=== PATIENT | male | born 1955 | race Caucasian/White ===

== ENCOUNTER 2018-03-20 10:11 | Observation (INO) | payer MEDICARE, SELFPAY ==
[2018-03-20] VITALS (13 sets, daily range): BP systolic 139–171; BP diastolic 80–117; PULSE 73–97; RESP 12–20; TEMP 36.3–36.9; O2SAT 94–98
--- NOTE | 2018-03-20 | DI.NM.S_ITS ---
PROCEDURE: NM [facility] PERF SPECT R&S PHARM Rest and pharmacological stress myocardial perfusion SPECT with gated imaging and ejection fraction RADIOPHARMACEUTICAL: 25.5 mCi Tc-99m tetrafosmin IV at rest and 26.3 mCi Tc-99m tetrafosmin IV at peak effect of pharmacological stress. [id number] was performed. INDICATIONS: chest pain TECHNIQUE: Radiopharmaceutical was injected at peak stress test, and also at rest. SPECT images were obtained. SPECT myocardial perfusion images were displayed in short axis, horizontal long axis, and vertical long axis views. Gated images were reviewed using Audiosocket software. COMPARISON: None. CARDIAC STRESS: A pharmacologic stress test was performed under the supervision of an attending staff, using an infusion of lexiscan 0.4mg IV X1. Hemodynamic data: There is normal blood pressure and heart rate response to pharmacologic stress. Symptoms: The patient denied anginal chest pain. Aminophylline: none EKG: Sinus rhythm with non-specific ST changes. No diagnostic changes of ischemia with lexiscan; no ectopy. FINDINGS: Raw data: There is good myocardial uptake of radiotracer. No significant motion artifacts. Left ventricle function: Gated images demonstrate normal left ventricular wall thickening. No segmental wall motion abnormalities. No transient ischemic dilation. Left ventricle resting end diastolic volume is 99 mL. Left ventricle stress ejection fraction is 68%; normal range is above 45%. Myocardial perfusion: There is a very small area of mildly severe fixed defect at the apex that could be apical thinning artifact or prior small non-transmural infarct. No ischemia present. Prone images not obtained due to patient condition. IMPRESSION: Abnormal pharmaceutical nuclear stress test. No ischemia present. 1) Abnormal pharmaceutical nuclear stress test. There is a very small area of mildly severe fixed defect at the apex that could be apical thinning artifact or prior small non-transmural infarct. SSS is 2. No ischemia present. 2) Normal left ventricular size, wall motion, and systolic function (post stress EF 68%). 3) No ECG evidence of ischemia with lexiscan. 4) No angina with lexiscan. 5) No prior nuclear stress test available for comparison. Dictated by: Lorraine Zuluaga MD on 03/24/2018 at 13:18 Approved by: Lorraine Zuluaga MD on 03/24/2018 at 13:24
--- NOTE | 2018-03-20 | DI.ECHO.S_ITS ---
[facility] +---------+ : : [address] : [place] : : : : [id number] : : : : Phone: [phone] Echocardiogram Report + + :Name: DAISY REYES Study Date: 03/20/2018 Height: 69 in : :[facility] Weight: 215 lb : : Gender: Male BSA: 2.1 m2 : :: 1955 Age: 62 yrs BP: 154/101 mmHg: :Reason For Study: Angina : :History: COPD : :Ordering Physician: Donald : :Hospitalist Performed By: Paz Soto : :Referring: UNSPECIFIED : + + Interpretation Summary Technically difficult study 1. The left ventricle is not optimally visualized, the EF appears grossly normal. 2. Right ventricle is not well visualized. 3. No valves were optimally visualized. With limited assessment of the mitral and aortic valves, there does not appear to be any hemodynamically significant regurgitation or stenosis (by Doppler) There is no old study available for review Procedure: A two-dimensional transthoracic echocardiogram with color flow and Doppler was performed. The study quality was technically limited. Image quality is poor. A contrast injection of Definity was performed to improve assessment of LV function. The patient was in normal sinus rhythm during the exam. The patient had occasional PVCs during the exam. Left Ventricle: The left ventricle is not well visualized. The left ventricular ejection fraction is grossly normal. Even with contrast, difficult to assess for focal wall motion abnormalities. Right Ventricle: Right ventricular function cannot be assessed due to poor image quality. Atria: The left atrial size is normal. Right atrium not well visualized. Mitral Valve: The mitral valve is grossly normal. There is probably trace to mild mitral regurgitation. Aortic Valve: The aortic valve is not well visualized. There is no aortic valve stenosis. No doppler evidence for valvular stenosis. No aortic regurgitation is present. Tricuspid Valve: The tricuspid valve is not well visualized. Pulmonary artery pressures cannot be estimated because of the lack of a measurable TR jet velocity. Pulmonic Valve: The pulmonic valve is not well visualized. Great Vessels: The aortic root is not well visualized. The ascending aorta could not be visualized. The IVC is of normal diameter and collapses greater than 50% with a sniff. This suggests a low right atrial pressure of 3 mm Hg. Pericardium/ Pleura There is no pericardial effusion. MMode/2D Measurements & Calculations LA A2 area: 18.2 cm2 IVC diam: 1.4 cm LA A4 area: 12.8 cm2 LA length (vol): 3.9 cm LA vol: 50.1 ml LA vol index: 23.5 ml/m2 Doppler Measurements & Calculations Ao V2 max: 152.0 cm/sec LVOT Max Oswaldo: 85.9 cm/sec Ao V2 mean: 98.7 cm/sec LV V1 max P.0 mmHg Ao max P.2 mmHg LV V1 VTI: 15.4 cm Ao mean P.6 mmHg sev ratio: 0.66 Ao V2 VTI: 23.5 cm MV E max oswaldo: 61.6 cm/sec MV P1/2t max oswaldo: 61.8 cm/sec MV A max oswaldo: 106.8 cm/sec MVA(P1/2t): 2.9 cm2 MV E/A: 0.58 Med Peak E' Oswaldo: 5.4 cm/sec E/E' med: 11.5 Lat Peak E' Oswaldo: 7.3 cm/sec E/E' lat: 8.5 E/e' average: 10.0 MV dec time: 0.26 sec MV P1/2t: 75.0 msec Reading Physician:WAI
--- NOTE | 2018-03-20 10:35 | DI.RAD.S_ITS ---
PROCEDURE: XR CHEST 2V INDICATIONS: right sided stabbing chest pain x 1 week TECHNIQUE: 2 views of the chest were acquired. COMPARISON: [facility], , CHEST 2 VIEW, 10/07/2014, 7:59. [facility], , CHEST 1 VIEW, 01/08/2015, 10:33. [facility], , CHEST 1 VIEW, 12/22/2015, 15:19. FINDINGS: Surgical changes and devices: Left shoulder arthroplasty hardware is seen. Lungs and pleura: No pleural effusions or pneumothorax. Lungs are clear. The lungs are hyperexpanded, with flattening of the hemidiaphragms seen. Mediastinum: Mediastinal contours are normal. Heart size is normal. Bones and chest wall: No suspicious bony abnormalities. Remote left posterior rib fractures are seen. Age-appropriate bony degenerative changes are seen. Mild dextroconvex scoliotic curvature is seen. Soft tissues appear unremarkable. IMPRESSION: Hyperexpanded lungs, without an acute cardiopulmonary process identified. No right-sided pneumothorax or other significant abnormality can be seen. Dictated by: Karri Merchant M.D. on 03/20/2018 at 9:53 Approved by: Karri Merchant M.D. on 03/20/2018 at 9:54
[2018-03-20] MEDS: ASPIRIN 81 MG TAB 324 MG PO (10:45)
[2018-03-20 10:52] LABS: Add Manual Diff / Slide Review NO; Eosinophils Percent Auto 2.3 % (2-4); Hematocrit 41.1 % (41-53); Hemoglobin 13.9 g/dL (13.5-17.5); Lymphocytes Percent Auto 27.9 % (25-40); Mean Corpuscular HGB Conc 33.9 % (30-36); Mean Corpuscular Hemoglobin 34.5 PG (26-34); Mean Corpuscular Volume 101.9 fL (80-100); Monocytes Percent Auto 10.5 % (3-14); Neutrophils Absolute Auto 4300 /uL (3000-5900); Neutrophils Percent Auto 58.3 % (50-75); Platelet Count 157 X10^3/uL (150-400); Red Blood Cell Count 4.03 X10^6/uL (4.5-5.9); Red Cell Distribution Width 14.2 % (11.6-14.8); White Blood Cell Count 7.4 X10^3/uL (4.5-11.0)
[2018-03-20 10:57] LABS: Prothrombin Time 10.6 SECONDS (10.1-12.7)
[2018-03-20 10:59] LABS: D Dimer 328 ng/mL (<230); PTT Partial Thromboplastin Tim 28 SECONDS (26.4-36.2)
[2018-03-20 11:04] LABS: Alanine Aminotransferase 65 IU/L (21-72); Albumin 4.2 g/dL (3.5-5.0); Albumin Globulin Ratio 1.4 (1.0-2.8); Alkaline Phosphatase 60 U/L (38-126); Aspartate Aminotransferase 81 IU/L (17-59); BUN Creatinine Ratio 12.9 (6-22); Bilirubin Total 0.8 mg/dL (0.2-1.3); Blood Urea Nitrogen 9 mg/dL (9-20); Calcium 9.8 mg/dL (8.4-10.2); Carbon Dioxide 26 mmol/L (22-32); Chloride 101 mmol/L (98-107); Creatine Kinase 815 U/L (55-170); Estimated Glomerular Filt Rate > 60.0 mL/min (>60); Glucose 94 mg/dL (80-110); HEMOLYSIS < 15 (0-50); Lipase 154 U/L (23-300); Potassium 4.2 mmol/L (3.4-5.1); Sodium 141 mmol/L (137-145); Total Protein 7.2 g/dL (6.3-8.2)
--- NOTE | 2018-03-20 11:07 | DI.CT.S_ITS ---
PROCEDURE: CT ANGIO CHEST PE PROTOCOL INDICATIONS: right sided chest pain w/ elevated d-dimer TECHNIQUE: After the administration of intravenous contrast, 2 mm thick sections acquired from the pulmonary apices to the posterior costophrenic angles. 3-dimensional maximum intensity projection (MIP) coronal and sagittal reformats were then acquired through the thorax. For radiation dose reduction, the following was used: automated exposure control, adjustment of mA and/or kV according to patient size. COMPARISON: None. FINDINGS: Image quality: Excellent. Pulmonary arteries: Pulmonary arteries are normal in size, and demonstrate no intraluminal filling defects to suggest central pulmonary embolism. Lungs and pleura: Lungs are clear. No pleural effusions or pneumothorax. Central and peripheral airways are patent. Mediastinum: Heart size is normal, without pericardial effusion. Atherosclerotic calcifications are noted in the aorta, great vessels and the coronary vasculature. No mediastinal or hilar adenopathy. Thoracic aorta is normal in caliber and enhancement. Esophagus is normal in caliber, without hiatal hernia. Bones and chest wall: No suspicious bony lesions. Acute/subacute fracture involving the anterior right fifth rib is noted. Chronic fractures involving the lateral right fifth rib and the posterior-lateral right sixth rib are noted. Spine degenerative disc disease and facet arthropathy.Thyroid gland is within normal limits review. 1.1 cm left axillary lymph node is noted. No supraclavicular adenopathy. Abdomen: Visualized upper abdominal solid organs appear normal in the early arterial phase of enhancement. IMPRESSION: 1. No pulmonary embolus. 2. No acute lung opacities. 3. Atherosclerosis including dense atherosclerotic calcifications of the coronary vasculature. 4. Acute/subacute anterior right fifth rib fracture. 5. Chronic right fifth and sixth rib fractures. 6. Left axillary lymphadenopathy which could be reactive or neoplastic. Dictated by: Maegan Mazariegos MD, PhD on 03/20/2018 at 11:41 Approved by: Maegan Mazariegos MD, PhD on 03/20/2018 at 11:49
[2018-03-20 11:15] LABS: Troponin I 0.014 ng/mL (0.01-0.034)
[2018-03-20 11:20] LABS: CKMB % Relative Index 0.6 % (1.5-5.0); Creatine Kinase MB 5.22 ng/mL (<2.37)
[2018-03-20] MEDS: NITROGLYCERIN 0.4 MG SL TAB SL ×2 (12:20→12:32)
--- NOTE | 2018-03-20 12:38 | PC.NURSE ---
Between [id number] NTG admin. Pt. admin 3 NTG. Pain decreased from 5/10 to 4/10 upon completion. VS remain slightly HTN, pt. HR increases when standing or sitting upright but is otherwise WNL when laying doqwn. PT. only request is food tray.
--- NOTE | 2018-03-20 12:45 | ED.CHESTPAIN ---
HPI - Chest Pain General Chief Complaint: Chest Pain Stated Complaint: chest pains History of Present Illness HPI narrative: HPI 62-year-old male former smoker with HTN and a prior CVA with secondary left sided weakness presents for evaluation of one week of moderate to severe stabbing right-sided substernal chest pain that radiates towards his back is without clear provoking or relieving factors. Patient is without a history of DVT or PE. Takes no aspirin. No prior stress test, no known CAD. M/S/F/SocHx notable for: please see HPI; remainder reviewed with patient and in chart. ROS: Negative constitutional, eye, cardiovascular, pulmonary, GI, , MSK, skin, neurologic, psychiatric, endocrine unless noted in the HPI. Exam HR 92, BP 171/107, RR 20, temperature 97.3?F, SaO2 97% on room air. Gen: Pleasant, non-toxic appearing, resting comfortably. HEENT: NC, AT, PEERL, EOMI. Resp: Clear to auscultation bilaterally, normal work of breathing. Card: RRR with no M/R/G, no crackles in lung bases, no pedal edema, no JVD appreciated. GI: nontender to palpation throughout all quadrants, no epigastric tenderness palpation, no rebound, no guarding. Vascular: Both ankles, calves, and thighs of equal size, no calf tenderness to palpation bilaterally. MSK: No chest wall TTP. Left sided contractures, otherwise no visible deformities with strength and tone within normal limits. Skin: Normal color with no visible lesions. Neuro: AO x 3, no facial asymmetry, vision and hearing WNL. Psych: Mood and affect appropriate. Labs / Imaging (pertinent): WBC 7.4, Hb 13.9, PTT/INR 1.0, Na 141, K 4.2, total bilirubin 0.8, AST 81, ALT 65, alkaline phosphatase 60, lipase 154. troponin 0.014 d-dimer 328 EKG: SR 83 bpm with sinus arrhythmia, proximally [address] elevation aVR with diffuse ~0.[address] depression in leads II, III, V3, V4, V5, V6, nonspecific J-point elevation in V1. ECG compared with prior dated 01/08/15 as well as 12/22/15, no significant change in morphology. CXR: No acute cardiopulmonary disease process. CTA chest: no pulmonary embolus. No acute lung capacities para atherosclerosis including dense atherosclerotic calcifications of the coronary vasculature. Acute/subacute anterior right 5th rib fracture. Chronic right 5th and 6th rib fractures. Left axillary lymphadenopathy which could be reactive or neoplastic. MDM Previous chart, nursing note, and vitals reviewed. A: 62-year-old male former smoker with HTN and a prior CVA with secondary left sided weakness presents for evaluation of one week of moderate to severe stabbing right-sided substernal chest pain that radiates towards his back is without clear provoking or relieving factors. DDx and Evaluation: * ACS - doubt ACS given a non-ischemic EKG and a negative troponin greater than six hours from maximal symptom onset. * UA - unlikely given the atypical history and alternate diagnosis. HEART score value (Hx - 1, EKG - 2, age - 1, risk factors - 2, troponin - 0; 30 day MACE: 12-16.6%). * Pericarditis - consider pericarditis unlikely given the lack of AK segment depressions as well as the absence of diffuse ST-segment elevations, lack of reduction of pain when supine, and lack of a friction rub. * Myocarditis - unlikely given the negative troponin and an EKG without characteristic AK-segment or ST-segment changes. * Dissection - dissection is unlikely given symptoms, and lack of mediastinal widening. While not definitively excluded, no abnormalities were noted on the CTA chest, and further evaluation is deferred to the accepting physician. * PE - Wells' (Signs & Sx of DVT - 0, PE is #1 or equally likelihood - 0, HR > 100 - 0, immobilization of >=3 days or surgery in last 28 days - 0, prior DVT or PE - 0, hemoptysis - 0, malignancy w/ tx in last 6 mo or palliative - 0) 0; as such the patient's positive d-dimer was appropriate for initial risk stratification, this was positive, subsequent CTA without evidence of PE. * Mediastinal Air - no evidence by CXR or auscultation. * Pneumothorax - no evidence by CXR or physical exam. * MSK - doubt given lack of reproducibility on exam. Possible acute rib fractures noted on imaging, no tenderness to palpation in these areas on physical exam. * Endocarditis - no identifiable risk factors, patient afebrile, no new murmurs appreciated on exam; doubt. * GI (Esophageal rupture, GERD) - esophageal rupture effectively excluded given the lack of mediastinal widening, non-toxic appearance, and lack of identifiable risk factors. While not definitively excluded, further evaluation of GERD is deferred to an outpatient setting. ED Course: Patient given ASA and Q5 minutes PRN SL nitroglycerin. Vital signs remained stable and within clinically acceptable limits. Disposition: Admitted for cardiac evaluation. Impression: Chest Pain. (please reference below for remainder of encounter information) Related Data Home Medications Medication Instructions Recorded Confirmed allopurinol 300 mg PO DAILY 03/20/18 03/20/18 lisinopril 20 mg PO DAILY 03/20/18 03/20/18 oxycodone 1 tab PO PRN PRN 03/20/18 03/20/18 Allergies Allergy/AdvReac Type Severity Reaction Status Date / Time No Known Allergies Allergy Uncoded 03/20/18 10:30 [facility] Social History Smoking Status: Former smoker Exam Initial Vital Signs Initial Vital Signs: Vital Signs Temperature 97.3 F L 03/20/18 10:18 Pulse Rate 92 H 03/20/18 10:18 Respiratory Rate 20 03/20/18 10:18 Blood Pressure 171/107 H 03/20/18 10:18 Pulse Oximetry 97 03/20/18 10:18 Course Orders Ordered: ED Orders 03/20/18 10:27 EKG-12 Lead Stat 03/20/18 10:30 Complete Blood Count AUTO DIFF Stat Comprehensive Metabolic Panel Stat D Dimer Stat Lipase Stat Partial Thromboplastin Time Stat Prothrombin Time INR Stat Troponin & CK Cardiac Panel Stat 03/20/18 10:35 XR chest 2V Stat 03/20/18 11:07 CT angio chest PE protocol Stat Nitroglycerin (Nitrostat) 0.4 mg SL [id number] PRN PRN Reason: Chest Pain Last Admin: 03/20/18 12:32 Dose: 0.4 mg Admin: 03/20/18 12:20 Dose: 0.4 mg Discontinued Medications Aspirin (Aspirin Chew) 324 mg PO NOW ONE Stop: 03/20/18 10:36 Last Admin: 03/20/18 10:45 Dose: 324 mg Vital Signs - 8 hr 03/20/18 10:18 03/20/18 11:15 03/20/18 12:00 Temperature 97.3 F L Pulse Rate 92 H 76 77 Respiratory Rate 20 14 13 Blood Pressure 171/107 H Blood Pressure [Left Arm] 140/96 H 146/92 H Pulse Oximetry 97 97 97 03/20/18 12:20 03/20/18 12:24 03/20/18 12:32 Temperature Pulse Rate 97 H 96 H 76 Respiratory Rate Blood Pressure 164/92 H 139/117 H 142/90 H Blood Pressure [Left Arm] Pulse Oximetry 03/20/18 12:37 Temperature Pulse Rate 73 Respiratory Rate Blood Pressure 142/90 H Blood Pressure [Left Arm] Pulse Oximetry MDM - Chest Pain Lab Data Result diagrams: 03/20/18 10:30 03/20/18 10:30 Lab Results 03/20/18 03/20/18 03/20/18 Range/Units 10:30 10:30 10:30 WBC 7.4 (4.5-11.0) X10^3/uL RBC 4.03 L (4.5-5.9) X10^6/uL Hgb 13.9 (13.5-17.5) g/dL Hct 41.1 (41-53) % MCV 101.9 H (80-100) fL MCH 34.5 H (26-34) PG MCHC 33.9 (30-36) % RDW 14.2 (11.6-14.8) % Plt Count 157 (150-400) X10^3/uL Neut % (Auto) 58.3 (50-75) % Lymph % (Auto) 27.9 (25-40) % [place] % (Auto) 10.5 (3-14) % Eos % (Auto) 2.3 (2-4) % Baso % (Auto) 1.0 (0-2) % Neut # (Auto) 4300 (6371-5007) /uL PT 10.6 (10.1-12.7) SECONDS INR 1.0 (0.9-1.3) APTT 28 (26.4-36.2) SECONDS D-Dimer 328 H (<230) ng/mL Sodium 141 (137-145) mmol/L Potassium 4.2 (3.4-5.1) mmol/L Chloride 101 (98-107) mmol/L Carbon Dioxide 26 (22-32) mmol/L BUN 9 (9-20) mg/dL Creatinine 0.70 (0.66-1.25) mg/dL Estimated GFR > 60.0 (>60) mL/min BUN/Creatinine Ratio 12.9 (6-22) Glucose 94 (80-110) mg/dL Calcium 9.8 (8.4-10.2) mg/dL Total Bilirubin 0.8 (0.2-1.3) mg/dL AST 81 H (17-59) IU/L ALT 65 (21-72) IU/L Alkaline Phosphatase 60 (38-126) U/L Total Creatine Kinase 815 H (55-170) U/L CK-MB (CK-2) 5.22 H (<2.37) ng/mL CK-MB (CK-2) Rel Index 0.6 L (1.5-5.0) % Troponin I 0.014 (0.01-0.034) ng/mL Total Protein 7.2 (6.3-8.2) g/dL Albumin 4.2 (3.5-5.0) g/dL Globulin 3.0 (1.7-4.1) g/dL Albumin/Globulin Ratio 1.4 (1.0-2.8) Lipase 154 (23-300) U/L Discharge Plan Departure Prescriptions: No Action lisinopril 20 mg tablet 20 mg PO DAILY RF: 0 allopurinol 300 mg tablet 300 mg PO DAILY RF: 0 oxycodone 5 mg tablet 1 tab PO PRN PRN (Reason: Pain, Severe) RF: 0
--- NOTE | 2018-03-20 14:21 | P.HP_ITS ---
History of Present Illness Date Patient Seen: 03/20/18 Time Patient Seen: 12:45 Chief complaint: chest pains Narrative: This is a 62-year-old male with multiple CV risk factors (former smoker , HTN and a PVD with prior CVA with secondary left sided weakness ) presents with moderate to severe stabbing right-sided substernal chest pain that radiates towards his back without clear provoking or relieving factors. Patient describes pain as stabbing, 6/10 intensity, confined to the right side of the chest with radiation to the back, present for the last week or 2, constant, with no similar episodes in the past. Initial exam and testing was significant for hypertensive vital signs, in a middle-aged male looking older than the stated age. Exam significant for distant breath sounds with faint wheezing , there was a local tenderness on palpation over the right chest. Current EKG reveals nonspecific ST changes, 1st set of troponin level was negative. Patient is getting admitted for further management to ACU to rule out acute coronary syndrome. Patient History Medical History COPD with emphysema (Acute) CVA (cerebral vascular accident) (Acute) Dyslipidemia (Acute) Gout (Acute) Hypertension, malignant (Acute) Peripheral vascular disease (Acute) Surgical History History of appendectomy (Acute) Family & Social History Family History: Reviewed 03/20/18 by Christian Kaufman MD Safety & Behavioral: Feels Safe in Current Yes Environment Been Physically Hurt or No Threatened By a Person Tobacco & Substance use: Smoking Status Former smoker alcohol intake frequency 3 or more drinks per day Substance Use Type marijuana Meds Home Medications Medication Instructions Recorded Confirmed Type allopurinol 300 mg PO DAILY 03/20/18 03/20/18 History lisinopril 20 mg PO DAILY 03/20/18 03/20/18 History oxycodone 1 tab PO PRN PRN 03/20/18 03/20/18 History Allergies Allergy/AdvReac Type Severity Reaction Status Date / Time No Known Allergies Allergy Uncoded 03/20/18 10:30 Review of Systems Review of Systems All systems reviewed & are unremarkable except as noted in HPI and below Exam Vital Signs (past 8 hours): - 03/20/18 10:18 03/20/18 11:15 03/20/18 12:00 Temperature 97.3 F L Pulse Rate 92 H 76 77 Respiratory Rate 20 14 13 Blood Pressure 171/107 H Blood Pressure [Left Arm] 140/96 H 146/92 H Pulse Oximetry 97 97 97 03/20/18 12:20 03/20/18 12:24 03/20/18 12:32 Temperature Pulse Rate 97 H 96 H 76 Respiratory Rate Blood Pressure 164/92 H 139/117 H 142/90 H Blood Pressure [Left Arm] Pulse Oximetry 03/20/18 12:37 03/20/18 13:30 Temperature Pulse Rate 73 93 H Respiratory Rate 19 Blood Pressure 142/90 H Blood Pressure [Left Arm] 143/88 H Pulse Oximetry 96 Oxygen Delivery Method Room Air Narrative Exam Narrative: Constitutional: Well-nourished well-developed ill-appearing male looking older than the stated age. She is alert and oriented x3, appears to be in [id number] distress. HEENT: Unremarkable exam Eyes: EOMI, PERRLA Neck: Supple, no jugular venous distention, no bruits on auscultation of his carotid arteries. Cardiovascular: Distant heart sounds, regular rhythm and rate, no murmur Pulmonary: Distant breath sounds, with mildly extended expiration and distant wheezing. Local tenderness on palpation over the right chest. Abdomen: Soft, nontender, nondistended, bowel sounds present. No discernible organomegaly noted. Extremities: Warm to touch, no edema Skin:warm, well perfused, no lesions noted Neurological: No focal neurological symptoms from cranial nerves 2-12 detected. Objective Imaging ECG: ECG: EKG: SR 83 bpm with sinus arrhythmia, proximally [address] elevation aVR with diffuse ~0.[address] depression in leads II, III, V3, V4, V5, V6, nonspecific J-point elevation in V1. ECG compared with prior dated 01/08/15 as well as 12/22/15, no significant change in morphology. CT scan - chest: Radiologist's impression: CXR: No acute cardiopulmonary disease process. CTA chest: no pulmonary embolus. No acute lung capacities para atherosclerosis including dense atherosclerotic calcifications of the coronary vasculature. Acute/subacute anterior right 5th rib fracture. Chronic right 5th and 6th rib fractures. Left axillary lymphadenopathy which could be reactive or neoplastic. Labs Result Diagrams: 03/20/18 10:30 03/20/18 10:30 Labs: Laboratory Results - last 24 hr 03/20/18 03/20/18 03/20/18 10:30 10:30 10:30 WBC 7.4 RBC 4.03 L Hgb 13.9 Hct 41.1 MCV 101.9 H MCH 34.5 H MCHC 33.9 RDW 14.2 Plt Count 157 Neut % (Auto) 58.3 Lymph % (Auto) 27.9 Page % (Auto) 10.5 Eos % (Auto) 2.3 Baso % (Auto) 1.0 Neut # (Auto) 4300 PT 10.6 INR 1.0 APTT 28 D-Dimer 328 H Sodium 141 Potassium 4.2 Chloride 101 Carbon Dioxide 26 BUN 9 Creatinine 0.70 Estimated GFR > 60.0 BUN/Creatinine Ratio 12.9 Glucose 94 Calcium 9.8 Total Bilirubin 0.8 AST 81 H ALT 65 Alkaline Phosphatase 60 Total Creatine Kinase 815 H CK-MB (CK-2) 5.22 H CK-MB (CK-2) Rel Index 0.6 L Troponin I 0.014 Total Protein 7.2 Albumin 4.2 Globulin 3.0 Albumin/Globulin Ratio 1.4 Lipase 154 Assessment & Plan Plan: Assessment/Plan Narrative: 1. Right-sided chest pain: Most probably secondary to subacute right-sided rib fractures. The patient has significant local tenderness on palpation on the right side, current imaging with acute/subacute anterior right 5th rib fracture.,chronic right 5th and 6th rib fractures. Given that patient has multiple cardiovascular risk factors including established PVD with prior history of CVA, history of prior extensive smoking , hypertension, dyslipidemia, and underlying coronary artery disease is evidence of heavy coronary artery calcification on current imaging decision was made to rule out concurrent acute coronary syndrome. On admission with nonspecific ST changes on EKG, negative set of cardiac enzymes. Start patient on aspirin, statins, short-acting and long-acting nitrates, opiates. IV on as needed basis. Request Medicine cardiac stress test in a.m. 2. Coronary artery disease: As above 3. Hypertension, malignant : resume outpatient blood pressure medications, use IV hydralazine on as-needed basis to maintain blood pressure below 160 mm of mercury. 4. Dyslipidemia: Continue anti-platelet and statin therapy as above. 5. COPD/emphysema: Start breathing treatment with DuoNeb 6. GI prophylaxis: Protonix p.o. 7' DVT prophylaxis: Lovenox SC 8. Code status: Patient is a full code. Time Spent With Patient Time with patient: 25 - 35 minutes
[2018-03-20 15:39] LABS: Troponin I < 0.012 ng/mL (0.01-0.034)
[2018-03-20] MEDS: ENOXAPARIN 40 MG/0.4 ML SYRINGE SUBCUT (16:45)
[2018-03-20] MEDS: NITROGLYCERIN OINT 1 INCH/GM OINT...G. 0.5 INCH TOP (17:31)
[2018-03-20 17:36] LABS: Creatine Kinase 675 U/L (55-170)
[2018-03-20 17:48] LABS: Troponin I 0.013 ng/mL (0.01-0.034)
[2018-03-20 17:51] LABS: CKMB % Relative Index 0.7 % (1.5-5.0); Creatine Kinase MB 4.76 ng/mL (<2.37)
[2018-03-20] MEDS: ALBUTEROL/IPRATROPIUM 3 ML AMPUL INH (18:41)
[2018-03-20] MEDS: MORPHINE 2 MG/ML INJ IV ×3 (19:07→21:41)
[2018-03-20 22:27] LABS: Troponin I 0.014 ng/mL (0.01-0.034)
--- NOTE | 2018-03-20 22:54 | PC.NURSE ---
1515- pst arrived to room 203 from ED via stretcher. A.O x3, 96% RA, LS upper lobes slight wheezy, right LL dim, Hx COPD. Chest pain remains 4/10, was given nitro x3 in ED for 9-10/10 pain at that time. Nitro paste scheduled and placed on right chest @ 1730. Pt C/O 4/10 pain and given morphine 1mg IVP Q-hr x3hrs, currently 3/10 pain. Pt does have right 5th and 6th rib Fx's on x-ray done in ED. Hydralizine 10mg IVP for BP >160. RAC SL. CIWA score-0 both times, CIWA in place for Hx 6+ drinks daily, reported by sister Sallie who is also POA, but stated does not want brother to know she told staff about previous ETOH w/d. Telemetry in place with NSR and NSR PVC's. Using urinal indep.
[2018-03-21] VITALS (10 sets, daily range): BP systolic 134–158; BP diastolic 73–101; PULSE 73–84; RESP 12–19; TEMP 36.6–37; O2SAT 95–98
[2018-03-21] MEDS: SODIUM CHLORIDE 0.9% FLUSH 10 ML IV ×2 (00:04→22:40)
[2018-03-21] MEDS: MORPHINE 2 MG/ML INJ IV ×3 (00:05→19:06)
[2018-03-21] MEDS: ALBUTEROL/IPRATROPIUM 3 ML AMPUL INH ×3 (04:59→13:39)
--- NOTE | 2018-03-21 07:04 | PC.NURSE ---
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 Pt voided a total of 100mls clear dark joão urine overnight, bladder scan of less than 150ml. made aware and new order for IVF. Pt comfortable at this time. Remains NPO.
[2018-03-21 07:42] LABS: Hemoglobin 13.1 g/dL (13.5-17.5); White Blood Cell Count 6.2 X10^3/uL (4.5-11.0)
[2018-03-21 07:43] LABS: Add Manual Diff / Slide Review NO; Basophils Percent Auto 1.4 % (0-2); Eosinophils Percent Auto 3.6 % (2-4); Lymphocytes Percent Auto 43.3 % (25-40); Mean Corpuscular HGB Conc 33.6 % (30-36); Mean Corpuscular Hemoglobin 34.6 PG (26-34); Monocytes Percent Auto 11.3 % (3-14); Neutrophils Percent Auto 40.4 % (50-75); Platelet Count 110 X10^3/uL (150-400); Red Cell Distribution Width 13.9 % (11.6-14.8)
[2018-03-21 07:44] LABS: Hematocrit 39.1 % (41-53); Neutrophils Absolute Auto 2500 /uL (3000-5900)
[2018-03-21 08:20] LABS: Thyroid Stimulating Hormone 6.61 uIU/mL (0.47-4.68)
[2018-03-21 08:40] LABS: BUN Creatinine Ratio 13.8 (6-22); Blood Urea Nitrogen 11 mg/dL (9-20); Calcium 9.3 mg/dL (8.4-10.2); Carbon Dioxide 29 mmol/L (22-32); Chloride 98 mmol/L (98-107); Estimated Glomerular Filt Rate > 60.0 mL/min (>60); Glucose 92 mg/dL (80-110); HEMOLYSIS 17 (0-50); Potassium 3.8 mmol/L (3.4-5.1); Sodium 138 mmol/L (137-145)
[2018-03-21] MEDS: ENOXAPARIN 40 MG/0.4 ML SYRINGE SUBCUT (08:44)
[2018-03-21] MEDS: SODIUM CHLORIDE 0.9% 1,000 ML 125 ML IV ×2 (08:44→16:49)
[2018-03-21] MEDS: ASPIRIN EC 81 MG TABLET PO (08:45)
[2018-03-21] MEDS: NITROGLYCERIN OINT 1 INCH/GM OINT...G. 0.5 INCH TOP ×2 (08:45→16:00)
[2018-03-21] MEDS: LISINOPRIL 20 MG TABLET PO (08:45)
[2018-03-21] MEDS: ALLOPURINOL 300 MG TABLET PO (08:45)
[2018-03-21 08:51] LABS: Troponin I 0.018 ng/mL (0.01-0.034)
[2018-03-21 09:05] LABS: Magnesium 1.5 mg/dL (1.6-2.3)
--- NOTE | 2018-03-21 11:49 | PC.NURSE ---
Addendum entered by Verito Robbins R.N. 03/21/18 14:19: Pt resting comfortably and denies pain. Voided 125cc earlier. Pt is going to try and use urinal again. No other needs at this time. Original Note: Pt is calm and cooperative. Ciwa score is O. Using the urinal at bedside. BS decreased throughout, Mid 90s on RA. Pt has some deficit to l.side from a previous CVA. He states that he was able to sleep last night and feels better today. He denies chest pain and NS at 125cc/hr started this morning. Pt remains NPO and is resting comfortably.
--- NOTE | 2018-03-21 16:02 | P.PN_ITS ---
Subjective Date Patient Seen: 03/21/18 Time Patient Seen: 10:30 Interval history: This is a 62-year-old male with multiple CV risk factors ( former smoker , HTN and a PVD with prior CVA with secondary left sided weakness )presents with moderate to severe stabbing right-sided substernal chest pain that radiates towards his back without clear provoking or relieving factors. Patient describes pain as stabbing, 6/10 intensity, confined to the right side of the chest with radiation to the back, present for the last week or 2, constant, with no similar episodes in the past. Initial exam and testing was significant for hypertensive vital signs, in a middle-aged male looking older than the stated age. Exam was significant for distant breath sounds with faint wheezing , with a local tenderness on palpation over the right lower rib cage. Admission EKG reveals nonspecific ST changes, 1st set of troponin level was negative. Exam Vital Signs (past 8 hours): - 03/21/18 08:24 03/21/18 10:26 03/21/18 11:40 Temperature 97.9 F 97.9 F Pulse Rate 84 73 82 Respiratory Rate 17 13 19 Blood Pressure 134/91 H 150/73 H Pulse Oximetry 96 96 96 03/21/18 13:39 Temperature Pulse Rate 76 Respiratory Rate 12 Blood Pressure Pulse Oximetry 96 Oxygen Delivery Method Room Air Oxygen Flow Rate 0 Narrative Exam Narrative: Constitutional: Well-nourished well-developed ill-appearing male looking older than the stated age. She is alert and oriented x3, appears to be in [id number] distress. HEENT: Unremarkable exam Eyes: EOMI, PERRLA Neck: Supple, no jugular venous distention, no bruits on auscultation of his carotid arteries. Cardiovascular: Distant heart sounds, regular rhythm and rate, no murmur Pulmonary: Distant breath sounds, with mildly extended expiration and distant wheezing. Local tenderness on palpation over the right chest. Abdomen: Soft, nontender, nondistended, bowel sounds present. No discernible organomegaly noted. Extremities: Warm to touch, no edema Skin:warm, well perfused, no lesions noted Neurological: No focal neurological symptoms from cranial nerves 2-[address] scan - chest: Radiologist's impression: IMPRESSION: 1. No pulmonary embolus. 2. No acute lung opacities. 3. Atherosclerosis including dense atherosclerotic calcifications of the coronary vasculature. 4. Acute/subacute anterior right fifth rib fracture. 5. Chronic right fifth and sixth rib fractures. 6. Left axillary lymphadenopathy which could be reactive or neoplastic. Dictated by: Maegan Mazariegos MD, PhD on 03/20/2018 at 11:41 Approved by: Maegan Mazariegos MD, PhD on 03/20/2018 at 11:49 Echocardiogram: Radiologist's impression: Interpretation Summary Technically difficult study 1. The left ventricle is not optimally visualized, the EF appears grossly normal. 2. Right ventricle is not well visualized. 3. No valves were optimally visualized. With limited assessment of the mitral and aortic valves, there does not appear to be any hemodynamically significant regurgitation or stenosis (by Doppler) Reading Physician:PM There is no old study available for review Labs Result Diagrams: 03/21/18 05:53 03/21/18 05:53 Labs: Laboratory Results - last 24 hr 03/20/18 03/20/18 03/20/18 17:12 17:12 22:00 WBC RBC Hgb Hct MCV MCH MCHC RDW Plt Count Neut % (Auto) Lymph % (Auto) [place] % (Auto) Eos % (Auto) Baso % (Auto) Neut # (Auto) Sodium Potassium Chloride Carbon Dioxide BUN Creatinine Estimated GFR BUN/Creatinine Ratio Glucose Calcium Magnesium Total Creatine Kinase 675 H CK-MB (CK-2) 4.76 H CK-MB (CK-2) Rel Index 0.7 L Troponin I 0.013 Cancelled 0.014 TSH 03/21/18 03/21/18 03/21/18 05:53 05:53 05:53 WBC 6.2 RBC 3.80 L Hgb 13.1 L Hct 39.1 L MCV 103.0 H MCH 34.6 H MCHC 33.6 RDW 13.9 Plt Count 110 L Neut % (Auto) 40.4 L Lymph % (Auto) 43.3 H [place] % (Auto) 11.3 Eos % (Auto) 3.6 Baso % (Auto) 1.4 Neut # (Auto) 2500 L Sodium 138 Potassium 3.8 Chloride 98 Carbon Dioxide 29 BUN 11 Creatinine 0.80 Estimated GFR > 60.0 BUN/Creatinine Ratio 13.8 Glucose 92 Calcium 9.3 Magnesium 1.5 L Total Creatine Kinase CK-MB (CK-2) CK-MB (CK-2) Rel Index Troponin I 0.018 TSH 6.61 H Assessment & Plan Plan: Assessment/Plan Narrative: 1. Right-sided chest pain: Most probably secondary to subacute right-sided rib fractures. The patient has significant local tenderness on palpation over the right rib cage, admission imaging with acute/subacute anterior right 5th rib fracture.,chronic right 5th and 6th rib fractures. Given that patient has multiple cardiovascular risk factors including established PVD with prior history of CVA, history of prior extensive smoking , hypertension, dyslipidemia, and underlying coronary artery disease is evidence of heavy coronary artery calcification on current imaging decision was made to rule out concurrent acute coronary syndrome. On admission with nonspecific ST changes on EKG, negative set of cardiac enzymes. Start patient on aspirin, statins, short-acting and long-acting nitrates, opiates. IV on as needed basis. Pending Nuclear Medicine cardiac stress test in scheduled for a.m. 2. Coronary artery disease: As above 3. Hypertension, malignant : resume outpatient blood pressure medications, use IV hydralazine on as-needed basis to maintain blood pressure below 160 mm of mercury. 4. Dyslipidemia: Continue anti-platelet and statin therapy as above. 5. COPD/emphysema: No obvious signs of exacerbation. Patient on breathing treatment with DuoNeb on as needed basis. 6. GI prophylaxis: Protonix p.o. 7' DVT prophylaxis: Lovenox SC 8. Code status: Patient is a full code. 9. Dispositon: anticipate possible discharge home in AM. Time Spent With Patient Time with patient: 25 - 35 minutes Quality VTE Deep Vein Thrombosis/Pulmonary Embolism Present on Admission: No
--- NOTE | 2018-03-21 16:53 | PC.NURSE ---
1600- Nitro-bid paste placed to left upper chest, 0.5 per orders. rates pain 2/10 at this time, 145/92, 78, 97%RA. Lying in bed watching TV.
[2018-03-22] VITALS (11 sets, daily range): BP systolic 146–172; BP diastolic 82–97; PULSE 64–84; RESP 16–20; TEMP 36.4–37.3; O2SAT 95–98
[2018-03-22] MEDS: SODIUM CHLORIDE 0.9% 1,000 ML 125 ML IV ×3 (01:02→19:15)
[2018-03-22 06:18] LABS: Add Manual Diff / Slide Review NO; Eosinophils Percent Auto 4.8 % (2-4); Hematocrit 35.6 % (41-53); Hemoglobin 12.1 g/dL (13.5-17.5); Lymphocytes Percent Auto 27.9 % (25-40); Mean Corpuscular Hemoglobin 34.4 PG (26-34); Mean Corpuscular Volume 101.4 fL (80-100); Monocytes Percent Auto 9.7 % (3-14); Neutrophils Absolute Auto 3000 /uL (3000-5900); Neutrophils Percent Auto 56.6 % (50-75); Platelet Count 91 X10^3/uL (150-400); Red Blood Cell Count 3.51 X10^6/uL (4.5-5.9); Red Cell Distribution Width 13.8 % (11.6-14.8); White Blood Cell Count 5.3 X10^3/uL (4.5-11.0)
[2018-03-22 06:30] LABS: BUN Creatinine Ratio 12.9 (6-22); Blood Urea Nitrogen 9 mg/dL (9-20); Carbon Dioxide 30 mmol/L (22-32); Chloride 102 mmol/L (98-107); Estimated Glomerular Filt Rate > 60.0 mL/min (>60); Glucose 87 mg/dL (80-110); HEMOLYSIS < 15 (0-50); Magnesium 1.4 mg/dL (1.6-2.3); Potassium 4.1 mmol/L (3.4-5.1); Sodium 137 mmol/L (137-145)
[2018-03-22] MEDS: MORPHINE 2 MG/ML INJ IV ×2 (06:30→13:55)
--- NOTE | 2018-03-22 09:17 | PM.TREADMILL ---
Cardiac Stress Test Report Referral & Results Date Patient Seen: 03/22/18 Time Patient Seen: 09:17 Indication: Chest pain/unstable angina Rest ECG: Unremarkable Procedure Note: After both written and verbal informed consent the patient had an IV started by the diagnostic imaging RN and then was hooked up to the treadmill monitoring system. The patient was then injected with the Mandi scan material. The Cardiolite was then immediately administered. The patient spent an additional 3 minutes under observation connected to the monitoring system. He experienced some mild dizziness that resolved within 3-5 minutes as well as some tightness in the chest that was slowly resolving but still present as he was taken for his imaging study. Impression: Typical/normal response to infused materials Perfusion imaging will be reported separately Please note: Actual ECG tracings can be found in the PACS system.
--- NOTE | 2018-03-22 09:27 | CM.DANOTE ---
Discharge Planning/Care ManagemLate DCP: assessment: late entry for 03/21: Case received and met yesterday with pt at 0800. Introduced self and role. Pt is a 62 year old male who admitted to care of hospitalist team 03/20 afternoon. PCP: Dr. Mendoza Payer: Medicare and Medicaid Pt does live by himself, has support from his sister Sallie who also lives in [place]. Workup in process. Follow prn for any d/c needs that may arise. CM Discharge Assessment Start: 03/22/18 09:19 Freq: Status: Active Protocol: Document 03/22/18 09:20 ITV (Rec: 03/22/18 09:26 ITV [id number]) Discharge Planning Assessment Advance Directives? No History Provided By Patient Medical Record Prior Living Arrangements House Household Members none Is patient alert and oriented? Yes Discharge Plan Home Transportation Arrangement says his sister Sallie will pick him up at d/c Additional Comment Discussion in team rounds indicates that pt will likely go home if stress test proves to be ok. Whiteboard Updated in Patient Room with Yes name and ext. 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
--- NOTE | 2018-03-22 09:52 | CM.DPC ---
DCP: continued: Case discussed this morning with Dr. Gold in Team Rounds. He confirms pt is having a stress test today and will d/c to home afterwards if all is well.
[2018-03-22] MEDS: NITROGLYCERIN OINT 1 INCH/GM OINT...G. 0.5 INCH TOP ×2 (10:56→14:54)
[2018-03-22] MEDS: LISINOPRIL 20 MG TABLET PO (10:56)
[2018-03-22] MEDS: ASPIRIN EC 81 MG TABLET PO (10:56)
[2018-03-22] MEDS: ALLOPURINOL 300 MG TABLET PO (10:56)
[2018-03-22] MEDS: ENOXAPARIN 40 MG/0.4 ML SYRINGE SUBCUT (10:56)
[2018-03-22] MEDS: ALBUTEROL/IPRATROPIUM 3 ML AMPUL INH (13:18)
--- NOTE | 2018-03-22 14:06 | PC.NURSE ---
Pt had stress test earlier this morning and back. Put back on a heart healthy diet and tolerating food well. Pt just complained of 4/10 chest pain and given 2mg of iv morphine. Dr. Gold informed and gave order for one time dose of Morphine. Pt states that his chest pain is better now. Sitting on the side of bed and watching tv.
--- NOTE | 2018-03-22 16:03 | P.PN_ITS ---
Subjective Date Patient Seen: 03/22/18 Time Patient Seen: 16:02 Interval history: ADMITTED YESTERDAY WITH CHEST PAIN HE HAS FRACTURES OF RIB 5 ON THE RIGHT SIDE ANTERIORLY WELL CHRONIC FRACTURES 5 6 CHEST X-RAY REPORTS LEFT-SIDED RIB FRACTURE POSTERIORLY CT OF THE CHEST ALSO REPORTS AXILLARY LYMPHADENOPATHY ON THE LEFT SIDE PATIENT IS IN PAIN ANYWHERE WE TOUCH HIM DOES NOT COMPLAIN OF ANY COUGH OR DYSPNEA PREVIOUS HISTORY OF STROKE WITH LEFT-SIDED FOOTDROP HISTORY OF LEFT SHOULDER SURGERY Exam Vital Signs (past 8 hours): - 03/22/18 08:27 03/22/18 12:01 03/22/18 13:18 Temperature 98.7 F 97.6 F Pulse Rate 82 84 81 Respiratory Rate 16 18 Blood Pressure 151/97 H 163/97 H Pulse Oximetry 95 97 96 03/22/18 15:34 Temperature 99.0 F Pulse Rate 64 Respiratory Rate 20 Blood Pressure 149/89 H Pulse Oximetry 98 Oxygen Delivery Method Room Air Oxygen Flow Rate 0 Const General: cooperative and disheveled Orientation: alert, awake and oriented x3 HENMT Head: normal to inspection, normocephalic and atraumatic Ears: hearing grossly normal bilaterally Nose: external nose normal Face and sinus: normal facial exam Eyes Visual Jung: normal visual jung by confrontation Eyelids: eyelids normal Conjunctivae: conjunctivae normal Sclera: sclerae normal Pupils: PERRL EOM: EOM intact bilaterally Chest Chest: normal inspection of the chest Breast Palpation: axillary lymphadenopathy (CLINICALLY BUT CT REPORT 1 CM NODE) Resp Effort & Inspection: normal respiratory effort and able to speak in complete sentences Auscultation: bronchovesicular breath sounds Cardio Palpation: normal PMI Rate: regular rate Rhythm: regular rhythm Heart Sounds: S1 normal and S2 normal GI Inspection: normal to inspection Palpation: soft and no hepatosplenomegaly Neuro General: alert, awake and oriented x3 Cranial Nerves: CN's II-XI intact bilaterally Cognition: normal cognition Speech: speech normal Motor: other (lt le foot drop) Extrem Other: foot drop lt Psych Mental Status: mental status grossly normal Mood: congruent mood Affect: normal affect Attitude: cooperative Thought Content: normal Judgment: judgment good Objective Labs Result Diagrams: 03/22/18 05:44 03/22/18 05:44 Labs: Laboratory Results - last 24 hr 03/22/18 03/22/18 05:44 05:44 WBC 5.3 RBC 3.51 L Hgb 12.1 L Hct 35.6 L MCV 101.4 H MCH 34.4 H MCHC 34.0 RDW 13.8 Plt Count 91 L Neut % (Auto) 56.6 Lymph % (Auto) 27.9 [place] % (Auto) 9.7 Eos % (Auto) 4.8 H Baso % (Auto) 1.0 Neut # (Auto) 3000 Sodium 137 Potassium 4.1 Chloride 102 Carbon Dioxide 30 BUN 9 Creatinine 0.70 Estimated GFR > 60.0 BUN/Creatinine Ratio 12.9 Glucose 87 Calcium 8.0 L Magnesium 1.4 L Assessment & Plan Plan: Assessment/Plan Narrative: 1. Chest pain with no association of the anything making it worse is tender all over the body Echocardiogram shows probably good LV function though technically not a good study and so you could not be calculated his interpretation of the teacher advisor' s reading the echo Stress test report is pending will give him pain control for now 2.Rib fractures both old and new 3. Emphysema firm chest x-ray report 4. Left axillary lymphadenopathy with no tenderness fever chills or rigors 5.History of the stroke with left-sided lower extremity weakness and footdrop Time Spent With Patient Time with patient: 25 - 35 minutes Quality VTE Deep Vein Thrombosis/Pulmonary Embolism Present on Admission: No
--- NOTE | 2018-03-22 16:56 | PC.NURSE ---
1630- Dr Godl in to see pt, no reports back on the stress stest as of yet. informed pt, prob DC tomorrow. Pt rates pain 2/10, denies nausea and SOB. 98% RA, LS clear. Using urinal to void indep, permanent left calf brace in shoe, and must wear when walking, otherwise uses electric scooter for mobility. Call light in reach.
[2018-03-22] MEDS: HYDROCODONE/ACET 5/325 TABLET PO (19:51)
[2018-03-22] MEDS: HYDRALAZINE 20 MG/ML VIAL 10 MG IV (19:52)
[2018-03-23] VITALS (8 sets, daily range): BP systolic 140–162; BP diastolic 55–98; PULSE 72–85; RESP 16–20; TEMP 36.7–37.2; O2SAT 96–98
[2018-03-23] MEDS: PANTOPRAZOLE 40 MG TABLET PO (07:07)
[2018-03-23] MEDS: ENOXAPARIN 40 MG/0.4 ML SYRINGE SUBCUT (08:26)
[2018-03-23] MEDS: LISINOPRIL 20 MG TABLET PO (08:26)
[2018-03-23] MEDS: SODIUM CHLORIDE 0.9% FLUSH 10 ML IV ×2 (08:26→20:56)
[2018-03-23] MEDS: NITROGLYCERIN OINT 1 INCH/GM OINT...G. 0.5 INCH TOP ×2 (08:27→16:05)
[2018-03-23] MEDS: ASPIRIN EC 81 MG TABLET PO (08:27)
[2018-03-23] MEDS: ALLOPURINOL 300 MG TABLET PO (08:27)
[2018-03-23] MEDS: HYDROCODONE/ACET 5/325 TABLET PO ×3 (10:14→22:21)
--- NOTE | 2018-03-23 11:52 | CM.DPC ---
DCP Cont: Spoke to daughter, Sara. Stated that patient lives in [facility], and is concerned about his place of residency. Stated that he is on the waiting list for [facility], and another facility. Updated her on status of patient, that he is getting his second stress test today, and will determine if he can return home today. Patient uses an electric wheel-chair, which is his prime mobility. Asked her about transport back home, and she stated that he has some friends that he can call. Asked her if patient utilized any services such as Meals on Wheels, but stated that he has declined this service. P: Patient is to return home depending on results of second stress test. Serene Leahy RN/Wearing Apparel Assembler
--- NOTE | 2018-03-23 13:36 | PC.NURSE ---
SHIFT SUMMARY: PATIENT DENIES CP ALL SHIFT, GIVEN NORCO FOR RIGHT SIDED RIBCAGE PAIN. PATIENT HAS COMPLETED SECOND PART OF NUC MED STRESS TEST TODAY. AWAITING RESULTS. DENIES FURTHER NEEDS.
--- NOTE | 2018-03-23 17:29 | P.PN_ITS ---
Subjective Date Patient Seen: 03/23/18 Time Patient Seen: 15:25 Interval history: Admitted with right-sided chest pain with a history previously of CVA at the time of admission he was thought to have possible angina and was treated with nitrates aspirin Still complains of pain along the left side more near the axilla He also complains of pain in the right side very hesitant fractures Does not complain of any shortness of breath or palpitations His echocardiogram was technically limited study and ejection fraction could not be commented upon by the mobile application engineer reviewed His cardiac stress test report is still pending Exam Vital Signs (past 8 hours): - 03/23/18 10:16 03/23/18 12:25 03/23/18 15:32 Temperature 99 F 98.7 F Pulse Rate 79 72 83 Respiratory Rate 16 18 Blood Pressure 162/89 H 143/83 H Pulse Oximetry 96 97 03/23/18 16:05 Temperature Pulse Rate 78 Respiratory Rate Blood Pressure 156/98 H Pulse Oximetry Oxygen Delivery Method Room Air Oxygen Flow Rate 0 Const General: cooperative and healthy appearing Orientation: alert, awake and oriented x3 HENMT Head: normal to inspection Ears: hearing grossly normal bilaterally Nose: external nose normal Face and sinus: normal facial exam Eyes General: appearance normal, both eyes and all related structures Eyelids: eyelids normal Conjunctivae: conjunctivae normal Sclera: sclerae normal Pupils: PERRL EOM: EOM intact bilaterally Neck Neck: normal visual inspection Thyroid: thyroid normal Resp Effort & Inspection: normal respiratory effort, no respiratory distress and no use of accessory muscles Auscultation: clear to auscultation bilaterally Cardio Palpation: normal PMI Rate: regular rate Rhythm: regular rhythm Heart Sounds: S1 normal and S2 normal GI Inspection: normal to inspection Palpation: soft and no hepatosplenomegaly Skin General: no rashes or lesions noted Neuro General: alert, awake and oriented x3 Cranial Nerves: CN's II-XI intact bilaterally Cognition: normal cognition Speech: speech normal Motor: other (LT FOOT DROP) Objective Labs Result Diagrams: 03/22/18 05:44 03/22/18 05:44 Assessment & Plan Plan: Assessment/Plan Narrative: 1. CHEST PAIN LIKELY MUSCULOSKELETAL HOWEVER WITH UNDERLYING HISTORY OF CVA CARDIAC ETIOLOGY HAS TO BE RULED OUT AND CARDIAC STRESS TEST REPORT IS PENDING THE MEANTIME THE PATIENT IS ON STATIN NITRATES ASPIRIN 2. HYPERTENSION ON MEDICATIONS 3. DYSLIPIDEMIA ON SIMVASTATIN 4. CORONARY ARTERY DISEASE ON ASPIRIN AND NITRATES 5. GI PROPHYLAXIS WITH PROTONIX 6. DVT PROPHYLAXIS WITH LOVENOX 25- 35 MIN WAS SPENT ON THIS FOLLOW-UP Quality VTE Deep Vein Thrombosis/Pulmonary Embolism Present on Admission: No
[2018-03-23] MEDS: SIMVASTATIN 20 MG TABLET PO (20:55)
--- NOTE | 2018-03-23 21:55 | PC.NURSE ---
SHIFT NOTE A&Ox3, pleasant and cooperative. denies chest pain or shortness of breath. c/o R sided pain to ribs, rated 4/10. telemetry monitoring shows SR. call light within reach.
[2018-03-24 06:00] VITALS: BP 154/82; PULSE 83; RESP 18; TEMP 37; O2SAT 97
[2018-03-24 07:50] VITALS: BP 163/117; PULSE 76; RESP 20; TEMP 36.9; O2SAT 98
[2018-03-24] MEDS: ENOXAPARIN 40 MG/0.4 ML SYRINGE SUBCUT (09:28)
[2018-03-24] MEDS: ASPIRIN EC 81 MG TABLET PO (09:28)
[2018-03-24] MEDS: LISINOPRIL 20 MG TABLET PO (09:28)
[2018-03-24] MEDS: ALLOPURINOL 300 MG TABLET PO (09:29)
[2018-03-24] MEDS: HYDROCODONE/ACET 5/325 TABLET PO (09:29)
[2018-03-24] MEDS: NITROGLYCERIN OINT 1 INCH/GM OINT...G. 0.5 INCH TOP (09:30)
[2018-03-24] MEDS: SODIUM CHLORIDE 0.9% FLUSH 10 ML IV (09:30)
[2018-03-24 11:30] VITALS: BP 151/98; PULSE 74; RESP 22; TEMP 37.1; O2SAT 97
--- NOTE | 2018-03-24 12:23 | P.DS_ITS ---
History of Present Illness Chief complaint: chest pains Discharge Providers Date of admission: 03/20/18 12:48 Primary care physician: Chad Mendoza MD Discharge provider: Stiven Black MD Summary Discharge Diagnosis: 1. Right-sided chest pain subacute rib fracture 2. Dyslipidemia a statin started this admission 3. History of CVA with left-sided lower extremity weakness 4. Peripheral vascular disease 5. Possible Coronary artery disease nuclear medicine stress perfusion scan report shows a very small apical defect which could be just an artifact No evidence of reversible ischemia seen 6. Hypertension on lisinopril the dose may need to be adjusted upwards Hospital Course: This is a pleasant gentleman with a history of previous strokes CVA left-sided weakness was admitted with pain mostly on the right side of his chest he has a subacute fractures of the rib he denies drinking alcohol he says he stopped smoking tobacco about 8 months ago He has underlying: Hypertension dyslipidemia and peripheral vascular disease his workup for coronary artery disease and the nuclear medicine perfusion scan reports very small apical defect which could be an artifact or possible infarct but no evidence of reversible ischemia was seen the report was as communicated to me in person by Dr. Zuluaga the glass unloading equipment tender Patient uses left ankle brace for his foot drop and is able to get around with that Status at Discharge Functional status at discharge: independent ambulation Overall status at discharge: patient is back to baseline Time Spent with Patient Greater than 30 minutes Exam Vital Signs (past 8 hours): - 03/24/18 06:00 03/24/18 07:50 03/24/18 11:30 Temperature 98.6 F 98.4 F 98.7 F Pulse Rate 83 76 74 Respiratory Rate 18 20 22 Blood Pressure 154/82 H 163/117 H 151/98 H Pulse Oximetry 97 98 97 Oxygen Delivery Method Room Air Oxygen Flow Rate 0 Objective Labs Result Diagrams: 03/22/18 05:44 03/22/18 05:44 Discharge Plan Discharge Plan Patient Disposition: Home Provider Discharge Instructions Diet: Low-fat Activity: ad debbie Discharge Data Primary Care Provider: Chad Mendoza Attending Provider: Christian Kaufman Admit Date/Time: 03/20/18 12:48 Quality VTE Deep Vein Thrombosis/Pulmonary Embolism Present on Admission: No
--- NOTE | 2018-03-24 14:17 | PC.NURSE ---
patient cleared by md to go home. discussed elevated blood pressure readings w/ md. he has asked patient to discuss this with dr. dill at f/u appt. re-inforced this w/ patient during dc instructions. scripts to patient with teaching for rational. reviewed s/sx's of cva and risk factors. handouts provided. instructed to call 911 for emergency. patient's friend picked him up and patient left by [facility] 1p assist to transf to vehicle. left in no s/sx's of distress w/ all belongings.
== END 2018-03-24 13:45 | disposition home or self-care (01) ==
LOC: ED 12:46 → AC 14:29
PROVIDERS: Admitting Provider Hospitalist; Emergency Provider Emergency Medicine; PCP Internal Medicine; Visit Provider Hospitalist
DX: R07.89 Other chest pain (principal); S22.41XA Multiple fractures of ribs, right side, initial encounter for closed fracture; I69.354 Hemiplegia and hemiparesis following cerebral infarction affecting left non-dominant side; I73.9 Peripheral vascular disease, unspecified; E78.5 Hyperlipidemia, unspecified; I25.10 Atherosclerotic heart disease of native coronary artery without angina pectoris; J44.9 Chronic obstructive pulmonary disease, unspecified; Z87.891 Personal history of nicotine dependence; I10 Essential (primary) hypertension
CPT/HCPCS: 36415; 36591; 71046; 71275; 78452; 80048; 80053; 82550; 82553; 83690; 83735; 84443; 84484; 85025; 85379; 85610; 85730; 93005; 93010; 93016; 93017; 93018; 93306; 94640; 99283; 99285; G0378; A9502; J0360; J1650; J2270; J2785; Q9957

== ENCOUNTER 2018-06-09 09:40 | Inpatient (IN) | payer MEDICARE, MEDICAID, SELFPAY ==
[2018-06-09] VITALS (9 sets, daily range): BP systolic 157–182; BP diastolic 93–148; PULSE 69–87; RESP 16–18; TEMP 36.6–37.2; O2SAT 96–99; BMI 29.5
--- NOTE | 2018-06-09 | DI.MRI.S_ITS ---
PROCEDURE: MR STROKE Pre- and post-contrast brain MRI, non-contrast brain MR angiogram, pre- and postcontrast neck MR angiogram INDICATIONS: cva TECHNIQUE: Brain: Noncontrast axial T1 spin echo, axial T2 fast spin echo, sagittal and axial FLAIR, coronal T2 fast spin echo, axial gradient echo, axial diffusion and ADC through the brain. After the administration of contrast, axial 3D VIBE of the cranial vasculature and brain. Brain MRA: Non-contrast 3-D time of flight MR angiogram, with multiple buppcjn-mfkogkpbu-tscscpzadh (MIP) reformats performed. Neck MRA: Axial and sagittal TruFISP through the neck. Coronal dynamic MR angiogram during administration of contrast in the arterial and venous phases, with 3-dimenstional zgdsuve-rmpxdqvmz-inelclvfkn (MIP) reformats constructed from subtraction images. COMPARISON: [facility], CT, CT HEAD/BRAIN WO CON, 06/09/2018, 9:35. [facility], MR, STROKE PROTOCOL, 03/04/2014, 7:09. FINDINGS: Image quality: Motion is present on multiple sequences, limiting areas of fine detail evaluation. BRAIN: The ventricular system and cortical sulci demonstrate atrophy, consistent for the patient's stated age. There are areas of increased T2/FLAIR signal intensity within the periventricular and subcortical white matter. There is no acute intra-or extra axial fluid collection. No acute hemorrhage, mass lesion or midline shift. Brainstem is unremarkable. There are no areas of restricted diffusion. Globes are symmetrical. Sinuses are aerated. There is prominent left mastoid airs of fluid. Osseous structures are intact. BRAIN MR ANGIOGRAM: Anterior circulation: Intracranial internal carotid arteries are normal in size and enhancement. The flow within the paired anterior cerebral arteries is normal and symmetric. The flow within the middle cerebral arteries is normal and symmetric. The anterior communicating artery is seen. No stenoses, occlusions, or aneurysms. Posterior circulation: There is a left vertebral artery dominance. The distal aspect of the right vertebral artery is markedly atretic with diminutive signal. This is new compared to 2013. The flow within the posterior cerebral arteries is normal and symmetric. No stenoses, occlusions, or aneurysms. There is persistent circulation on the right. NECK MR ANGIOGRAM: The origins of the left and right common, internal and external carotid arteries demonstrate no areas of hemodynamically significant stenosis, vascular occlusion or aneurysmal dilation. Portion of the right vertebral artery is obscured secondary to motion. Origin of the left vertebral artery is unremarkable. Aortic arch demonstrates conventional anatomy. Limited, visualized portions subclavian vasculature are unremarkable. IMPRESSION: 1. No acute intracranial process. 2. Moderate atrophy and chronic microvascular ischemic changes. 3. Markedly atretic and loss of signal within the distal aspect of the right vertebral artery since 2013. This could represent slow flow versus distal occlusion. Dictated by: Sol Marquez M.D. on 06/09/2018 at 21:48 Approved by: Sol Marquez M.D. on 06/09/2018 at 21:57
--- NOTE | 2018-06-09 09:44 | ED.AMS ---
HPI - Altered Mental Status General Chief Complaint: Neuro Symptoms/Deficit Stated Complaint: Stroke Time Seen by Provider: 06/09/18 09:41 Source: patient and EMS Mode of arrival: EMS Limitations: no limitations History of Present Illness HPI narrative: [id number] smoker presents to the emergency department by EMS with a chief complaint of trouble with speech that started sometime this morning. The patient went to bed at 9:00 p.m. at is normal state of health and woke up this morning at about 4:00 a.m., per the patient and noted at that point time he had trouble with forming words but this is not verified. He went to a social club this morning and they noted he had trouble forming words and thoughts. There are no other obvious focal neurologic findings such as numbness, weakness or tingling. He has had no facial deficit. His symptoms seem improved prior to his arrival for the medics description. He denies any recent injury. He has never had a stroke or a TIA. MD complaint: other Onset (ago): hour(s) Timing confirmed by: other Severity: moderate Consistency of symptoms: unknown Context: alcohol abuse Related Data Home Medications Medication Instructions Recorded Confirmed allopurinol 300 mg PO DAILY 03/20/18 03/20/18 lisinopril 20 mg PO DAILY 03/20/18 06/09/18 oxycodone 5 mg PO PRN PRN 06/09/18 06/09/18 Previous Rx's Medication Instructions Recorded aspirin 81 mg PO DAILY #30 tab 03/24/18 simvastatin 20 mg PO BEDTIME #30 tab 03/24/18 Allergies Allergy/AdvReac Type Severity Reaction Status Date / Time No Known Allergies Allergy Verified 03/23/18 11:38 Review of Systems Review of Systems All systems reviewed & are unremarkable except as noted in HPI and below Constitutional Denies chills, Denies fever(s), Denies lethargy and Denies weakness Eyes Denies change in vision, Denies eye discharge, Denies irritation and Denies loss of vision ENT Ears, Nose, Mouth, and Throat: Denies change in voice, Denies neck pain and Denies sore throat Cardiovascular Denies chest pain, Denies irregular heart rhythm, Denies lightheadedness, Denies palpitations, Denies dyspnea, Denies dyspnea on exertion and Denies orthopnea Respiratory Denies cough, Denies dyspnea, Denies dyspnea on exertion and Denies wheezing Gastrointestinal Gastrointestinal: Denies abdominal pain, Denies change in bowel habits, Denies diarrhea, Denies nausea and Denies vomiting Genitourinary Denies hematuria, Denies flank pain, Denies urinary incontinence and Denies urinary urgency Musculoskeletal Denies neck pain Integumentary/Breasts Denies pruritus, Denies erythema, Denies rash and Denies wounds Neurologic Reports abnormal speech, Reports confusion, Denies loss of vision and Denies weakness Psychiatric Denies anxiety, Reports confusion, Denies depression, Denies homicidal ideation and Denies suicidal ideation Endocrine Denies palpitations Hematologic/Lymphatic Denies easy bruising Allergic/Immunologic Denies wheezing Exam Narrative Exam Narrative: GENERAL: 62-year-old male, a bit disheveled in mild distress, seems slightly confused but answers questions accurately HEAD: Atraumatic. Normocephalic. No temporal or scalp tenderness. EYES: Pupils equal round and reactive. Extraocular motions intact. No scleral icterus. No injection or drainage. ENT: Poor dentition. Nose without bleeding, purulent drainage or septal hematoma. Throat without erythema, tonsillar hypertrophy or exudate. Uvula midline. Airway patent. NECK: Trachea midline. No JVD or lymphadenopathy. Supple, nontender, no meningeal signs. CARDIOVASCULAR: Regular rate and rhythm without murmurs, gallops, or rubs. RESPIRATORY: Clear to auscultation. Breath sounds equal bilaterally. No wheezes, rales, or rhonchi. GASTROINTESTINAL: Abdomen soft, non-tender, nondistended. No hepato-splenomegaly, or palpable masses. No guarding. EXTREMITIES: No clubbing, cyanosis, or edema. No joint tenderness, effusion, or edema noted. BACK: Nontender without deformity or crepitance. No flank tenderness. NEURO: AOx3. SKIN: No rash or erythema. Initial Vital Signs Initial Vital Signs: Vital Signs Temperature 98.1 F 06/09/18 09:50 Pulse Rate 87 06/09/18 09:50 Respiratory Rate 18 06/09/18 09:50 Blood Pressure 162/135 H 06/09/18 09:50 Pulse Oximetry 96 06/09/18 09:50 Scores ABCD2 Age >= 60 years: yes Initial BP. Either SBP >= 140 or DBP >= 90.: yes Clinical features of the TIA: speech disturbance without weakness Duration of symptoms: 10-59 minutes History of diabetes: no ABCD2 Score: 4 NIH Stroke Scale Level of Conciousness: Alert, keenly responsive Ask month/age: Answers both questions correctly. Open/close eyes, close hand: Performs both tasks correctly Best gaze horizontal: Normal Visual jung: No visual loss Facial palsy: Normal symetrical movement Left arm drift: No drift for full 10 sec Right arm drift: No drift for full 10 sec Left leg drift: No drift for full 10 sec Right leg drift: No drift for full 10 sec Limb ataxia: Absent Sensory on face/arms/legs: Normal, no sensory loss Best language: Mild to moderate, slurs some words Dysarthria: Mild to mod,some slurring Extinction or inattention: No abnormality Total NIH Stroke scale score: 2 Course Orders Ordered: ED Orders 06/09/18 09:42 Urine Drug Screen, Rapid Stat EKG-12 Lead Stat 06/09/18 09:50 CT head/brain wo con Stat 06/09/18 09:52 Basic Metabolic Panel Stat Complete Blood Count AUTO DIFF Stat Ethanol (ETOH) Stat Partial Thromboplastin Time Stat Prothrombin Time INR Stat Sodium Chloride (Normal Saline 0.9%) 1,000 mls @ 150 mls/hr IV CONT DINAH Last Admin: 06/09/18 10:05 Dose: 150 mls/hr Vital Signs - 8 hr 06/09/18 09:50 06/09/18 11:01 06/09/18 11:30 Temperature 98.1 F Pulse Rate 87 72 77 Respiratory Rate 18 18 Blood Pressure 162/135 H Blood Pressure [Left Arm] 175/93 H 165/148 H Pulse Oximetry 96 98 99 MDM - Altered Mental Status Medical Records Attestation: I reviewed the patient's medical records. Lab Data Attestation: I reviewed the patient's lab results. Result diagrams: 06/09/18 09:52 06/09/18 09:52 Lab Results 06/09/18 06/09/18 06/09/18 Range/Units 09:52 09:52 09:52 WBC 6.8 (4.5-11.0) X10^3/uL RBC 4.30 L (4.5-5.9) X10^6/uL Hgb 14.7 (13.5-17.5) g/dL Hct 43.2 (41-53) % MCV 100.5 H (80-100) fL MCH 34.1 H (26-34) PG MCHC 33.9 (30-36) % RDW 13.6 (11.6-14.8) % Plt Count 125 L (150-400) X10^3/uL Neut % (Auto) 58.8 (50-75) % Lymph % (Auto) 29.0 (25-40) % Power % (Auto) 9.0 (3-14) % Eos % (Auto) 2.0 (2-4) % Baso % (Auto) 1.2 (0-2) % Neut # (Auto) 4000 (3365-7029) /uL PT 10.9 (10.1-12.7) SECONDS INR 1.0 (0.9-1.3) APTT 31 D (26.4-36.2) SECONDS Sodium 141 (137-145) mmol/L Potassium 3.7 (3.4-5.1) mmol/L Chloride 99 (98-107) mmol/L Carbon Dioxide 30 (22-32) mmol/L BUN 9 (9-20) mg/dL Creatinine 0.70 (0.66-1.25) mg/dL Estimated GFR > 60.0 (>60) mL/min BUN/Creatinine Ratio 12.9 (6-22) Glucose 90 (80-110) mg/dL Calcium 9.0 (8.4-10.2) mg/dL Ethyl Alcohol < 10 mg/dL Point of Care Testing Glucose POC [address] scan - head: Radiologist's impression: [place] [address] CT Scan Report Signed Patient: James Dumont [facility]#: [id number] : 5Acct:[id number] Age/Sex: 62 / MDate of Service: 06/09/18 Loc: ED Accession Number: [id number] Procedure: CT head/brain wo con Ordering Provider: Tad Bowers D.O. PROCEDURE: CT HEAD/BRAIN WO CON INDICATIONS: confusion slurred speach TECHNIQUE: Noncontrast 4.5 mm thick angled axial sections acquired from the foramen magnum to the vertex, with coronal and sagittal reformats. For radiation dose reduction, the following was used: automated exposure control, adjustment of mA and/or kV according to patient size. COMPARISON: [facility], CT, HEAD WITHOUT CONTRAST, 12/22/2015, 16:59. FINDINGS: Image quality: Excellent. CSF spaces: Basal cisterns are patent. No extra-axial fluid collections. The ventricles are symmetric in size and shape. Brain: No intracranial bleeds or masses. There is cerebral volume loss for age, with resultant ventricular and sulcal prominence. There are periventricular and deep white matter chronic small vessel ischemic changes. There is intracranial internal carotid artery atherosclerosis. In the interval since the prior exam, small areas of lacunar ischemia appearing chronic has developed in the left basal ganglia, left subinsular white matter as well as right thalamus. Old foci of lacunar ischemia are again noted in the right subinsular region as well as left thalamus. There is a slight hypodense appearance within the left starr. Skull and face: Calvarium and visualized facial bones appear intact, without suspicious lesions. Sinuses: Visualized sinuses and mastoids are clear. IMPRESSION: 1. Interval progression of areas of chronic lacunar ischemia. 2. Asymmetric hypodense appearance within the left starr. This could be related to artifact or areas of evolving chronic microvascular ischemia. If this area is of concern for acute/subacute ischemia, MRI is recommended for further evaluation. 3. Moderate chronic microvascular ischemic changes, progressive compared to prior exam. Dictated by: Sol Marquez M.D. on 06/09/2018 at 10:23 Approved by: Sol Marquez M.D. on 06/09/2018 at 10:25 ECG Data Attestation: I personally reviewed and interpreted this ECG as follows: Prior ECG tracings: available for review Interpretation: Normal sinus rhythm in the 70s with mild ST depression in septal leads. This is unchanged from prior dating back to November of 2016. [facility] Narrative Medical decision making narrative: 62M with history of alcohol abuse, HTN, hyperlipidemia and prior stroke presents with stroke-like symptoms including slurring of speech and trouble finding words. He went to bed feeling fine at 9:00 p.m. and states he woke up at 4:00 a.m. with these symptoms. Witnesses noticed abnormal speech when he arrived at a social club this morning and called the EMS at about 9:00 a.m.. He came in as a code stroke but was determined to not be a tPA candidate given lack of from time of onset and suspicion of slight improvement of symptoms. Furthermore he does not have evidence of a large vessel occlusion is therefore not and IR candidate. Patient's primary care provider is the on-call physician who gladly accept this patient on his care Discharge Plan Departure Patient Disposition: Admitted as Observation Clinical Impression: Brain TIA
--- NOTE | 2018-06-09 09:50 | DI.CT.S_ITS ---
PROCEDURE: CT HEAD/BRAIN WO CON INDICATIONS: confusion slurred speach TECHNIQUE: Noncontrast 4.5 mm thick angled axial sections acquired from the foramen magnum to the vertex, with coronal and sagittal reformats. For radiation dose reduction, the following was used: automated exposure control, adjustment of mA and/or kV according to patient size. COMPARISON: [facility], CT, HEAD WITHOUT CONTRAST, 12/22/2015, 16:59. FINDINGS: Image quality: Excellent. CSF spaces: Basal cisterns are patent. No extra-axial fluid collections. The ventricles are symmetric in size and shape. Brain: No intracranial bleeds or masses. There is cerebral volume loss for age, with resultant ventricular and sulcal prominence. There are periventricular and deep white matter chronic small vessel ischemic changes. There is intracranial internal carotid artery atherosclerosis. In the interval since the prior exam, small areas of lacunar ischemia appearing chronic has developed in the left basal ganglia, left subinsular white matter as well as right thalamus. Old foci of lacunar ischemia are again noted in the right subinsular region as well as left thalamus. There is a slight hypodense appearance within the left starr. Skull and face: Calvarium and visualized facial bones appear intact, without suspicious lesions. Sinuses: Visualized sinuses and mastoids are clear. IMPRESSION: 1. Interval progression of areas of chronic lacunar ischemia. 2. Asymmetric hypodense appearance within the left starr. This could be related to artifact or areas of evolving chronic microvascular ischemia. If this area is of concern for acute/subacute ischemia, MRI is recommended for further evaluation. 3. Moderate chronic microvascular ischemic changes, progressive compared to prior exam. Dictated by: Sol Marquez M.D. on 06/09/2018 at 10:23 Approved by: Sol Marquez M.D. on 06/09/2018 at 10:25
[2018-06-09 10:03] LABS: Add Manual Diff / Slide Review NO; Basophils Percent Auto 1.2 % (0-2); Hematocrit 43.2 % (41-53); Hemoglobin 14.7 g/dL (13.5-17.5); Mean Corpuscular HGB Conc 33.9 % (30-36); Mean Corpuscular Hemoglobin 34.1 PG (26-34); Mean Corpuscular Volume 100.5 fL (80-100); Neutrophils Absolute Auto 4000 /uL (3000-5900); Neutrophils Percent Auto 58.8 % (50-75); Platelet Count 125 X10^3/uL (150-400); Red Cell Distribution Width 13.6 % (11.6-14.8); White Blood Cell Count 6.8 X10^3/uL (4.5-11.0)
[2018-06-09] MEDS: SODIUM CHLORIDE 0.9% 1,000 ML 150 ML IV ×2 (10:05→17:55)
[2018-06-09 10:12] LABS: Prothrombin Time 10.9 SECONDS (10.1-12.7)
[2018-06-09 10:15] LABS: PTT Partial Thromboplastin Tim 31 SECONDS (26.4-36.2)
[2018-06-09 10:17] LABS: BUN Creatinine Ratio 12.9 (6-22); Blood Urea Nitrogen 9 mg/dL (9-20); Carbon Dioxide 30 mmol/L (22-32); Chloride 99 mmol/L (98-107); Estimated Glomerular Filt Rate > 60.0 mL/min (>60); Glucose 90 mg/dL (80-110); HEMOLYSIS < 15 (0-50); Potassium 3.7 mmol/L (3.4-5.1); Sodium 141 mmol/L (137-145)
[2018-06-09 10:52] LABS: Ethanol (ETOH) < 10 mg/dL
--- NOTE | 2018-06-09 11:35 | ED_ITS ---
HPI - Altered Mental Status General Chief Complaint: Neuro Symptoms/Deficit Stated Complaint: Stroke Time Seen by Provider: 06/09/18 09:41 Source: patient and EMS Mode of arrival: EMS Limitations: no limitations History of Present Illness HPI narrative: [id number] smoker presents to the emergency department by EMS with a chief complaint of trouble with speech that started sometime this morning. The patient went to bed at 9:00 p.m. at is normal state of health and woke up this morning at about 4:00 a.m., per the patient and noted at that point time he had trouble with forming words but this is not verified. He went to a social club this morning and they noted he had trouble forming words and thoughts. There are no other obvious focal neurologic findings such as numbness , weakness or tingling. He has had no facial deficit. His symptoms seem improved prior to his arrival for the medics description. He denies any recent injury. He has never had a stroke or a TIA. MD complaint: other Onset (ago): hour(s) Timing confirmed by: other Severity: moderate Consistency of symptoms: unknown Context: alcohol abuse Related Data Home Medications Medication Instructions Recorded Confirmed allopurinol 300 mg PO DAILY 03/20/18 03/20/18 lisinopril 20 mg PO DAILY 03/20/18 06/09/18 oxycodone 5 mg PO PRN PRN 06/09/18 06/09/18 Previous Rx's Medication Instructions Recorded aspirin 81 mg PO DAILY #30 tab 03/24/18 simvastatin 20 mg PO BEDTIME #30 tab 03/24/18 Allergies Allergy/AdvReac Type Severity Reaction Status Date / Time No Known Allergies Allergy Verified 03/23/18 11:38 Review of Systems Review of Systems All systems reviewed & are unremarkable except as noted in HPI and below Constitutional Denies chills, Denies fever(s), Denies lethargy and Denies weakness Eyes Denies change in vision, Denies eye discharge, Denies irritation and Denies loss of vision ENT Ears, Nose, Mouth, and Throat: Denies change in voice, Denies neck pain and Denies sore throat Cardiovascular Denies chest pain, Denies irregular heart rhythm, Denies lightheadedness, Denies palpitations, Denies dyspnea, Denies dyspnea on exertion and Denies orthopnea Respiratory Denies cough, Denies dyspnea, Denies dyspnea on exertion and Denies wheezing Gastrointestinal Gastrointestinal: Denies abdominal pain, Denies change in bowel habits, Denies diarrhea, Denies nausea and Denies vomiting Genitourinary Denies hematuria, Denies flank pain, Denies urinary incontinence and Denies urinary urgency Musculoskeletal Denies neck pain Integumentary/Breasts Denies pruritus, Denies erythema, Denies rash and Denies wounds Neurologic Reports abnormal speech, Reports confusion, Denies loss of vision and Denies weakness Psychiatric Denies anxiety, Reports confusion, Denies depression, Denies homicidal ideation and Denies suicidal ideation Endocrine Denies palpitations Hematologic/Lymphatic Denies easy bruising Allergic/Immunologic Denies wheezing Exam Narrative Exam Narrative: GENERAL: 62-year-old male, a bit disheveled in mild distress, seems slightly confused but answers questions accurately HEAD: Atraumatic. Normocephalic. No temporal or scalp tenderness. EYES: Pupils equal round and reactive. Extraocular motions intact. No scleral icterus. No injection or drainage. ENT: Poor dentition. Nose without bleeding, purulent drainage or septal hematoma. Throat without erythema, tonsillar hypertrophy or exudate. Uvula midline. Airway patent. NECK: Trachea midline. No JVD or lymphadenopathy. Supple, nontender, no meningeal signs. CARDIOVASCULAR: Regular rate and rhythm without murmurs, gallops, or rubs. RESPIRATORY: Clear to auscultation. Breath sounds equal bilaterally. No wheezes , rales, or rhonchi. GASTROINTESTINAL: Abdomen soft, non-tender, nondistended. No hepato-splenomegaly , or palpable masses. No guarding. EXTREMITIES: No clubbing, cyanosis, or edema. No joint tenderness, effusion, or edema noted. BACK: Nontender without deformity or crepitance. No flank tenderness. NEURO: AOx3. SKIN: No rash or erythema. Initial Vital Signs Initial Vital Signs: Vital Signs Temperature 98.1 F 06/09/18 09:50 Pulse Rate 87 06/09/18 09:50 Respiratory Rate 18 06/09/18 09:50 Blood Pressure 162/135 H 06/09/18 09:50 Pulse Oximetry 96 06/09/18 09:50 Scores ABCD2 Age >= 60 years: yes Initial BP. Either SBP >= 140 or DBP >= 90.: yes Clinical features of the TIA: speech disturbance without weakness Duration of symptoms: 10-59 minutes History of diabetes: no ABCD2 Score: 4 NIH Stroke Scale Level of Conciousness: Alert, keenly responsive Ask month/age: Answers both questions correctly. Open/close eyes, close hand: Performs both tasks correctly Best gaze horizontal: Normal Visual jung: No visual loss Facial palsy: Normal symetrical movement Left arm drift: No drift for full 10 sec Right arm drift: No drift for full 10 sec Left leg drift: No drift for full 10 sec Right leg drift: No drift for full 10 sec Limb ataxia: Absent Sensory on face/arms/legs: Normal, no sensory loss Best language: Mild to moderate, slurs some words Dysarthria: Mild to mod,some slurring Extinction or inattention: No abnormality Total NIH Stroke scale score: 2 Course Orders Ordered: ED Orders 06/09/18 09:42 Urine Drug Screen, Rapid Stat EKG-12 Lead Stat 06/09/18 09:50 CT head/brain wo con Stat 06/09/18 09:52 Basic Metabolic Panel Stat Complete Blood Count AUTO DIFF Stat Ethanol (ETOH) Stat Partial Thromboplastin Time Stat Prothrombin Time INR Stat Sodium Chloride (Normal Saline 0.9%) 1,000 mls @ 150 mls/hr IV CONT DINAH Last Admin: 06/09/18 10:05 Dose: 150 mls/hr Vital Signs - 8 hr 06/09/18 09:50 06/09/18 11:01 06/09/18 11:30 Temperature 98.1 F Pulse Rate 87 72 77 Respiratory Rate 18 18 Blood Pressure 162/135 H Blood Pressure [Left Arm] 175/93 H 165/148 H Pulse Oximetry 96 98 99 MDM - Altered Mental Status Medical Records Attestation: I reviewed the patient's medical records. Lab Data Attestation: I reviewed the patient's lab results. Result diagrams: 06/09/18 09:52 06/09/18 09:52 Lab Results 06/09/18 06/09/18 06/09/18 Range/Units 09:52 09:52 09:52 WBC 6.8 (4.5-11.0) X10^3/uL RBC 4.30 L (4.5-5.9) X10^6/uL Hgb 14.7 (13.5-17.5) g/dL Hct 43.2 (41-53) % MCV 100.5 H (80-100) fL MCH 34.1 H (26-34) PG MCHC 33.9 (30-36) % RDW 13.6 (11.6-14.8) % Plt Count 125 L (150-400) X10^3/uL Neut % (Auto) 58.8 (50-75) % Lymph % (Auto) 29.0 (25-40) % [place] % (Auto) 9.0 (3-14) % Eos % (Auto) 2.0 (2-4) % Baso % (Auto) 1.2 (0-2) % Neut # (Auto) 4000 (5616-7880) /uL PT 10.9 (10.1-12.7) SECONDS INR 1.0 (0.9-1.3) APTT 31 D (26.4-36.2) SECONDS Sodium 141 (137-145) mmol/L Potassium 3.7 (3.4-5.1) mmol/L Chloride 99 (98-107) mmol/L Carbon Dioxide 30 (22-32) mmol/L BUN 9 (9-20) mg/dL Creatinine 0.70 (0.66-1.25) mg/dL Estimated GFR > 60.0 (>60) mL/min BUN/Creatinine Ratio 12.9 (6-22) Glucose 90 (80-110) mg/dL Calcium 9.0 (8.4-10.2) mg/dL Ethyl Alcohol < 10 mg/dL Point of Care Testing Glucose POC [address] scan - head: Radiologist's impression: [place] [address] CT Scan Report Signed Patient: James Dumont [facility]#: [id number] : 5Acct:[id number] Age/Sex: 62 / MDate of Service: 06/09/18 Loc: ED Accession Number: [id number] Procedure: CT head/brain wo con Ordering Provider: Tad Bowers D.O. PROCEDURE: CT HEAD/BRAIN WO CON INDICATIONS: confusion slurred speach TECHNIQUE: Noncontrast 4.5 mm thick angled axial sections acquired from the foramen magnum to the vertex, with coronal and sagittal reformats. For radiation dose reduction, the following was used: automated exposure control, adjustment of mA and/or kV according to patient size. COMPARISON: [facility], CT, HEAD WITHOUT CONTRAST, 12/22/2015, 16:59. FINDINGS: Image quality: Excellent. CSF spaces: Basal cisterns are patent. No extra-axial fluid collections. The ventricles are symmetric in size and shape. Brain: No intracranial bleeds or masses. There is cerebral volume loss for age , with resultant ventricular and sulcal prominence. There are periventricular and deep white matter chronic small vessel ischemic changes. There is intracranial internal carotid artery atherosclerosis. In the interval since the prior exam, small areas of lacunar ischemia appearing chronic has developed in the left basal ganglia, left subinsular white matter as well as right thalamus. Old foci of lacunar ischemia are again noted in the right subinsular region as well as left thalamus. There is a slight hypodense appearance within the left starr. Skull and face: Calvarium and visualized facial bones appear intact, without suspicious lesions. Sinuses: Visualized sinuses and mastoids are clear. IMPRESSION: 1. Interval progression of areas of chronic lacunar ischemia. 2. Asymmetric hypodense appearance within the left starr. This could be related to artifact or areas of evolving chronic microvascular ischemia. If this area is of concern for acute/subacute ischemia, MRI is recommended for further evaluation. 3. Moderate chronic microvascular ischemic changes, progressive compared to prior exam. Dictated by: Sol Marquez M.D. on 06/09/2018 at 10:23 Approved by: Sol Marquez M.D. on 06/09/2018 at 10:25 ECG Data Attestation: I personally reviewed and interpreted this ECG as follows: Prior ECG tracings: available for review Interpretation: Normal sinus rhythm in the 70s with mild ST depression in septal leads. This is unchanged from prior dating back to November of 2016. [facility] Narrative Medical decision making narrative: 62M with history of alcohol abuse, HTN, hyperlipidemia and prior stroke presents with stroke-like symptoms including slurring of speech and trouble finding words. He went to bed feeling fine at 9: 00 p.m. and states he woke up at 4:00 a.m. with these symptoms. Witnesses noticed abnormal speech when he arrived at a social club this morning and called the EMS at about 9:00 a.m.. He came in as a code stroke but was determined to not be a tPA candidate given lack of from time of onset and suspicion of slight improvement of symptoms. Furthermore he does not have evidence of a large vessel occlusion is therefore not and IR candidate. Patient 's primary care provider is the on-call physician who gladly accept this patient on his care Discharge Plan Departure Patient Disposition: Admitted as Observation Clinical Impression: Brain TIA
[2018-06-09 12:20] LABS: Bacteria Urine None Seen; WBC Urine None Seen (0-5/HPF)
[2018-06-09 12:23] LABS: Urine Amphetamines Negative (Negative); Urine Barbiturates Negative (Negative); Urine Benzodiazepines Negative (Negative); Urine Cocaine Negative (Negative); Urine MDMA Negative (Negative); Urine Methadone Negative (Negative); Urine Methamphetamines Negative (Negative); Urine Morphine/Opi cutoff 2000 Negative (Negative); Urine Oxycodone Negative (Negative); Urine Phencyclidine Negative (Negative); Urine Tetrahydrocannabinol Positive (Negative); Urine Tricyclic Antidepressant Negative (Negative)
[2018-06-09 12:30] LABS: Culture Indicated Urine Cult Not Indicated; Mucus Urine 1+ (Negative); RBC Urine 1-5/HPF (0-5/HPF); Squamous Epithelial Cell Urine 0-1 /HPF
--- NOTE | 2018-06-09 14:14 | P.HP_ITS ---
History of Present Illness Date Patient Seen: 06/09/18 Time Patient Seen: 14:13 Chief complaint: Stroke Narrative: 62-year-old male with history of diabetes hyperlipidemia previous stroke presents with new onset today expressive aphasia. No other neurologic symptoms. He was here in the hospital a couple months ago with chest pain had a negative workup for coronary disease. Patient History Medical History Chronic pain (Acute) Diabetes type 2, controlled (Acute) COPD with emphysema (Acute) CVA (cerebral vascular accident) (Acute) Dyslipidemia (Acute) Gout (Acute) Hypertension, malignant (Acute) Peripheral vascular disease (Acute) Surgical History History of appendectomy (Acute) Family & Social History Family History: Reviewed 06/09/18 by Chad Mendoza MD Social History: household members none Safety & Behavioral: Feels Safe in Current Yes Environment Been Physically Hurt or No Threatened By a Person Suicidal Ideation Description None Suicide Plan Description No Plan Tobacco & Substance use: Smoking Status Former smoker alcohol intake current alcohol intake frequency 3 or more drinks per day Substance Use Type marijuana Meds Home Medications Medication Instructions Recorded Confirmed Type allopurinol 300 mg PO DAILY 03/20/18 06/09/18 History lisinopril 20 mg PO DAILY 03/20/18 06/09/18 History aspirin 81 mg PO DAILY #30 tab 03/24/18 06/09/18 Rx simvastatin 20 mg PO BEDTIME #30 tab 03/24/18 06/09/18 Rx albuterol sulfate 2 puff INHALATION Q4H PRN 06/09/18 06/09/18 History indomethacin 50 mg PO BID PRN 06/09/18 06/09/18 History oxycodone 5 mg PO DIRECTED PRN 06/09/18 06/09/18 History Allergies Allergy/AdvReac Type Severity Reaction Status Date / Time No Known Allergies Allergy Verified 03/23/18 11:38 Review of Systems Constitutional Constitutional: Reports system reviewed and no additional complaints, except as documented and Denies weakness Eyes Eyes: Reports system reviewed; no additional complaints, except as documented ENT Ears, Nose, Mouth, and Throat: Yes system reviewed; no additional complaints, except as documented Cardiovascular Cardiovascular: Reports system reviewed; no additional complaints, except as documented Respiratory Respiratory: Reports system reviewed and no additional complaints, except as documented Gastrointestinal Gastrointestinal: Reports system reviewed and no additional complaints, except as documented Genitourinary Genitourinary: Reports system reviewed and no additional complaints, except as documented Musculoskeletal Musculoskeletal: Reports system reviewed; no additional complaints, except as documented and Reports abnormal gait Integumentary/Breasts Skin/Breast: Reports system reviewed and no additional complaints, except as documented Neurologic Neurologic: Reports abnormal gait and Denies weakness Psychiatric Psychiatric: Reports system reviewed and no additional complaints, except as documented Endocrine Endocrine: Reports system reviewed and no additional complaints, except as documented Hematologic/Lymphatic Hematologic/Lymphatic: Reports system reviewed and no additional complaints, except as documented Allergic/Immunologic Allergic/Immunologic: Reports system reviewed and no additional complaints, except as documented Exam Vital Signs (past 8 hours): - 06/09/18 09:50 06/09/18 11:01 06/09/18 11:30 Temperature 98.1 F Pulse Rate 87 72 77 Respiratory Rate 18 18 Blood Pressure 162/135 H Blood Pressure [Left Arm] 175/93 H 165/148 H Pulse Oximetry 96 98 99 06/09/18 12:11 06/09/18 12:32 06/09/18 13:00 Temperature Pulse Rate 69 81 70 Respiratory Rate 16 16 Blood Pressure 169/119 H Blood Pressure [Left Arm] 157/96 H 182/102 H Pulse Oximetry 97 97 98 Oxygen Delivery Method Room Air Narrative Exam Narrative: He is resting comfortably he has obvious expressive aphasia is able to answer yes or no questions very readily but otherwise has difficult time communicating. Oropharynx clear Neck is supple Lungs are clear Heart regular rhythm Abdomen soft nontender Skin moist and warm Neuro exam expressive aphasia he is otherwise alert and oriented and has no focal motor deficits Extremities no edema Objective Labs Result Diagrams: 06/09/18 09:52 06/09/18 09:52 Labs: Laboratory Results - last 24 hr 06/09/18 06/09/18 06/09/18 09:52 09:52 09:52 WBC 6.8 RBC 4.30 L Hgb 14.7 Hct 43.2 MCV 100.5 H MCH 34.1 H MCHC 33.9 RDW 13.6 Plt Count 125 L Neut % (Auto) 58.8 Lymph % (Auto) 29.0 [place] % (Auto) 9.0 Eos % (Auto) 2.0 Baso % (Auto) 1.2 Neut # (Auto) 4000 PT 10.9 INR 1.0 APTT 31 D Sodium 141 Potassium 3.7 Chloride 99 Carbon Dioxide 30 BUN 9 Creatinine 0.70 Estimated GFR > 60.0 BUN/Creatinine Ratio 12.9 Glucose 90 Calcium 9.0 Urine RBC Urine WBC Ur Squamous Epith Cells Urine Bacteria Urine Mucus Ur Culture Indicated? Micro UA Comment Urine Opiates Screen Ur Oxycodone Screen Urine Methadone Screen Ur Barbiturates Screen U Tricyclic Antidepress Ur Phencyclidine Scrn Ur Amphetamines Screen U Methamphetamines Scrn Ur MDMA Scrn (Ecstasy) U Benzodiazepines Scrn Urine Cocaine Screen U Marijuana (THC) Screen Ethyl Alcohol < 10 06/09/18 06/09/18 12:05 12:18 WBC RBC Hgb Hct MCV MCH MCHC RDW Plt Count Neut % (Auto) Lymph % (Auto) [place] % (Auto) Eos % (Auto) Baso % (Auto) Neut # (Auto) PT INR APTT Sodium Potassium Chloride Carbon Dioxide BUN Creatinine Estimated GFR BUN/Creatinine Ratio Glucose Calcium Urine RBC 1-5/hpf Urine WBC None seen Ur Squamous Epith Cells 0-1 /hpf Urine Bacteria None seen Urine Mucus 1+ H Ur Culture Indicated? Cult not indicated Micro UA Comment Not Reportable Urine Opiates Screen Negative Ur Oxycodone Screen Negative Urine Methadone Screen Negative Ur Barbiturates Screen Negative U Tricyclic Antidepress Negative Ur Phencyclidine Scrn Negative Ur Amphetamines Screen Negative U Methamphetamines Scrn Negative Ur MDMA Scrn (Ecstasy) Negative U Benzodiazepines Scrn Negative Urine Cocaine Screen Negative U Marijuana (THC) Screen Positive H Ethyl Alcohol Assessment & Plan Plan: Assessment/Plan Narrative: One. Acute CVA with expressive aphasia. Otherwise no other focal neurologic deficits. CT initially did not show anything. MRI high will be done this afternoon. Plan to place him as an inpatient speech therapy physical therapy to be consulted plan to place him on aspirin and compliance monitor frequent neuro checks 2. Hypertension try to keep the systolic below 180 with IV labetalol. Continue his lisinopril as at home. 3. DVT prophylaxis is Lovenox to be used Four. Chronic opioid dependence he is on oxycodone has been fairly stable that will be continued. 5. Hyperlipidemia plan to switch him from simvastatin to atorvastatin high dose. 6. Code status patient desires to be full code
--- NOTE | 2018-06-09 16:19 | ST.IPSLE ---
Care Team Visit Care Team Role Provider Type Tad Bowers DO Emergency Provider Physician Specialty: Emergency Medicine Address: [address] [place] [address], [id number] Email: [email or web address] Chad Mendoza MD Admit Provider Physician Attending Provider Primary Care Provider Specialty: Internal Medicine Address: [address] [place] [address], [id number] Email: Past Medical History (Last Reviewed 06/09/18 @ 14:18 by Chad Mendoza MD) Chronic pain (Acute Medical) Diabetes type 2, controlled (Acute Medical) COPD with emphysema (Acute Medical) CVA (cerebral vascular accident) (Acute Medical) Dyslipidemia (Acute Medical) Gout (Acute Medical) Hypertension, malignant (Acute Medical) Peripheral vascular disease (Acute Medical) Speech-Language Pathology Speech/Language Eval PROGRAM PROFESSIONAL Language Evaluation Start: 06/09/18 16:08 Freq: Status: Active Protocol: Document 06/09/18 16:09 TLC (Rec: 06/09/18 16:19 [facility] [id number]) Language Evaluation Session Time Total Visit Minutes 30 Next Note Type Next Note Type Treatment Note Referral Reason for Referral Aphasia Past Medical History Patient History Patient states he was looking for a tv channel at a bar this morning when he realized he couldn't find the right word and had difficulty talking. The glue specialty supervisor called an ambulance and he was brought in. He lives at home alone in [place]. Vision Vision Status Impaired Comments Requires reading glasses Occupational Status Occupation Status Retired Previous Therapy Previous Speech-Language Therapy No Oral Motor Examination Oral Motor Exam Completed Yes Results No abnormalities observed on limited exam. Patient has facial hair which makes it difficult to assess for facial weakness. No tongue deviation observed. Diadochokinesis was WFL. - - Receptive Language Yes/No Questions Skill Level WNL Following Directions - Verbal Skill Level WNL Auditory Comprehension Skill Level WNL Reading Comprehension Skill Level WNL - Expressive Language Automatic Speech Skill Level WNL Object Naming Skill Level Mildly Impaired Expressive Language Comments Expressive Language Comments Multiple semantic paraphasias such as rice for watch and comb for hammer were observed during naming tasks. With additional time and phonemic cues, patient was able to come up with correct word on all occasions. - Findings Language Findings Patient presents with symptoms consistent with mild anomic aphasia resulting in difficulty with word finding and semantic paraphasias. No signs of apraxia or dysarthria were observed. Patient did not show signs of receptive language impairments. Recommendations Recommendations Speech therapy to address word finding Treatment Goals Short Term Goals The patient will name objects, pictures, people and/or activities verbally with 90% accuracy to improve word finding skills and decrease frustrations.
[2018-06-09] MEDS: ENOXAPARIN 40 MG/0.4 ML SYRINGE SUBCUT (17:55)
[2018-06-09] MEDS: ATORVASTATIN 20 MG TABLET 80 MG PO (21:26)
[2018-06-10] VITALS (11 sets, daily range): BP systolic 145–160; BP diastolic 75–98; PULSE 66–85; RESP 16–20; TEMP 36.7–37; O2SAT 96–97
--- NOTE | 2018-06-10 | DI.ECHO.S_ITS ---
[facility] +---------+ : : [address] : [place] : : : : [id number] : : : : Phone: [phone]+ Echocardiogram Report + + :Name: DAISY REYES Study Date: 06/11/2018 Height: 69 in : :[facility] Exam Location: [place] Weight: 199 lb : : Gender: Male BSA: 2.1 m2 : :: 1955 Age: 62 yrs BP: 159/101 mmHg: :Reason For Study: CVA : :Ordering Physician: Dr. Bonilla : :Reji Performed By: Izabella Page : + + Interpretation Summary The study quality was technically difficult. A contrast injection of Definity was performed to improve assessment of LV function. A saline contrast injection was performed to assess for cardiac shunting. The left ventricle is normal in size. The ejection fraction is estimated to be 55-60%. Left ventricular wall motion is normal. Diastolic parameters suggest a relaxation abnormality of the left ventricle, consistent with probable normal filling pressures. There is no Doppler evidence for an interatrial shunt. Injection of contrast documented no obvious interatrial shunt , however due to poor image quality it was difficult to assess. The valves were not well visualized due to image quality. No significant valvular abnormality by Doppler. -Comparison is made with the echocardiogram of 03/20/2018.No significant change compared to the prior echo. Procedure: A two-dimensional transthoracic echocardiogram with color flow and Doppler was performed. The study quality was technically difficult. Comparison is made with the echocardiogram of 03/20/2018. A contrast injection of Definity was performed to improve assessment of LV function. A saline contrast injection was performed to assess for cardiac shunting. The patient was in normal sinus rhythm during the exam. The patient had frequent PVCs during the exam. Left Ventricle: The left ventricle is not well visualized. The left ventricle is normal in size. The ejection fraction is estimated to be 55-60%. Left ventricular wall motion is normal. Diastolic parameters suggest a relaxation abnormality of the left ventricle, consistent with probable normal filling pressures. Right Ventricle: The right ventricle is borderline dilated. Right ventricular function cannot be assessed due to poor image quality. Atria: The left atrium is borderline dilated. Right atrial size is normal. There is no Doppler evidence for an interatrial shunt. Injection of contrast documented no obvious interatrial shunt , however due to poor image quality it was difficult to assess. Mitral Valve: The mitral valve is not well visualized. There is trace mitral regurgitation. Aortic Valve: The aortic valve is not well visualized. There is no aortic valve stenosis. Tricuspid Valve: The tricuspid valve is not well visualized. There is trace tricuspid regurgitation. The right ventricular systolic pressure is estimated to be at least 39 mmHg based on an estimated right atrial pressure of 15 mm Hg. Pulmonic Valve: The pulmonic valve is not well visualized. Great Vessels: The aortic root is normal size. The ascending aorta could not be visualized. The pulmonary is not well visualized. The IVC is dilated (diameter is greater than 2.1 cm) yet it collapses greater than 50% with a sniff. This suggests a right atrial pressure of 8 mm Hg. Pericardium/ Pleura There is no pericardial effusion. There is no pleural effusion. MMode/2D Measurements & Calculations LVIDd: 4.6 cm Ao root diam: 3.8 cm LVIDs: 4.4 cm FS: 4.0 % IVSd: 1.2 cm LVPWd: 0.97 cm LV travis. diameter/BSA (cm/m^2): 2.2 LV sys. diameter/BSA (cm/m^2): 2.1 LA A2 area: 22.7 cm2 RA long axis: 4.5 cm LA A4 area: 17.4 cm2 RA area: 17.4 cm2 LA length (vol): 4.8 cm RA vol: 56.9 ml LA vol: 69.8 ml RA : 27.6 ml/m2 LA vol index: 33.9 ml/m2 IVC diam: 2.2 cm RVD1 (basal): 4.3 cm TAPSE: 1.4 cm Doppler Measurements & Calculations Ao V2 max: 164.1 cm/sec LVOT Max Oswaldo: 80.7 cm/sec Ao V2 mean: 108.6 cm/sec LV V1 max P.6 mmHg Ao max P.8 mmHg LV V1 VTI: 14.9 cm Ao mean P.3 mmHg sev ratio: 0.59 Ao V2 VTI: 25.3 cm MV E max oswaldo: 62.5 cm/sec TR max oswaldo: 243.5 cm/sec MV A max oswaldo: 113.7 cm/sec TR max P.7 mmHg MV E/A: 0.55 PA V2 max: 31.4 cm/sec Med Peak E' Oswaldo: 4.0 cm/sec PA V2 mean: 22.5 cm/sec E/E' med: 15.5 PA mean P.22 mmHg Lat Peak E' Oswaldo: 6.1 cm/sec PA pr(Accel): 1.6 mmHg E/E' lat: 10.3 PA Accel Time: 0.18 sec E/e' average: 12.9 MV dec time: 0.25 sec MV P1/2t: 72.5 msec MV P1/2t max oswaldo: 62.0 cm/sec MVA(P1/2t): 3.0 cm2 Electronically signed by: Arpit Hayden M.D. on Reading Physician:06/11/2018 02:09 PM
[2018-06-10] MEDS: SODIUM CHLORIDE 0.9% 1,000 ML 150 ML IV (01:40)
--- NOTE | 2018-06-10 10:00 | PT.IIE ---
Surgical History (Last Reviewed 06/09/18 @ 14:18 by Chad Mendoza MD) History of appendectomy (Acute) Medical History (Last Reviewed 06/09/18 @ 14:18 by Chad Mendoza MD) Chronic pain (Acute) Diabetes type 2, controlled (Acute) COPD with emphysema (Acute) CVA (cerebral vascular accident) (Acute) Dyslipidemia (Acute) Gout (Acute) Hypertension, malignant (Acute) Peripheral vascular disease (Acute) Physical Therapy Inpatient Evaluation/Re-Eval M1 PT/OT-IP Prior Functional Status Start: 06/10/18 12:12 Freq: NEEDED Status: Active Protocol: Document 06/10/18 10:00 [facility] (Rec: 06/10/18 12:30 [facility] [id number]) Medical Review Prior Functional Status Medical History Reviewed Yes Mobility and Gait modified indep. short gait in home to/from BR x10 ft with walker, otherwise using a power scooter/chair for mobility. Activities of Daily Living and IADL's modified indep. ADLs (lives alone) Social History Household Members none Living Arrangements House Number of Floors (Floors) One Floor Number of Stairs To Enter/Railing? ramped entry Home Environment Standard Height Toilet Walk in Shower Home Equipment Front Wheel Walker Power Wheelchair/Scooter Shower Seat without Backrest Additional Social History Comment lives alone, goes into town in his power chair/scooter. M2 PT-IP Current Condition Start: 06/10/18 12:12 Freq: NEEDED Status: Active Protocol: Document 06/10/18 10:00 [facility] (Rec: 06/10/18 12:30 [facility] [id number]) Physical Therapy Current Condition Current Condition Evaluation Date 06/10/18 Treatment Diagnosis CVA, impaired mobility Onset Date 06/09/18 M3 PT-IP Subjective Start: 06/10/18 12:12 Freq: NEEDED Status: Active Protocol: Document 06/10/18 10:00 [facility] (Rec: 06/10/18 12:30 [facility] [id number]) Subjective Physical Therapy Visit Type Type Initial Evaluation Visit Start Time 09:34 Visit Stop Time 10:00 Total Visit Minutes 26 Number of JOB TRAINING SPECIALIST Visits 0 Physical Therapy Visit Comments Patient Comments pt states he doesn't feel as strong as he normally is. Patient Goals to go home, be safe at home. Therapy Pain Assessment Pain Present Pain Present Denied Pain M4 PT-IP Mobility and Gait Start: 06/10/18 12:12 Freq: NEEDED Status: Active Protocol: Document 06/10/18 10:00 [facility] (Rec: 06/10/18 12:30 [facility] [id number]) PT-Bed Mobility Assessment Supine to Sit Supine to Sit Standby Assistance Sit to Supine Sit to Supine Standby Assistance Scooting Scooting to Edge of Bed Standby Assistance Scooting Up and Down in Bed Standby Assistance PT-Transfer Assessment Sit to and From Stand Sit to and from Stand Contact Guard Assistance 1 Person Assistance Equipment Transfer Assistive Device Gait Belt Front Wheeled Walker Transfers Transfer Destination Bed Transfer Technique Stand Step Pivot Transfer Ability Level of Assist Contact Guard Assistance Comments Mobility Comments L foot drop, refused AFO/shoes this session Gait Assessment Gait Gait Assistance Required: Contact Guard Assist Distance (Feet) 10 Assistive Devices Assistive Device Gait Belt Front Wheeled Walker Gait Deviations General Gait Pattern Decreased Stride Length Decreased Feet Clearance Flexed Trunk Narrow Based Gait Step-to Gait Factors Limiting Gait Function Factors Limiting Gait Function Decreased Activity Tolerance Decreased Strength Limited Range of Motion Poor Balance Comments Gait Comments increased demand on the UEs and RLE due to foot drop from previous CVA. PT-Balance Assessment Sitting Balance and Reactions Static Sitting Balance Ability Good Dynamic Sitting Balance Ability Good Standing Balance and Reactions Static Standing Balance Ability Fair Dynamic Standing Balance Ability Fair Device Used FWW M5 PT-IP Objective Assessments Start: 06/10/18 12:12 Freq: NEEDED Status: Active Protocol: Document 06/10/18 10:00 [facility] (Rec: 06/10/18 12:30 [facility] [id number]) Orientation Orientation/Cognition Level of Alertness Alert Gross Range of Motion Lower Extremity ROM Assessment Left Impaired Impairments ankle in PF/inversion postion with tone due to foot drop Strength Lower Extremity Strength Assessment Left Impaired Comments Strength Comments foot drop L ankle Coordination Assessment Assessment Pronation/Supination Test Normal Performance Foot Tapping Test impaired L due to previous CVA M6 PT-IP Treatment Start: 06/10/18 12:12 Freq: NEEDED Status: Active Protocol: Document 06/10/18 10:00 [facility] (Rec: 06/10/18 12:30 [facility] [id number]) Physical Therapy Treatment Education Education Provided Safety M7 PT-IP Assessment and Plan Start: 06/10/18 12:12 Freq: NEEDED Status: Active Protocol: Document 06/10/18 10:00 [facility] (Rec: 06/10/18 12:30 [facility] [id number]) PT Summary Assessment and Plan Potential Rehabilitation Potential Good Status of Condition at Evaluation Evolving Summary Impairments Strength Balance Coordination Transfers Gait Activity Tolerance Assessment Summary Pt able to ambulate 10 ft, refused to wear AFO or shoes. He has foot drop from a previous CVA on the L side, limiting his ability to ambulate. He uses a power chair at home. Pt appears to be below his level of activity tolerance per his reports, but his prior level of function is also very limited due to his past medical history and impairments. Pt refusing to consider SNF rehab at this time. Pt likely to d/ c back home when medically stable, recommend PT and OT upon d/c if this is the case given his impaired activity tolerance resulting in impaired safety and mobility to manage at home alone. Goals Bed Mobility Goal Independent Transfer Goal Independent Gait Goal Standby Assistance Gait Distance 25 Other Goals STG: SBA gait x15 ft in 1 day, FWW. Days to Meet Goals 2 Frequency of Treatment Frequency Of Treatment Once a Day Treatment Plan Physical Therapy Treatment Plan Bed Mobility Training Transfer Training Gait Training Therapeutic Exercise Balance Retraining Discharge Planning Neuromuscular Re-ed Recommendations To Nursing Amount of Assist Needed 1 Person Assist Discharge Recommendations PT Discharge Recommendations Home Health
[2018-06-10 10:59] LABS: Clostridium Difficile Tox PCR Negative for C. diff
--- NOTE | 2018-06-10 11:31 | PM.PN.1 ---
Subjective Date Patient Seen: 06/10/18 Time Patient Seen: 11:31 Interval history: Word-finding difficulty has improved not resolved Exam Vital Signs (past 8 hours): - 06/10/18 04:36 06/10/18 08:20 Temperature 98.2 F 98.2 F Pulse Rate 75 66 Respiratory Rate 18 16 Blood Pressure 148/75 H 149/88 H Pulse Oximetry 96 97 Oxygen Delivery Method Room Air Oxygen Flow Rate 0 Narrative Exam Narrative: He is awake and alert and speech is better Oropharynx clear Heart regular rhythm Lungs clear Abdomen soft nontender Neuro exam awake alert oriented x3 expressive aphasia has improved he still stumbles over some words. No focal motor deficits Objective Labs Result Diagrams: 06/09/18 09:52 06/09/18 09:52 Labs: Laboratory Results - last 24 hr 06/09/18 06/09/18 06/10/18 12:05 12:18 Unknown Urine RBC 1-5/hpf Urine WBC None seen Ur Squamous Epith Cells 0-1 /hpf Urine Bacteria None seen Urine Mucus 1+ H Ur Culture Indicated? Cult not indicated Micro UA Comment Not Reportable Urine Opiates Screen Negative Ur Oxycodone Screen Negative Urine Methadone Screen Negative Ur Barbiturates Screen Negative U Tricyclic Antidepress Negative Ur Phencyclidine Scrn Negative Ur Amphetamines Screen Negative U Methamphetamines Scrn Negative Ur MDMA Scrn (Ecstasy) Negative U Benzodiazepines Scrn Negative Urine Cocaine Screen Negative U Marijuana (THC) Screen Positive H C. difficile Tox (PCR) Negative for c. diff Assessment & Plan Plan: Assessment/Plan Narrative: One. Acute CVA with expressive aphasia. Otherwise no other focal neurologic deficits. CT initially did not show anything. The MRI also did not show signs of a stroke however clinically the patient definitely has expressive aphasia although it is much better now. So it persisted probably for at least 12-18 hours very severely where he could not put 2 words together. Now just residual some word-finding difficulties. Continue speech therapy physical therapy occupational therapy 2. Hypertension try to keep the systolic below 180 with IV labetalol. Continue his lisinopril as at home. Blood pressure has been better 3. DVT prophylaxis is Lovenox to be used Four. Chronic opioid dependence he is on oxycodone has been fairly stable that will be continued. 5. Hyperlipidemia plan to switch him from simvastatin to atorvastatin high dose. 6. Code status patient desires to be full code 7. Disposition probably will be discharged on Tuesday.
[2018-06-10] MEDS: ALLOPURINOL 300 MG TABLET PO (11:47)
[2018-06-10] MEDS: ASPIRIN EC 81 MG TABLET PO (11:47)
[2018-06-10] MEDS: LISINOPRIL 20 MG TABLET PO (11:48)
[2018-06-10] MEDS: ENOXAPARIN 40 MG/0.4 ML SYRINGE SUBCUT (14:54)
--- NOTE | 2018-06-10 17:33 | OT.IP.EVAL ---
Past Medical History (Last Reviewed 06/09/18 @ 14:18 by Chad Mendoza MD) Chronic pain (Acute) Diabetes type 2, controlled (Acute) COPD with emphysema (Acute) CVA (cerebral vascular accident) (Acute) Dyslipidemia (Acute) Gout (Acute) Hypertension, malignant (Acute) Peripheral vascular disease (Acute) Surgical History (Last Reviewed 06/09/18 @ 14:18 by Chad Mendoza MD) History of appendectomy (Acute) Occupational Therapy Inpatient Evaluation/Re-Eval M1 PT/OT-IP Prior Functional Status Start: 06/10/18 12:12 Freq: NEEDED Status: Active Protocol: Document 06/10/18 10:00 [facility] (Rec: 06/10/18 12:30 [facility] [id number]) Medical Review Prior Functional Status Medical History Reviewed Yes Mobility and Gait modified indep. short gait in home to/from BR x10 ft with walker, otherwise using a power scooter/chair for mobility. Activities of Daily Living and IADL's modified indep. ADLs (lives alone) Social History Household Members none Living Arrangements House Number of Floors (Floors) One Floor Number of Stairs To Enter/Railing? ramped entry Home Environment Standard Height Toilet Walk in Shower Home Equipment Front Wheel Walker Power Wheelchair/Scooter Shower Seat without Backrest Additional Social History Comment lives alone, goes into town in his power chair/scooter. M1 PT/OT-IP Prior Functional Status Start: 06/10/18 17:11 Freq: NEEDED Status: Active Protocol: Document 06/10/18 17:11 [facility] (Rec: 06/10/18 17:33 [facility] [id number]) Medical Review Prior Functional Status Medical History Reviewed Yes Mobility and Gait modified indep. short gait in home to/from BR x10 ft with walker, otherwise using a power scooter/chair for mobility. Activities of Daily Living and IADL's modified indep. ADLs (lives alone) Pt did his own money management and bills. Social History Household Members none Living Arrangements House Number of Stairs To Enter/Railing? Ramp to enter the house. Home Environment Standard Height Toilet Walk in Shower Home Equipment Front Wheel Walker Power Wheelchair/Scooter Shower Seat with Backrest M2 OT-IP Current Condition Start: 06/10/18 17:11 Freq: Status: Active Protocol: Document 06/10/18 17:11 [facility] (Rec: 06/10/18 17:33 [facility] [id number]) Occupational Therapy Current Condition Current Condition Evaluation Date 06/10/18 Treatment Diagnosis CVA Diagnosis Onset Date 06/09/18 M3 OT- IP Subjective and Pain Start: 06/10/18 17:11 Freq: Status: Active Protocol: Document 06/10/18 17:11 [facility] (Rec: 06/10/18 17:33 [facility] [id number]) OT- Subjective Occupational Therapy Visit Type Type Initial Evaluation Visit Start Time 16:15 Visit Stop Time 16:40 Total Visit Minutes 25 Notes Pt agreeable to do OT eval. Occupational Therapy Visit Comments Patient/Caregiver Goals Pt wanting to go home. OT Pain Assessment Pain When Pain Assessed At Rest M4 OT- IP ADL's Start: 06/10/18 17:11 Freq: Status: Active Protocol: Document 06/10/18 17:11 [facility] (Rec: 06/10/18 17:33 [facility] [id number]) OT ADL-Dressing Comments OT Dressing Comments Pt states usually wears left AFO but states at home. M5 OT- IP IADL's Start: 06/10/18 17:11 Freq: Status: Active Protocol: Document 06/10/18 17:11 [facility] (Rec: 06/10/18 17:33 [facility] [id number]) OT-Instrumental Activities of Daily Living Home Safety Awareness Awareness of Need for Assistance at Home Decreased Awareness Ability to Problem Solve Emergency Unable to Problem Solve Situations Home Safety Comments Pt needing increased time to identify solutions for home safety situations. At times having trouble coming up with the appropriate wording versus knowing what to do. Medication Management Medication Management Comments Pt states does his own. Money Management Money Management Comments Pt having trouble with math calculations and would benefit from assist. M6 OT- IP Functional Cognition Start: 06/10/18 17:11 Freq: Status: Active Protocol: Document 06/10/18 17:11 [facility] (Rec: 06/10/18 17:33 [facility] [id number]) Cognitive Factors Limiting Selfcare Function Cognitive Ability Level of Alertness Alert Patient Orientation Name Day of Week Place Situation Attention Span Ability Capable of Focused Attention Capable of Sustained Attention Ability to Follow Commands Able to Follow One Step Commands Memory Description Short Term Impaired Working Impaired Safety Awareness Underestimates Need for Assistance Problem Solving Ability Needs Assist to Identify Solutions Cognitive Tests SLUMS Pt scored 14/30 and which implies cognitive deficits, pt having trouble with naming animals, I can not think of any. In addition math calculations, short term memory, drawing time for clock , and repeating numbers backwards. Cognitive Comments Cognitive Assessment Comments Pt having difficulty with problem solving, calculation and would benefit from assist at home. OT- Vision and Hearing OT- Hearing Assessment OT- Hearing Assessment WFL OT- Vision Assessment Visual Attentiveness WFL M7 OT- IP Mobility and Balance Start: 06/10/18 17:11 Freq: Status: Active Protocol: Document 06/10/18 17:11 [facility] (Rec: 06/10/18 17:33 [facility] [id number]) OT- Bed Mobility Assessment Rolling Type of Rolling Roll to Right Level of Assistance Standby Assistance Bedrails Supine to Sit Supine to Sit Assist Standby Assistance Sit to Supine Sit to Supine Assist Standby Assistance Scooting Scooting to Edge of Bed Standby Assistance OT-Transfer Assessment Sit to and From Stand Sit to and from Stand Standby Assistance Comments Mobility Comments Pt only agreeable to get out of bed and stand with FWW. Pt mainly balancing on right foot and left foot inverted and foot drop noted. Pt not wanting to take any steps. OT- Balance Assessment Sitting Balance and Reactions Static Sitting Balance Ability Normal Dynamic Sitting Balance Ability Good Standing Balance and Reactions Static Standing Balance Ability Poor M8 OT- IP Objective Assessments Start: 06/10/18 17:11 Freq: Status: Active Protocol: Document 06/10/18 17:11 [facility] (Rec: 06/10/18 17:33 [facility] [id number]) OT Gross Range of Motion Upper Extremity Range of Motion Assessment Bilaterally Impaired ROM Impairments Pt's LUE WFL from elbow to distal, unable to raise LUE above 30 degrees, RUE 0-95. OT Strength Comments Strength Comments BUE 4/5 OT- Coordination Assessment Comments Coordination Comments Intact finger to thumb opposition. OT Sensation Assessment Comments Summary Comments Intact for light touch , however having difficulty getting the words out to locate body part pointed at. M9 OT- IP Assessment and Plan Start: 06/10/18 17:11 Freq: Status: Active Protocol: Document 06/10/18 17:11 [facility] (Rec: 06/10/18 17:33 [facility] [id number]) OT Summary Assessment and Plan Potential Rehabilitation Potential Good Analytic Complexity at Evaluation Moderate Summary OT Impairments Range of Motion Strength Balance Coordination Tone Functional Cognition Functional Mobility Grooming Dressing Toileting Bathing Toilet Transfers Shower Transfers Progress Towards Goals Slow Progress due to Medical Issues Slow Progress due to Activity Tolerance Slow Progress due to Cognition Assessment Summary Pt MOD complexity and does not appear to be at baseline as prior pt was living alone. However, pt has had history of prior CVA in the past. At this time noted decreased functional cognition especially with short term memory, decreased use of LUE, and needing assist for safety awareness for ADl and functional mobility. Pt would benefit from skilled rehab versus home with 24/7 assist and home health. Goals Grooming Goal Independent Dressing Goal Independent Toileting Goal Independent Bathing Goal Standby Assistance Toilet Transfer Goal Independent Shower Transfer Goal Standby Assistance Days to Meet Goals 7 Frequency of Treatment Frequency Of Treatment Once a Day Treatment Plan OT Treatment Plan ADL Training Functional Cognition Training Functional Mobility Patient/Family Education Discharge Planning Other Treatment Recommendations and Next Dressing/showering Treatment Focus Discharge Recommendations OT Discharge Recommendations Home with 24/7 Assist Home Health SNF Rehab
[2018-06-10] MEDS: ATORVASTATIN 20 MG TABLET 80 MG PO (20:34)
[2018-06-10] MEDS: OXYCODONE IR 5 MG TABLET PO (20:34)
[2018-06-11 05:16] VITALS: BP 157/90; PULSE 87; RESP 22; TEMP 36.9; O2SAT 96
[2018-06-11 07:50] VITALS: BP 159/101; PULSE 82; RESP 18; TEMP 36.8; O2SAT 97
[2018-06-11] MEDS: LISINOPRIL 20 MG TABLET PO (08:40)
[2018-06-11] MEDS: ENOXAPARIN 40 MG/0.4 ML SYRINGE SUBCUT (08:40)
[2018-06-11] MEDS: ALLOPURINOL 300 MG TABLET PO (08:40)
[2018-06-11] MEDS: ASPIRIN EC 81 MG TABLET PO (08:40)
[2018-06-11] MEDS: SODIUM CHLORIDE 0.9% FLUSH 10 ML IV ×3 (08:40→22:35)
[2018-06-11 12:40] VITALS: BP 153/102; PULSE 75; RESP 18; TEMP 36.9; O2SAT 97
[2018-06-11] MEDS: OXYCODONE IR 5 MG TABLET PO ×2 (13:36→20:50)
[2018-06-11] MEDS: ACETAMINOPHEN 325 MG TABLET 650 MG PO (13:36)
[2018-06-11] MEDS: AMLODIPINE 5 MG TABLET PO (13:42)
[2018-06-11 13:50] LABS: Cholesterol 170 mg/dL (140-199); HDL Cholesterol 91 mg/dL (40-60); LDL Cholesterol Calculated 68 mg/dL (<100); Triglycerides 54 mg/dL (35-150)
--- NOTE | 2018-06-11 15:55 | PT.IPTN ---
Physical Therapy Treatment Note M2 PT-IP Current Condition Start: 06/10/18 12:12 Freq: NEEDED Status: Active Protocol: Document 06/10/18 10:00 [facility] (Rec: 06/10/18 12:30 [facility] [id number]) Physical Therapy Current Condition Current Condition Evaluation Date 06/10/18 Treatment Diagnosis CVA, impaired mobility Onset Date 06/09/18 M3 PT-IP Subjective Start: 06/10/18 12:12 Freq: NEEDED Status: Active Protocol: Document 06/11/18 15:55 [facility] (Rec: 06/11/18 16:11 [facility] [id number]) Subjective Physical Therapy Visit Type Type Patient Refusal Physical Therapy Visit Comments Patient Comments pt refused PT multiple times today, stating that he was doing okay but doesn't want to mobilize. Pt educated on the importance of mobility and reasoning for PT assessments, he stated he understood but respectfully declined. Will attempt tomorrow. Goals Bed Mobility Goal Independent Transfer Goal Independent Gait Goal Standby Assistance Gait Distance 25 Other Goals STG: SBA gait x15 ft in 1 day, FWW. Days to Meet Goals 2 Frequency of Treatment Frequency Of Treatment Once a Day Treatment Plan Physical Therapy Treatment Plan Bed Mobility Training Transfer Training Gait Training Therapeutic Exercise Balance Retraining Discharge Planning Neuromuscular Re-ed Recommendations To Nursing Amount of Assist Needed 1 Person Assist Discharge Recommendations PT Discharge Recommendations Home Health
[2018-06-11 15:58] VITALS: BP 169/111; PULSE 79; RESP 19; TEMP 36.4; O2SAT 96
--- NOTE | 2018-06-11 16:45 | P.PN_ITS ---
Subjective Date Patient Seen: 06/11/18 Interval history: Patient with improvement in word-finding difficulty but feels too weak to discharge home today. Exam Vital Signs (past 8 hours): - 06/11/18 12:40 06/11/18 15:58 Temperature 98.4 F 97.6 F Pulse Rate 75 79 Respiratory Rate 18 19 Blood Pressure 153/102 H 169/111 H Pulse Oximetry 97 96 Oxygen Delivery Method Room Air Oxygen Flow Rate 0 Narrative Exam Narrative: GENERAL: Patient is in no acute distress HEENT: Head normocephalic, atraumatic. Mucous membranes moist. CHEST: Clear to auscultation bilaterally. CARDIAC: Regular rate and rhythm. ABDOMEN: Nondistended, soft, nontender EXTREMITIES: no edema. NEUROLOGICAL: Fully oriented, minimal aphasia, left leg 3/5 weakness from prior stroke, left frozen shoulder SKIN: Warm, dry, no petechiae, no rash Objective Labs Result Diagrams: 06/09/18 09:52 06/09/18 09:52 Labs: Laboratory Results - last 24 hr 06/09/18 09:52 Triglycerides 54 Cholesterol 170 LDL Cholesterol, Calc 68 HDL Cholesterol 91 H Assessment & Plan Plan: Assessment/Plan Narrative: 1. Acute CVA presenting with expressive aphasia. Improving neurological course. Speech deficit was severe for 12-18 hours and subsequently improving. He has left-sided weakness due to prior stroke. MRI stroke protocol showed no acute CVA but clinically it appears he had a stroke. 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 Transthoracic echo performed this admission shows LVEF 55- 60%, no significant valvular disease. He has been quite hypertensive since admission and also was persistently hypertensive at admission for chest pain rule out earlier this year. Continue speech therapy, physical therapy, address BP and cholesterol (see below). Consider switching from aspirin to Plavix as his blood thinner. 2. Severe hypertension: Add amlodipine 5 mg daily, continue lisinopril 20 mg daily per home routine. 3. Hyperlipidemia: LDL 68 from admission labs. He was on simvastatin 20 mg daily which was switched this admission to atorvastatin 80 mg daily. 4. Chronic pain, opioid dependence: Continue oxycodone as needed. 5. DVT prophylaxis: Low-dose Lovenox Disposition: Inpatient management. Likely discharge home tomorrow pending PT re-assessment.
[2018-06-11 17:46] VITALS: O2SAT 96
[2018-06-11 19:33] VITALS: BP 165/112; PULSE 77; RESP 18; TEMP 36.4; O2SAT 96
[2018-06-11] MEDS: ATORVASTATIN 20 MG TABLET 80 MG PO (20:51)
[2018-06-12 00:35] VITALS: BP 161/98; PULSE 77; RESP 18; TEMP 36.7; O2SAT 96
[2018-06-12 01:37] VITALS: O2SAT 96
[2018-06-12 04:45] VITALS: BP 164/104; PULSE 90; RESP 22; TEMP 36.7; O2SAT 96
--- NOTE | 2018-06-12 05:09 | PC.NURSE ---
Pt is A and O x 4, HTNsive at 164/104 other VSS. CIWA is 0-2. Pt denies pain and nausea. He has been in SR on telemetry with numerous PVCs through the shift. LS diminished. BM 06/11/18. Voiding clear yellow, qs.
[2018-06-12] MEDS: ENOXAPARIN 40 MG/0.4 ML SYRINGE SUBCUT (07:50)
[2018-06-12] MEDS: SODIUM CHLORIDE 0.9% FLUSH 10 ML IV (07:51)
[2018-06-12] MEDS: ALLOPURINOL 300 MG TABLET PO (07:51)
[2018-06-12] MEDS: ASPIRIN EC 81 MG TABLET PO (07:51)
[2018-06-12] MEDS: AMLODIPINE 5 MG TABLET PO (07:51)
[2018-06-12] MEDS: LISINOPRIL 20 MG TABLET PO (07:51)
[2018-06-12 07:55] VITALS: BP 150/114; PULSE 83; RESP 17; TEMP 36.9; O2SAT 96
--- NOTE | 2018-06-12 08:18 | PT.IPTN ---
Current Diagnoses Cerebral infarction, unspecified (06/09/18) Physical Therapy Treatment Note M2 PT-IP Current Condition Start: 06/10/18 12:12 Freq: NEEDED Status: Active Protocol: Document 06/10/18 10:00 [facility] (Rec: 06/10/18 12:30 [facility] [id number]) Physical Therapy Current Condition Current Condition Evaluation Date 06/10/18 Treatment Diagnosis CVA, impaired mobility Onset Date 06/09/18 M3 PT-IP Subjective Start: 06/10/18 12:12 Freq: NEEDED Status: Active Protocol: Document 06/12/18 08:14 RS (Rec: 06/12/18 08:17 RS [id number]) Subjective Physical Therapy Visit Type Type Discharge Summary Visit Start Time 08:00 Visit Stop Time 08:14 Total Visit Minutes 14 Physical Therapy Visit Comments Patient Comments Pt feels like he's physically ready to go home, back to normal, and doesn't need PT. Patient Goals go home Therapy Pain Assessment Pain When Pain Assessed At Rest Pain Present Pain Present Denied Pain M4 PT-IP Mobility and Gait Start: 06/10/18 12:12 Freq: NEEDED Status: Active Protocol: Document 06/10/18 10:00 [facility] (Rec: 06/10/18 12:30 [facility] [id number]) PT-Bed Mobility Assessment Supine to Sit Supine to Sit Standby Assistance Sit to Supine Sit to Supine Standby Assistance Scooting Scooting to Edge of Bed Standby Assistance Scooting Up and Down in Bed Standby Assistance PT-Transfer Assessment Sit to and From Stand Sit to and from Stand Contact Guard Assistance 1 Person Assistance Equipment Transfer Assistive Device Gait Belt Front Wheeled Walker Transfers Transfer Destination Bed Transfer Technique Stand Step Pivot Transfer Ability Level of Assist Contact Guard Assistance Comments Mobility Comments L foot drop, refused AFO/shoes this session Gait Assessment Gait Gait Assistance Required: Contact Guard Assist Distance (Feet) 10 Assistive Devices Assistive Device Gait Belt Front Wheeled Walker Gait Deviations General Gait Pattern Decreased Stride Length Decreased Feet Clearance Flexed Trunk Narrow Based Gait Step-to Gait Factors Limiting Gait Function Factors Limiting Gait Function Decreased Activity Tolerance Decreased Strength Limited Range of Motion Poor Balance Comments Gait Comments increased demand on the UEs and RLE due to foot drop from previous CVA. PT-Balance Assessment Sitting Balance and Reactions Static Sitting Balance Ability Good Dynamic Sitting Balance Ability Good Standing Balance and Reactions Static Standing Balance Ability Fair Dynamic Standing Balance Ability Fair Device Used FWW M5 PT-IP Objective Assessments Start: 06/10/18 12:12 Freq: NEEDED Status: Active Protocol: Document 06/10/18 10:00 RCC (Rec: 06/10/18 12:30 [facility] [id number]) Orientation Orientation/Cognition Level of Alertness Alert Gross Range of Motion Lower Extremity ROM Assessment Left Impaired Impairments ankle in PF/inversion postion with tone due to foot drop Strength Lower Extremity Strength Assessment Left Impaired Comments Strength Comments foot drop L ankle Coordination Assessment Assessment Pronation/Supination Test Normal Performance Foot Tapping Test impaired L due to previous CVA M6 PT-IP Treatment Start: 06/10/18 12:12 Freq: NEEDED Status: Active Protocol: Document 06/10/18 10:00 [facility] (Rec: 06/10/18 12:30 [facility] [id number]) Physical Therapy Treatment Education Education Provided Safety M7 PT-IP Assessment and Plan Start: 06/10/18 12:12 Freq: NEEDED Status: Active Protocol: Document 06/12/18 08:14 RS (Rec: 06/12/18 08:17 RS [id number]) PT Summary Assessment and Plan Potential Rehabilitation Potential Good Status of Condition at Evaluation Stable Summary Assessment Summary Pt feels that he is stronger and now back to his functional baseline. Patient doesn't feel he needs acute PT and feels ready to discharge home. Continue to recommend pt participate in HHPT/OT to address ongoing mobility and self-care deficits. Acute PT will sign off. Recommendations To Nursing Amount of Assist Needed 1 Person Assist Discharge Recommendations PT Discharge Recommendations Home Home Health
--- NOTE | 2018-06-12 09:53 | PM.DS.1 ---
History of Present Illness Date Patient Seen: 06/12/18 Chief complaint: Stroke Narrative: 62-year-old male with history of diabetes hyperlipidemia previous stroke presents with new onset today expressive aphasia. No other neurologic symptoms. He was here in the hospital a couple months ago with chest pain had a negative workup for coronary disease. Discharge Providers Date of admission: 06/09/18 11:49 Primary care physician: Chad Mendoza MD Consults: 06/09/18 14:05 Consult to Speech Therapy Evaluate & Treat Comment: cva aphasia Physician Instructions: Evaluate and treat 06/09/18 14:06 Consult to Physical Therapy Evaluate & Treat Comment: cva Physician Instructions: Evaluate and Treat 06/09/18 14:09 Consult to [employer] Routine Comment: 06/10/18 11:25 Consult to Occupational Therapy Evaluate & Treat Comment: cva Physician Instructions: Evaluate and treat Discharge provider: Lois Meade MD Discharge Date: 06/12/18 Summary Discharge Diagnosis: Acute CVA Hypertension Hyperlipidemia Gout Weakness Chronic Pain Type 2 Diabetes COPD Hospital Course: The Patient is a 62 y/o male with a history of stroke who presented with expressive aphasia. His initial Head CT and Head MRI remained negative. Despite this he continued to have speech difficulties for over 48 hours. The patient had no other focal deficit. The patient has foot drop which is chronic. He was seen by PT/OT who recommended SNF placement given his persistant weakness and the fact that he lives home alone. Patient was appropriate for discharge home. Status at Discharge Functional status at discharge: uses cane/walker Overall status at discharge: patient is not back to baseline Time Spent with Patient Less than 30 minutes Exam Vital Signs (past 8 hours): - 06/12/18 04:45 06/12/18 07:55 Temperature 98.1 F 98.4 F Pulse Rate 90 83 Respiratory Rate 22 17 Blood Pressure 164/104 H 150/114 H Pulse Oximetry 96 96 Oxygen Delivery Method Room Air Oxygen Flow Rate 0 Narrative Exam Narrative: Pleasant gentleman in no acute distress HEENT: NC/AT, EOMI, Lungs: Clear to auscultation CV: RRR nl Sl S2 Abd: Soft/non tender Ext: no edema Neuro: non focal, speech normal Objective Labs Result Diagrams: 06/09/18 09:52 06/09/18 09:52 Labs: Laboratory Results - last 24 hr 06/09/18 09:52 Triglycerides 54 Cholesterol 170 LDL Cholesterol, Calc 68 HDL Cholesterol 91 H Discharge Plan Discharge Plan Discharge Problem: Brain TIA Patient Disposition: SNF Transfer [facility]: [facility] Transportation: [facility] I certify the postop hospital fci care is medically necessary on a continuing basis for any conditions for which he/ she received care during this hospitalization.: Yes The receiving facility has agreed to accept transfer and provide medical treatment.: Yes Discharge Med Rec/Prescriptions Prescriptions: New atorvastatin [Lipitor] 20 mg Tablet 80 mg PO BEDTIME Qty: 30 RF: 0 amlodipine [Norvasc] 5 mg Tablet 5 mg PO DAILY Qty: 30 RF: 0 Continue lisinopril 20 mg tablet 20 mg PO DAILY RF: 0 allopurinol 300 mg tablet 300 mg PO DAILY RF: 0 oxycodone 5 mg tablet 5 mg PO DIRECTED PRN (Reason: pain) RF: 0 indomethacin 50 mg Capsule 50 mg PO BID PRN (Reason: Gout) RF: 0 albuterol sulfate 90 mcg/actuation Aerosol Powdr Breath Activated 2 puff Inhalation Q4H PRN (Reason: breathing and cough) RF: 0 Discontinued aspirin 81 mg Tablet,Delayed Release (Dr/Ec) 81 mg PO DAILY Qty: 30 RF: 0 simvastatin 20 mg Tablet 20 mg PO BEDTIME Qty: 30 RF: 0 Discharge Health Status Brief summary of current health status: Patient is s/p Stroke with no residual deficit. His major issue was expressive aphasia on admission which is essentially resolved Provider Discharge Instructions Diet: Low-sodium and Low-cholesterol Liquid consistency: Normal/Thin Food texture: Regular Activity: as tolerated Special Rehabilitation Services Reason for rehabilitation: Therapy following stroke and Recovery r/t decondition Rehab type: Physical therapy, Occupational therapy and Speech therapy Discharge Data Primary Care Provider: Chad Mendoza Attending Provider: Chad Mendoza Admit Date/Time: 06/09/18 11:49
--- NOTE | 2018-06-12 09:53 | CM.DPC ---
Referral faxed to [facility] per Elizabeth
--- NOTE | 2018-06-12 10:08 | ST.IPTN ---
Care Team Visit Care Team Role Provider Type Tad Bowers DO Emergency Provider Physician Address: [address] [place] [address], [id number] Chad Mendoza MD Admit Provider Physician Attending Provider Primary Care Provider Address: [address] [place] [address], [id number] AMUSEMENT OR RECREATION CARD CHECKER Treatment Note AMUSEMENT OR RECREATION CARD CHECKER Treatment Note Start: 06/12/18 10:01 Freq: Status: Active Protocol: Document 06/12/18 10:02 [facility] (Rec: 06/12/18 10:08 [facility] [id number]) Speech Pathology Treatment Note Session Time Visit Start Time 09:05 Visit Stop Time 09:21 Total Visit Minutes 16 Setting Treatment Setting Acute Care Visit Type Note Type Treatment Note Next Note Type Next Note Type Treatment Note General Information General Information Patient states he was looking for a tv channel at a bar this morning when he realized he couldnt' find the right word and had difficulty talking. The link trainer operator called an ambulance and he was brought in. He lives at home alone in [place]. Subjective Identification Type Name Other Identification Reconciled With ID Bracelet Observations/Patient Presentation Patient awake and alert, lying in bed with no family present . Stated that he was not in any pain, but still did not feel right. He was apprehensive about discharging home because he was still feeling off. AMUSEMENT OR RECREATION CARD CHECKER discussed possible discharge options with him. After considering his options (home, home with assist, SNF, etc), he told AMUSEMENT OR RECREATION CARD CHECKER that he wanted to discharge to [facility], if possible. He explained that he had been there in the past following a CVA, and felt that he would do well there. AMUSEMENT OR RECREATION CARD CHECKER relayed this informtion to Care Management (Elizabeth) who placed a referral to [facility]. Dr Meade also informed. [facility] to assess the patient today. Chief Complaint(s) Speech Rehab Expectation/Goals: Patient Goals Improve word finding ability in conversational speech Patient Knowledge/Awareness of AMUSEMENT OR RECREATION CARD CHECKER Role Excellent in Treatment Objective Short Term Goals The patient will name objects, pictures, people and/or activities verbally with 90% accuracy to improve word finding skills and decrease frustrations. Long-Term Goals Improve expressive language ability to WFL in conversational speech Treatment Activities Various word finding activities (fill in the blank, guess word from description, provide 3-4 phrase-length descriptions for a word). Patient able to complete these tasks with 90+% accuracy. No cues required. Patient presented with very functional conversational speech throughout session. AMUSEMENT OR RECREATION CARD CHECKER provided written HEP for further practice after discharge. Patient verbalized understanding. Assessment Patient Response to Treatment Excellent Rehab Potential Excellent Impairments Identified Aphasia Additional Impairments Identified Mild expressive aphasia Progress Towards Goals Excellent Progress Assessment of Overall Progress Improving Assessment of Improvement Patient presented with very functional conversational speech this session. Successfully participated in conversation and word finding tasks with AMUSEMENT OR RECREATION CARD CHECKER. Stated that he was able to successfully express himself over the weekend, making his wants and needs known. He requested to go to [facility] after discharge becuase he does not feel ready to go home. [facility] will come to assess him today. Recommend D/ C to SNF for further care. Reviewed with Patient Goals Progress Being Made Home Exercise Program Patient/Caregiver Understanding Excellent Plan Comment Follow up as needed Length of Session 30 Minutes Treatment Emphasis Next Session Word finding; HEP; Education for discharge Therapeutic Contents Client Education Other Additional Areas of Treatment Expressive language training Provided Patient/Caregiver Instruction Home Exercise Program Plan of Care Questions/Concerns
--- NOTE | 2018-06-12 10:39 | PT.IPTN ---
Current Diagnoses Cerebral infarction, unspecified (06/09/18) Physical Therapy Treatment Note M2 PT-IP Current Condition Start: 06/10/18 12:12 Freq: NEEDED Status: Active Protocol: Document 06/10/18 10:00 [facility] (Rec: 06/10/18 12:30 [facility] [id number]) Physical Therapy Current Condition Current Condition Evaluation Date 06/10/18 Treatment Diagnosis CVA, impaired mobility Onset Date 06/09/18 M3 PT-IP Subjective Start: 06/10/18 12:12 Freq: NEEDED Status: Active Protocol: Document 06/12/18 10:27 RS (Rec: 06/12/18 10:38 RS [id number]) Subjective Physical Therapy Visit Type Type Discharge Summary Physical Therapy Visit Comments Patient Comments Pt requested to be re- evaluated as he was premature in previous statement of feeling back to normal, pt now admitting he doesn't feel safe to go home. Patient Goals go to rehab M4 PT-IP Mobility and Gait Start: 06/10/18 12:12 Freq: NEEDED Status: Active Protocol: Document 06/12/18 10:27 RS (Rec: 06/12/18 10:38 RS [id number]) PT-Bed Mobility Assessment Supine to Sit Supine to Sit Contact Guard Assistance Sit to Supine Sit to Supine Contact Guard Assistance Scooting Scooting to Edge of Bed Contact Guard Assistance PT-Transfer Assessment Sit to and From Stand Sit to and from Stand Minimal Assistance 1 Person Assistance Use of Upper Extremities Equipment Transfer Assistive Device Gait Belt Front Wheeled Walker Transfers Transfer Destination Bed Chair Transfer Technique Stand Step Pivot Transfer Ability Level of Assist Contact Guard Assistance Minimal Assistance 1 Person Assistance Use of Upper Extremities Comments Mobility Comments L foot drop, refused AFO/shoes this session Gait Assessment Comments Gait Comments gait not attempted this session, pt feels too fatigued M5 PT-IP Objective Assessments Start: 06/10/18 12:12 Freq: NEEDED Status: Active Protocol: Document 06/10/18 10:00 [facility] (Rec: 06/10/18 12:30 [facility] [id number]) Orientation Orientation/Cognition Level of Alertness Alert Gross Range of Motion Lower Extremity ROM Assessment Left Impaired Impairments ankle in PF/inversion postion with tone due to foot drop Strength Lower Extremity Strength Assessment Left Impaired Comments Strength Comments foot drop L ankle Coordination Assessment Assessment Pronation/Supination Test Normal Performance Foot Tapping Test impaired L due to previous CVA M6 PT-IP Treatment Start: 06/10/18 12:12 Freq: NEEDED Status: Active Protocol: Document 06/10/18 10:00 [facility] (Rec: 06/10/18 12:30 [facility] [id number]) Physical Therapy Treatment Education Education Provided Safety M7 PT-IP Assessment and Plan Start: 06/10/18 12:12 Freq: NEEDED Status: Active Protocol: Document 06/12/18 10:27 RS (Rec: 06/12/18 10:38 RS [id number]) PT Summary Assessment and Plan Potential Rehabilitation Potential Good Status of Condition at Evaluation Stable Summary Impairments Strength Balance Coordination Transfers Gait Activity Tolerance Assessment Summary Pt more willing to participate this session and ends up needing more assist than yesterday. Pt is not safe to discharge home alone and will benefit from daily skilled therapy to improve strength, endurance, balance, and optimization of overall mobility. Pt agreeable to this plan. Frequency of Treatment Frequency Of Treatment Once a Day Recommendations To Nursing Amount of Assist Needed 1 Person Assist Discharge Recommendations PT Discharge Recommendations SNF Rehab
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
--- NOTE | 2018-06-12 12:20 | CM.DPC ---
DCP SNF Discharge Per MD, pt is medically stable to d/c to SNF today now that he is agreeable to SNF before safe d/c home. Per ST and OT, pt agreeable to [facility] at d/c. ANJU Roberts faxed clinicals to review at [facility] and SW called admissions requesting review and they confirmed that they can accept the pt today. ANJU Roberts faxed pt d/c packet to [facility] to review and SW called and they can provide transport today at 1430. SW met bedside with pt and explained role and pt confirmed he is agreeable to SNF at [facility] today before safe d/c home and SW inquired if pt wanted SW to call and update anyone and pt requested his friend Karri who is local at [phone]. SW called pt's friend and left a voice mail with general update. BIANCA updated RN, NTL, [employer] on d/c plan and time. Plan: Patient to d/c to [facility] today via w/c van at 1430. LEXX Gibbons
[2018-06-12 12:45] VITALS: BP 150/94; PULSE 78; RESP 19; TEMP 36.8; O2SAT 94
[2018-06-12] MEDS: ACETAMINOPHEN 325 MG TABLET 650 MG PO (13:56)
[2018-06-12] MEDS: OXYCODONE IR 5 MG TABLET PO (13:56)
--- NOTE | 2018-06-12 14:15 | PC.NURSE ---
Report called to Katia FLORES at [facility]. Patient is dressing and ready for transfer. IV removed intact. Medicated with oxycodone and tylenol for chronic back pain prior to transport. Paperwork packet with prescription ready. Patient agreeable with plan orf care.
== END 2018-06-12 15:06 | DRG 65 ==
LOC: ED 11:39 → AC 11:50
PROVIDERS: Internal Medicine; Admitting Provider Internal Medicine; Emergency Provider Emergency Medicine; PCP Internal Medicine; Visit Provider Internal Medicine
DX: I63.9 Cerebral infarction, unspecified (principal); F11.20 Opioid dependence, uncomplicated; R47.01 Aphasia; I10 Essential (primary) hypertension; E11.9 Type 2 diabetes mellitus without complications; E78.5 Hyperlipidemia, unspecified; Z87.891 Personal history of nicotine dependence
CPT/HCPCS: 36415; 70450; 70553; 80048; 80061; 80305; 80320; 81003; 81015; 82962; 85025; 85610; 85730; 87493; 92507; 92523; 93005; 93306; 96360; 96361; 97127; 97162; 97166; 97530; 99283; 99285; 99291; A9579; J1650; Q9957

== ENCOUNTER → 2018-08-28 08:31 | Outpatient (REF) | payer MEDICARE, MEDICAID, SELFPAY ==
[2018-06-09 13:33] VITALS: BMI 29.5
[2018-08-28 10:04] LABS: Hemoglobin A1C% w Est Avg Glu 5.3 % (4.0-6.0)
== END ==
LOC: LAB 08:31
PROVIDERS: PCP Internal Medicine; Visit Provider Hospitalist
DX: E11.9 Type 2 diabetes mellitus without complications (principal)
CPT/HCPCS: 36415; 83036

== ENCOUNTER → 2018-12-05 09:12 | Outpatient (ROUT) | payer MEDICARE, MEDICAID, SELFPAY ==
[2018-06-09 13:33] VITALS: BMI 29.5
[2018-12-05 10:11] LABS: Add Manual Diff / Slide Review NO; Basophils Absolute Auto 100 /uL (0-100); Basophils Percent Auto 1.3 % (0-2); Eosinophils Absolute Auto 200 /uL (0-450); Eosinophils Percent Auto 2.4 % (2-4); Hematocrit 38.8 % (41-53); Hemoglobin 12.7 g/dL (13.5-17.5); Lymphocytes Absolute Auto 2400 /uL (1100-4500); Mean Corpuscular HGB Conc 32.8 % (30-36); Mean Corpuscular Hemoglobin 31.1 PG (26-34); Mean Corpuscular Volume 94.7 fL (80-100); Monocytes Absolute Auto 700 /uL (0-900); Monocytes Percent Auto 8.6 % (3-14); Neutrophils Absolute Auto 4400 /uL (1500-7000); Neutrophils Percent Auto 56.7 % (50-75); Platelet Count 224 X10^3/uL (150-400); Red Cell Distribution Width 14.7 % (11.6-14.8); White Blood Cell Count 7.7 X10^3/uL (4.5-11.0)
[2018-12-05 10:20] LABS: Blood Urea Nitrogen 12 mg/dL (9-20); Calcium 9.1 mg/dL (8.4-10.2); Carbon Dioxide 28 mmol/L (22-32); Chloride 104 mmol/L (98-107); Estimated Glomerular Filt Rate > 60.0 mL/min (>60); Glucose 86 mg/dL (80-110); HEMOLYSIS < 15 (0-50); Potassium 3.8 mmol/L (3.4-5.1); Sodium 144 mmol/L (137-145); Uric Acid 3.8 mg/dL (3.5-8.5)
== END ==
PROVIDERS: PCP Internal Medicine; Visit Provider Internal Medicine
DX: I10 Essential (primary) hypertension (principal); D64.9 Anemia, unspecified; M10.9 Gout, unspecified
CPT/HCPCS: 36415; 80048; 84550; 85025

== ENCOUNTER 2019-03-12 00:16 | Emergency (ER) | payer MEDICARE, MEDICAID, SELFPAY ==
[2018-06-09 13:33] VITALS: BMI 29.5
[2019-03-12] VITALS (10 sets, daily range): BP systolic 101–164; BP diastolic 56–87; PULSE 85–100; RESP 14–18; O2SAT 94–100
--- NOTE | 2019-03-12 00:20 | DI.CT.S_ITS ---
PROCEDURE: CT HEAD/BRAIN WO CON INDICATIONS: found down TECHNIQUE: Noncontrast 4.5 mm thick angled axial sections acquired from the foramen magnum to the vertex, with coronal and sagittal reformats. For radiation dose reduction, the following was used: automated exposure control, adjustment of mA and/or kV according to patient size. COMPARISON: Located [facility], CT, CT HEAD/BRAIN WO CON, 06/09/2018, 9:35. Located Within [facility], CT, HEAD WITHOUT CONTRAST, 04/19/2010, 9:51. FINDINGS: Image quality: Excellent. CSF spaces: Basal cisterns are patent. No extra-axial fluid collections. The ventricles are symmetric in size and shape. Brain: No intracranial bleeds or masses. There is moderate cerebral volume loss for age, with resultant ventricular and sulcal prominence. There are severe periventricular and deep white matter chronic small vessel ischemic changes. Small, chronic, bilateral thalamic lacunar infarcts. Small, chronic left mello radiata lacunar infarct. There is intracranial internal carotid artery and vertebral artery atherosclerosis. Skull and face: Calvarium and visualized facial bones appear intact, without suspicious lesions. Left frontal scalp hematoma/laceration noted. Sinuses: Visualized sinuses are clear. The scattered opacities noted in the dependent portions of the left mastoid air cells. IMPRESSION: 1. No acute intracranial disease process. 2. Left frontal scalp hematoma/laceration. 3. Scattered opacities in the left mastoid air cells. Please correlate with clinical findings to differentiate serous fluid from an inflammatory process. Dictated by: Maegan Mazariegos MD, PhD on 03/12/2019 at 7:21 Approved by: Maegan Mazariegos MD, PhD on 03/12/2019 at 7:24
--- NOTE | 2019-03-12 00:20 | DI.RAD.S_ITS ---
PROCEDURE: XR CHEST 1V INDICATIONS: chest pain TECHNIQUE: One view of the chest was acquired. COMPARISON: [facility], CR, XR CHEST 2V, 03/20/2018, 10:14. FINDINGS: Surgical changes and devices: None. Lungs and pleura: Lungs are clear. No pleural effusions or pneumothorax. Mediastinum: Mediastinal contours appear normal. Heart size is normal. Bones and chest wall: Chronic appearing left fourth and fifth rib fractures which have healed in deformity. No suspicious bony lesions. Overlying soft tissues appear unremarkable. IMPRESSION: No acute cardiopulmonary disease process. Dictated by: Maegan Mazariegos MD, PhD on 03/12/2019 at 8:26 Approved by: Maegan Mazariegos MD, PhD on 03/12/2019 at 8:27
--- NOTE | 2019-03-12 00:20 | DI.CT.S_ITS ---
PROCEDURE: CT CERVICAL SPINE WO CON INDICATIONS: found down TECHNIQUE: Noncontrast 3 mm thick sections acquired from the skull base to the T4 level. Sagittal and coronal reformats were then constructed. For radiation dose reduction, the following was used: automated exposure control, adjustment of mA and/or kV according to patient size. COMPARISON: [facility], CT, C-SPINE WITHOUT CONTRAST, 04/19/2010, 9:51. FINDINGS: Image quality: Limited by patient motion. Bones: No cervical spine fractures or dislocations. Visualized superior ribs are intact. Spine degenerative disc disease and facet arthropathy. Left shoulder arthroplasty. Chronic left fourth, fifth and sixth rib fractures are noted which have healed in slight deformity. Soft tissues: Prevertebral soft tissues are normal in thickness. No paravertebral hematomas. No apical pneumothoraces. IMPRESSION: No fracture within limitations related to motion artifact. No acute osseous lesion within limitations of the study. If symptoms and/or clinical suspicion for pathology persists, evaluation with MRI may be helpful for further assessment. Dictated by: Maegan Mazariegos MD, PhD on 03/12/2019 at 7:42 Approved by: Maegan Mazariegos MD, PhD on 03/12/2019 at 7:59
--- NOTE | 2019-03-12 00:23 | ED.AMS ---
HPI - Altered Mental Status <Milly Beltran DO - Last Filed: 03/14/19 07:16> General Chief Complaint: Fall Stated Complaint: Fall from chair Time Seen by Provider: 03/12/19 00:19 Source: patient and EMS History of Present Illness HPI narrative: Patient is a 63-year-old homeless male who presents after fall out of his electric wheelchair. He states he is in a wheelchair due to a stroke. He admits to having a few drinks this evening. He his friend found him on the ground. It is possible he was on the ground for up to 3 hours. He has some obvious injuries to his head. He denies any other injuries or pain. He is noted to be covered in dirt in urine. Related Data Home Medications Medication Instructions Recorded Confirmed allopurinol 300 mg PO DAILY 03/20/18 06/09/18 lisinopril 20 mg PO DAILY 03/20/18 06/09/18 albuterol sulfate 2 puff INHALATION Q4H PRN 06/09/18 06/09/18 indomethacin 50 mg PO BID PRN 06/09/18 06/09/18 oxycodone 5 mg PO DIRECTED PRN 06/09/18 06/09/18 Previous Rx's Medication Instructions Recorded amlodipine [Norvasc] 5 mg PO DAILY #30 tab 06/12/18 atorvastatin [Lipitor] 80 mg PO BEDTIME #30 tab 06/12/18 oxycodone 5 mg PO Q4-6H PRN #20 cap 06/12/18 Allergies Allergy/AdvReac Type Severity Reaction Status Date / Time No Known Allergies Allergy Verified 03/23/18 11:38 Review of Systems <DO Windy Sotelo Last Filed: 03/14/19 07:16> Review of Systems ROS Unobtainable: All systems reviewed & are unremarkable except as noted in HPI and below Constitutional Denies chills, Denies fever(s), Denies lethargy and Denies weakness Cardiovascular Denies chest pain, Denies irregular heart rhythm, Denies lightheadedness, Denies palpitations, Denies dyspnea, Denies dyspnea on exertion and Denies orthopnea Respiratory Denies cough, Denies dyspnea, Denies dyspnea on exertion and Denies wheezing Gastrointestinal Gastrointestinal: Denies abdominal pain, Denies change in bowel habits, Denies diarrhea, Denies nausea and Denies vomiting Genitourinary Reports as per HPI, Denies hematuria, Denies flank pain, Reports urinary incontinence and Denies urinary urgency Musculoskeletal Denies back pain, Denies muscle weakness, Denies numbness and Denies tingling Integumentary/Breasts Denies pruritus, Denies erythema, Denies rash and Denies wounds Neurologic Denies numbness, Denies tingling and Denies weakness Endocrine Denies palpitations Allergic/Immunologic Denies wheezing Exam <Milly Beltran DO - Last Filed: 03/14/19 07:16> Initial Vital Signs Initial Vital Signs: Vital Signs Pulse Rate 95 H 03/12/19 00:29 Blood Pressure 112/65 03/12/19 00:29 Pulse Oximetry 100 03/12/19 00:29 GENERAL: Awake alert disheveled male HEENT: Head superficial lacerations on the left forehead, face is covered in dirt and leaves NECK: Non tender, full range of motion CARDIOVASCULAR: Regular rate and rhythm without murmurs, rubs or gallops. RESPIRATORY: Breath sounds equal bilaterally, no wheezes rales or rhonchi. ABDOMEN: Soft, nontender. Normoactive bowel sounds all 4 quadrants. No guarding or rebound. : No CVA tenderness. Urinary incontinence EXTREMITIES: Normal range of motion, no clubbing or edema. Neurovascularly intact NEUROLOGICAL: Alert and oriented speech is clear. Cathode Builder strength bilaterally SKIN: Skin abrasions noted left forehead <Tracy Allred MD - Last Filed: 03/12/19 10:20> Initial Vital Signs Initial Vital Signs: Vital Signs Pulse Rate 95 H 03/12/19 00:29 Blood Pressure 112/65 03/12/19 00:29 Pulse Oximetry 100 03/12/19 00:29 Course <Milly Beltran DO - Last Filed: 03/14/19 07:16> Orders Ordered: ED Orders 03/12/19 01:37 Acetaminophen Stat Complete Blood Count AUTO DIFF Stat Comprehensive Metabolic Panel Stat Ethanol (ETOH) Stat Lipase Stat Salicylate Stat Troponin & CK Cardiac Panel Stat Vital Signs - 8 hr 03/12/19 02:25 03/12/19 03:00 03/12/19 04:30 Pulse Rate 90 85 86 Respiratory Rate 14 15 16 Blood Pressure [Right Arm] 101/70 105/56 L 139/74 Pulse Oximetry 96 97 03/12/19 05:15 03/12/19 05:30 03/12/19 06:00 Pulse Rate 88 90 89 Respiratory Rate 18 16 Blood Pressure [Right Arm] 140/67 139/68 121/60 Pulse Oximetry 94 96 97 03/12/19 07:00 03/12/19 09:08 Pulse Rate 100 H 91 H Respiratory Rate 18 Blood Pressure [Right Arm] 143/76 H 164/78 H Pulse Oximetry 97 94 <Tracy Allred MD - Last Filed: 03/12/19 10:20> Course Narrative: Brigida note: the patient was signed out to me at change of shift at 7:00 a.m., pending disposition for patient. The patient had been worked up after falling out of his wheelchair, and workup was unremarkable. However, the patient's wheelchair, upon which he is dependent, had been left at the scene by medics, and as such, the patient was unable to be discharged without it. After a number of conversations with the [place] fire department, it was finally determined that the patient would have to be transported by [facility] to the scene of the fall, where his wheelchair had been left, and that [place] [employer] would come and assist the patient in getting back into his wheelchair. We have discussed the usual indications for return. Orders Ordered: ED Orders 03/12/19 01:37 Acetaminophen Stat Complete Blood Count AUTO DIFF Stat Comprehensive Metabolic Panel Stat Ethanol (ETOH) Stat Lipase Stat Salicylate Stat Troponin & CK Cardiac Panel Stat Vital Signs - 8 hr 03/12/19 02:25 03/12/19 03:00 03/12/19 04:30 Pulse Rate 90 85 86 Respiratory Rate 14 15 16 Blood Pressure [Right Arm] 101/70 105/56 L 139/74 Pulse Oximetry 96 97 03/12/19 05:15 03/12/19 05:30 03/12/19 06:00 Pulse Rate 88 90 89 Respiratory Rate 18 16 Blood Pressure [Right Arm] 140/67 139/68 121/60 Pulse Oximetry 94 96 97 03/12/19 07:00 03/12/19 09:08 Pulse Rate 100 H 91 H Respiratory Rate 18 Blood Pressure [Right Arm] 143/76 H 164/78 H Pulse Oximetry 97 94 MDM - Altered Mental Status <Milly Beltran DO - Last Filed: 03/14/19 07:16> Lab Data Attestation: I reviewed the patient's lab results. Result diagrams: 03/12/19 01:37 03/12/19 01:37 Lab Results 03/12/19 03/12/19 03/12/19 Range/Units 01:15 01:15 01:37 WBC 8.7 (4.5-11.0) X10^3/uL RBC 4.52 (4.5-5.9) X10^6/uL Hgb 14.7 (13.5-17.5) g/dL Hct 43.5 (41-53) % MCV 96.1 (80-100) fL MCH 32.4 (26-34) PG MCHC 33.7 (30-36) % RDW 13.7 (11.6-14.8) % Plt Count 228 (150-400) X10^3/uL Neut % (Auto) 50.7 (50-75) % Lymph % (Auto) 34.9 (25-40) % Barton % (Auto) 10.3 (3-14) % Eos % (Auto) 3.4 (2-4) % Baso % (Auto) 0.7 (0-2) % Neut # (Auto) 4400 (8490-8173) /uL Lymph # (Auto) 3000 (5939-3430) /uL Barton # (Auto) 900 (0-900) /uL Eos # (Auto) 300 (0-450) /uL Baso # (Auto) 100 (0-100) /uL Sodium (137-145) mmol/L Potassium (3.4-5.1) mmol/L Chloride (98-107) mmol/L Carbon Dioxide (22-32) mmol/L BUN (9-20) mg/dL Creatinine (0.66-1.25) mg/dL Estimated GFR (>60) mL/min BUN/Creatinine Ratio (6-22) Glucose (80-110) mg/dL Calcium (8.4-10.2) mg/dL Total Bilirubin (0.2-1.3) mg/dL AST (17-59) IU/L ALT (21-72) IU/L Alkaline Phosphatase (38-126) U/L Total Creatine Kinase (55-170) U/L CK-MB (CK-2) CK-MB (CK-2) Rel Index Troponin I (0.01-0.034) ng/mL Total Protein (6.3-8.2) g/dL Albumin (3.5-5.0) g/dL Globulin (1.7-4.1) g/dL Albumin/Globulin Ratio (1.0-2.8) Lipase (23-300) U/L Urine Color Straw Urine Appearance Clear Urine pH 6.0 (4.5-8.0) Ur Specific [place] <=1.005 (1.000-1.035) Urine Protein Negative (Negative) Urine Glucose (UA) Negative (Negative) g/dL Urine Ketones Negative (NEGATIVE) Urine Occult Blood Trace-intact (Negative) Urine Nitrate Negative (Negative) Urine Bilirubin Negative (NEGATIVE) Urine Urobilinogen 0.2 (0.2) E.U./dL Ur Leukocyte Esterase Negative (NEGATIVE) Urine RBC None seen (0-5/HPF) Urine WBC None seen (0-5/HPF) Urine Bacteria None seen (None) Ur Culture Indicated? Cult not indicated Micro UA Comment Microscopic normal Salicylates (<20) mg/dL Urine Opiates Screen Negative (Negative) Ur Oxycodone Screen Negative (Negative) Urine Methadone Screen Negative (Negative) Acetaminophen (10-30) ug/mL Ur Barbiturates Screen Negative (Negative) U Tricyclic Antidepress Negative (Negative) Ur Phencyclidine Scrn Negative (Negative) Ur Amphetamines Screen Negative (Negative) U Methamphetamines Scrn Negative (Negative) Ur MDMA Scrn (Ecstasy) Negative (Negative) U Benzodiazepines Scrn Negative (Negative) Urine Cocaine Screen Negative (Negative) U Marijuana (THC) Screen Negative (Negative) Ethyl Alcohol ( - 10) mg/dL 03/12/19 03/12/19 Range/Units 01:37 01:37 WBC (4.5-11.0) X10^3/uL RBC (4.5-5.9) X10^6/uL Hgb (13.5-17.5) g/dL Hct (41-53) % MCV (80-100) fL MCH (26-34) PG MCHC (30-36) % RDW (11.6-14.8) % Plt Count (150-400) X10^3/uL Neut % (Auto) (50-75) % Lymph % (Auto) (25-40) % Barton % (Auto) (3-14) % Eos % (Auto) (2-4) % Baso % (Auto) (0-2) % Neut # (Auto) (2490-1352) /uL Lymph # (Auto) (4756-2773) /uL Barton # (Auto) (0-900) /uL Eos # (Auto) (0-450) /uL Baso # (Auto) (0-100) /uL Sodium 145 (137-145) mmol/L Potassium 3.9 (3.4-5.1) mmol/L Chloride 102 (98-107) mmol/L Carbon Dioxide 26 (22-32) mmol/L BUN 8 L (9-20) mg/dL Creatinine 0.70 (0.66-1.25) mg/dL Estimated GFR > 60.0 (>60) mL/min BUN/Creatinine Ratio 11.4 (6-22) Glucose 97 (80-110) mg/dL Calcium 9.4 (8.4-10.2) mg/dL Total Bilirubin 0.4 (0.2-1.3) mg/dL AST 29 (17-59) IU/L ALT 22 (21-72) IU/L Alkaline Phosphatase 82 (38-126) U/L Total Creatine Kinase 261 H (55-170) U/L CK-MB (CK-2) TNP CK-MB (CK-2) Rel Index TNP Troponin I < 0.012 (0.01-0.034) ng/mL Total Protein 7.7 (6.3-8.2) g/dL Albumin 4.3 (3.5-5.0) g/dL Globulin 3.4 (1.7-4.1) g/dL Albumin/Globulin Ratio 1.3 (1.0-2.8) Lipase 352 H (23-300) U/L Urine Color Urine Appearance Urine pH (4.5-8.0) Ur Specific [place] (1.000-1.035) Urine Protein (Negative) Urine Glucose (UA) (Negative) g/dL Urine Ketones (NEGATIVE) Urine Occult Blood (Negative) Urine Nitrate (Negative) Urine Bilirubin (NEGATIVE) Urine Urobilinogen (0.2) E.U./dL Ur Leukocyte Esterase (NEGATIVE) Urine RBC (0-5/HPF) Urine WBC (0-5/HPF) Urine Bacteria (None) Ur Culture Indicated? Micro UA Comment Salicylates < 1.0 (<20) mg/dL Urine Opiates Screen (Negative) Ur Oxycodone Screen (Negative) Urine Methadone Screen (Negative) Acetaminophen < 10 L (10-30) ug/mL Ur Barbiturates Screen (Negative) U Tricyclic Antidepress (Negative) Ur Phencyclidine Scrn (Negative) Ur Amphetamines Screen (Negative) U Methamphetamines Scrn (Negative) Ur MDMA Scrn (Ecstasy) (Negative) U Benzodiazepines Scrn (Negative) Urine Cocaine Screen (Negative) U Marijuana (THC) Screen (Negative) Ethyl Alcohol 231 H ( - 10) mg/dL Imaging Data CT scan - head: Radiologist's impression: shift commander report: 1. Generalized involutional changes and chronic microvascular changes noted. No acute intracranial abnormality identified. 2. Left frontal scalp hematoma and laceration. 3. Opacification of left mastoid air cells is nonspecific. No conclusive evidence of otomastoiditis CT cervical: Radiologist's impression: shift commander report: No fracture or traumatic alignment identified. But study limited due to motion artifact ECG Data Attestation: I personally reviewed and interpreted this ECG as follows: Prior ECG tracings: available for review Interpretation: EKG: Heart rate 91 p.r. interval 157, no ST changes and T-wave inversions mild are noted MDM Narrative Medical decision making narrative: Patient is cleaned up all sleeping. Unfortunately his electric wheelchair was left on the scene. He does not get around without it. He is homeless there is no one for him to call to bring his wheelchair to him. EMS will not bring his electric wheelchair back. <Tracy Allred MD - Last Filed: 03/12/19 10:20> Medical Records Attestation: I reviewed the patient's medical records. Lab Data Attestation: I reviewed the patient's lab results. Lab Results 03/12/19 03/12/19 03/12/19 Range/Units 01:15 01:15 01:37 WBC 8.7 (4.5-11.0) X10^3/uL RBC 4.52 (4.5-5.9) X10^6/uL Hgb 14.7 (13.5-17.5) g/dL Hct 43.5 (41-53) % MCV 96.1 (80-100) fL MCH 32.4 (26-34) PG MCHC 33.7 (30-36) % RDW 13.7 (11.6-14.8) % Plt Count 228 (150-400) X10^3/uL Neut % (Auto) 50.7 (50-75) % Lymph % (Auto) 34.9 (25-40) % Barton % (Auto) 10.3 (3-14) % Eos % (Auto) 3.4 (2-4) % Baso % (Auto) 0.7 (0-2) % Neut # (Auto) 4400 (9536-9014) /uL Lymph # (Auto) 3000 (2792-4505) /uL Barton # (Auto) 900 (0-900) /uL Eos # (Auto) 300 (0-450) /uL Baso # (Auto) 100 (0-100) /uL Sodium (137-145) mmol/L Potassium (3.4-5.1) mmol/L Chloride (98-107) mmol/L Carbon Dioxide (22-32) mmol/L BUN (9-20) mg/dL Creatinine (0.66-1.25) mg/dL Estimated GFR (>60) mL/min BUN/Creatinine Ratio (6-22) Glucose (80-110) mg/dL Calcium (8.4-10.2) mg/dL Total Bilirubin (0.2-1.3) mg/dL AST (17-59) IU/L ALT (21-72) IU/L Alkaline Phosphatase (38-126) U/L Total Creatine Kinase (55-170) U/L CK-MB (CK-2) CK-MB (CK-2) Rel Index Troponin I (0.01-0.034) ng/mL Total Protein (6.3-8.2) g/dL Albumin (3.5-5.0) g/dL Globulin (1.7-4.1) g/dL Albumin/Globulin Ratio (1.0-2.8) Lipase (23-300) U/L Urine Color Straw Urine Appearance Clear Urine pH 6.0 (4.5-8.0) Ur Specific [place] <=1.005 (1.000-1.035) Urine Protein Negative (Negative) Urine Glucose (UA) Negative (Negative) g/dL Urine Ketones Negative (NEGATIVE) Urine Occult Blood Trace-intact (Negative) Urine Nitrate Negative (Negative) Urine Bilirubin Negative (NEGATIVE) Urine Urobilinogen 0.2 (0.2) E.U./dL Ur Leukocyte Esterase Negative (NEGATIVE) Urine RBC None seen (0-5/HPF) Urine WBC None seen (0-5/HPF) Urine Bacteria None seen (None) Ur Culture Indicated? Cult not indicated Micro UA Comment Microscopic normal Salicylates (<20) mg/dL Urine Opiates Screen Negative (Negative) Ur Oxycodone Screen Negative (Negative) Urine Methadone Screen Negative (Negative) Acetaminophen (10-30) ug/mL Ur Barbiturates Screen Negative (Negative) U Tricyclic Antidepress Negative (Negative) Ur Phencyclidine Scrn Negative (Negative) Ur Amphetamines Screen Negative (Negative) U Methamphetamines Scrn Negative (Negative) Ur MDMA Scrn (Ecstasy) Negative (Negative) U Benzodiazepines Scrn Negative (Negative) Urine Cocaine Screen Negative (Negative) U Marijuana (THC) Screen Negative (Negative) Ethyl Alcohol ( - 10) mg/dL 03/12/19 03/12/19 Range/Units 01:37 01:37 WBC (4.5-11.0) X10^3/uL RBC (4.5-5.9) X10^6/uL Hgb (13.5-17.5) g/dL Hct (41-53) % MCV (80-100) fL MCH (26-34) PG MCHC (30-36) % RDW (11.6-14.8) % Plt Count (150-400) X10^3/uL Neut % (Auto) (50-75) % Lymph % (Auto) (25-40) % Barton % (Auto) (3-14) % Eos % (Auto) (2-4) % Baso % (Auto) (0-2) % Neut # (Auto) (9376-7578) /uL Lymph # (Auto) (3567-0678) /uL [place] # (Auto) (0-900) /uL Eos # (Auto) (0-450) /uL Baso # (Auto) (0-100) /uL Sodium 145 (137-145) mmol/L Potassium 3.9 (3.4-5.1) mmol/L Chloride 102 (98-107) mmol/L Carbon Dioxide 26 (22-32) mmol/L BUN 8 L (9-20) mg/dL Creatinine 0.70 (0.66-1.25) mg/dL Estimated GFR > 60.0 (>60) mL/min BUN/Creatinine Ratio 11.4 (6-22) Glucose 97 (80-110) mg/dL Calcium 9.4 (8.4-10.2) mg/dL Total Bilirubin 0.4 (0.2-1.3) mg/dL AST 29 (17-59) IU/L ALT 22 (21-72) IU/L Alkaline Phosphatase 82 (38-126) U/L Total Creatine Kinase 261 H (55-170) U/L CK-MB (CK-2) TNP CK-MB (CK-2) Rel Index TNP Troponin I < 0.012 (0.01-0.034) ng/mL Total Protein 7.7 (6.3-8.2) g/dL Albumin 4.3 (3.5-5.0) g/dL Globulin 3.4 (1.7-4.1) g/dL Albumin/Globulin Ratio 1.3 (1.0-2.8) Lipase 352 H (23-300) U/L Urine Color Urine Appearance Urine pH (4.5-8.0) Ur Specific [place] (1.000-1.035) Urine Protein (Negative) Urine Glucose (UA) (Negative) g/dL Urine Ketones (NEGATIVE) Urine Occult Blood (Negative) Urine Nitrate (Negative) Urine Bilirubin (NEGATIVE) Urine Urobilinogen (0.2) E.U./dL Ur Leukocyte Esterase (NEGATIVE) Urine RBC (0-5/HPF) Urine WBC (0-5/HPF) Urine Bacteria (None) Ur Culture Indicated? Micro UA Comment Salicylates < 1.0 (<20) mg/dL Urine Opiates Screen (Negative) Ur Oxycodone Screen (Negative) Urine Methadone Screen (Negative) Acetaminophen < 10 L (10-30) ug/mL Ur Barbiturates Screen (Negative) U Tricyclic Antidepress (Negative) Ur Phencyclidine Scrn (Negative) Ur Amphetamines Screen (Negative) U Methamphetamines Scrn (Negative) Ur MDMA Scrn (Ecstasy) (Negative) U Benzodiazepines Scrn (Negative) Urine Cocaine Screen (Negative) U Marijuana (THC) Screen (Negative) Ethyl Alcohol 231 H ( - 10) mg/dL Imaging Data CT scan - head: Radiologist's impression: PROCEDURE: CT HEAD/BRAIN WO CON INDICATIONS: found down TECHNIQUE: Noncontrast 4.5 mm thick angled axial sections acquired from the foramen magnum to the vertex, with coronal and sagittal reformats. For radiation dose reduction, the following was used: automated exposure control, adjustment of mA and/or kV according to patient size. COMPARISON: [facility], CT, CT HEAD/BRAIN WO CON, 06/09/2018, 9:35. [facility], CT, HEAD WITHOUT CONTRAST, 04/19/2010, 9:51. FINDINGS: Image quality: Excellent. CSF spaces: Basal cisterns are patent. No extra-axial fluid collections. The ventricles are symmetric in size and shape. Brain: No intracranial bleeds or masses. There is moderate cerebral volume loss for age, with resultant ventricular and sulcal prominence. There are severe periventricular and deep white matter chronic small vessel ischemic changes. Small, chronic, bilateral thalamic lacunar infarcts. Small, chronic left mello radiata lacunar infarct. There is intracranial internal carotid artery and vertebral artery atherosclerosis. Skull and face: Calvarium and visualized facial bones appear intact, without suspicious lesions. Left frontal scalp hematoma/laceration noted. Sinuses: Visualized sinuses are clear. The scattered opacities noted in the dependent portions of the left mastoid air cells. IMPRESSION: 1. No acute intracranial disease process. 2. Left frontal scalp hematoma/laceration. 3. Scattered opacities in the left mastoid air cells. Please correlate with clinical findings to differentiate serous fluid from an inflammatory process. Dictated by: Maegan Mazariegos MD, PhD on 03/12/2019 at 7:21 Approved by: Maegan Mazariegos MD, PhD on 03/12/2019 at 7:24 Chest x-ray: Radiologist's impression: PROCEDURE: XR CHEST 1V INDICATIONS: chest pain TECHNIQUE: One view of the chest was acquired. COMPARISON: [facility], CR, XR CHEST 2V, 03/20/2018, 10:14. FINDINGS: Surgical changes and devices: None. Lungs and pleura: Lungs are clear. No pleural effusions or pneumothorax. Mediastinum: Mediastinal contours appear normal. Heart size is normal. Bones and chest wall: Chronic appearing left fourth and fifth rib fractures which have healed in deformity. No suspicious bony lesions. Overlying soft tissues appear unremarkable. IMPRESSION: No acute cardiopulmonary disease process. Dictated by: Maegan Mazariegos MD, PhD on 03/12/2019 at 8:26 Approved by: Maegan Mazariegos MD, PhD on 03/12/2019 at 8:27 CT C-spine: Attestation: I personally reviewed and interpreted this imaging study as follows: Radiologist's impression: ROCEDURE: CT CERVICAL SPINE WO CON INDICATIONS: found down TECHNIQUE: Noncontrast 3 mm thick sections acquired from the skull base to the T4 level. Sagittal and coronal reformats were then constructed. For radiation dose reduction, the following was used: automated exposure control, adjustment of mA and/or kV according to patient size. COMPARISON: [facility], CT, C-SPINE WITHOUT CONTRAST, 04/19/2010, 9:51. FINDINGS: Image quality: Limited by patient motion. Bones: No cervical spine fractures or dislocations. Visualized superior ribs are intact. Spine degenerative disc disease and facet arthropathy. Left shoulder arthroplasty. Chronic left fourth, fifth and sixth rib fractures are noted which have healed in slight deformity. Soft tissues: Prevertebral soft tissues are normal in thickness. No paravertebral hematomas. No apical pneumothoraces. IMPRESSION: No fracture within limitations related to motion artifact. No acute osseous lesion within limitations of the study. If symptoms and/or clinical suspicion for pathology persists, evaluation with MRI may be helpful for further assessment. Dictated by: Maegan Mazariegos MD, PhD on 03/12/2019 at 7:42 Approved by: Maegan Mazariegos MD, PhD on 03/12/2019 at 7:59 Discharge Plan Departure Patient Disposition: Home Clinical Impression: Fall Qualifiers: Encounter type: initial encounter Qualified Code(s): W19.XXXA - Unspecified fall, initial encounter Discharge Date/Time: 03/12/19 11:02 Interventions: ED Discharge Assessment Last Done: 03/12/19 11:00 Instructions: How to Prevent Falls Prescriptions: No Action lisinopril 20 mg tablet 20 mg PO DAILY RF: 0 allopurinol 300 mg tablet 300 mg PO DAILY RF: 0 oxycodone 5 mg tablet 5 mg PO DIRECTED PRN (Reason: pain) RF: 0 indomethacin 50 mg Capsule 50 mg PO BID PRN (Reason: Gout) RF: 0 albuterol sulfate 90 mcg/actuation Aerosol Powdr Breath Activated 2 puff Inhalation Q4H PRN (Reason: breathing and cough) RF: 0 atorvastatin [Lipitor] 20 mg Tablet 80 mg PO BEDTIME Qty: 30 RF: 0 amlodipine [Norvasc] 5 mg Tablet 5 mg PO DAILY Qty: 30 RF: 0 oxycodone 5 mg capsule 5 mg PO Q4-6H PRN (Reason: pain) Qty: 20 RF: 0 Referrals: Chad Mendoza MD [Primary Care Provider] -
[2019-03-12 01:59] LABS: Add Manual Diff / Slide Review NO; Basophils Absolute Auto 100 /uL (0-100); Basophils Percent Auto 0.7 % (0-2); Eosinophils Absolute Auto 300 /uL (0-450); Eosinophils Percent Auto 3.4 % (2-4); Hematocrit 43.5 % (41-53); Hemoglobin 14.7 g/dL (13.5-17.5); Lymphocytes Absolute Auto 3000 /uL (1100-4500); Lymphocytes Percent Auto 34.9 % (25-40); Mean Corpuscular HGB Conc 33.7 % (30-36); Mean Corpuscular Hemoglobin 32.4 PG (26-34); Mean Corpuscular Volume 96.1 fL (80-100); Monocytes Absolute Auto 900 /uL (0-900); Monocytes Percent Auto 10.3 % (3-14); Neutrophils Absolute Auto 4400 /uL (1500-7000); Neutrophils Percent Auto 50.7 % (50-75); Platelet Count 228 X10^3/uL (150-400); Red Blood Cell Count 4.52 X10^6/uL (4.5-5.9); Red Cell Distribution Width 13.7 % (11.6-14.8); White Blood Cell Count 8.7 X10^3/uL (4.5-11.0)
[2019-03-12 02:10] LABS: Alanine Aminotransferase 22 IU/L (21-72); Albumin 4.3 g/dL (3.5-5.0); Albumin Globulin Ratio 1.3 (1.0-2.8); Alkaline Phosphatase 82 U/L (38-126); Aspartate Aminotransferase 29 IU/L (17-59); BUN Creatinine Ratio 11.4 (6-22); Bilirubin Total 0.4 mg/dL (0.2-1.3); Blood Urea Nitrogen 8 mg/dL (9-20); Calcium 9.4 mg/dL (8.4-10.2); Carbon Dioxide 26 mmol/L (22-32); Chloride 102 mmol/L (98-107); Creatine Kinase 261 U/L (55-170); Estimated Glomerular Filt Rate > 60.0 mL/min (>60); Globulin 3.4 g/dL (1.7-4.1); Glucose 97 mg/dL (80-110); HEMOLYSIS < 15 (0-50); Lipase 352 U/L (23-300); Potassium 3.9 mmol/L (3.4-5.1); Sodium 145 mmol/L (137-145); Total Protein 7.7 g/dL (6.3-8.2)
[2019-03-12 02:20] LABS: Acetaminophen < 10 ug/mL (10-30); Ethanol (ETOH) 231 mg/dL; Salicylate < 1.0 mg/dL (<20)
[2019-03-12 02:21] LABS: Troponin I < 0.012 ng/mL (0.01-0.034)
[2019-03-12 02:37] LABS: Bacteria Urine None Seen; RBC Urine None Seen (0-5/HPF); WBC Urine None Seen (0-5/HPF)
[2019-03-12 02:38] LABS: Appearance Urine UA CLEAR; Bilirubin Urine UA NEGATIVE (NEGATIVE); Color Urine UA Straw; Glucose Urine UA NEGATIVE (Negative); Ketones Urine UA NEGATIVE (NEGATIVE); Leukocyte Esterase Urine UA NEGATIVE (NEGATIVE); Nitrite Urine UA NEGATIVE (Negative); Occult Blood Urine UA TRACE-INTACT (Negative); Protein Urine UA NEGATIVE (Negative); Specific Gravity Urine UA <=1.005 (1.000-1.035); Urobilinogen Urine UA 0.2 E.U./dL (0.2)
[2019-03-12 02:39] LABS: Culture Indicated Urine Cult Not Indicated; Urine Comments Microscopic Normal
[2019-03-12 02:40] LABS: Urine Amphetamines Negative (Negative); Urine Barbiturates Negative (Negative); Urine Benzodiazepines Negative (Negative); Urine Cocaine Negative (Negative); Urine MDMA Negative (Negative); Urine Methamphetamines Negative (Negative); Urine Morphine/Opi cutoff 2000 Negative (Negative); Urine Phencyclidine Negative (Negative); Urine Tetrahydrocannabinol Negative (Negative)
[2019-03-12 02:41] LABS: Urine Methadone Negative (Negative); Urine Oxycodone Negative (Negative); Urine Tricyclic Antidepressant Negative (Negative)
--- NOTE | 2019-03-12 04:00 | PC.NURSE ---
patient cleaned in ER with soap and water. patient tolerated will. barrier creme applied to patients groin and buttocks. patient then moved from room 2 to room 6 to be closer to the nurses station and visualized. provider aware and no new orders at this time.
--- NOTE | 2019-03-12 04:24 | ED_ITS ---
HPI - Altered Mental Status <Milly Beltran DO - Last Filed: 03/14/19 07:16> General Chief Complaint: Fall Stated Complaint: Fall from chair Time Seen by Provider: 03/12/19 00:19 Source: patient and EMS History of Present Illness HPI narrative: Patient is a 63-year-old homeless male who presents after fall out of his electric wheelchair. He states he is in a wheelchair due to a stroke. He admits to having a few drinks this evening. He his friend found him on the ground. It is possible he was on the ground for up to 3 hours. He has some obvious injuries to his head. He denies any other injuries or pain. He is noted to be covered in dirt in urine. Related Data Home Medications Medication Instructions Recorded Confirmed allopurinol 300 mg PO DAILY 03/20/18 06/09/18 lisinopril 20 mg PO DAILY 03/20/18 06/09/18 albuterol sulfate 2 puff INHALATION Q4H PRN 06/09/18 06/09/18 indomethacin 50 mg PO BID PRN 06/09/18 06/09/18 oxycodone 5 mg PO DIRECTED PRN 06/09/18 06/09/18 Previous Rx's Medication Instructions Recorded amlodipine [Norvasc] 5 mg PO DAILY #30 tab 06/12/18 atorvastatin [Lipitor] 80 mg PO BEDTIME #30 tab 06/12/18 oxycodone 5 mg PO Q4-6H PRN #20 cap 06/12/18 Allergies Allergy/AdvReac Type Severity Reaction Status Date / Time No Known Allergies Allergy Verified 03/23/18 11:38 Review of Systems <DO Windy Sotelo Last Filed: 03/14/19 07:16> Review of Systems ROS Unobtainable: All systems reviewed & are unremarkable except as noted in HPI and below Constitutional Denies chills, Denies fever(s), Denies lethargy and Denies weakness Cardiovascular Denies chest pain, Denies irregular heart rhythm, Denies lightheadedness, Denies palpitations, Denies dyspnea, Denies dyspnea on exertion and Denies orthopnea Respiratory Denies cough, Denies dyspnea, Denies dyspnea on exertion and Denies wheezing Gastrointestinal Gastrointestinal: Denies abdominal pain, Denies change in bowel habits, Denies diarrhea, Denies nausea and Denies vomiting Genitourinary Reports as per HPI, Denies hematuria, Denies flank pain, Reports urinary incontinence and Denies urinary urgency Musculoskeletal Denies back pain, Denies muscle weakness, Denies numbness and Denies tingling Integumentary/Breasts Denies pruritus, Denies erythema, Denies rash and Denies wounds Neurologic Denies numbness, Denies tingling and Denies weakness Endocrine Denies palpitations Allergic/Immunologic Denies wheezing Exam <Milly Beltran DO - Last Filed: 03/14/19 07:16> Initial Vital Signs Initial Vital Signs: Vital Signs Pulse Rate 95 H 03/12/19 00:29 Blood Pressure 112/65 03/12/19 00:29 Pulse Oximetry 100 03/12/19 00:29 GENERAL: Awake alert disheveled male HEENT: Head superficial lacerations on the left forehead, face is covered in dirt and leaves NECK: Non tender, full range of motion CARDIOVASCULAR: Regular rate and rhythm without murmurs, rubs or gallops. RESPIRATORY: Breath sounds equal bilaterally, no wheezes rales or rhonchi. ABDOMEN: Soft, nontender. Normoactive bowel sounds all 4 quadrants. No guarding or rebound. : No CVA tenderness. Urinary incontinence EXTREMITIES: Normal range of motion, no clubbing or edema. Neurovascularly intact NEUROLOGICAL: Alert and oriented speech is clear. 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 SKIN: Skin abrasions noted left forehead <Tracy Allred MD - Last Filed: 03/12/19 10:20> Initial Vital Signs Initial Vital Signs: Vital Signs Pulse Rate 95 H 03/12/19 00:29 Blood Pressure 112/65 03/12/19 00:29 Pulse Oximetry 100 03/12/19 00:29 Course <Milly Beltran DO - Last Filed: 03/14/19 07:16> Orders Ordered: ED Orders 03/12/19 01:37 Acetaminophen Stat Complete Blood Count AUTO DIFF Stat Comprehensive Metabolic Panel Stat Ethanol (ETOH) Stat Lipase Stat Salicylate Stat Troponin & CK Cardiac Panel Stat Vital Signs - 8 hr 03/12/19 02:25 03/12/19 03:00 03/12/19 04:30 Pulse Rate 90 85 86 Respiratory Rate 14 15 16 Blood Pressure [Right Arm] 101/70 105/56 L 139/74 Pulse Oximetry 96 97 03/12/19 05:15 03/12/19 05:30 03/12/19 06:00 Pulse Rate 88 90 89 Respiratory Rate 18 16 Blood Pressure [Right Arm] 140/67 139/68 121/60 Pulse Oximetry 94 96 97 03/12/19 07:00 03/12/19 09:08 Pulse Rate 100 H 91 H Respiratory Rate 18 Blood Pressure [Right Arm] 143/76 H 164/78 H Pulse Oximetry 97 94 <Tracy Allred MD - Last Filed: 03/12/19 10:20> Course Narrative: Brigida note: the patient was signed out to me at change of shift at 7:00 a.m., pending disposition for patient. The patient had been worked up after falling out of his wheelchair, and workup was unremarkable. However, the patient's wheelchair, upon which he is dependent, had been left at the scene by medics, and as such, the patient was unable to be discharged without it. After a number of conversations with the [place] fire department, it was finally determined that the patient would have to be transported by [facility] to the scene of the fall, where his wheelchair had been left, and that [place] [employer] would come and assist the patient in getting back into his wheelchair. We have discussed the usual indications for return. Orders Ordered: ED Orders 03/12/19 01:37 Acetaminophen Stat Complete Blood Count AUTO DIFF Stat Comprehensive Metabolic Panel Stat Ethanol (ETOH) Stat Lipase Stat Salicylate Stat Troponin & CK Cardiac Panel Stat Vital Signs - 8 hr 03/12/19 02:25 03/12/19 03:00 03/12/19 04:30 Pulse Rate 90 85 86 Respiratory Rate 14 15 16 Blood Pressure [Right Arm] 101/70 105/56 L 139/74 Pulse Oximetry 96 97 03/12/19 05:15 03/12/19 05:30 03/12/19 06:00 Pulse Rate 88 90 89 Respiratory Rate 18 16 Blood Pressure [Right Arm] 140/67 139/68 121/60 Pulse Oximetry 94 96 97 03/12/19 07:00 03/12/19 09:08 Pulse Rate 100 H 91 H Respiratory Rate 18 Blood Pressure [Right Arm] 143/76 H 164/78 H Pulse Oximetry 97 94 MDM - Altered Mental Status <Milly Beltran DO - Last Filed: 03/14/19 07:16> Lab Data Attestation: I reviewed the patient's lab results. Result diagrams: 03/12/19 01:37 03/12/19 01:37 Lab Results 03/12/19 03/12/19 03/12/19 Range/Units 01:15 01:15 01:37 WBC 8.7 (4.5-11.0) X10^3/uL RBC 4.52 (4.5-5.9) X10^6/uL Hgb 14.7 (13.5-17.5) g/dL Hct 43.5 (41-53) % MCV 96.1 (80-100) fL MCH 32.4 (26-34) PG MCHC 33.7 (30-36) % RDW 13.7 (11.6-14.8) % Plt Count 228 (150-400) X10^3/uL Neut % (Auto) 50.7 (50-75) % Lymph % (Auto) 34.9 (25-40) % [place] % (Auto) 10.3 (3-14) % Eos % (Auto) 3.4 (2-4) % Baso % (Auto) 0.7 (0-2) % Neut # (Auto) 4400 (2044-5405) /uL Lymph # (Auto) 3000 (5362-9721) /uL [place] # (Auto) 900 (0-900) /uL Eos # (Auto) 300 (0-450) /uL Baso # (Auto) 100 (0-100) /uL Sodium (137-145) mmol/L Potassium (3.4-5.1) mmol/L Chloride (98-107) mmol/L Carbon Dioxide (22-32) mmol/L BUN (9-20) mg/dL Creatinine (0.66-1.25) mg/dL Estimated GFR (>60) mL/min BUN/Creatinine Ratio (6-22) Glucose (80-110) mg/dL Calcium (8.4-10.2) mg/dL Total Bilirubin (0.2-1.3) mg/dL AST (17-59) IU/L ALT (21-72) IU/L Alkaline Phosphatase (38-126) U/L Total Creatine Kinase (55-170) U/L CK-MB (CK-2) CK-MB (CK-2) Rel Index Troponin I (0.01-0.034) ng/mL Total Protein (6.3-8.2) g/dL Albumin (3.5-5.0) g/dL Globulin (1.7-4.1) g/dL Albumin/Globulin Ratio (1.0-2.8) Lipase (23-300) U/L Urine Color Straw Urine Appearance Clear Urine pH 6.0 (4.5-8.0) Ur Specific [place] <=1.005 (1.000-1.035) Urine Protein Negative (Negative) Urine Glucose (UA) Negative (Negative) g/dL Urine Ketones Negative (NEGATIVE) Urine Occult Blood Trace-intact (Negative) Urine Nitrate Negative (Negative) Urine Bilirubin Negative (NEGATIVE) Urine Urobilinogen 0.2 (0.2) E.U./dL Ur Leukocyte Esterase Negative (NEGATIVE) Urine RBC None seen (0-5/HPF) Urine WBC None seen (0-5/HPF) Urine Bacteria None seen (None) Ur Culture Indicated? Cult not indicated Micro UA Comment Microscopic normal Salicylates (<20) mg/dL Urine Opiates Screen Negative (Negative) Ur Oxycodone Screen Negative (Negative) Urine Methadone Screen Negative (Negative) Acetaminophen (10-30) ug/mL Ur Barbiturates Screen Negative (Negative) U Tricyclic Antidepress Negative (Negative) Ur Phencyclidine Scrn Negative (Negative) Ur Amphetamines Screen Negative (Negative) U Methamphetamines Scrn Negative (Negative) Ur MDMA Scrn (Ecstasy) Negative (Negative) U Benzodiazepines Scrn Negative (Negative) Urine Cocaine Screen Negative (Negative) U Marijuana (THC) Screen Negative (Negative) Ethyl Alcohol ( - 10) mg/dL 03/12/19 03/12/19 Range/Units 01:37 01:37 WBC (4.5-11.0) X10^3/uL RBC (4.5-5.9) X10^6/uL Hgb (13.5-17.5) g/dL Hct (41-53) % MCV (80-100) fL MCH (26-34) PG MCHC (30-36) % RDW (11.6-14.8) % Plt Count (150-400) X10^3/uL Neut % (Auto) (50-75) % Lymph % (Auto) (25-40) % [place] % (Auto) (3-14) % Eos % (Auto) (2-4) % Baso % (Auto) (0-2) % Neut # (Auto) (9473-6525) /uL Lymph # (Auto) (8816-3516) /uL [place] # (Auto) (0-900) /uL Eos # (Auto) (0-450) /uL Baso # (Auto) (0-100) /uL Sodium 145 (137-145) mmol/L Potassium 3.9 (3.4-5.1) mmol/L Chloride 102 (98-107) mmol/L Carbon Dioxide 26 (22-32) mmol/L BUN 8 L (9-20) mg/dL Creatinine 0.70 (0.66-1.25) mg/dL Estimated GFR > 60.0 (>60) mL/min BUN/Creatinine Ratio 11.4 (6-22) Glucose 97 (80-110) mg/dL Calcium 9.4 (8.4-10.2) mg/dL Total Bilirubin 0.4 (0.2-1.3) mg/dL AST 29 (17-59) IU/L ALT 22 (21-72) IU/L Alkaline Phosphatase 82 (38-126) U/L Total Creatine Kinase 261 H (55-170) U/L CK-MB (CK-2) TNP CK-MB (CK-2) Rel Index TNP Troponin I < 0.012 (0.01-0.034) ng/mL Total Protein 7.7 (6.3-8.2) g/dL Albumin 4.3 (3.5-5.0) g/dL Globulin 3.4 (1.7-4.1) g/dL Albumin/Globulin Ratio 1.3 (1.0-2.8) Lipase 352 H (23-300) U/L Urine Color Urine Appearance Urine pH (4.5-8.0) Ur Specific [place] (1.000-1.035) Urine Protein (Negative) Urine Glucose (UA) (Negative) g/dL Urine Ketones (NEGATIVE) Urine Occult Blood (Negative) Urine Nitrate (Negative) Urine Bilirubin (NEGATIVE) Urine Urobilinogen (0.2) E.U./dL Ur Leukocyte Esterase (NEGATIVE) Urine RBC (0-5/HPF) Urine WBC (0-5/HPF) Urine Bacteria (None) Ur Culture Indicated? 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 Generalized involutional changes and chronic microvascular changes noted. No acute intracranial abnormality identified. 2. Left frontal scalp hematoma and laceration. 3. Opacification of left mastoid air cells is nonspecific. 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 But study limited due to motion artifact ECG Data Attestation: I personally reviewed and interpreted this ECG as follows: Prior ECG tracings: available for review Interpretation: EKG: Heart rate 91 p.r. interval 157, no ST changes and T-wave inversions mild are noted MDM Narrative Medical decision making narrative: Patient is cleaned up all sleeping. Unfortunately his electric wheelchair was left on the scene. He does not get around without it. He is homeless there is no one for him to call to bring his wheelchair to him. EMS will not bring his electric wheelchair back. <Tracy Allred MD - Last Filed: 03/12/19 10:20> Medical Records Attestation: I reviewed the patient's medical records. Lab Data Attestation: I reviewed the patient's lab results. Lab Results 03/12/19 03/12/19 03/12/19 Range/Units 01:15 01:15 01:37 WBC 8.7 (4.5-11.0) X10^3/uL RBC 4.52 (4.5-5.9) X10^6/uL Hgb 14.7 (13.5-17.5) g/dL Hct 43.5 (41-53) % MCV 96.1 (80-100) fL MCH 32.4 (26-34) PG MCHC 33.7 (30-36) % RDW 13.7 (11.6-14.8) % Plt Count 228 (150-400) X10^3/uL Neut % (Auto) 50.7 (50-75) % Lymph % (Auto) 34.9 (25-40) % [place] % (Auto) 10.3 (3-14) % Eos % (Auto) 3.4 (2-4) % Baso % (Auto) 0.7 (0-2) % Neut # (Auto) 4400 (4288-7140) /uL Lymph # (Auto) 3000 (6350-1319) /uL [place] # (Auto) 900 (0-900) /uL Eos # (Auto) 300 (0-450) /uL Baso # (Auto) 100 (0-100) /uL Sodium (137-145) mmol/L Potassium (3.4-5.1) mmol/L Chloride (98-107) mmol/L Carbon Dioxide (22-32) mmol/L BUN (9-20) mg/dL Creatinine (0.66-1.25) mg/dL Estimated GFR (>60) mL/min BUN/Creatinine Ratio (6-22) Glucose (80-110) mg/dL Calcium (8.4-10.2) mg/dL Total Bilirubin (0.2-1.3) mg/dL AST (17-59) IU/L ALT (21-72) IU/L Alkaline Phosphatase (38-126) U/L Total Creatine Kinase (55-170) U/L CK-MB (CK-2) CK-MB (CK-2) Rel Index Troponin I (0.01-0.034) ng/mL Total Protein (6.3-8.2) g/dL Albumin (3.5-5.0) g/dL Globulin (1.7-4.1) g/dL Albumin/Globulin Ratio (1.0-2.8) Lipase (23-300) U/L Urine Color Straw Urine Appearance Clear Urine pH 6.0 (4.5-8.0) Ur Specific [place] <=1.005 (1.000-1.035) Urine Protein Negative (Negative) Urine Glucose (UA) Negative (Negative) g/dL Urine Ketones Negative (NEGATIVE) Urine Occult Blood Trace-intact (Negative) Urine Nitrate Negative (Negative) Urine Bilirubin Negative (NEGATIVE) Urine Urobilinogen 0.2 (0.2) E.U./dL Ur Leukocyte Esterase Negative (NEGATIVE) Urine RBC None seen (0-5/HPF) Urine WBC None seen (0-5/HPF) Urine Bacteria None seen (None) Ur Culture Indicated? Cult not indicated Micro UA Comment Microscopic normal Salicylates (<20) mg/dL Urine Opiates Screen Negative (Negative) Ur Oxycodone Screen Negative (Negative) Urine Methadone Screen Negative (Negative) Acetaminophen (10-30) ug/mL Ur Barbiturates Screen Negative (Negative) U Tricyclic Antidepress Negative (Negative) Ur Phencyclidine Scrn Negative (Negative) Ur Amphetamines Screen Negative (Negative) U Methamphetamines Scrn Negative (Negative) Ur MDMA Scrn (Ecstasy) Negative (Negative) U Benzodiazepines Scrn Negative (Negative) Urine Cocaine Screen Negative (Negative) U Marijuana (THC) Screen Negative (Negative) Ethyl Alcohol ( - 10) mg/dL 03/12/19 03/12/19 Range/Units 01:37 01:37 WBC (4.5-11.0) X10^3/uL RBC (4.5-5.9) X10^6/uL Hgb (13.5-17.5) g/dL Hct (41-53) % MCV (80-100) fL MCH (26-34) PG MCHC (30-36) % RDW (11.6-14.8) % Plt Count (150-400) X10^3/uL Neut % (Auto) (50-75) % Lymph % (Auto) (25-40) % [place] % (Auto) (3-14) % Eos % (Auto) (2-4) % Baso % (Auto) (0-2) % Neut # (Auto) (8011-1367) /uL Lymph # (Auto) (3952-6123) /uL [place] # (Auto) (0-900) /uL Eos # (Auto) (0-450) /uL Baso # (Auto) (0-100) /uL Sodium 145 (137-145) mmol/L Potassium 3.9 (3.4-5.1) mmol/L Chloride 102 (98-107) mmol/L Carbon Dioxide 26 (22-32) mmol/L BUN 8 L (9-20) mg/dL Creatinine 0.70 (0.66-1.25) mg/dL Estimated GFR > 60.0 (>60) mL/min BUN/Creatinine Ratio 11.4 (6-22) Glucose 97 (80-110) mg/dL Calcium 9.4 (8.4-10.2) mg/dL Total Bilirubin 0.4 (0.2-1.3) mg/dL AST 29 (17-59) IU/L ALT 22 (21-72) IU/L Alkaline Phosphatase 82 (38-126) U/L Total Creatine Kinase 261 H (55-170) U/L CK-MB (CK-2) TNP CK-MB (CK-2) Rel Index TNP Troponin I < 0.012 (0.01-0.034) ng/mL Total Protein 7.7 (6.3-8.2) g/dL Albumin 4.3 (3.5-5.0) g/dL Globulin 3.4 (1.7-4.1) g/dL Albumin/Globulin Ratio 1.3 (1.0-2.8) Lipase 352 H (23-300) U/L Urine Color Urine Appearance Urine pH (4.5-8.0) Ur Specific [place] (1.000-1.035) Urine Protein (Negative) Urine Glucose (UA) (Negative) g/dL Urine Ketones (NEGATIVE) Urine Occult Blood (Negative) Urine Nitrate (Negative) Urine Bilirubin (NEGATIVE) Urine Urobilinogen (0.2) E.U./dL Ur Leukocyte Esterase (NEGATIVE) Urine RBC (0-5/HPF) Urine WBC (0-5/HPF) Urine Bacteria (None) Ur Culture Indicated? Micro UA Comment Salicylates < 1.0 (<20) mg/dL Urine Opiates Screen (Negative) Ur Oxycodone Screen (Negative) Urine Methadone Screen (Negative) Acetaminophen < 10 L (10-30) ug/mL Ur Barbiturates Screen (Negative) U Tricyclic Antidepress (Negative) Ur Phencyclidine Scrn (Negative) Ur Amphetamines Screen (Negative) U Methamphetamines Scrn (Negative) Ur MDMA Scrn (Ecstasy) (Negative) U Benzodiazepines Scrn (Negative) Urine Cocaine Screen (Negative) U Marijuana (THC) Screen (Negative) Ethyl Alcohol 231 H ( - 10) mg/dL Imaging Data CT scan - head: Radiologist's impression: PROCEDURE: CT HEAD/BRAIN WO CON INDICATIONS: found down TECHNIQUE: Noncontrast 4.5 mm thick angled axial sections acquired from the foramen magnum to the vertex, with coronal and sagittal reformats. For radiation dose reduction, the following was used: automated exposure control, adjustment of mA and/or kV according to patient size. COMPARISON: [facility], CT, CT HEAD/BRAIN WO CON, 06/09/2018, 9:35. [facility], CT, HEAD WITHOUT CONTRAST, 04/19/2010, 9:51. FINDINGS: Image quality: Excellent. CSF spaces: Basal cisterns are patent. No extra-axial fluid collections. The ventricles are symmetric in size and shape. Brain: No intracranial bleeds or masses. There is moderate cerebral volume lo ss for age, with resultant ventricular and sulcal prominence. There are severe periventricular and deep white matter chronic small vessel ischemic changes. Small, chronic, bilateral thalamic lacunar infarcts. Small, chronic left mello radiata lacunar infarct. There is intracranial internal carotid artery and vertebral artery atherosclerosis. Skull and face: Calvarium and visualized facial bones appear intact, without suspicious lesions. Left frontal scalp hematoma/laceration noted. Sinuses: Visualized sinuses are clear. The scattered opacities noted in the dependent portions of the left mastoid air cells. IMPRESSION: 1. No acute intracranial disease process. 2. Left frontal scalp hematoma/laceration. 3. Scattered opacities in the left mastoid air cells. Please correlate with clinical findings to differentiate serous fluid from an inflammatory process. Dictated by: Maegan Mazariegos MD, PhD on 03/12/2019 at 7:21 Approved by: Maegan Mazariegos MD, PhD on 03/12/2019 at 7:24 Chest x-ray: Radiologist's impression: PROCEDURE: XR CHEST 1V INDICATIONS: chest pain TECHNIQUE: One view of the chest was acquired. COMPARISON: [facility], CR, XR CHEST 2V, 03/20/2018, 10:14. FINDINGS: Surgical changes and devices: None. Lungs and pleura: Lungs are clear. No pleural effusions or pneumothorax. Mediastinum: Mediastinal contours appear normal. Heart size is normal. Bones and chest wall: Chronic appearing left fourth and fifth rib fractures which have healed in deformity. No suspicious bony lesions. Overlying soft tissues appear unremarkable. IMPRESSION: No acute cardiopulmonary disease process. Dictated by: Maegan Mazariegos MD, PhD on 03/12/2019 at 8:26 Approved by: Maegan Mazariegos MD, PhD on 03/12/2019 at 8:27 CT C-spine: Attestation: I personally reviewed and interpreted this imaging study as follows: Radiologist's impression: ROCEDURE: CT CERVICAL SPINE WO CON INDICATIONS: found down TECHNIQUE: Noncontrast 3 mm thick sections acquired from the skull base to the T4 level. Sagittal and coronal reformats were then constructed. For radiation dose reduction, the following was used: automated exposure control, adjustment of mA and/or kV according to patient size. COMPARISON: [facility], CT, C-SPINE WITHOUT CONTRAST, 04/19/2010, 9:51. FINDINGS: Image quality: Limited by patient motion. Bones: No cervical spine fractures or dislocations. Visualized superior ribs are intact. Spine degenerative disc disease and facet arthropathy. Left shoulder arthroplasty. Chronic left fourth, fifth and sixth rib fractures are noted which have healed in slight deformity. Soft tissues: Prevertebral soft tissues are normal in thickness. No paravertebral hematomas. No apical pneumothoraces. IMPRESSION: No fracture within limitations related to motion artifact. No acute osseous lesion within limitations of the study. If symptoms and/or clinical suspicion for pathology persists, evaluation with MRI may be helpful for further assessment. Dictated by: Maegan Mazariegos MD, PhD on 03/12/2019 at 7:42 Approved by: Maegan Mazariegos MD, PhD on 03/12/2019 at 7:59 Discharge Plan Departure Patient Disposition: Home Clinical Impression: Fall Qualifiers: Encounter type: initial encounter Qualified Code(s): W19.XXXA - Unspecified fall, initial encounter Discharge Date/Time: 03/12/19 11:02 Interventions: ED Discharge Assessment Last Done: 03/12/19 11:00 Instructions: How to Prevent Falls Prescriptions: No Action lisinopril 20 mg tablet 20 mg PO DAILY RF: 0 allopurinol 300 mg tablet 300 mg PO DAILY RF: 0 oxycodone 5 mg tablet 5 mg PO DIRECTED PRN (Reason: pain) RF: 0 indomethacin 50 mg Capsule 50 mg PO BID PRN (Reason: Gout) RF: 0 albuterol sulfate 90 mcg/actuation Aerosol Powdr Breath Activated 2 puff Inhalation Q4H PRN (Reason: breathing and cough) RF: 0 atorvastatin [Lipitor] 20 mg Tablet 80 mg PO BEDTIME Qty: 30 RF: 0 amlodipine [Norvasc] 5 mg Tablet 5 mg PO DAILY Qty: 30 RF: 0 oxycodone 5 mg capsule 5 mg PO Q4-6H PRN (Reason: pain) Qty: 20 RF: 0 Referrals: Chad Mendoza MD [Primary Care Provider] -
== END 2019-03-12 11:02 | disposition home or self-care (01) ==
PROVIDERS: Emergency Medicine; Emergency Provider Emergency Medicine; PCP Internal Medicine
DX: S01.01XA Laceration without foreign body of scalp, initial encounter (principal); R07.9 Chest pain, unspecified; W19.XXXA Unspecified fall, initial encounter; R55 Syncope and collapse
CPT/HCPCS: 36415; 70450; 71045; 72125; 80053; 80305; 80320; 80329; 81001; 82550; 83690; 84484; 85025; 93005; 93010; 99284; 99285; G0480

== ENCOUNTER 2019-03-24 23:28 | Inpatient (IN) | payer MEDICARE, OTHER, MEDICAID, SELFPAY ==
[2018-06-09 13:33] VITALS: BMI 29.5
--- NOTE | 2019-03-24 23:28 | ED.WOUNDLAC ---
HPI - Wound/Laceration General Chief Complaint: Wound/Laceration Stated Complaint: Fall Out of Wheelchair Time Seen by Provider: 03/24/19 23:28 Related Data Home Medications Medication Instructions Recorded Confirmed allopurinol 300 mg PO DAILY 03/20/18 03/25/19 lisinopril 20 mg PO DAILY 03/20/18 03/25/19 albuterol sulfate 2 puff INHALATION Q4H PRN 06/09/18 03/25/19 indomethacin 50 mg PO BID PRN 06/09/18 03/25/19 Previous Rx's Medication Instructions Recorded amlodipine [Norvasc] 5 mg PO DAILY #30 tab 06/12/18 atorvastatin [Lipitor] 80 mg PO BEDTIME #30 tab 06/12/18 oxycodone 5 mg PO Q4-6H PRN #20 cap 06/12/18 Allergies Allergy/AdvReac Type Severity Reaction Status Date / Time No Known Allergies Allergy Verified 03/23/18 11:38 PFSH Social History household members: none Smoking Status: Former smoker alcohol intake: current Exam Initial Vital Signs Initial Vital Signs: Vital Signs Temperature 99.2 F 03/24/19 23:31 Pulse Rate 114 H 03/24/19 23:31 Respiratory Rate 22 03/24/19 23:31 Blood Pressure 167/90 H 03/24/19 23:31 Pulse Oximetry 98 03/24/19 23:31 Course Orders Ordered: ED Orders 03/25/19 00:35 XR foot LT min 3V Stat 03/25/19 00:36 Blood Culture Stat C-Reactive Protein Quant Stat Complete Blood Count AUTO DIFF Stat Comprehensive Metabolic Panel Stat Erythrocyte Sedimentation Rate Stat Lipase Stat Procalcitonin Stat 03/25/19 00:55 Wound Culture and Gram Stain Stat Discontinued Medications Bacitracin (Bacitracin) 1 applic TOP NOW ONE Stop: 03/25/19 00:56 Last Admin: 03/25/19 01:27 Dose: 1 applic Diphtheria/Tetanus/Acell Pertussis (Adacel) 0.5 ml IM .ONCE ONE Stop: 03/25/19 00:57 Last Admin: 03/25/19 01:11 Dose: 0.5 ml Lidocaine HCl (Xylocaine 1% (Pf)) 8 ml INJ NOW ONE Stop: 03/25/19 00:10 Last Admin: 03/25/19 00:21 Dose: 8 ml Lidocaine/Epinephrine (Xylocaine 2% W/Epi) 1 ml INJ INTRA-OP ONE Stop: 03/25/19 00:26 Last Admin: 03/25/19 00:30 Dose: 1 ml Vital Signs - 8 hr 03/24/19 23:31 Temperature 99.2 F Pulse Rate 114 H Respiratory Rate 22 Blood Pressure 167/90 H Pulse Oximetry 98 Discharge Plan Departure Patient Disposition: Admitted As Inpatient Referrals: Chad Mendoza MD [Primary Care Provider] -
[2019-03-24 23:31] VITALS: BP 167/90; PULSE 114; RESP 22; TEMP 37.3; O2SAT 98
[2019-03-25] VITALS (13 sets, daily range): BP systolic 126–169; BP diastolic 61–89; PULSE 78–108; RESP 18–22; TEMP 36.8–37.4; O2SAT 92–99; BMI 30.7
[2019-03-25] MEDS: LIDOCAINE 1% (PF) 8 ML INJ (00:21)
[2019-03-25] MEDS: LIDOCAINE 2% W/EPI INJ 1 ML INJ (00:30)
--- NOTE | 2019-03-25 00:35 | DI.RAD.S_ITS ---
PROCEDURE: XR FOOT LT MIN 3V INDICATIONS: Wound left great toe eval for osteo TECHNIQUE: 3 views of the foot were acquired. COMPARISON: None. FINDINGS: Bones: There is a transverse fracture that is not significantly displaced involving the mid shaft of the fifth metatarsal. There is questionable areas of periosteal reaction on one of the views. No additional fractures are evident. There is no dislocation. No suspicious osseous lesion is evident. There is a plantar calcaneal spur. No definite osseous erosions. Soft tissues: Prominent soft tissue swelling of the foot is evident. cattered vascular calcifications are noted. IMPRESSION: 1. Left fifth metatarsal fractures of uncertain chronicity. 2. Prominent soft tissue swelling of the foot may be related to cellulitis. 3. No convincing evidence of osteomyelitis. If there is high clinical concern for osteomyelitis, please consider MRI with contrast for further evaluation. Note: The preliminary ED findings and the final radiology report are concordant. Dictated by: Carmine Beaver M.D. on 03/25/2019 at 6:39 Approved by: Carmine Beaver M.D. on 03/25/2019 at 6:48
--- NOTE | 2019-03-25 00:56 | PC.NURSE ---
Med rec completed. Pt states he has not been taking his medications d/t lack of access to them.
[2019-03-25] MEDS: TET,DIPH,PERTUSS(ACELL),VAC/PF 0.5 ML SYRINGE IM (01:11)
[2019-03-25] MEDS: BACITRACIN OINT 0.9 GM PCKT 1 APPLIC TOP (01:27)
--- NOTE | 2019-03-25 01:29 | ED_ITS ---
HPI - Wound/Laceration General Chief Complaint: Wound/Laceration Stated Complaint: Fall Out of Wheelchair Time Seen by Provider: 03/24/19 23:28 Source: patient Mode of arrival: EMS Limitations: no limitations History of Present Illness HPI narrative: 63-year-old male brought in by EMS after he was found by friends. Report was the patient fell asleep in his wheelchair and fell out of his wheelchair and has a laceration of his forehead. There was no loss of consciousness. Patient is not on blood thinners. Patient is nonambulatory. He has not been ambulatory since he has had a CVA in the past. He has fallen out of his wheelchair in the past after falling asleep. His head was covered in a bandage prior to arrival. Arrive not in a cervical collar and on a backboard. Related Data Home Medications Medication Instructions Recorded Confirmed allopurinol 300 mg PO DAILY 03/20/18 03/25/19 lisinopril 20 mg PO DAILY 03/20/18 03/25/19 albuterol sulfate 2 puff INHALATION Q4H PRN 06/09/18 03/25/19 indomethacin 50 mg PO BID PRN 06/09/18 03/25/19 Previous Rx's Medication Instructions Recorded amlodipine [Norvasc] 5 mg PO DAILY #30 tab 06/12/18 atorvastatin [Lipitor] 80 mg PO BEDTIME #30 tab 06/12/18 oxycodone 5 mg PO Q4-6H PRN #20 cap 06/12/18 Allergies Allergy/AdvReac Type Severity Reaction Status Date / Time No Known Allergies Allergy Verified 03/23/18 11:38 Review of Systems Constitutional Denies fever(s) and Denies headache(s) Eyes Denies change in vision ENT Ears, Nose, Mouth, and Throat: Denies vertigo, Denies dizziness and Denies headache(s) Cardiovascular Denies chest pain and Denies dyspnea Respiratory Denies dyspnea Gastrointestinal Gastrointestinal: Denies abdominal pain Genitourinary Denies dysuria Musculoskeletal Denies back pain, Denies myalgias and Denies arthralgias Integumentary/Breasts Comments: Laceration of forehead Neurologic Denies confusion, Denies vertigo, Denies dizziness and Denies headache(s) Comments: Non ambulatory Psychiatric Denies confusion Hematologic/Lymphatic Denies easy bleeding and Denies easy bruising PFSH Medical History COPD with emphysema (Acute) CVA (cerebral vascular accident) (Acute) Chronic pain (Acute) Diabetes type 2, controlled (Acute) Dyslipidemia (Acute) Gout (Acute) Hypertension, malignant (Acute) Peripheral vascular disease (Acute) Surgical History History of appendectomy (Acute) Social History household members: none Smoking Status: Former smoker alcohol intake: current Social History household members: none Smoking Status: Former smoker alcohol intake: current Exam Initial Vital Signs Initial Vital Signs: Vital Signs Temperature 99.2 F 03/24/19 23:31 Pulse Rate 114 H 03/24/19 23:31 Respiratory Rate 22 03/24/19 23:31 Blood Pressure 167/90 H 03/24/19 23:31 Pulse Oximetry 98 03/24/19 23:31 Const General: disheveled Orientation: alert, awake and oriented x3 HENMT Head: abrasion and laceration Face and sinus: normal facial exam Resp Effort & Inspection: normal respiratory effort Cardio Rate: tachycardic Rhythm: regular rhythm Other: Dopplerable DP pulses bilaterally GI Inspection: non-distended Palpation: soft Skin Other: Patient with a 5 cm laceration to the left scalp. Right next to this there is a dime-sized skin avulsion to the scalp. No active bleeding. Patient also with a 2 cm round ulceration to the inside portion of his right great toe. Neuro General: alert, awake and oriented x3 Other: Minimal sensation to light palpation bilateral lower extremities Extrem Other: Swelling bilateral feet. Psych Appearance: grossly normal and disheveled Procedures Laceration Repair Laceration 1: Site: scalp Side (If applicable): left Size (cm): 5 Description: linear and irregular Local Anesthetic: lidocaine 1% and with epi Amount of anesthesia used (mL): 10 Pre-repair: wound explored, irrigated extensively and deep structures intact Skin layer closed with: tracy Scores GCS [place] coma scale eye opening: Spontaneous [place] coma scale verbal response: Orientated [place] coma scale motor response: Obey commands [place] coma scale total score: 15 Nexus Score for C-Spine Focal Neurologic deficit present: No Midline spinal tenderness present: No Altered level of conciousness present: No Intoxication present: No Distracting Injury Present: No Nexus Criteria for C-spine: 0 Course Orders Ordered: ED Orders 03/25/19 00:35 XR foot LT min 3V Stat 03/25/19 00:55 Wound Culture and Gram Stain Stat 03/25/19 01:38 Consult to PICC Line RN Stat 03/25/19 01:40 C-Reactive Protein Quant Stat Complete Blood Count AUTO DIFF Stat Comprehensive Metabolic Panel Stat Erythrocyte Sedimentation Rate Stat Lactate (Lactic Acid) Stat Lipase Stat Procalcitonin Stat 03/25/19 01:47 Blood Culture Stat Discontinued Medications Bacitracin (Bacitracin) 1 applic TOP NOW ONE Stop: 03/25/19 00:56 Last Admin: 03/25/19 01:27 Dose: 1 applic Diphtheria/Tetanus/Acell Pertussis (Adacel) 0.5 ml IM .ONCE ONE Stop: 03/25/19 00:57 Last Admin: 03/25/19 01:11 Dose: 0.5 ml Lidocaine HCl (Xylocaine 1% (Pf)) 8 ml INJ NOW ONE Stop: 03/25/19 00:10 Last Admin: 03/25/19 00:21 Dose: 8 ml Lidocaine/Epinephrine (Xylocaine 2% W/Epi) 1 ml INJ INTRA-OP ONE Stop: 03/25/19 00:26 Last Admin: 03/25/19 00:30 Dose: 1 ml Vital Signs - 8 hr 03/24/19 23:31 Temperature 99.2 F Pulse Rate 114 H Respiratory Rate 22 Blood Pressure 167/90 H Pulse Oximetry 98 MDM - Wound/Laceration Lab Data Attestation: I reviewed the patient's lab results. Result diagrams: 03/25/19 01:40 03/25/19 01:40 Lab Results 03/25/19 03/25/19 03/25/19 Range/Units 01:40 01:40 01:40 WBC 10.9 (4.5-11.0) X10^3/uL RBC 4.26 L (4.5-5.9) X10^6/uL Hgb 13.7 (13.5-17.5) g/dL Hct 40.8 L (41-53) % MCV 95.7 (80-100) fL MCH 32.2 (26-34) PG MCHC 33.6 (30-36) % RDW 13.6 (11.6-14.8) % Plt Count 249 (150-400) X10^3/uL Neut % (Auto) 70.9 (50-75) % Lymph % (Auto) 16.9 L (25-40) % [place] % (Auto) 9.8 (3-14) % Eos % (Auto) 2.0 (2-4) % Baso % (Auto) 0.4 (0-2) % Neut # (Auto) 7700 H (8133-9811) /uL Lymph # (Auto) 1800 (1172-9048) /uL [place] # (Auto) 1100 H (0-900) /uL Eos # (Auto) 200 (0-450) /uL Baso # (Auto) 0 (0-100) /uL ESR 63 H (0-15) MM/HR Sodium 139 (137-145) mmol/L Potassium 3.9 (3.4-5.1) mmol/L Chloride 98 (98-107) mmol/L Carbon Dioxide 30 (22-32) mmol/L BUN 13 (9-20) mg/dL Creatinine 0.70 (0.66-1.25) mg/dL Estimated GFR > 60.0 (>60) mL/min BUN/Creatinine Ratio 18.6 (6-22) Glucose 101 (80-110) mg/dL Lactate (0.7-2.1) mmol/L Calcium 9.3 (8.4-10.2) mg/dL Total Bilirubin 0.5 (0.2-1.3) mg/dL AST 22 (17-59) IU/L ALT 17 L (21-72) IU/L Alkaline Phosphatase 76 (38-126) U/L C-Reactive Protein 2.4 H (<1.0) mg/dL Total Protein 7.0 (6.3-8.2) g/dL Albumin 3.8 (3.5-5.0) g/dL Globulin 3.2 (1.7-4.1) g/dL Albumin/Globulin Ratio 1.2 (1.0-2.8) Lipase 126 (23-300) U/L Procalcitonin < 0.05 (<0.5) ng/mL 03/25/19 Range/Units 01:40 WBC (4.5-11.0) X10^3/uL RBC (4.5-5.9) X10^6/uL Hgb (13.5-17.5) g/dL Hct (41-53) % MCV (80-100) fL MCH (26-34) PG MCHC (30-36) % RDW (11.6-14.8) % Plt Count (150-400) X10^3/uL Neut % (Auto) (50-75) % Lymph % (Auto) (25-40) % [place] % (Auto) (3-14) % Eos % (Auto) (2-4) % Baso % (Auto) (0-2) % Neut # (Auto) (0503-1312) /uL Lymph # (Auto) (5692-2205) /uL [place] # (Auto) (0-900) /uL Eos # (Auto) (0-450) /uL Baso # (Auto) (0-100) /uL ESR (0-15) MM/HR Sodium (137-145) mmol/L Potassium (3.4-5.1) mmol/L Chloride (98-107) mmol/L Carbon Dioxide (22-32) mmol/L BUN (9-20) mg/dL Creatinine (0.66-1.25) mg/dL Estimated GFR (>60) mL/min BUN/Creatinine Ratio (6-22) Glucose (80-110) mg/dL Lactate 1.6 (0.7-2.1) mmol/L Calcium (8.4-10.2) mg/dL Total Bilirubin (0.2-1.3) mg/dL AST (17-59) IU/L ALT (21-72) IU/L Alkaline Phosphatase (38-126) U/L C-Reactive Protein (<1.0) mg/dL Total Protein (6.3-8.2) g/dL Albumin (3.5-5.0) g/dL Globulin (1.7-4.1) g/dL Albumin/Globulin Ratio (1.0-2.8) Lipase (23-300) U/L Procalcitonin (<0.5) ng/mL Imaging Data Left foot x-ray: Attestation: I personally reviewed and interpreted this imaging study as follows: My impression: No lytic lesions, old left 5th metatarsal fracture. MDM Narrative Medical decision making narrative: Patient arrived not on backboard not in a cervical collar however he was alert and oriented x3. Had a GCS of 15. Was not intoxicated. Did not meet nexus criteria for cervical spine CT. He is not on blood thinners. Given his clinical presentation do not feel that head CT is needed. The scalp wound was irrigated and closed as above. His tetanus was updated. While I was closing his scalp wound the patient asked me to take a look at his feet. He states that his left foot had been swelling for the past several weeks. When I took off his socks I found that the socks were soaking wet and cold. His bilateral feet had 3+ pitting edema. they were cold and pale and wet. This did improve after his socks were removed. He also has a nickel size ulceration to the inside of his left great toe. He does have some sensation in this area however not what I would expect with the level ulceration. There is no bone exposed. The x-rays show no lytic lesions concern for osteo. He does have an elevated ESR and CRP. A wound culture was obtained. There is no surrounding erythema. Will wait on antibiotics until wound culture results. Patient was tachycardic however this could be secondary to the situation the brought him to the emergency department. He is afebrile. I do feel given his living situation that he does need admitted to the hospital for wound care. He would also benefit from seeing physical therapy and social work. I feel that without this type of intervention the wound on his left foot will worsen and could potentially lead to more catastrophic issues such as need for amputation. Discussed the case with night hospitalist who will accept the patient. Discussed admission with the patient expressed understanding and agreement. Discharge Plan Departure Patient Disposition: Admitted as Observation Clinical Impression: Laceration of head Qualifiers: Encounter type: initial encounter Location of open wound of head: scalp Foreign body presence: without foreign body Qualified Code(s): S01.01XA - Laceration without foreign body of scalp, initial encounter Skin ulcer Qualifiers: Non-pressure ulcer stage: unspecified non-pressure ulcer stage Qualified Code(s): L98.499 - Non-pressure chronic ulcer of skin of other sites with unspecified severity Admit Date/Time: 03/25/19 03:12 Admit Provider: Deidre Huang
--- NOTE | 2019-03-25 01:31 | PC.NURSE ---
Attempted PIV placement, unsuccessful. Dr. Romero aware. SANDRA Gant to attempt PIV placement.
--- NOTE | 2019-03-25 01:34 | PC.NURSE ---
one failed attempt for iv start in right hand by this nurse. bandage applies to site.
--- NOTE | 2019-03-25 01:42 | PC.NURSE ---
[facility] team called at 0142 for PICC placement
--- NOTE | 2019-03-25 01:44 | PC.NURSE ---
[facility] Nurse called and stated he will arrive in approximatley 1hr 15 min. expected arrival at 0300
[2019-03-25 02:09] LABS: Add Manual Diff / Slide Review NO; Basophils Absolute Auto 0 /uL (0-100); Basophils Percent Auto 0.4 % (0-2); Eosinophils Absolute Auto 200 /uL (0-450); Hematocrit 40.8 % (41-53); Hemoglobin 13.7 g/dL (13.5-17.5); Lymphocytes Absolute Auto 1800 /uL (1100-4500); Lymphocytes Percent Auto 16.9 % (25-40); Mean Corpuscular HGB Conc 33.6 % (30-36); Mean Corpuscular Hemoglobin 32.2 PG (26-34); Mean Corpuscular Volume 95.7 fL (80-100); Monocytes Absolute Auto 1100 /uL (0-900); Monocytes Percent Auto 9.8 % (3-14); Neutrophils Absolute Auto 7700 /uL (1500-7000); Neutrophils Percent Auto 70.9 % (50-75); Platelet Count 249 X10^3/uL (150-400); Red Blood Cell Count 4.26 X10^6/uL (4.5-5.9); Red Cell Distribution Width 13.6 % (11.6-14.8); White Blood Cell Count 10.9 X10^3/uL (4.5-11.0)
[2019-03-25 02:12] LABS: Lactate (Lactic Acid) 1.6 mmol/L (0.7-2.1)
[2019-03-25 02:16] LABS: Alanine Aminotransferase 17 IU/L (21-72); Albumin 3.8 g/dL (3.5-5.0); Albumin Globulin Ratio 1.2 (1.0-2.8); Alkaline Phosphatase 76 U/L (38-126); Aspartate Aminotransferase 22 IU/L (17-59); BUN Creatinine Ratio 18.6 (6-22); Bilirubin Total 0.5 mg/dL (0.2-1.3); Blood Urea Nitrogen 13 mg/dL (9-20); C-Reactive Protein Quant 2.4 mg/dL (<1.0); Calcium 9.3 mg/dL (8.4-10.2); Carbon Dioxide 30 mmol/L (22-32); Chloride 98 mmol/L (98-107); Estimated Glomerular Filt Rate > 60.0 mL/min (>60); Globulin 3.2 g/dL (1.7-4.1); Glucose 101 mg/dL (80-110); HEMOLYSIS < 15 (0-50); Lipase 126 U/L (23-300); Potassium 3.9 mmol/L (3.4-5.1); Sodium 139 mmol/L (137-145)
[2019-03-25 02:33] LABS: Procalcitonin < 0.05 ng/mL (<0.5)
[2019-03-25 02:46] LABS: Erythrocyte Sedimentation Rate 63 MM/HR (0-15)
--- NOTE | 2019-03-25 03:08 | PC.NURSE ---
[facility] here to place midline.
--- NOTE | 2019-03-25 03:35 | PM.HP.1 ---
History of Present Illness Date Patient Seen: 03/25/19 Time Patient Seen: 03:35 Chief complaint: Fall Out of Wheelchair Narrative: The patient is a 63-year-old male with PMH of HTN, ischemic CVA, DM 2T, PVD, CKD 2, COPD, h/o spontaneous pneumothorax, OA, gout, chronic pain syndrome (2/2 spinal stenosis), opioid dependence, prior h/o of tobacco dependence and current marijuana and EtOH use. The patient was brought in to the ED on 03/24/2019 at 2340 by EMS after being found down by friends. The patient has fallen out of the wheelchair after falling asleep. There was impact to the head. In the ED obvious laceration was noted, which required suturing. Patient denies loss of consciousness. The event was not witnessed. There is no loss of bowel or bladder control. He was down for about an hour before calling friends for help. Patient is not on any anti-thrombotics or any other anticoagulation. It is worth noting that the patient has had a similar event on 03/12/2019. He did sustain an injury to the head at that time as well. Radiography revealed hematoma. Associated symptoms include headache localized to the frontal aspect of the head without radiation or neurological symptoms. No neck pain. Prior to the event or in recent weeks patient has not been feeling dizzy or lightheaded. He does not endorse chest pain or palpitations. He does endorse shortness of breath and wheezing. Chad report received from the ED physician, patient has asked to have his lower extremities evaluated. Patient was found to have bilateral lower extremity edema. See Dr. Romero's ED note for details. Patient does not specifically report any concerns with his right lower extremity, however does note having presence of pain swelling over the past several weeks, he has recently noted the redness. Patient has left lower extremity satinder plegia, which is a late CVA sequela. He does have a chronic left lower extremity foot drop. He notes himself as being non ambulatory, however also comments that he is able to use his right lower extremity to stand and make transfers. Patient has not been taking any of his medications for the past 3 months. Patient is homeless. At present time he lives in an alley in [place] and has been doing so for the past 3 months. He does not have anyone that he can name for support. He does endorse drinking 2 six-packs of beer daily. Notes history of heavy alcohol use. Reports having 1 beer in the afternoon of 03/24/2019. Denies prior history of ETOH withdrawal symptoms. Patient does not endorse drug use or marijuana use at present time or in the past. Review of records revealed presence of THC in 2016 in 2018. Denies prior history of ulcers, cellulitis, or MRSA. He is not really clear if there has been drainage coming from the ulcer. Denies fever and chills. ED presentation & work-up Labs, 03/25/19 @ 0140 WBC 10.9 RBC 4.26 HGB 13.7 PLT 249 Na 139 K 3.9 Cl 98 Ca 9.3 Glu 101 CO2 30 BUN 13 Cr 0.7 BUN > 60 PT 10.9 INR 1 aPTT 31 ESR 63 CRP 2.4 PCT < 0.05 Lactate 1.6 XR Foot - final image results pending, no acute finding via ED review of image Patient History Medical History COPD with emphysema (Acute) CVA (cerebral vascular accident) (Acute) Chronic pain (Acute) Diabetes type 2, controlled (Acute) Dyslipidemia (Acute) Gout (Acute) Hypertension, malignant (Acute) Peripheral vascular disease (Acute) Surgical History History of appendectomy (Acute) Social History household members: none Smoking Status: Former smoker alcohol intake: current Family & Social History Social History: household members none Safety & Behavioral: Feels Safe in Current Yes Environment Tobacco & Substance use: Smoking Status Former smoker alcohol intake current alcohol intake frequency 3 or more drinks per day Substance Use Type marijuana Meds Home Medications Medication Instructions Recorded Confirmed Type allopurinol 300 mg PO DAILY 03/20/18 03/25/19 History lisinopril 20 mg PO DAILY 03/20/18 03/25/19 History albuterol sulfate 2 puff INHALATION Q4H PRN 06/09/18 03/25/19 History indomethacin 50 mg PO BID PRN 06/09/18 03/25/19 History amlodipine [Norvasc] 5 mg PO DAILY #30 tab 06/12/18 03/25/19 Rx atorvastatin [Lipitor] 80 mg PO BEDTIME #30 tab 06/12/18 03/25/19 Rx oxycodone 5 mg PO Q4-6H PRN #20 cap 06/12/18 03/25/19 Rx Allergies Allergy/AdvReac Type Severity Reaction Status Date / Time No Known Allergies Allergy Verified 03/23/18 11:38 Review of Systems Review of Systems All systems reviewed & are unremarkable except as noted in HPI and below Exam Vital Signs (past 8 hours): - 03/24/19 23:31 03/25/19 03:25 Temperature 99.2 F Pulse Rate 114 H 103 H Respiratory Rate 22 Blood Pressure 167/90 H 165/89 H Pulse Oximetry 98 96 Oxygen Delivery Method Room Air Narrative Exam Narrative: Constitutional: Patient is in mild respiratory distress. Poor historian. Disheveled appearance. Looks older than stated age. Suboptimal level of hygiene. Neurologic: AOx3, no dysarthria or aphasia, left lower extremity hemiplegia and paresthesia Patient is slow to respond to questions Head: NC, there is approximated scalp laceration with 5 tracy bloody residue on head and face Eyes: Pupils equal round and reactive, EOMI, no periorbital ecchymosis Ears: external ears normal, patient is hard of earing, no retroauricular mastoid ecchymosis Nose: external nose normal, no drainage or epistaxis Throat: Dry mucous membranes, poor dentition oral hygiene Neck: no masses, lymphadenopathy, or JVD Chest / Respiratory: Patient is mildly tachypneic with respiratory rate low to mid 20s, mildly dyspnea, audible wheezing noted Inspiratory and expiratory wheeze bilaterally, diminished breath sounds in the bases. Heart / CV: S1S2, no murmur, distant heart tones Abdomen / GI: round, mildly distended, soft, + BS : no suprapubic tenderness Peripheral / Vascular: RLE: edema of foot, pretibial, blow the knee - 2+, pitting; + calor; erythema mild / thrombophlebitis LLE: edema of foot 3+, pretiial and below the knee 2-3+, pitting; calor, erythema of foot with spread to the calf and inner thigh The foot has a degree of brawny discoloration, potentially degree of lymphedema, there is a plaque-like area, Ulcer below left great toe, no apparent drainage. No apparent weeping from both of lower extremities. He does have breaks in skin between the toes and some fungal presentation. Pale toenail color on left lower extremity. Patient denies calf tenderness of both extremities. There are random abrasions on both lower extremities Left lower extremity is tender to touch. There is no overt tenderness noted with right lower extremity. Musc: Left lower extremity hemiplegia. Diminished ROM of right lower extremity. Able to hold against gravity. Generalized weakness of both upper and lower extremities. Foot drop in diminished muscle tone of the left lower extremity. Skin: See peripheral vascular assessment. Objective Labs Result Diagrams: 03/25/19 01:40 03/25/19 01:40 Labs: Laboratory Results - last 24 hr 03/25/19 03/25/19 03/25/19 01:40 01:40 01:40 WBC 10.9 RBC 4.26 L Hgb 13.7 Hct 40.8 L MCV 95.7 MCH 32.2 MCHC 33.6 RDW 13.6 Plt Count 249 Neut % (Auto) 70.9 Lymph % (Auto) 16.9 L [place] % (Auto) 9.8 Eos % (Auto) 2.0 Baso % (Auto) 0.4 Neut # (Auto) 7700 H Lymph # (Auto) 1800 [place] # (Auto) 1100 H Eos # (Auto) 200 Baso # (Auto) 0 ESR 63 H Sodium 139 Potassium 3.9 Chloride 98 Carbon Dioxide 30 BUN 13 Creatinine 0.70 Estimated GFR > 60.0 BUN/Creatinine Ratio 18.6 Glucose 101 Lactate Calcium 9.3 Total Bilirubin 0.5 AST 22 ALT 17 L Alkaline Phosphatase 76 C-Reactive Protein 2.4 H Total Protein 7.0 Albumin 3.8 Globulin 3.2 Albumin/Globulin Ratio 1.2 Lipase 126 Procalcitonin < 0.05 03/25/19 01:40 WBC RBC Hgb Hct MCV MCH MCHC RDW Plt Count Neut % (Auto) Lymph % (Auto) [place] % (Auto) Eos % (Auto) Baso % (Auto) Neut # (Auto) Lymph # (Auto) [place] # (Auto) Eos # (Auto) Baso # (Auto) ESR Sodium Potassium Chloride Carbon Dioxide BUN Creatinine Estimated GFR BUN/Creatinine Ratio Glucose Lactate 1.6 Calcium Total Bilirubin AST ALT Alkaline Phosphatase C-Reactive Protein Total Protein Albumin Globulin Albumin/Globulin Ratio Lipase Procalcitonin Assessment & Plan Assessment & Plan narrative: Traumatic injury of head after falling from wheel chair, acute on subacute, present on admission, active - No imaging was done. Patient presented with GCS of 15 and w/ no acute deficits. Not on anti-coagulation. Neuro checks Q4H, will need stat CT w/ any acute change - s/p repair of laceration Cellulitis (LLE), suspected / acute, present on admission, active Tachycardia and tachypnea on presentation. Afebrile. Associated symptoms of a lower, edema, and erythema. Ulcer noted. Multiple risk factors for development of cellulitis. in addition, homeless, history of PVD, obese, immunocompromised + SIRS. Elevated ESR and CRP. WBC, lactate, and procalcitonin WNL. DDx: Cellulitis vs. erysipelas vs. thrombophlebitis vs. acute gouty arthropathy vs. DVT - Start on vancomycin, pharmacy to dose - Blood cx and wound cx pending, re-evaluate / de-scalating ABX therapy pending results - Add uric acid level to labs from ED - Consult wound care, wound care Q shift - Venous Duplex bilat in am - Neurovascular checks Q4H. Dopple pulses QShift - Received tetnus vaccine SIRS, acute, present on admission, active Tachycardia and tachypnea noted. Potentially in the setting of an acute infection. No acute organ failure. DDx: COPD exacerbation vs URI infection vs bacteremia - See POC for cellulitis COPD w/ bronchospasm, chronic condition, present on admission, active Patient has not been using his inhalers. Former smoker, previously smoked for 50 years, 2 packs per day (by report). Denies cough with purulence. DDx: Pulmonary edema, PE. LVEF in Jun 2018 55-60%. - Chest x-ray - DuoNeb treatments q.6 hours scheduled - SpO2 prn / titrate to goal SpO2 of 88-92% Ulcer below right great toe, acute, non-draining, present on admission, active - No overt drainage, but wound culture collected - See cellulitis POC Essential hypertension, chronic condition, present on admission, active BP mildly elevated in ED. Improved on arrival to the unit (144/86 mmHg). Asymptomatic. Patient has NOT been taking his antihypertensive medications. Previously on lisinopril 20 mg q.d. and amlodipine 5 mg q.d. - Trend BP - Off antihypertensives for 3 months. Will start him off with lisinopril 10 mg daily. - Goal BP History of CVA, chronic condition, present on admission, active - Start ASA 81 mg QD. - Check FLP. Consider resuming statin, pending FLP results. ETOH dependence, concern for intoxicated state, active Patient presented with similar event on 03/12/2019. At that time workup revealed highly elevated ETOH level. CIWA of zero at time of assessment. - Check EtOH level and UDS - Monitor for s/s of withdraw, CIWA Q4H. Seizure precautions. - MTW / FA / Thiamine Homeless single person, present on admission, active Patient lives in an alley in [place]. - Consult social work Patient wishes to be full code. Names his sister as the surrogate decision maker. Medications for most recent admission reviewed. Patient has not been any medications for the past 3 months by report. VTE prophylaxis with Lovenox
[2019-03-25 04:02] LABS: Ethanol (ETOH) < 10 mg/dL
--- NOTE | 2019-03-25 04:35 | PC.ADMIT ---
NDECLINEDhomeless Admission Note: The patient,James Dumont,63 y/o, was given written information regarding hospital policies, unit procedures and contact persons. Patient's smoking status: Former smoker. Vital Signs - 8 hr 03/24/19 23:31 03/25/19 03:25 03/25/19 04:02 Temperature 99.2 F Pulse Rate 114 H 103 H Respiratory Rate 22 Blood Pressure 167/90 H 165/89 H Pulse Oximetry 98 96 98 03/25/19 04:05 Temperature 98.4 F Pulse Rate 108 H Respiratory Rate 22 Blood Pressure 144/86 H Pulse Oximetry 97 Pt arrived via stretcher and transferred to bed with stretcher board, AxOx3, able to make needs known. Pt here for fall from wheelchair and several wounds about the body, most significantly ulceration to left great toe. Pt reports 4/10 pain in head d/t laceration, tracy in place, ADRIAN. Pt has midline to upper left arm placed by precision. Performed extensive raquel-care and applied barrier cream to excoriation to gluteal cleft and perineal area. Pt refused to answer assessment question regarding harm to himself or others but denied suicidal thoughts. Pt is a high fall risk d/t fall from wheelchair and impaired ability to transfer, bed alarm on and functioning.
[2019-03-25] MEDS: DEXTROSE 5%-0.45% NS 1,000 ML 75 ML IV (05:04)
[2019-03-25] MEDS: ACETAMINOPHEN 325 MG TABLET 650 MG PO ×3 (05:04→16:20)
--- NOTE | 2019-03-25 06:01 | DI.US.S_ITS ---
PROCEDURE: US PERIPH VENOUS LOW EXTREM BI INDICATIONS: LLE PAIN/EDEMA, R/O DVT TECHNIQUE: Real-time imaging, as well as color and pulse Doppler interrogation, were performed of the deep veins of both legs from the inguinal ligament to the popliteal fossa. COMPARISON: None. FINDINGS: Right: The common femoral, femoral and popliteal veins are normally compressible, and free of intraluminal thrombus. Color and pulse Doppler demonstrate normal phasic intravascular flow. There is normal augmentation response to distal compression maneuver. Left: The common femoral, femoral and popliteal veins are normally compressible, and free of intraluminal thrombus. Color and pulse Doppler demonstrate normal phasic intravascular flow. There is normal augmentation response to distal compression maneuver. IMPRESSION: No evidence of deep vein thrombosis of the bilateral lower extremities. Dictated by: Carmine Beaver M.D. on 03/25/2019 at 12:18 Approved by: Carmine Beaver M.D. on 03/25/2019 at 12:19
--- NOTE | 2019-03-25 06:04 | DI.RAD.S_ITS ---
PROCEDURE: XR CHEST 2V INDICATIONS: dyspnea, wheezing TECHNIQUE: 2 views of the chest were acquired. COMPARISON: [facility], CR, XR CHEST 1V, 03/12/2019, 1:31. FINDINGS: Surgical changes and devices: There has been interval placement of a left-sided PICC line catheter with the tip overlying the left subclavian region. Lungs and pleura: There may be subtle developing consolidation within the left lung base. No pleural effusions or pneumothorax. Mediastinum: Mediastinal contours are normal. Heart size is normal. Bones and chest wall: No suspicious bony abnormalities. Postoperative changes of the left shoulder are compatible with a total left shoulder arthroplasty. Soft tissues appear unremarkable. IMPRESSION: Developing left basilar consolidation is suspicious for pneumonia. Dictated by: Carmine Beaver M.D. on 03/25/2019 at 9:13 Approved by: Carmine Beaver M.D. on 03/25/2019 at 9:15
[2019-03-25] MEDS: VANCOMYCIN 1,500 MG/300 ML FROZ.PIGGY 200 MG IV ×3 (06:17→22:02)
[2019-03-25 06:31] LABS: Uric Acid 8.5 mg/dL (3.5-8.5)
[2019-03-25] MEDS: SODIUM CHLORIDE 0.9% 1,000 ML 75 ML IV (07:56)
[2019-03-25] MEDS: FOLIC ACID 1 MG TABLET PO (08:40)
[2019-03-25] MEDS: MULTIVITAMIN 1 TABLET 1 TAB PO (08:40)
[2019-03-25] MEDS: LISINOPRIL 10 MG TABLET PO (08:40)
[2019-03-25] MEDS: THIAMINE 100 MG TABLET PO (08:40)
[2019-03-25] MEDS: ASPIRIN EC 81 MG TABLET PO (08:40)
[2019-03-25] MEDS: ENOXAPARIN 40 MG/0.4 ML SYRINGE SUBCUT (08:41)
[2019-03-25] MEDS: ALBUTEROL/IPRATROPIUM 3 ML AMPUL INH ×3 (08:52→20:47)
[2019-03-25 08:53] LABS: Urine Amphetamines Negative (Negative); Urine Barbiturates Negative (Negative); Urine Benzodiazepines Negative (Negative); Urine Cocaine Negative (Negative); Urine MDMA Negative (Negative); Urine Methadone Negative (Negative); Urine Methamphetamines Negative (Negative); Urine Morphine/Opi cutoff 2000 Negative (Negative); Urine Oxycodone Negative (Negative); Urine Phencyclidine Negative (Negative); Urine Tetrahydrocannabinol Negative (Negative); Urine Tricyclic Antidepressant Negative (Negative)
--- NOTE | 2019-03-25 10:11 | PC.NURSE ---
1000 Pt returned from Xray via w/c, Pt med w/Tylenol for c/o h/a. Pt request to be left alone until he feels better and h/a gone. Pt resting in bed, IVF infusing.
--- NOTE | 2019-03-25 12:56 | PC.NURSE ---
1250 doppler study being done now. Pt ate lunch. No h/a at this time. Asked Dr Flynn to order wound care if needed.
--- NOTE | 2019-03-25 14:24 | CM.IDA ---
Addendum entered by LEXX Herzog 03/25/19 14:37: Name pronounced step- in Original Note: Initial DCP Assessment Note: Pt is a 63 yo man, homeless and living on the [facility]. Pt admitted w/acute cellulitis, head laceration/concussion from falling out of his w/c, chronic COPD, hypertension, h/o CVA w/ residual deficits, and ETOH dependence. PCP is listed as Dr Chad Mendoza Payer: Medicare/Medicaid Reviewed chart. Met w/pt this afternoon, pt sleeping soundly throughout the day, this EMPLOYEE BENEFITS COORDINATOR woke pt up w/assist from SANDRA Ryder (concussion protocol). Pt is not happy w/the presence of this EMPLOYEE BENEFITS COORDINATOR. Pt is sarcastic and behaves as though he is very offended by this EMPLOYEE BENEFITS COORDINATOR's questioning. Pt admits to living in [place] for 25 years, 2 years home less. Pt says he has a list of numbers/housing resources he keeps on the back of his w/c that a girl gave me. He admits his w/c is a barrier to most housing available. He has never heard of [facility] and is not interested in their information. Pt stayed at [facility] x2 months and has an outstanding bill there. Pt admits to drinking 2 six packs of beer daily and is not interested in being sober. Pt receives social security monthly, amount unknown. Pt denies needs from this EMPLOYEE BENEFITS COORDINATOR except to say I think you should be able to find me something (housing) in the [facility], reminded pt gently that his first efforts need to be presenting himself to [facility]. P: DC back to [facility] when medically cleared, f/u w/PCP if pt agreeable (?) transportation resources unknown, pt unwilling to share much w/this EMPLOYEE BENEFITS COORDINATOR today. EMPLOYEE BENEFITS COORDINATOR desk number left on white board. LEXX Herzog Discharge Planning/Care Management CM Discharge Assessment Start: 03/25/19 14:21 Freq: Status: Active Protocol: Document 03/25/19 14:21 [email or web address] (Rec: 03/25/19 14:23 [id number]) Discharge Planning Assessment Assigned Filling Station Laborer LEXX Ernst DPOA/Assigned Designee Name Sallie Serrato, sister Contact Information Lives in [place] P# [phone] Advance Directives? No Advance Directives on File No History Provided By Patient Medical Record Prior Living Arrangements Homeless Household Members none Willing to Return to Facility? Yes Independent with ADL's No Is patient alert and oriented? Yes Barriers to Discharge Yes Comment Homeless, non compliant, alcoholic Discharge Plan Home Transportation Arrangement Friend Whiteboard Updated in Patient Room with Yes name and ext. # of Filling Station Laborer Review Status In Process
--- NOTE | 2019-03-25 16:00 | PT.IIE ---
Surgical History (Last Reviewed 03/25/19 @ 03:38 by ANGELES Smith) History of appendectomy (Acute) Medical History (Last Reviewed 03/25/19 @ 03:38 by ANGELES Smith) COPD with emphysema (Acute) CVA (cerebral vascular accident) (Acute) Chronic pain (Acute) Diabetes type 2, controlled (Acute) Dyslipidemia (Acute) Gout (Acute) Hypertension, malignant (Acute) Peripheral vascular disease (Acute) Physical Therapy Inpatient Evaluation/Re-Eval M1 PT/OT-IP Prior Functional Status Start: 03/25/19 14:41 Freq: NEEDED Status: Active Protocol: Document 03/25/19 15:28 AW (Rec: 03/25/19 15:59 AW [email or web address]) Medical Review Prior Functional Status Medical History Reviewed Yes Diet/Fluid Consistency Regular Communication Pt is able to make needs known . Mobility and Gait Pt reports full-time use of powered wheelchair for mobility secondary to previous CVA and resultant left hemiplegia. He indicates he is able to transfer to and from w/c independently at baseline. Pt reports he does not walk at all. Activities of Daily Living and IADL's Pt unwilling to discuss ADL's Social History Household Members none Living Arrangements Homeless Home Equipment Power Wheelchair/Scooter Additional Social History Comment Pt is homeless with no family nearby, no other formal supports in place. M2 PT-IP Current Condition Start: 03/25/19 14:41 Freq: NEEDED Status: Active Protocol: Document 03/25/19 15:28 AW (Rec: 03/25/19 15:59 AW [email or web address]) Physical Therapy Current Condition Current Condition Evaluation Date 03/25/19 Treatment Diagnosis LLE cellulitis, L great toe wound, impaired transfers Onset Date 1525 M3 PT-IP Subjective Start: 03/25/19 14:41 Freq: NEEDED Status: Active Protocol: Document 03/25/19 15:28 AW (Rec: 03/25/19 15:59 AW [email or web address]) Subjective Physical Therapy Visit Type Type Initial Evaluation Visit Start Time 15:00 Visit Stop Time 15:26 Total Visit Minutes 26 Number of SPLUNK DEVELOPER Visits 0 Physical Therapy Visit Comments Patient Comments Pt reluctantly willilng to participate in PT eval, stating Why do you need to see how I move? Patient Goals Pt wishes to return to [facility] M4 PT-IP Mobility and Gait Start: 03/25/19 14:41 Freq: NEEDED Status: Active Protocol: Document 03/25/19 15:28 AW (Rec: 03/25/19 15:59 AW [email or web address]) PT-Bed Mobility Assessment Supine to Sit Supine to Sit Standby Assistance Scooting Scooting to Edge of Bed Standby Assistance PT-Transfer Assessment Sit to and From Stand Sit to and from Stand Contact Guard Assistance Minimal Assistance 1 Person Assistance Equipment Transfer Assistive Device Gait Belt Front Wheeled Walker Transfers Transfer Technique Stand Pivot Transfer Ability Level of Assist Contact Guard Assistance Minimal Assistance Comments Mobility Comments Pt required CGA to min A for sit to stand and pivot transfer to bedside chair using FWW. Pt left reclined in bedside chair with chair alarm armed and RN notified. PT-Balance Assessment Sitting Balance and Reactions Static Sitting Balance Ability Good Dynamic Sitting Balance Ability Fair Standing Balance and Reactions Static Standing Balance Ability Poor Dynamic Standing Balance Ability Poor M5 PT-IP Objective Assessments Start: 03/25/19 14:41 Freq: NEEDED Status: Active Protocol: Document 03/25/19 15:28 AW (Rec: 03/25/19 15:59 AW [email or web address]) Orientation Orientation/Cognition Level of Alertness Alert Orientation Name Month Place Situation Language Function Ability No Deficits Noted Safety Awareness Decreased Safety Awareness Memory Description No Deficits Noted Comments Pt is a reluctant but appropriate historian. Other than decreased safety awareness, no cognitive deficits noted. Gross Range of Motion Upper Extremity ROM Assessment Left Impaired Lower Extremity ROM Assessment Left Impaired Impairments L foot PF/inversion contracture Strength Upper Extremity Strength Assessment Left Impaired Lower Extremity Strength Assessment Left Impaired Comments Strength Comments LLE grossly 3-3-/5 Coordination Assessment Gross Coordination Gross Coordination WNL Sensation Assessment Sensation Gross Sensation Right LE Impaired Left LE Impaired Light Touch Impaired Muscle Tone Muscle Tone WNL No Muscle Tone Location Left Lower Extremity Type of Tone Extensor Severity of Tone Moderate Comments Muscle Tone Comments Spasticity of LLE plantar flexors/invertors M6 PT-IP Treatment Start: 03/25/19 14:41 Freq: NEEDED Status: Active Protocol: Document 03/25/19 15:28 AW (Rec: 03/25/19 15:59 AW [email or web address]) Physical Therapy Treatment Education Education Provided Safety M7 PT-IP Assessment and Plan Start: 03/25/19 14:41 Freq: NEEDED Status: Active Protocol: Document 03/25/19 15:28 AW (Rec: 03/25/19 15:59 AW [email or web address]) PT Summary Assessment and Plan Potential Rehabilitation Potential Fair Status of Condition at Evaluation Evolving Summary Impairments Pain ROM Strength Balance Sensation Tone Assessment Summary Pt is a homeless 63 yo man with history of CVA and resultant left hemiplegia. He uses a power wheelchair, and transfers indpendently at baseline. He does not ambulate . He has experienced two falls from his w/c in the past few weeks. At first, pt was unwilling to work with PT, but reluctantly agreed to do so. Bed mobility and transfer to EOB required only SBA. Sit to stand and pivot transfer to chair required CGA to mod A with use of FWW for safety. Pt expressed that he always manages his transfers without assistance or AD. His need for assist and AD at this time suggest he is functioning below baseline. PT will continue to assess, but recommends discharge to prior living arrangements (street) when medically cleared for discharge. Goals Bed Mobility Goal Independent Transfer Goal Independent Four Wheeled Walker Days to Meet Goals 10 Frequency of Treatment Frequency Of Treatment Once a Day Treatment Plan Physical Therapy Treatment Plan Bed Mobility Training Transfer Training Gait Training Therapeutic Exercise Balance Retraining Post Op Education Discharge Planning Hot or Cold Pack Neuromuscular Re-ed Coordination Retraining Manual Therapy Other Recommendations and Next Treatment focus on transfers EOB to Focus chair or bedside commode Recommendations To Nursing Amount of Assist Needed 1 Person Assist Discharge Recommendations PT Discharge Recommendations Home with Assistance
[2019-03-25] MEDS: ATORVASTATIN 20 MG TABLET 40 MG PO (20:18)
--- NOTE | 2019-03-25 21:52 | PC.NURSE ---
Pt VSS, A and O x 4. Pt unwilling to answer health questions but did say he drinks whatever he can find and average daily intake is 2 six packs. Given bed bath and cleaned lac on skull. Pt has frequency issues with BMs and has two this shift. He uses the urinal effectively and is voiding qs, dark yellow. LS coarse in bases with insp wheezes. Pt can test inspection engineer one place with FWW. He can turn and pivot with assistance. He is eating a lot with no swallow issues. He is abrupt and demanding at times. Fluids running and tolerating Vanco well.
[2019-03-25] MEDS: SODIUM CHLORIDE 0.9% FLUSH 10 ML IV (22:02)
[2019-03-26] VITALS (12 sets, daily range): BP systolic 110–150; BP diastolic 51–74; PULSE 80–92; RESP 15–17; TEMP 36.5–37.4; O2SAT 93–98
[2019-03-26] MEDS: SODIUM CHLORIDE 0.9% 1,000 ML 75 ML IV ×2 (01:36→20:05)
[2019-03-26 04:40] LABS: Bacteria Urine None Seen; RBC Urine None Seen (0-5/HPF); WBC Urine None Seen (0-5/HPF)
[2019-03-26 04:43] LABS: Appearance Urine UA CLEAR; Bilirubin Urine UA NEGATIVE (NEGATIVE); Color Urine UA YELLOW; Glucose Urine UA NEGATIVE (Negative); Ketones Urine UA NEGATIVE (NEGATIVE); Leukocyte Esterase Urine UA NEGATIVE (NEGATIVE); Nitrite Urine UA NEGATIVE (Negative); Occult Blood Urine UA NEGATIVE (Negative); Protein Urine UA NEGATIVE (Negative); Urobilinogen Urine UA 0.2 E.U./dL (0.2)
[2019-03-26 04:49] LABS: Culture Indicated Urine Cult Not Indicated; Squamous Epithelial Cell Urine 0-1 /HPF (0-5/HPF)
--- NOTE | 2019-03-26 04:51 | PC.NURSE ---
Pt. awake & calmed dressing applied to lt. hallux, wet to dry NS. Wound dry has no drainage noted, sly-wound erythema noted & wound blackish/brown surface wound. Requested some snacks, informed there's a lipid panel @ 0500 this morning. Informed we can provide snacks when blood draw is done. He states thank I'll wait. Urine specimen sent earlier. Will cont. POC & monitor.
[2019-03-26 05:46] LABS: Add Manual Diff / Slide Review NO; Basophils Absolute Auto 100 /uL (0-100); Basophils Percent Auto 0.9 % (0-2); Eosinophils Absolute Auto 300 /uL (0-450); Eosinophils Percent Auto 4.1 % (2-4); Hematocrit 34.9 % (41-53); Hemoglobin 11.8 g/dL (13.5-17.5); Lymphocytes Absolute Auto 1900 /uL (1100-4500); Lymphocytes Percent Auto 26.1 % (25-40); Mean Corpuscular HGB Conc 33.8 % (30-36); Mean Corpuscular Hemoglobin 32.4 PG (26-34); Monocytes Absolute Auto 700 /uL (0-900); Monocytes Percent Auto 9.6 % (3-14); Neutrophils Absolute Auto 4400 /uL (1500-7000); Neutrophils Percent Auto 59.3 % (50-75); Platelet Count 209 X10^3/uL (150-400); Red Blood Cell Count 3.64 X10^6/uL (4.5-5.9); Red Cell Distribution Width 13.2 % (11.6-14.8); White Blood Cell Count 7.4 X10^3/uL (4.5-11.0)
[2019-03-26 05:57] LABS: HEMOLYSIS < 15 (0-50); Potassium 3.6 mmol/L (3.4-5.1)
[2019-03-26 05:59] LABS: BUN Creatinine Ratio 13.3 (6-22); Blood Urea Nitrogen 8 mg/dL (9-20); Calcium 8.4 mg/dL (8.4-10.2); Carbon Dioxide 28 mmol/L (22-32); Chloride 106 mmol/L (98-107); Cholesterol 121 mg/dL (140-199); Estimated Glomerular Filt Rate > 60.0 mL/min (>60); Glucose 88 mg/dL (80-110); HDL Cholesterol 37 mg/dL (40-60); LDL Cholesterol Calculated 64 mg/dL (<100); Magnesium 1.7 mg/dL (1.6-2.3); Sodium 139 mmol/L (137-145); Triglycerides 99 mg/dL (35-150)
--- NOTE | 2019-03-26 06:09 | RT ---
03/26/2019 0605 Patient refused treatment, denies dyspnea. P 85/ RR 16/ saturation 93% on RA. Pamella Hallman, RN PRODUCTION
[2019-03-26 06:11] LABS: Vancomycin Trough 20.4 ug/mL (10-20)
--- NOTE | 2019-03-26 06:27 | PC.NURSE ---
ANGELES Huang ordered to talk to the Pharmacist to adjust the dose. Night Pharmacist notified talked to Pharmacist & she states I'll look at it. Awaiting dosage adjustment & will implement per Pharmacist recommendation..
--- NOTE | 2019-03-26 08:00 | DI.MRI.S_ITS ---
PROCEDURE: MR FOOT LT WO/W CON INDICATIONS: Left foot redness and swelling TECHNIQUE: Noncontrast sagittal T1 spin echo and T2 fast spin echo with fat saturation, long-axis T1 spin echo and T2 fast spin echo with fat saturation; short-axis T1 spin echo, proton density fast spin echo, and T2 fast spin echo with fat saturation through the forefoot. Post-contrast short axis, long axis, and sagittal T1 spin echo with fat saturation through the forefoot. COMPARISON: [facility], CR, XR FOOT LT MIN 3V, 03/25/2019, 1:56. FINDINGS: Image quality: Prominent motion artifact is present on all imaging sequences, resulting in a image degradation in suboptimal evaluation for subtle abnormalities. This study is severely limited. Bones and joints: The patient's known 5th metatarsal fracture is only faintly appreciated on this examination related to the severe motion artifact. No definite areas of definitive marrow edema are appreciated involving the osseous structures of the midfoot and forefoot. No definitive areas of bony enhancement are appreciated. Soft tissues: Extensive soft tissue edema is identified within the subcutaneous tissues about the left midfoot and forefoot, most pronounced involving in the dorsal margin of the foot. No drainable or loculated fluid collection is evident. No soft tissue masses or suspicious soft tissue enhancement is evident. Please note that the flexor and extensor tendons are not adequately seen related to motion artifact. IMPRESSION: 1. Severely limited MRI related to motion. 2. No convincing evidence of osteomyelitis. 3. Extensive soft tissue edema about the dorsal aspect of the foot may represent cellulitis. No definite abscess is appreciated. 4. No suspicious bony or soft tissue enhancement. 5. The patient's known 5th metatarsal fracture is not adequately appreciated on this examination, related to motion artifact. However, this fracture may be subacute and clinical correlation is recommended. Dictated by: Carmine Beaver M.D. on 03/26/2019 at 14:58 Approved by: Carmine Beaver M.D. on 03/26/2019 at 15:05
[2019-03-26] MEDS: SODIUM CHLORIDE 0.9% FLUSH 10 ML IV ×2 (09:06→21:52)
[2019-03-26] MEDS: MULTIVITAMIN 1 TABLET 1 TAB PO (09:06)
[2019-03-26] MEDS: ENOXAPARIN 40 MG/0.4 ML SYRINGE SUBCUT (09:07)
[2019-03-26] MEDS: ACETAMINOPHEN 325 MG TABLET 650 MG PO ×2 (09:07→16:07)
[2019-03-26] MEDS: ASPIRIN EC 81 MG TABLET PO (09:07)
[2019-03-26] MEDS: FOLIC ACID 1 MG TABLET PO (09:07)
[2019-03-26] MEDS: VANCOMYCIN 1,250 MG in SODIUM CHLORIDE 0.9% 250 ML 166.667 ML IV (09:07)
[2019-03-26] MEDS: THIAMINE 100 MG TABLET PO (09:08)
[2019-03-26] MEDS: LISINOPRIL 5 MG TABLET PO (09:09)
--- NOTE | 2019-03-26 09:19 | P.PN_ITS ---
Subjective Date Patient Seen: 03/26/19 Time Patient Seen: 08:30 Interval history: 63-year-old male with PMH of HTN, ischemic CVA with residual L sided weakness, DM 2T, PVD, CKD 2, COPD, h/o spontaneous pneumothorax, OA, gout, chronic pain syndrome (2/2 spinal stenosis), opioid de pendence, prior h/o of tobacco dependence and current marijuana and EtOH use who presented after being found down with a laceration on the top of his head, in the ED the laceration repaired but he was noted to have extensive lower extremity swelling and pain. He has what appears to be a possible arterial ulcer on his left 1st digit, and he had extensive cellulitis of his left leg. He has been treated with vancomycin with good response to this antibiotic, and his cellulitis is improving. He had an elevation in his ESR, and some raquel ostial changes on his x-ray so we will be performing an MRI to look for osteomyelitis. Today he states he does not know if he is improved or not, as he has not looked at his legs. He denies fevers chills, chest pain, nausea, vomiting, abdominal pain. Exam Vital Signs (past 8 hours): - 03/26/19 04:00 03/26/19 04:46 03/26/19 08:00 Temperature 98.2 F 97.7 F Pulse Rate 89 92 H Respiratory Rate 16 17 Blood Pressure 110/51 L 121/64 Pulse Oximetry 94 94 93 Fraction of Inspired Oxygen 21 Oxygen Delivery Method Room Air Oxygen Flow Rate 0 Narrative Exam Narrative: GENERAL APPEARANCE: Disheveled, but pleasant male in no acute distress SKIN: Improved erythema on L leg, there is a approximately 1.5 cm circumferen tial ulcer on the medial aspect of his left 1st digit, it appears clean with raised edges. HEENT: The sclerae were anicteric and conjunctivae were pink and moist. Extraocular movements were intact and pupils were equal, round with normal accommodation. External inspection of the ears and nose showed no scars, lesions, or masses. Lips, teeth, and gums showed normal mucosa. The oral mucosa, hard and soft palate, tongue and posterior pharynx were unremarkable. NECK: Supple and symmetric. There was no thyroid enlargement, and no tenderness, or masses were felt. CHEST: Normal AP diameter and normal contour without any kyphoscoliosis. LUNGS: Auscultation of the lungs revealed no wheezes, rhonchi, or rales. CARDIOVASCULAR: There was a regular rate and rhythm without any murmurs, gallops, rubs. Peripheral pulses were 2+ and symmetric. ABDOMEN: Soft and nontender with normal bowel sounds. No ascites was noted. MUSCULOSKELETAL: Left worse than right tenderness notable in bilateral calves. Chronic edema bilaterally, left slightly greater than right. EXTREMITIES: Diffuse edema notable in the left foot. NEUROLOGIC: Alert and oriented x 3. Normal affect. Chronic L leg weakness, +4 at the hip, refused to move his toes unclear if neurological or poor effort. R leg +5/5. LUE at shoulder girldle +4/5, elbow and hand +5/5. RUE +5/5. Objective Imaging Chest x-ray: My impression: Unremarkable, no acute processes. Radiologist's impression: Possible left lower pneumonia Labs Result Diagrams: 03/26/19 05:30 03/26/19 05:30 Labs: Laboratory Results - last 24 hr 03/26/19 03/26/19 03/26/19 03:55 05:30 05:30 WBC 7.4 RBC 3.64 L Hgb 11.8 L Hct 34.9 L MCV 96.0 MCH 32.4 MCHC 33.8 RDW 13.2 Plt Count 209 Neut % (Auto) 59.3 Lymph % (Auto) 26.1 [place] % (Auto) 9.6 Eos % (Auto) 4.1 H Baso % (Auto) 0.9 Neut # (Auto) 4400 Lymph # (Auto) 1900 [place] # (Auto) 700 Eos # (Auto) 300 Baso # (Auto) 100 Sodium Potassium Chloride Carbon Dioxide BUN Creatinine Estimated GFR BUN/Creatinine Ratio Glucose Calcium Magnesium Triglycerides Cholesterol LDL Cholesterol, Calc HDL Cholesterol Urine Color Yellow Urine Appearance Clear Urine pH 5.0 Ur Specific [place] 1.010 Urine Protein Negative Urine Glucose (UA) Negative Urine Ketones Negative Urine Occult Blood Negative Urine Nitrate Negative Urine Bilirubin Negative Urine Urobilinogen 0.2 Ur Leukocyte Esterase Negative Urine RBC None seen Urine WBC None seen Ur Squamous Epith Cells 0-1 /hpf Urine Bacteria None seen Ur Culture Indicated? Cult not indicated Vancomycin Trough 20.4 H* 03/26/19 05:30 WBC RBC Hgb Hct MCV MCH MCHC RDW Plt Count Neut % (Auto) Lymph % (Auto) [place] % (Auto) Eos % (Auto) Baso % (Auto) Neut # (Auto) Lymph # (Auto) [place] # (Auto) Eos # (Auto) Baso # (Auto) Sodium 139 Potassium 3.6 Chloride 106 Carbon Dioxide 28 BUN 8 L Creatinine 0.60 L Estimated GFR > 60.0 BUN/Creatinine Ratio 13.3 Glucose 88 Calcium 8.4 Magnesium 1.7 Triglycerides 99 Cholesterol 121 L LDL Cholesterol, Calc 64 HDL Cholesterol 37 L Urine Color Urine Appearance Urine pH Ur Specific [place] Urine Protein Urine Glucose (UA) Urine Ketones Urine Occult Blood Urine Nitrate Urine Bilirubin Urine Urobilinogen Ur Leukocyte Esterase Urine RBC Urine WBC Ur Squamous Epith Cells Urine Bacteria Ur Culture Indicated? Vancomycin Trough Assessment & Plan Assessment & Plan narrative: Mr. James Dumont is a 63-year-old male with PMH of HTN, ischemic CVA with residual L sided weakness, DM 2T, PVD, CKD 2, COPD, h/o spontaneous pneumothorax, OA, gout, chronic pain syndrome (2/2 spinal stenosis), opioid dependence, prior h/o of tobacco dependence and current marijuana and EtOH use who presented after being found down with a laceration on the top of his head, admitted for worsening left lower extremity swelling 1. Traumatic injury of head after falling from wheel chair, acute on subacute, present on admission, active - s/p repair of laceration 2. Cellulitis (LLE), suspected / acute, present on admission, active -improving with vancomycin therapy, wound culture negative this appears to be a non - purulent cellulitis. He is, however, responding to vancomycin clinically. I will await further cultures before narrowing to cephalexin. Given elevation in his ESR, and some periosteal changes on radiography of his left foot, am obtaining an MRI to look for osteomyelitis. - Continue vancomycin, pharmacy to dose - Blood cx and wound cx pending, re-evaluate / de-scalating ABX therapy pending results - wound care Q shift - Venous Duplex negative for DVT - Neurovascular checks Q4H. Dopple pulses QShift - Received tetnus vaccine 3. COPD w/ bronchospasm, chronic condition, present on admission, active Patient has not been using his inhalers. Former smoker, previously smoked for 50 years, 2 packs per day (by report). Denies cough with purulence. DDx: Pulmonary edema, PE. LVEF in Jun 2018 55-60%. - Chest x-ray - DuoNeb treatments q.6 hours scheduled - SpO2 prn / titrate to goal SpO2 of 88-92% 4. Ulcer below right great toe, acute, non-draining, present on admission, active - No overt drainage, does not appear to be actively infected. Patient does not wear shoes - See cellulitis POC 5. Essential hypertension, chronic condition, present on admission, active BP mildly elevated in ED. Improved on arrival to the unit (144/86 mmHg). Asymptomatic. Patient has NOT been taking his antihypertensive medications. Previously on lisinopril 20 mg q.d. and amlodipine 5 mg q.d. - Trend BP - Off antihypertensives for 3 months. Will start him off with lisinopril 10 mg daily. - Goal BP 6. History of CVA, chronic condition, present on admission, active - Start ASA 81 mg QD. - LDL 60, however given history of TIA in chart review patient should be on statin therapy. Will resume lipitor 40. 7. ETOH dependence, chronic, active - no current evidence of withdrawal. EtOH <10 on admission. - MTW / FA / Thiamine 8. Homeless single person, present on admission, active Patient [place] in [place]. - Appreciate social work assistance Patient wishes to be full code. Names his sister as the surrogate decision maker. Medications for most recent admission reviewed. Patient has not been any medications for the past 3 months by report. VTE prophylaxis with Lovenox Quality VTE Deep Vein Thrombosis/Pulmonary Embolism Present on Admission: No
--- NOTE | 2019-03-26 10:19 | PC.NURSE ---
Addendum entered by Marjorie Shields R.N. 03/26/19 14:43: MR - verified with Juan Diego in MRI that ok perform test with tracy in scalp as he had done nancy[place] earlier, pt trsf to [place] for test. Original Note: AM NOTE - easily awakens at bedside shift report, stapled scalp laceration w/o drainage, mult scattered bruises, scabs to ue, le, l foot edema > r 3+ with redness at dorsum foot and around ankle, within prev markings l calf, l foot drop w/hx cva, PP w/doppler, generalized discomfort, l foot discomfort, given 650mg po tylenol with breakfast.
[2019-03-26] MEDS: VANCOMYCIN 1,250 MG in SODIUM CHLORIDE 0.9% 250 ML 166.6 ML IV (16:36)
[2019-03-26] MEDS: ATORVASTATIN 20 MG TABLET 40 MG PO (21:24)
--- NOTE | 2019-03-26 23:34 | PC.NURSE ---
A&O X3; CIWA 0; 2+ edema to bl feet with L>R; pedal pulse with audible with doppler; drsg to l great toe c/d/i; laceration to scalp dry and well-approximated; mild to moderate pain to back and headache, PO Tylenol; bed alarm active and patient using call light, as needed
[2019-03-27] VITALS (10 sets, daily range): BP systolic 129–162; BP diastolic 73–97; PULSE 85–95; RESP 17–20; TEMP 36.8–36.9; O2SAT 93–97
[2019-03-27] MEDS: VANCOMYCIN 1,250 MG in SODIUM CHLORIDE 0.9% 250 ML 166.6 ML IV (00:16)
[2019-03-27] MEDS: ALBUTEROL/IPRATROPIUM 3 ML AMPUL INH (04:35)
[2019-03-27] MEDS: SODIUM CHLORIDE 0.9% FLUSH 10 ML IV ×2 (06:22→09:04)
[2019-03-27 06:38] LABS: Add Manual Diff / Slide Review NO; Basophils Absolute Auto 0 /uL (0-100); Basophils Percent Auto 0.5 % (0-2); Blood Urea Nitrogen 6 mg/dL (9-20); Calcium 8.6 mg/dL (8.4-10.2); Carbon Dioxide 27 mmol/L (22-32); Chloride 106 mmol/L (98-107); Eosinophils Absolute Auto 400 /uL (0-450); Eosinophils Percent Auto 4.6 % (2-4); Estimated Glomerular Filt Rate > 60.0 mL/min (>60); Glucose 91 mg/dL (80-110); HEMOLYSIS < 15 (0-50); Hematocrit 37.4 % (41-53); Hemoglobin 12.3 g/dL (13.5-17.5); Lymphocytes Absolute Auto 1400 /uL (1100-4500); Magnesium 1.6 mg/dL (1.6-2.3); Mean Corpuscular HGB Conc 32.8 % (30-36); Mean Corpuscular Volume 97.5 fL (80-100); Monocytes Absolute Auto 700 /uL (0-900); Monocytes Percent Auto 8.8 % (3-14); Neutrophils Absolute Auto 5500 /uL (1500-7000); Neutrophils Percent Auto 69.1 % (50-75); Platelet Count 202 X10^3/uL (150-400); Potassium 3.6 mmol/L (3.4-5.1); Red Blood Cell Count 3.83 X10^6/uL (4.5-5.9); Red Cell Distribution Width 13.2 % (11.6-14.8); Sodium 139 mmol/L (137-145)
[2019-03-27] MEDS: VANCOMYCIN TROUGH 1 REQUEST MISC (08:03)
[2019-03-27] MEDS: FOLIC ACID 1 MG TABLET PO (08:09)
[2019-03-27] MEDS: MULTIVITAMIN 1 TABLET 1 TAB PO (08:09)
[2019-03-27] MEDS: ACETAMINOPHEN 325 MG TABLET 650 MG PO (08:09)
[2019-03-27] MEDS: THIAMINE 100 MG TABLET PO (08:09)
[2019-03-27] MEDS: ASPIRIN EC 81 MG TABLET PO (08:09)
[2019-03-27] MEDS: LISINOPRIL 20 MG TABLET PO (08:21)
[2019-03-27 08:26] LABS: Vancomycin Trough 20.6 ug/mL (10-20)
[2019-03-27] MEDS: cephALEXin 250 MG CAPSULE 500 MG PO ×2 (09:03→13:43)
[2019-03-27] MEDS: levoFLOXacin 250 MG TABLET 750 MG PO (09:03)
[2019-03-27] MEDS: ENOXAPARIN 40 MG/0.4 ML SYRINGE SUBCUT (09:04)
--- NOTE | 2019-03-27 10:34 | PC.NURSE ---
Addendum entered by Marjorie Shields R.N. 03/27/19 14:35: [employer] - per Arron Coordinator, the medihoney ordered is not availabe thru [employer] w/o special order, pt has jarred dsg placed this am, placed a stockinette with a post op shoe over, clothing was brought up for pt, midline dc'd, arranging ride for pt as he will need his electric WC and informed pt his meds were sent electronically to [facility]. Addendum entered by Marjorie Shields R.N. 03/27/19 13:31: DC - spoke to Olga re plan to dc today per , new orders rec'd from wound care and david Heller is checking for supply availability, also pt states clothing he came in soiled and asking for pants and shirt to go home in, declines shower. Original Note: AM NOTE - awake at bedside report, states did not sleep well, no specific complaints during night, states discomfort back and l foot 8 on scale 0/10 and given 650mg po tylenol this am, 3+ pedal edema w/redness dorsum l foot, dim from prev markings l leg, pulses checked with doppler, Dr. Flynn in this am and will dc vanco and change to po meds for plan to discharge.
--- NOTE | 2019-03-27 10:59 | PT.IPTN ---
Physical Therapy Treatment Note M2 PT-IP Current Condition Start: 03/25/19 14:41 Freq: NEEDED Status: Active Protocol: Document 03/25/19 15:28 AW (Rec: 03/25/19 15:59 AW [email or web address]) Physical Therapy Current Condition Current Condition Evaluation Date 03/25/19 Treatment Diagnosis LLE cellulitis, L great toe wound, impaired transfers Onset Date 1526 M3 PT-IP Subjective Start: 03/25/19 14:41 Freq: NEEDED Status: Active Protocol: Document 03/27/19 10:55 HH (Rec: 03/27/19 10:58 HH [id number]) Subjective Physical Therapy Visit Type Type Patient Refusal Visit Start Time 10:50 Notes Pt refused PT and stated I dont need any physical therapy . I couldnt walk and all i do is transfer to my power w/c. Physical therapy would not help me. d/c from PT. M4 PT-IP Mobility and Gait Start: 03/25/19 14:41 Freq: NEEDED Status: Active Protocol: Document 03/25/19 15:28 AW (Rec: 03/25/19 15:59 AW [email or web address]) PT-Bed Mobility Assessment Supine to Sit Supine to Sit Standby Assistance Scooting Scooting to Edge of Bed Standby Assistance PT-Transfer Assessment Sit to and From Stand Sit to and from Stand Contact Guard Assistance Minimal Assistance 1 Person Assistance Equipment Transfer Assistive Device Gait Belt Front Wheeled Walker Transfers Transfer Technique Stand Pivot Transfer Ability Level of Assist Contact Guard Assistance Minimal Assistance Comments Mobility Comments Pt required CGA to min A for sit to stand and pivot transfer to bedside chair using FWW. Pt left reclined in bedside chair with chair alarm armed and RN notified. PT-Balance Assessment Sitting Balance and Reactions Static Sitting Balance Ability Good Dynamic Sitting Balance Ability Fair Standing Balance and Reactions Static Standing Balance Ability Poor Dynamic Standing Balance Ability Poor M5 PT-IP Objective Assessments Start: 03/25/19 14:41 Freq: NEEDED Status: Active Protocol: Document 03/25/19 15:28 AW (Rec: 03/25/19 15:59 AW [email or web address]) Orientation Orientation/Cognition Level of Alertness Alert Orientation Name Month Place Situation Language Function Ability No Deficits Noted Safety Awareness Decreased Safety Awareness Memory Description No Deficits Noted Comments Pt is a reluctant but appropriate historian. Other than decreased safety awareness, no cognitive deficits noted. Gross Range of Motion Upper Extremity ROM Assessment Left Impaired Lower Extremity ROM Assessment Left Impaired Impairments L foot PF/inversion contracture Strength Upper Extremity Strength Assessment Left Impaired Lower Extremity Strength Assessment Left Impaired Comments Strength Comments LLE grossly 3-3-/5 Coordination Assessment Gross Coordination Gross Coordination WNL Sensation Assessment Sensation Gross Sensation Right LE Impaired Left LE Impaired Light Touch Impaired Muscle Tone Muscle Tone WNL No Muscle Tone Location Left Lower Extremity Type of Tone Extensor Severity of Tone Moderate Comments Muscle Tone Comments Spasticity of LLE plantar flexors/invertors M6 PT-IP Treatment Start: 03/25/19 14:41 Freq: NEEDED Status: Active Protocol: Document 03/25/19 15:28 AW (Rec: 03/25/19 15:59 AW [email or web address]) Physical Therapy Treatment Education Education Provided Safety M7 PT-IP Assessment and Plan Start: 03/25/19 14:41 Freq: NEEDED Status: Active Protocol: Document 03/27/19 10:55 HH (Rec: 03/27/19 10:58 HH [id number]) PT Summary Assessment and Plan Summary Assessment Summary Pt refused PT and stated I dont need any physical therapy . I couldnt walk and all i do is transfer to my power w/c. Physical therapy would not help me. Per PT Sera, Pt is actually at his baseline regarding mobility. Pt also stated that he will get someone to pick him up upon d/ c to get his power w/c back from the street. D/C from PT today due to pt at baseline and refusal to PT. Frequency of Treatment Frequency Of Treatment Discharge Recommendations To Nursing Amount of Assist Needed 1 Person Assist Discharge Recommendations PT Discharge Recommendations Home with Assistance
--- NOTE | 2019-03-27 13:19 | P.DS_ITS ---
History of Present Illness Date Patient Seen: 03/27/19 Time Patient Seen: 13:19 Chief complaint: Fall Out of Wheelchair Narrative: As per ANGELES Smith: The patient is a 63-year-old male with PMH of HTN, ischemic CVA, DM 2T, PVD, CKD 2, COPD, h/o spontaneous pneumothorax, OA, gout, chronic pain syndrome (2/2 spinal stenosis), opioid dependence, prior h/o of tobacco dependence and current marijuana and EtOH use. The patient was brought in to the ED on 03/24/2019 at 2340 by EMS after being found down by friends. The patient has fallen out of the wheelchair after falling asleep. There was impact to the head. In the ED obvious laceration was noted, which required suturing. Patient denies loss of consciousness. The event was not witnessed. There is no loss of bowel or bladder control. He was down for about an hour before calling friends for help. Patient is not on any anti-thrombotics or any other anticoagulation. It is worth noting that the patient has had a similar event on 03/12/2019. He did sustain an injury to the head at that time as well. Radiography revealed hematoma. Associated symptoms include headache localized to the frontal aspect of the head without radiation or neurological symptoms. No neck pain. Prior to the event or in recent weeks patient has not been feeling dizzy or lightheaded. He does not endorse chest pain or palpitations. He does endorse shortness of breath and wheezing. Chad report received from the ED physician, patient has asked to have his lower extremities evaluated. Patient was found to have bilateral lower extremity edema. See Dr. Romero's ED note for details. Patient does not specifically report any concerns with his right lower extremity, however does note having presence of pain swelling over the past several weeks, he has recently noted the redness. Patient has left lower extremity satinder plegia, which is a late CVA sequela. He does have a chronic left lower extremity foot drop. He notes himself as being non ambulatory, however also comments that he is able to use his right lower extremity to stand and make transfers. Patient has not been taking any of his medications for the past 3 months. Patient is homeless. At present time he lives in [place] in [place] and has been doing so for the past 3 months. He does not have anyone that he can name for support. He does endorse drinking 2 six-packs of beer daily. Notes history of heavy alcohol use. Reports having 1 beer in the afternoon of 03/24/2019. Denies prior history of ETOH withdrawal symptoms. Patient does not endorse drug use or marijuana use at present time or in the past. Review of records revealed presence of THC in 2016 in 2018. Denies prior history of ulcers, cellulitis, or MRSA. He is not really clear if there has been drainage coming from the ulcer. Denies fever and chills. Discharge Providers Date of admission: 03/25/19 03:12 Discharge Date: 03/27/19 Primary care physician: Chad Mendoza MD Consults: 03/25/19 01:38 Consult to PICC Line RN Stat Comment: 03/25/19 03:49 Consult to Wound Care Routine Comment: Consulting Provider: Susana- Wound Care 03/25/19 03:50 Consult to [facility] Routine Comment: Homeless 03/25/19 04:34 Consult to [facility] Routine Comment: 03/25/19 09:37 Consult to Physical Therapy Evaluate & Treat Comment: Physician Instructions: Evaluate and Treat Discharge provider: Devon Flynn DO Summary Discharge Diagnosis: 1. Traumatic injury of head after falling from wheel chair, acute on subacute, present on admission, active 2. Cellulitis (LLE), suspected / acute, present on admission, active - 3. COPD w/ bronchospasm, chronic condition, present on admission, active 4. Ulcer below right great toe, acute, non-draining, present on admission, active 5. Essential hypertension, chronic condition, present on admission, active - 6. History of CVA, chronic condition, present on admission, active 7. ETOH dependence, chronic, active - no current evidence of withdrawal. EtOH <10 on admission. 8. Homeless single person, present on admission, active Hospital Course: Mr. James Dumont is a 63-year-old male with PMH of HTN, ischemic CVA with residual L sided weakness, DM 2T, PVD, CKD 2, COPD, h/o spontaneous pneumothorax, OA, gout, chronic pain syndrome (2/2 spinal stenosis), opioid dependence, prior h/o of tobacco dependence and current marijuana and EtOH use who presented after being found down with a laceration on the top of his head, admitted for worsening left lower extremity swelling found to be cellulitis. He had an MRI which was negative for osteomyelitis. He was discharged in stable condition. 1. Traumatic injury of head after falling from wheel chair, acute on subacute, present on admission, active - s/p repair of laceration -PMD follow up for removal of sutures. 2. Cellulitis (LLE), suspected / acute, present on admission, active -improving with vancomycin therapy, wound culture negative this appears to be a non - purulent cellulitis. He is, however, responding to vancomycin clinically. I will await further cultures before narrowing to cephalexin. Given elevation in his ESR, and some periosteal changes on radiography of his left foot, I obtained an MRI. This was negative for osteomyelitis. Culture grew strep sp. and pseudomonas putide which is likely skin contaminant. - Will discharge with augmentin for 5 additional days - wound cultures appreciated, likely skin contaminant - wound care consult appreciated, patient should follow up in wound care clinic. Post Op boot obtained prior to discharge. 3. COPD w/ bronchospasm, chronic condition, present on admission, active Patient has not been using his inhalers. Former smoker, previously smoked for 50 years, 2 packs per day (by report). Denies cough with purulence. DDx: Pulmonary edema, PE. LVEF in Jun 2018 55-60%. - albuterol prn at home 4. Ulcer below right great toe, acute, non-draining, present on admission, acti ve - No overt drainage, does not appear to be actively infected. Patient does not wear shoes - See cellulitis POC 5. Essential hypertension, chronic condition, present on admission, active - discharge home on lisinopril 20 mg daily. 6. History of CVA, chronic condition, present on admission, active - Start ASA 81 mg QD. - LDL 60, however given history of TIA in chart review patient should be on statin therapy. Will resume lipitor 40. 7. ETOH dependence, chronic, active - no current evidence of withdrawal. EtOH <10 on admission. - Discharge with MVI / FA / Thiamine 8. Homeless single person, present on admission, active -social work assistance appreciated during admission - Patient lives [place] an [place] in [place]. Status at Discharge Cognitive/behavioral status at discharge: oriented Overall status at discharge: patient is back to baseline Time Spent with Patient Greater than 30 minutes Exam Vital Signs (past 8 hours): - 03/27/19 07:00 03/27/19 09:00 Temperature 98.2 F Pulse Rate 93 H Respiratory Rate 17 Blood Pressure 129/73 Pulse Oximetry 93 96 Fraction of Inspired Oxygen 21 Oxygen Delivery Method Room Air Oxygen Flow Rate 0 Narrative Exam Narrative: GENERAL APPEARANCE: Disheveled, but pleasant male in no acute distress SKIN: Improved erythema on L leg, there is a approximately 1.5 cm circumferential ulcer on the medial aspect of his left 1st digit, it appears clean with raised edges. HEENT: The sclerae were anicteric and conjunctivae were pink and moist. Extraocular movements were intact and pupils were equal, round with normal accommodation. External inspection of the ears and nose showed no scars, les ions, or masses. Lips, teeth, and gums showed normal mucosa. The oral mucosa, hard and soft palate, tongue and posterior pharynx were unremarkable. NECK: Supple and symmetric. There was no thyroid enlargement, and no tenderness, or masses were felt. CHEST: Normal AP diameter and normal contour without any kyphoscoliosis. LUNGS: Auscultation of the lungs revealed no wheezes, rhonchi, or rales. CARDIOVASCULAR: There was a regular rate and rhythm without any murmurs, gallops, rubs. Peripheral pulses were 2+ and symmetric. ABDOMEN: Soft and nontender with normal bowel sounds. No ascites was noted. MUSCULOSKELETAL: Left worse than right tenderness notable in bilateral calves. Chronic edema bilaterally, left slightly greater than right. EXTREMITIES: Diffuse edema notable in the left foot. NEUROLOGIC: Alert and oriented x 3. Normal affect. Chronic L leg weakness, +4 at the hip, refused to move his toes unclear if neurological or poor effort. R leg +5/5. LUE at shoulder girldle +4/5, elbow and hand +5/5. RUE +5/5. Objective Labs Result Diagrams: 03/27/19 06:15 03/27/19 06:15 Labs: Laboratory Results - last 24 hr 03/27/19 03/27/19 03/27/19 06:15 06:15 07:38 WBC 8.0 RBC 3.83 L Hgb 12.3 L Hct 37.4 L MCV 97.5 MCH 32.0 MCHC 32.8 RDW 13.2 Plt Count 202 Neut % (Auto) 69.1 Lymph % (Auto) 17.0 L [place] % (Auto) 8.8 Eos % (Auto) 4.6 H Baso % (Auto) 0.5 Neut # (Auto) 5500 Lymph # (Auto) 1400 [place] # (Auto) 700 Eos # (Auto) 400 Baso # (Auto) 0 Sodium 139 Potassium 3.6 Chloride 106 Carbon Dioxide 27 BUN 6 L Creatinine 0.60 L Estimated GFR > 60.0 BUN/Creatinine Ratio 10.0 Glucose 91 Calcium 8.6 Magnesium 1.6 Vancomycin Trough 20.6 H* Discharge Plan Discharge Plan Patient Disposition: Home Discharge comment: You were admitted to the hospital for a skin infection in your lower leg. This improved with antibiotics. You should complete the antibiotic I sent to your pharmacy. Your chronic medications were refilled for 30 days. You underwent an MRI to evaluate for an infection in your bone, which was negative. You need to follow up with primary care for removal of your tracy around 03/30/2019. You should follow up in the wound clinic as well in about one week. Discharge Med Rec/Prescriptions Prescriptions: New multivitamin [Tab-A-Sherri] Tablet 1 tab PO DAILY 30 Days Qty: 30 RF: 0 acetaminophen 325 mg Tablet 650 mg PO Q6HR PRN (Reason: As Needed For Fever/Mild Pain) 30 Days Qty: 30 RF: 0 atorvastatin [Lipitor] 20 mg Tablet 40 mg PO BEDTIME 30 Days Qty: 60 RF: 0 lisinopril 20 mg Tablet 20 mg PO DAILY 30 Days Qty: 30 RF: 0 thiamine HCl (vitamin B1) [Vitamin B-1] 100 mg Tablet 100 mg PO DAILY 30 Days Qty: 30 RF: 0 aspirin 81 mg Tablet,Delayed Release (Dr/Ec) 81 mg PO DAILY 30 Days Qty: 30 RF: 0 folic acid 1 mg Tablet 1 mg PO DAILY 30 Days Qty: 30 RF: 0 amoxicillin-pot clavulanate 875-125 mg tablet 1 tab PO BID 5 Days Qty: 10 RF: 0 albuterol sulfate [Ventolin HFA] 90 mcg/actuation HFA aerosol inhaler 2 puff INHALATION Q6H PRN (Reason: shortness of breath or wheezing) 30 Days Qty: 8 RF: 0 Discontinued lisinopril 20 mg tablet 20 mg PO DAILY RF: 0 allopurinol 300 mg tablet 300 mg PO DAILY RF: 0 indomethacin 50 mg Capsule 50 mg PO BID PRN (Reason: Gout) RF: 0 albuterol sulfate 90 mcg/actuation Aerosol Powdr Breath Activated 2 puff Inhalation Q4H PRN (Reason: breathing and cough) RF: 0 atorvastatin [Lipitor] 20 mg Tablet 80 mg PO BEDTIME Qty: 30 RF: 0 amlodipine [Norvasc] 5 mg Tablet 5 mg PO DAILY Qty: 30 RF: 0 oxycodone 5 mg capsule 5 mg PO Q4-6H PRN (Reason: pain) Qty: 20 RF: 0 Follow up/Referrals: Nura Benoit MD [Physician] - 03/29/19 2:00 pm (appt:03/29 @ 2:00 check in at wound care at [facility] with dr benoit for wound eval & dressing change [phone] please keep this appointment as they will not be open until after the holiday) Chad Mendoza MD [Primary Care Provider] - Provider Discharge Instructions Diet: Low-cholesterol Activity: As tolerated Skin/Wound/Dressing Care Other wound treatment: Please follow up with wound care clinic. Visit Report/Discharge Packet Instructions: DI for Cellulitis -- Adult, How to Prevent Falls Discharge Data Primary Care Provider: Chad Mendoza Attending Provider: Deidre Huang Admit Date/Time: 03/25/19 03:12 Quality VTE Deep Vein Thrombosis/Pulmonary Embolism Present on Admission: No
--- NOTE | 2019-03-27 15:18 | CM.DPC ---
DCP/Continued: Received notification from MD that patient medically cleared for discharge. PHONE TRIAGE SPECIALIST met with patient explained PHONE TRIAGE SPECIALIST role. Patient with very short/vague answers to most questions. Patient asked where he will be going up d/c? Patient reports that he will be going back to the [employer] to sleep in there alle. PHONE TRIAGE SPECIALIST offered patient resources for shelters. Patient's reports don't bother Provided resources anyway. In addition, placed call to [facility] re: motel voucher. Patient reports that he has never used the voucher program in the past and would like to have this option if he meets criteria. Left requesting that they call patient in room. Patient made aware that he should hear by 4:00pm if he is eligible. Otherwise, patient in agreement to return to [facility] [address]. Patient reports that he has friend's at the club and that it feels like somewhat of a home to him. Patient's w/c at club. Provided patient with number to [facility] and he will call them for ride. Patient also made aware that he has outpatient f/u appointment at wound care center on 03-29. Patient also has prescription at [facility] for antibiotics. RN updated on the above and will do dressing change prior to patient's discharge. P: Either return to [facility] parking lot or obtain motel voucher through [facility]. Patient aware that he is discharged today. Resources have been provided. LEXX Parker
--- NOTE | 2019-03-27 17:52 | PC.NURSE ---
Patient instructed regarding Rx medications, s/sx of infection and fall risks; f/u with primary and wound care appointments; patient escorted via wheelchair with personal clothing and wound care products, including medi-honey in hand; patient transferred to [facility], removed and declined wearing and keeping medical boot
== END 2019-03-27 14:00 | disposition home or self-care (01) | DRG 603 ==
LOC: ED 03-25 02:58 → AC 03-25 08:35
PROVIDERS: Internal Medicine; Admitting Provider Nurse Practitioner Gerontology; Emergency Provider Emergency Medicine; PCP Internal Medicine; Visit Provider Nurse Practitioner Gerontology
DX: L03.116 Cellulitis of left lower limb (principal); I69.354 Hemiplegia and hemiparesis following cerebral infarction affecting left non-dominant side; L97.521 Non-pressure chronic ulcer of other part of left foot limited to breakdown of skin; S09.90XA Unspecified injury of head, initial encounter; J44.9 Chronic obstructive pulmonary disease, unspecified; F10.20 Alcohol dependence, uncomplicated; I12.9 Hypertensive chronic kidney disease with stage 1 through stage 4 chronic kidney disease, or unspecified chronic kidney disease; N18.2 Chronic kidney disease, stage 2 (mild); Z59.0 Homelessness; W05.0XXA Fall from non-moving wheelchair, initial encounter; Z87.891 Personal history of nicotine dependence; Z23 Encounter for immunization
CPT/HCPCS: 12002; 36415; 36569; 36592; 71046; 73630; 73720; 80048; 80053; 80061; 80202; 80305; 80320; 81001; 82962; 83605; 83690; 83735; 84145; 84550; 85025; 85651; 86140; 87040; 87070; 87075; 87077; 87186; 87205; 90471; 93970; 94640; 94760; 97162; 99283; 99284; 90715; J1642; J1650

== ENCOUNTER 2019-05-07 19:06 | Inpatient (IN) | payer MEDICARE, MEDICAID, OTHER, SELFPAY ==
[2019-03-25 04:02] VITALS: BMI 30.7
[2019-05-07 19:13] VITALS: BP 156/84; PULSE 97; RESP 16; TEMP 36.4; O2SAT 99
--- NOTE | 2019-05-07 19:37 | ED_ITS ---
HPI - Extremity Problem General Chief complaint: Extremity Problem,Nontraumatic Stated complaint: Leg swelling Time Seen by Provider: 05/07/19 19:27 Source: patient and EMS Mode of arrival: EMS Limitations: no limitations History of Present Illness HPI Narrative: Patient is a 63-year-old male. I have evaluated him here in the emergency department in the past for similar symptoms and brings him in today. He arrived by EMS. He is homeless. Has a history of CVA and is nonambulatory. Has a motorized wheelchair where he spends all of his time. Last admission here to the hospitals concern for lower extremity cellulitis. He was admitted on vancomycin. And discharged on Augmentin. Patient states that he did not take this medication after he was discharged. He still has the tracy in his head from his last visit greater than 1 month ago. He reports that he has continued to have lower extremity swelling and redness. He states he has not changed his socks in several weeks in potentially since he left the hospital. He reports today for lower extremity swelling and redness. He has little feeling in his lower extremity secondary to his history of CVAs. Related Data Previous Rx's Medication Instructions Recorded acetaminophen 650 mg PO Q6HR PRN 30 Days #30 tab 03/27/19 albuterol sulfate [Ventolin HFA] 2 puff INHALATION Q6H PRN 30 Days 03/27/19 #8 gram amoxicillin-pot clavulanate 1 tab PO BID 5 Days #10 tab 03/27/19 aspirin 81 mg PO DAILY 30 Days #30 tab 03/27/19 atorvastatin [Lipitor] 40 mg PO BEDTIME 30 Days #60 tab 03/27/19 folic acid 1 mg PO DAILY 30 Days #30 tab 03/27/19 lisinopril 20 mg PO DAILY 30 Days #30 tab 03/27/19 multivitamin [Tab-A-Sherri] 1 tab PO DAILY 30 Days #30 tab 03/27/19 thiamine HCl (vitamin B1) [Vitamin 100 mg PO DAILY 30 Days #30 tab 03/27/19 B-1] Allergies Allergy/AdvReac Type Severity Reaction Status Date / Time No Known Allergies Allergy Verified 05/07/19 19:18 Review of Systems Constitutional Constitutional: Reports chills, Reports fatigue, Denies fever(s) and Denies headache(s) ENT Ears, Nose, Mouth, and Throat: Denies headache(s) Cardiovascular Cardiovascular: Denies chest pain and Denies dyspnea Respiratory Respiratory: Denies dyspnea Gastrointestinal Gastrointestinal: Denies abdominal pain Musculoskeletal Musculoskeletal: Denies myalgias and Denies arthralgias Integumentary/Breasts Skin/Breast: Reports lesions, Reports rash, Reports skin swelling, Reports skin ulcer and Reports wounds Neurologic Neurologic: Denies headache(s) Comments: No change in neurologic status Endocrine Endocrine: Reports fatigue Hematologic/Lymphatic Hematologic/Lymphatic: Denies easy bleeding and Denies easy bruising [facility] Medical History Chronic pain (Acute) COPD with emphysema (Acute) CVA (cerebral vascular accident) (Acute) Diabetes type 2, controlled (Acute) Dyslipidemia (Acute) Gout (Acute) Hypertension, malignant (Acute) Peripheral vascular disease (Acute) Surgical History History of appendectomy (Acute) Social History household members: none Smoking Status: Former smoker alcohol intake: current Social History household members: none Smoking Status: Former smoker alcohol intake: current Exam Initial Vital Signs Initial Vital Signs: Vital Signs Temperature 97.5 F L 05/07/19 19:13 Pulse Rate 97 H 05/07/19 19:13 Respiratory Rate 16 05/07/19 19:13 Blood Pressure 156/84 H 05/07/19 19:13 Pulse Oximetry 99 05/07/19 19:13 Const General: ill appearing Nutritional Appearance: overweight Orientation: alert, awake and oriented x3 HENMT Head: normal to inspection and normocephalic Resp Effort & Inspection: normal respiratory effort Auscultation: clear to auscultation bilaterally Cardio Rate: tachycardic Rhythm: regular rhythm GI Inspection: non-distended Palpation: soft External: circumcised Skin Other: Patient with multiple wounds in various stages of healing on his lower extremities from his knees to his ankles. Has a large open wound on the back of his left foot and along his right toe. He has multiple wounds on his right foot. When I removed his socks his right foot was white in cold. This did start to improve when the wet sock was removed. No active bleeding. No purulent drainage however all wounds are seeping clear fluid. Has erythema from the toes to the knees on the right has erythema from toes to the knees in streaking up his mid thigh on the left. Neuro Other: Patient unable to ambulate. Has little/no feeling in bilateral feet which he states is not new Extrem General: cyanosis and edema Psych Appearance: disheveled Course Orders Ordered: ED Orders 05/07/19 19:00 B Type Natriuretic Peptide Stat Complete Blood Count AUTO DIFF Stat Erythrocyte Sedimentation Rate Stat Lactate (Lactic Acid) Stat 05/07/19 19:37 XR foot LT 2V Stat XR foot RT 2V Stat 05/07/19 19:38 XR chest 1V Stat 05/07/19 19:39 Consult to Finance Officer Stat 05/07/19 20:08 EKG-12 Lead Stat 05/07/19 20:15 C-Reactive Protein Quant Stat Comprehensive Metabolic Panel Stat Lipase Stat Procalcitonin Stat 05/07/19 20:21 Blood Culture Stat Sodium Chloride (Normal Saline 0.9%) 1,000 mls @ 150 mls/hr IV CONT DINAH Discontinued Medications Vancomycin HCl (Vancomycin) 1,000 mg in 200 mls @ 200 mls/hr IV NOW ONE Stop: 05/07/19 20:36 Last Admin: 05/07/19 21:39 Dose: 200 mls/hr Documented by: LARA Ceftriaxone Sodium/Dextrose (Rocephin) 1 gm in 50 mls @ 100 mls/hr IV NOW ONE Stop: 05/07/19 20:18 Last Infusion: 05/07/19 21:35 Dose: 0 mls/hr Documented by: Admin: 05/07/19 20:47 Dose: 100 mls/hr Documented by: SOO Vital Signs Vital signs: Vital Signs - 8 hr 05/07/19 19:13 05/07/19 21:30 Temperature 97.5 F L 98.8 F Pulse Rate 97 H 105 H Respiratory Rate 16 16 Blood Pressure 156/84 H Blood Pressure [Right Arm] 131/96 H Pulse Oximetry 99 96 MDM - Extremity (Nontraumatic) Lab Data Result diagrams: 05/07/19 19:00 05/07/19 20:15 Labs: Lab Results 05/07/19 05/07/19 05/07/19 Range/Units 19:00 19:00 20:15 WBC 10.4 (4.5-11.0) X10^3/uL RBC 4.51 (4.5-5.9) X10^6/uL Hgb 14.1 (13.5-17.5) g/dL Hct 42.2 (41-53) % MCV 93.6 (80-100) fL MCH 31.3 (26-34) PG MCHC 33.5 (30-36) % RDW 14.0 (11.6-14.8) % Plt Count 235 (150-400) X10^3/uL Neut % (Auto) 56.6 (50-75) % Lymph % (Auto) 24.1 L (25-40) % [place] % (Auto) 12.2 (3-14) % Eos % (Auto) 6.1 H (2-4) % Baso % (Auto) 1.0 (0-2) % Neut # (Auto) 5900 (2634-8908) /uL Lymph # (Auto) 2500 (2179-6537) /uL [place] # (Auto) 1300 H (0-900) /uL Eos # (Auto) 600 H (0-450) /uL Baso # (Auto) 100 (0-100) /uL ESR 32 H (0-15) MM/HR Sodium (137-145) mmol/L Potassium (3.4-5.1) mmol/L Chloride (98-107) mmol/L Carbon Dioxide (22-32) mmol/L BUN (9-20) mg/dL Creatinine (0.66-1.25) mg/dL Estimated GFR (>60) mL/min BUN/Creatinine Ratio (6-22) Glucose (80-110) mg/dL Lactate 2.7 H (0.7-2.1) mmol/L Calcium (8.4-10.2) mg/dL Total Bilirubin (0.2-1.3) mg/dL AST (17-59) IU/L ALT (21-72) IU/L Alkaline Phosphatase (38-126) U/L C-Reactive Protein (<1.0) mg/dL B-Natriuretic Peptide < 100 (<100) Total Protein (6.3-8.2) g/dL Albumin (3.5-5.0) g/dL Globulin (1.7-4.1) g/dL Albumin/Globulin Ratio (1.0-2.8) Lipase (23-300) U/L Procalcitonin < 0.05 (<0.5) ng/mL 05/07/19 Range/Units 20:15 WBC (4.5-11.0) X10^3/uL RBC (4.5-5.9) X10^6/uL Hgb (13.5-17.5) g/dL Hct (41-53) % MCV (80-100) fL MCH (26-34) PG MCHC (30-36) % RDW (11.6-14.8) % Plt Count (150-400) X10^3/uL Neut % (Auto) (50-75) % Lymph % (Auto) (25-40) % [place] % (Auto) (3-14) % Eos % (Auto) (2-4) % Baso % (Auto) (0-2) % Neut # (Auto) (8726-0990) /uL Lymph # (Auto) (4180-3024) /uL [place] # (Auto) (0-900) /uL Eos # (Auto) (0-450) /uL Baso # (Auto) (0-100) /uL ESR (0-15) MM/HR Sodium 132 L (137-145) mmol/L Potassium 4.3 (3.4-5.1) mmol/L Chloride 90 L (98-107) mmol/L Carbon Dioxide 28 (22-32) mmol/L BUN 6 L (9-20) mg/dL Creatinine 0.60 L (0.66-1.25) mg/dL Estimated GFR > 60.0 (>60) mL/min BUN/Creatinine Ratio 10.0 (6-22) Glucose 79 L (80-110) mg/dL Lactate (0.7-2.1) mmol/L Calcium 9.0 (8.4-10.2) mg/dL Total Bilirubin 0.7 (0.2-1.3) mg/dL AST 74 H (17-59) IU/L ALT 31 (21-72) IU/L Alkaline Phosphatase 65 (38-126) U/L C-Reactive Protein 3.4 H (<1.0) mg/dL B-Natriuretic Peptide (<100) Total Protein 7.2 (6.3-8.2) g/dL Albumin 4.0 (3.5-5.0) g/dL Globulin 3.2 (1.7-4.1) g/dL Albumin/Globulin Ratio 1.3 (1.0-2.8) Lipase 124 (23-300) U/L Procalcitonin (<0.5) ng/mL Imaging Data Left foot x-ray: Radiologist's impression: [address] [address] XRay Report Signed Patient: James Dumont [facility]#: [id number] : 5Acct:[id number] Age/Sex: 63 / MDate of Service: 05/07/19 Loc: ED Accession Number: [id number] Procedure: XR foot LT 2V Ordering Provider: Raji Romero D.O. PROCEDURE: XR FOOT LT 2V INDICATIONS: eval for osteo TECHNIQUE: 2 views of the foot were acquired. COMPARISON: [facility], ESTEVAN, XR FOOT LT MIN 3V, 03/25/2019, 1:56. FINDINGS: Bones: Subacute to chronic transverse fracture through the fifth metatarsal shaft is again seen. There is osteopenia. No gross acute fracture or dislocation. No definite bony erosive changes are noted. No suspicious bony lesions. Soft tissues: Marked soft tissue swelling over dorsum of forefoot is seen, not significantly changed from prior study. No tibiotalar joint effusion. Achilles tendon appears normal. IMPRESSION: Marked soft tissue swelling over dorsum of forefoot. No radiographic evidence of osteomyelitis. Subacute to chronic appearing transverse fracture through fifth metatarsal shaft. Dictated by: Iván Hernandez M.D. on 05/07/2019 at 20:44 Approved by: Iván Hernandez M.D. on 05/07/2019 at 20:46 Right foot x-ray: Radiologist's impression: [address] [address] XRay Report Signed Patient: James Dumont [facility]#: [id number] : 5Acct:[id number] Age/Sex: 63 / MDate of Service: 05/07/19 Loc: ED Accession Number: [id number] Procedure: XR foot RT 2V Ordering Provider: Raji Romero D.O. PROCEDURE: XR FOOT RT 2V INDICATIONS: eval for osteo TECHNIQUE: 2 views of the foot were acquired. COMPARISON: [facility], , XR FOOT LT MIN 3V, 03/25/2019, 1:56. FINDINGS: Bones: No fractures or dislocations. No suspicious bony lesions. Well-defined plantar enthesophyte is seen. Osteoarthritic changes are noted at first MTP joint. No gross bony erosive changes are seen. Soft tissues: No tibiotalar joint effusion. Achilles tendon appears normal. Mild forefoot soft tissue swelling is noted. IMPRESSION: Mild forefoot soft tissue swelling. Right great toe osteoarthritis. No fracture or dislocation. No radiographic evidence of osteomyelitis. Dictated by: Iván Hernandez M.D. on 05/07/2019 at 20:46 Approved by: Iván Hernandez M.D. on 05/07/2019 at 20:47 Chest x-ray: Radiologist's impression: [place] [address] XRay Report Signed Patient: James Dumont [facility]#: [id number] : 5Acct:[id number] Age/Sex: 63 / MDate of Service: 05/07/19 Loc: ED Accession Number: [id number] Procedure: XR chest 1V Ordering Provider: Raji Romero D.O. PROCEDURE: XR CHEST 1V INDICATIONS: SOB TECHNIQUE: One view of the chest was acquired. COMPARISON: [facility], , XR CHEST 2V, 03/25/2019, 9:34. FINDINGS: Surgical changes and devices: Patient is status post left shoulder arthroplasty. Lungs and pleura: Lungs are clear. No pleural effusions or pneumothorax. Mediastinum: Mediastinal contours appear normal. Heart size is normal. Bones and chest wall: No suspicious bony lesions. Overlying soft tissues appear unremarkable. IMPRESSION: No acute cardiopulmonary pathology. Dictated by: Iván Hernandez M.D. on 05/07/2019 at 20:44 Approved by: Iván Hernandez M.D. on 05/07/2019 at 20:44 ECG Data Attestation EKG: I personally reviewed and interpreted this ECG as follows: Prior ECG tracings: not available for review Interpretation: Sinus tachycardia Ventricular rate [address] T wave changes MDM Narrative Medical decision making narrative: Patient is tachycardic. Does not have an elevated white blood cell count but does have an elevated lactate. There is concerned that his lower extremity findings is related to cellulitis. He was given vancomycin and Zosyn. There are 2 when cultures obtained from his left foot. The cyanosis of his right foot improved when we removed the white socks. He has multiple other lesions on his feet and legs. He does have streaking going up the middle of his left thigh. Given the fact the patient did not c omplete the course of antibiotics after he was discharged his concern for worsening symptoms. I also removed the tracy in his scalp. Patient is in need of IV antibiotics and further workup of his wounds. The x-rays do not show any signs of osteomyelitis. Social work consult was placed. Patient is unable to take care of himself and his current living situation. Discussed the case with night ENGINEERED WOOD DESIGNER who will admit for further evaluation treatment. Discussed admission with the patient expressed understanding and agreement. Discharge Plan Departure Patient Disposition: Admitted As Inpatient Clinical Impression: Lower extremity edema, History of CVA (cerebrovascular accident) Cellulitis Qualifiers: Site of cellulitis: extremity Site of cellulitis of extremity: lower extremity Laterality: unspecified laterality Qualified Code(s): L03.119 - Cellulitis of unspecified part of limb Discharge Date/Time: 05/07/19 22:00 Admit Date/Time: 05/07/19 22:09 Admit Provider: Deidre Huang
--- NOTE | 2019-05-07 19:59 | PC.NURSE ---
Patient is wheelchair bound presents to ER by EMS for lower extremity swelling and discharge. Patients left leg appears red and streaking up into thigh. Patient has clear drainage to bilateral lower extremity. Patient had ulcer like wound on the top of the left foot and a area left big toe appears to have an old wound present. Cultures obtained of both.
[2019-05-07 20:03] LABS: Add Manual Diff / Slide Review NO; Basophils Absolute Auto 100 /uL (0-100); Eosinophils Absolute Auto 600 /uL (0-450); Eosinophils Percent Auto 6.1 % (2-4); Hematocrit 42.2 % (41-53); Hemoglobin 14.1 g/dL (13.5-17.5); Lymphocytes Absolute Auto 2500 /uL (1100-4500); Lymphocytes Percent Auto 24.1 % (25-40); Mean Corpuscular HGB Conc 33.5 % (30-36); Mean Corpuscular Hemoglobin 31.3 PG (26-34); Mean Corpuscular Volume 93.6 fL (80-100); Monocytes Absolute Auto 1300 /uL (0-900); Monocytes Percent Auto 12.2 % (3-14); Neutrophils Absolute Auto 5900 /uL (1500-7000); Neutrophils Percent Auto 56.6 % (50-75); Platelet Count 235 X10^3/uL (150-400); Red Blood Cell Count 4.51 X10^6/uL (4.5-5.9); White Blood Cell Count 10.4 X10^3/uL (4.5-11.0)
[2019-05-07 20:17] LABS: Lactate (Lactic Acid) 2.7 mmol/L (0.7-2.1)
[2019-05-07 20:43] LABS: B Type Natriuretic Peptide < 100 (<100)
[2019-05-07 20:44] LABS: Alanine Aminotransferase 31 IU/L (21-72); Albumin Globulin Ratio 1.3 (1.0-2.8); Alkaline Phosphatase 65 U/L (38-126); Aspartate Aminotransferase 74 IU/L (17-59); Bilirubin Total 0.7 mg/dL (0.2-1.3); Blood Urea Nitrogen 6 mg/dL (9-20); C-Reactive Protein Quant 3.4 mg/dL (<1.0); Carbon Dioxide 28 mmol/L (22-32); Chloride 90 mmol/L (98-107); Estimated Glomerular Filt Rate > 60.0 mL/min (>60); Globulin 3.2 g/dL (1.7-4.1); Glucose 79 mg/dL (80-110); HEMOLYSIS 15 (0-50); Lipase 124 U/L (23-300); Potassium 4.3 mmol/L (3.4-5.1); Sodium 132 mmol/L (137-145); Total Protein 7.2 g/dL (6.3-8.2)
[2019-05-07] MEDS: CEFTRIAXONE 1 GM/50 ML FROZ.PIGGY IV (20:47)
[2019-05-07 20:48] LABS: Erythrocyte Sedimentation Rate 32 MM/HR (0-15)
[2019-05-07 20:58] LABS: Procalcitonin < 0.05 ng/mL (<0.5)
[2019-05-07 21:30] VITALS: BP 131/96; PULSE 105; RESP 16; TEMP 37.1; O2SAT 96
[2019-05-07] MEDS: VANCOMYCIN 1,000 MG/200 ML PIGGYBACK 200 MG IV (21:39)
[2019-05-07 21:59] LABS: Reflexed Lactate in 2 Hours Y
[2019-05-07 22:10] VITALS: BP 131/79; PULSE 114; RESP 18; TEMP 37.2; O2SAT 96
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
[2019-05-07 22:32] VITALS: BMI 30.9
[2019-05-07 23:01] LABS: Ethanol (ETOH) 68 mg/dL; Magnesium 1.7 mg/dL (1.6-2.3)
[2019-05-07 23:49] LABS: Bacteria Urine None Seen; RBC Urine None Seen (0-5/HPF); WBC Urine None Seen (0-5/HPF)
[2019-05-07 23:51] LABS: Appearance Urine UA CLEAR; Bilirubin Urine UA NEGATIVE (NEGATIVE); Color Urine UA YELLOW; Glucose Urine UA NEGATIVE (Negative); Ketones Urine UA 1+ (NEGATIVE); Leukocyte Esterase Urine UA NEGATIVE (NEGATIVE); Nitrite Urine UA NEGATIVE (Negative); Occult Blood Urine UA NEGATIVE (Negative); Protein Urine UA NEGATIVE (Negative); Specific Gravity Urine UA <=1.005 (1.000-1.035); Urobilinogen Urine UA 0.2 E.U./dL (0.2); pH Urine UA 6.5 (4.5-8.0)
[2019-05-07 23:55] LABS: Culture Indicated Urine Cult Not Indicated; Urine Comments Microscopic Normal
[2019-05-08] VITALS (7 sets, daily range): BP systolic 117–126; BP diastolic 61–76; PULSE 95–116; RESP 17–20; TEMP 36.6–37.2; O2SAT 95–97
[2019-05-08] MEDS: [UNRECOGNIZED DRUG - OTHER] IV (00:19)
[2019-05-08] MEDS: MAGNESIUM SULFATE IV (00:19)
[2019-05-08] MEDS: ACETAMINOPHEN 325 MG TABLET 650 MG PO ×4 (00:19→18:39)
[2019-05-08] MEDS: FOLIC ACID IV (00:19)
[2019-05-08] MEDS: THIAMINE IV (00:19)
[2019-05-08] MEDS: MULTIVITAMIN IV (00:19)
[2019-05-08] MEDS: chlordiazePOXIDE 25 MG CAPSULE 50 MG PO ×4 (01:49→20:31)
--- NOTE | 2019-05-08 01:53 | PC.NURSE ---
Addendum entered by Nelda Guan R.N. 05/08/19 04:16: Pt with hx of DMT2, asked MANAGER FAMILY if pt needs to be on glucose checks or sliding scale, reports pt does not take meds for diabetes and does not require checks or insulin. Original Note: Shift note: Received pt from evening shift, completed admission. Pt is AxoX2, oriented to self, situation and place but states he doesn't know month or year. Pt has difficulty finding words, when asked about last alcoholic drink, pt reports several days, when educated on ETOH level, pt states more like a few hours. Pt able to verbalize needs and c/o pain and itching in lower legs, is sensitive to touch and moves feet away with pain. Left leg is extensively worse, has multiple abrasions and skin ulcers with main ulcer to dorsal side of foot, ulcer to great toe, and ulcer to 5th toe. Skin is erythemic and warm to the touch, extending up to groin. Right leg is erythemic with redness extending up to knee, multiple abrasions but no significant ulcers. Photos were taken with hospital camera to print and put in patients hard chart. Pt's CIWA is 11 with agitation, itching, and sensitivity to light, medicated with 50 mg PO Librium per MAR. Lung sounds are diminished throughout, heart with regular rate and rhythm, bilateral 3+ pitting edema, diminished pulses on posterial tibialis. Pt is a high fall risk d/t hx of falls (03/2019), wheelchair use, and mentation, is in a yellow gown and bed alarm is on and functional, seizure pads in place, call light in reach and demonstrate use. With assist from BED CONTROL SPECIALIST performed wound care and cleaning. Used chlorahexadine wash and scrub sponge and cleaned both legs from knee to toes, making note to clean between toes as well. Dried both legs carefully and applied iodine with cotton balls from knees to toes. Applied iodosorb to left dorsal ulcer and covered with non-adherent pad and minimal tape to keep in place. Iodosorb to be applied MWF and iodine BID.
[2019-05-08] MEDS: VANCOMYCIN 1,500 MG/300 ML FROZ.PIGGY 200 MG IV ×3 (05:51→21:45)
[2019-05-08 06:51] LABS: Add Manual Diff / Slide Review NO; Basophils Absolute Auto 100 /uL (0-100); Basophils Percent Auto 0.8 % (0-2); Eosinophils Absolute Auto 600 /uL (0-450); Eosinophils Percent Auto 7.9 % (2-4); Hematocrit 38.5 % (41-53); Hemoglobin 12.8 g/dL (13.5-17.5); Lymphocytes Absolute Auto 1700 /uL (1100-4500); Mean Corpuscular HGB Conc 33.2 % (30-36); Mean Corpuscular Hemoglobin 31.2 PG (26-34); Mean Corpuscular Volume 93.8 fL (80-100); Monocytes Absolute Auto 900 /uL (0-900); Monocytes Percent Auto 11.2 % (3-14); Neutrophils Absolute Auto 4600 /uL (1500-7000); Neutrophils Percent Auto 58.1 % (50-75); Platelet Count 201 X10^3/uL (150-400); Red Blood Cell Count 4.11 X10^6/uL (4.5-5.9); Red Cell Distribution Width 13.9 % (11.6-14.8); White Blood Cell Count 7.9 X10^3/uL (4.5-11.0)
[2019-05-08 07:01] LABS: Alanine Aminotransferase 34 IU/L (21-72); Albumin 3.3 g/dL (3.5-5.0); Albumin Globulin Ratio 1.2 (1.0-2.8); Alkaline Phosphatase 54 U/L (38-126); Aspartate Aminotransferase 55 IU/L (17-59); Bilirubin Total 0.8 mg/dL (0.2-1.3); Blood Urea Nitrogen 6 mg/dL (9-20); Calcium 8.5 mg/dL (8.4-10.2); Carbon Dioxide 27 mmol/L (22-32); Chloride 95 mmol/L (98-107); Estimated Glomerular Filt Rate > 60.0 mL/min (>60); Globulin 2.8 g/dL (1.7-4.1); Glucose 87 mg/dL (80-110); HEMOLYSIS < 15 (0-50); Potassium 3.9 mmol/L (3.4-5.1); Sodium 132 mmol/L (137-145); Total Protein 6.1 g/dL (6.3-8.2)
--- NOTE | 2019-05-08 07:36 | PM.PN.1 ---
Subjective Subjective Date Patient Seen: 05/08/19 Time Patient Seen: 07:37 Interval history: Mr. Dumont is a 63 y/o homeless male with PMH of HTN, ischemic CVA, dm 2 T, PVD, CKD II, COPD, former smoker, h/o spontaneous pneumothorax, osteoarthritis, gout, chronic pain syndrome (2/2 spinal stenosis), h/o opioid dependence, chronic marijuana use, daily EtOH use, and recurrent cellulitis who was admitted for cellulitis and EtOH withdrawal. Overnight patient was slightly agitated and started on librium for possible withdrawal. This morning he complains of LE pain and swelling, and diffuse pruritis which has been present over the past few months. He denies any fever, chills, nausea, vomiting or abdominal pain. Exam Vital Signs (past 8 hours): - 05/08/19 00:43 05/08/19 03:00 Temperature 98.8 F 98.0 F Pulse Rate 116 H 109 H Respiratory Rate 20 18 Blood Pressure 126/76 123/62 Pulse Oximetry 96 95 Oxygen Delivery Method Room Air Oxygen Flow Rate 0 Narrative Exam Narrative: GENERAL APPEARANCE: Disheveled appearing male, itching constantly. SKIN: Inspection of the skin bilateral venous stasis changes, LLE erythema and warmth with tenderness, extending to L thigh posteriorly. Some weeping lesions on the LLE anteriorly. HEENT: The sclerae were anicteric and conjunctivae were pink and moist. Extraocular movements were intact and pupils were equal, round with normal accommodation. External inspection of the ears and nose showed no scars, lesions, or masses. Lips, teeth, and gums showed normal mucosa. The oral mucosa, hard and soft palate, tongue and posterior pharynx were unremarkable. NECK: Supple and symmetric. There was no thyroid enlargement, and no tenderness, or masses were felt. CHEST: Normal AP diameter and normal contour without any kyphoscoliosis. LUNGS: Auscultation of the lungs revealed no wheezes, rhonchi, or rales. CARDIOVASCULAR: There was a regular rate and rhythm without any murmurs, gallops, rubs. Peripheral pulses were 2+ and symmetric. ABDOMEN: Soft and nontender with normal bowel sounds. No ascites was noted. MUSCULOSKELETAL: There was no tenderness or effusions noted. Muscle strength and tone were normal. EXTREMITIES: No cyanosis, clubbing . There is bilateral LE edema. NEUROLOGIC: Alert and oriented x 3. Normal affect. Strength is +5/5 in the Upper Extremities and Lower Extremities Bilaterally. No tongue fasciculations or tremulousness. Objective Labs Result Diagrams: 05/08/19 06:42 05/08/19 06:42 Labs: Laboratory Results - last 24 hr 05/07/19 05/07/19 05/07/19 19:00 19:00 20:15 WBC 10.4 RBC 4.51 Hgb 14.1 Hct 42.2 MCV 93.6 MCH 31.3 MCHC 33.5 RDW 14.0 Plt Count 235 Neut % (Auto) 56.6 Lymph % (Auto) 24.1 L [place] % (Auto) 12.2 Eos % (Auto) 6.1 H Baso % (Auto) 1.0 Neut # (Auto) 5900 Lymph # (Auto) 2500 [place] # (Auto) 1300 H Eos # (Auto) 600 H Baso # (Auto) 100 ESR 32 H Sodium Potassium Chloride Carbon Dioxide BUN Creatinine Estimated GFR BUN/Creatinine Ratio Glucose Lactate 2.7 H Calcium Magnesium Total Bilirubin AST ALT Alkaline Phosphatase C-Reactive Protein B-Natriuretic Peptide < 100 Total Protein Albumin Globulin Albumin/Globulin Ratio Lipase Procalcitonin < 0.05 Urine Color Urine Appearance Urine pH Ur Specific [place] Urine Protein Urine Glucose (UA) Urine Ketones Urine Occult Blood Urine Nitrate Urine Bilirubin Urine Urobilinogen Ur Leukocyte Esterase Urine RBC Urine WBC Urine Bacteria Ur Culture Indicated? Micro UA Comment Ethyl Alcohol 05/07/19 05/07/19 05/07/19 20:15 20:15 20:15 WBC RBC Hgb Hct MCV MCH MCHC RDW Plt Count Neut % (Auto) Lymph % (Auto) [place] % (Auto) Eos % (Auto) Baso % (Auto) Neut # (Auto) Lymph # (Auto) [place] # (Auto) Eos # (Auto) Baso # (Auto) ESR Sodium 132 L Potassium 4.3 Chloride 90 L Carbon Dioxide 28 BUN 6 L Creatinine 0.60 L Estimated GFR > 60.0 BUN/Creatinine Ratio 10.0 Glucose 79 L Lactate Calcium 9.0 Magnesium 1.7 Total Bilirubin 0.7 AST 74 H ALT 31 Alkaline Phosphatase 65 C-Reactive Protein 3.4 H B-Natriuretic Peptide Total Protein 7.2 Albumin 4.0 Globulin 3.2 Albumin/Globulin Ratio 1.3 Lipase 124 Procalcitonin Urine Color Urine Appearance Urine pH Ur Specific [place] Urine Protein Urine Glucose (UA) Urine Ketones Urine Occult Blood Urine Nitrate Urine Bilirubin Urine Urobilinogen Ur Leukocyte Esterase Urine RBC Urine WBC Urine Bacteria Ur Culture Indicated? Micro UA Comment Ethyl Alcohol 68 H 05/07/19 05/07/19 05/08/19 22:19 23:30 06:42 WBC 7.9 RBC 4.11 L Hgb 12.8 L Hct 38.5 L MCV 93.8 MCH 31.2 MCHC 33.2 RDW 13.9 Plt Count 201 Neut % (Auto) 58.1 Lymph % (Auto) 22.0 L [place] % (Auto) 11.2 Eos % (Auto) 7.9 H Baso % (Auto) 0.8 Neut # (Auto) 4600 Lymph # (Auto) 1700 [place] # (Auto) 900 Eos # (Auto) 600 H Baso # (Auto) 100 ESR Sodium Potassium Chloride Carbon Dioxide BUN Creatinine Estimated GFR BUN/Creatinine Ratio Glucose Lactate 2.0 Calcium Magnesium Total Bilirubin AST ALT Alkaline Phosphatase C-Reactive Protein B-Natriuretic Peptide Total Protein Albumin Globulin Albumin/Globulin Ratio Lipase Procalcitonin Urine Color Yellow Urine Appearance Clear Urine pH 6.5 Ur Specific [place] <=1.005 Urine Protein Negative Urine Glucose (UA) Negative Urine Ketones 1+ H Urine Occult Blood Negative Urine Nitrate Negative Urine Bilirubin Negative Urine Urobilinogen 0.2 Ur Leukocyte Esterase Negative Urine RBC None seen Urine WBC None seen Urine Bacteria None seen Ur Culture Indicated? Cult not indicated Micro UA Comment Microscopic normal Ethyl Alcohol 05/08/19 05/08/19 06:42 06:42 WBC RBC Hgb Hct MCV MCH MCHC RDW Plt Count Neut % (Auto) Lymph % (Auto) [place] % (Auto) Eos % (Auto) Baso % (Auto) Neut # (Auto) Lymph # (Auto) [place] # (Auto) Eos # (Auto) Baso # (Auto) ESR Sodium 132 L Potassium 3.9 Chloride 95 L Carbon Dioxide 27 BUN 6 L Creatinine 0.60 L Estimated GFR > 60.0 BUN/Creatinine Ratio 10.0 Glucose 87 Lactate 1.0 Calcium 8.5 Magnesium Total Bilirubin 0.8 AST 55 ALT 34 Alkaline Phosphatase 54 C-Reactive Protein B-Natriuretic Peptide Total Protein 6.1 L Albumin 3.3 L Globulin 2.8 Albumin/Globulin Ratio 1.2 Lipase Procalcitonin Urine Color Urine Appearance Urine pH Ur Specific [place] Urine Protein Urine Glucose (UA) Urine Ketones Urine Occult Blood Urine Nitrate Urine Bilirubin Urine Urobilinogen Ur Leukocyte Esterase Urine RBC Urine WBC Urine Bacteria Ur Culture Indicated? Micro UA Comment Ethyl Alcohol Assessment & Plan Assessment & Plan narrative: Mr. Dumont is a 63 y/o homeless male with PMH of HTN, ischemic CVA, dm 2 T, PVD, CKD II, COPD, former smoker, h/o spontaneous pneumothorax, osteoarthritis, gout, chronic pain syndrome (2/2 spinal stenosis), h/o opioid dependence, chronic marijuana use, daily EtOH use, and recurrent cellulitis who was admitted for cellulitis and EtOH withdrawal. 1. Cellulitis, recurrent, present on admission, active - patient has been non compliant with outpatient therapy, there are some weeping lesions which may represent a purulent cellulitis. Will cover with vanco pending further cultures. Consider outpatient doxycycline. MRI last admission negative for osteomyelitis. XR Foot (left). Marked soft tissue swelling over dorsum of forefoot. No radiographic evidence of osteomyelitis. Subacute to chronic appearing transverse fracture through fifth metatarsal shaft. XR Foot (right). Mild forefoot soft tissue swelling. Right great toe osteoarthritis. No fracture or dislocation. No radiographic evidence of osteomyelitis. CRP 3.4 ESR 32. No evidence of sepsis. WBC 10.4 Lactate 2.7 -> 2.0 (repeat). CXR negative. No prior known h/o MRSA - continue vancomycin, pharmacy to dose - blood cx pending, re-evaluate and de-escalate ABX therapy accordingly - wound care bid (as instructed) - consider wound care consult, if worsening - up-to-date on tetanus vaccination, received in March of 2019 2. Hypoanatremia (mild, Na 132 Cl 90), acute, present on admission, active - mild and asymptomatic. Multi-factorial, diminished suboptimal nutritional status and daily EtOH consumption. - continue to monitor 3. EtOH intoxication in active alcoholic w/o complication, chronic condition, present on admission - Last drink 05/06/2019, / pack - Check EtOH level reviewed: EtOH level 68 - Banana bag x1 - Started on Librium 50 mg today, to taper to 25 mg tomorrow. - MTW, thiamine, FA - CIWA per protocol, monitor for s/s of EtOH withdrawl 4. COPD with bronchospasm, chronic condition, present on admission, active - supplemental O2 prn, titrate SpO2 88-92% - Duo-Neb Tx Q6H 5. H/O CVA residual left-sided deficits, chronic condition, present on admission, active - Has not been taking ASA and statin, will resume ASA 81 mg QD and atorvastatin 40 mg QD 6. Homeless single person, present on admission, active Patient lives in an alley or in a bar in [place]. He is asking for help with his living situation. Patient is cognizant that he has not been optimally cooperative in past, states I'm ready to be a good boy. - D/C planning and SW consulted 7. DM 2T, chronic condition, present on admission, stable / resolved History of diabetes. Diet controlled. A1C trend per history is in the 5% range. - ACHS today, can stop fingersticks if controlled during the day. Code: Full Designates his sister Sallie, as proxy decision maker. VTE w/ SQ Heparin
[2019-05-08] MEDS: ASPIRIN EC 81 MG TABLET PO (08:28)
[2019-05-08] MEDS: KETOROLAC 10 MG TABLET PO ×2 (08:28→14:30)
[2019-05-08] MEDS: diphenhydrAMINE 25 MG TABLET PO ×3 (08:30→20:42)
[2019-05-08] MEDS: MULTIVITAMIN 1 TABLET 1 TAB PO (08:30)
[2019-05-08] MEDS: FOLIC ACID 1 MG TABLET PO (08:30)
[2019-05-08] MEDS: THIAMINE 100 MG TABLET PO (08:30)
[2019-05-08] MEDS: INFLUENZA VACCINE 0.5 ML SYRINGE IM (08:37)
[2019-05-08] MEDS: ALBUTEROL/IPRATROPIUM 3 ML AMPUL INH (08:50)
--- NOTE | 2019-05-08 12:29 | DIET.PN ---
Dietary Progress Note Assessment: 63y M admitted for cellulitis and etoh withdrawl consulting c nutrition for wound healing and food insecurity (homelessness). Pt purchases food each day from [employer], choosing sandwiches most of time. Pt does not participate in meal programs/meal sites. Pt blood sugar is good range for healing (79-98) c latest A1c in 5% range indicating good control. HT: 175.2cm WT: 95kg BMI: 30.9 Labs: BG 79-98, CRP 3.4 H, TP 6.1 L, Alb 3.3 L, Etoh 68 H MNA: 10 at risk Jono: 17 Nutrition Diagnosis: 1. Poor nutrition quality of life r/t food insecurity aeb pt etoh dependent, homeless living in [facility], purchases ready made meals from grocery store when has funds as no place to store or prepare food. 2. Increased PRO needs aeb dx cellulitis aeb pt food insecure (homeless), CRP 3.4 H, etoh dependent c controlled DM2. Interventions: Recc ONS Oni bid to support wound healing, keep BG <200, encourage PRO on meal trays. Diet Order: CCD 3 Monitoring/Evaluations: provide food resources when receptive, I&O, associated labs
[2019-05-08] MEDS: HEPARIN 5,000 UNIT/ML VIAL 5000 UNIT SUBCUT ×2 (14:31→20:32)
[2019-05-08] MEDS: SODIUM CHLORIDE 0.9% FLUSH 10 ML IV ×3 (14:40→21:45)
--- NOTE | 2019-05-08 15:17 | CM.DANOTE ---
DCP/Assessment: Reviewed chart. Patient is a 63yr old male admitted to . with bilateral leg swelling. PCP listed is Dr. Mendoza. Primary payor is 1)Medicare 2)Medicaid. Met with patient explained CM/SW role. Patient remembers this PERSONNEL QUALITY ASSURANCE AUDITOR from last visit (see previous CM notes for details). Patient currently is homeless. He resides near [facility] in [place]. Patient uses electric w/c at baseline. Currently w[facility]c is at lodge. Patient denies smoking but does admit to drinking approximately 1 (6) pack of bear per day. Patient confirms with PERSONNEL QUALITY ASSURANCE AUDITOR that after he discharged last time he did not follow through with his medication or any resources provided to him. Therefore, patient with bilateral cellulites. Patient completely agreeable for assistance with d/c planning and SNF stay if needed. Patient is inpatient status. Notified patient that CM team will closely follow and assist with d/c planning. Patient reports that he is willing to go out of town for SNF. P: Pending. [facility] expedited application faxed. Hopefully can obtain SNF for short term stay? Patient does have Medicare prime, Medicaid secondary. Will resume planning on 05-09-19. LEXX Parker Discharge Planning/Care Management CM Discharge Assessment Start: 05/08/19 15:08 Freq: Status: Active Protocol: Document 05/08/19 15:09 KJS (Rec: 05/08/19 15:16 Riki [id number]) Discharge Planning Assessment Assigned Pressing Machine Operator LEXX Parker Contact Information Sallie Hamlin (friend) [phone] Advance Directives? No Advance Directives on File No History Provided By Patient,Medical Record Has Patient been admitted in last 30 Yes days? Comment Similiar compliant, non- compliance after last hospitalization. Prior Living Arrangements Homeless Household Members none Type of transporation used prior to Relies on Others admit Independent with ADL's No Is patient alert and oriented? Yes Needs Assistance With Bathing,Grooming,Meal Prep, Managing Medications,Home Chores / Shopping Caregiver for Another No DME Already Rented / Owned Wheelchair Comment Expedited [employer] application faxed to [phone]. Patient/Family Preference Assisted Facility Comment Homeless, non compliant, alcoholic Discharge Plan Assisted Facility Referrals Initiated Other Additional Comment Patient currently homeless and has been non-compliant with outside treatment i.e. outpatient po abx. Whiteboard Updated in Patient Room with Yes name and ext. # of Pressing Machine Operator Review Status In Process Next Review Type Continued Stay Review Discharge Planning/Care Management CM Discharge Assessment Start: 05/08/19 15:08 Freq: Status: Active Protocol: Document 05/08/19 15:09 JAMIE (Rec: 05/08/19 15:16 KJ [id number]) Discharge Planning Assessment Assigned Pressing Machine Operator LEXX Parker Contact Information Sallie Hamlin (friend) Advance Directives? No Advance Directives on File No History Provided By Patient,Medical Record Has Patient been admitted in last 30 Yes days? Comment Similiar compliant, non- compliance after last hospitalization. Prior Living Arrangements Homeless Household Members none Type of transporation used prior to Relies on Others admit Independent with ADL's No Is patient alert and oriented? Yes Needs Assistance With Bathing,Grooming,Meal Prep, Managing Medications,Home Chores / Shopping Caregiver for Another No DME Already Rented / Owned Wheelchair Comment Expedited [facility] application faxed to [phone]. Patient/Family Preference Assisted Facility Comment Homeless, non compliant, alcoholic Discharge Plan Assisted Facility Referrals Initiated Other Additional Comment Patient currently homeless and has been non-compliant with outside treatment i.e. outpatient po abx. Whiteboard Updated in Patient Room with Yes name and ext. # of Pressing Machine Operator Review Status In Process Next Review Type Continued Stay Review
[2019-05-08] MEDS: ATORVASTATIN 20 MG TABLET 40 MG PO (20:32)
--- NOTE | 2019-05-08 23:38 | PC.NURSE ---
Evening note: James resting tonight, oriented to situation, cooperative & appropriate with staff. VS stable, slight temp tonight of 99.0. Reports good pain relief from scheduled meds. CIWA 4 & then 3, for itching and forgetful to date. Benedryl given for itching. Had BM via bedpan, he is incontinent &/or spilling urinal in bed, linen underneath him wet. Full bed change done & partial bed bath given. Wound care to legs and toes done. Fall precautions in place, patient instructed to call nurse for any needs/concerns.
[2019-05-09] VITALS (7 sets, daily range): BP systolic 110–135; BP diastolic 57–77; PULSE 80–98; RESP 16–22; TEMP 36.4–37.3; O2SAT 93–97
[2019-05-09] MEDS: ACETAMINOPHEN 325 MG TABLET 650 MG PO ×5 (00:34→23:49)
[2019-05-09] MEDS: chlordiazePOXIDE 25 MG CAPSULE PO ×4 (02:12→20:01)
[2019-05-09 05:40] LABS: Add Manual Diff / Slide Review NO; Basophils Absolute Auto 0 /uL (0-100); Basophils Percent Auto 0.8 % (0-2); Eosinophils Absolute Auto 700 /uL (0-450); Eosinophils Percent Auto 11.9 % (2-4); Hematocrit 37.1 % (41-53); Hemoglobin 12.2 g/dL (13.5-17.5); Lymphocytes Absolute Auto 1300 /uL (1100-4500); Lymphocytes Percent Auto 23.7 % (25-40); Mean Corpuscular HGB Conc 32.8 % (30-36); Mean Corpuscular Hemoglobin 31.3 PG (26-34); Mean Corpuscular Volume 95.3 fL (80-100); Monocytes Absolute Auto 500 /uL (0-900); Neutrophils Absolute Auto 2900 /uL (1500-7000); Neutrophils Percent Auto 53.6 % (50-75); Platelet Count 161 X10^3/uL (150-400); Red Blood Cell Count 3.89 X10^6/uL (4.5-5.9); Red Cell Distribution Width 14.5 % (11.6-14.8); White Blood Cell Count 5.4 X10^3/uL (4.5-11.0)
[2019-05-09 05:45] LABS: BUN Creatinine Ratio 23.3 (6-22); Blood Urea Nitrogen 14 mg/dL (9-20); Carbon Dioxide 28 mmol/L (22-32); Chloride 104 mmol/L (98-107); Estimated Glomerular Filt Rate > 60.0 mL/min (>60); Glucose 96 mg/dL (80-110); HEMOLYSIS < 15 (0-50); Magnesium 1.8 mg/dL (1.6-2.3); Potassium 3.6 mmol/L (3.4-5.1); Sodium 139 mmol/L (137-145)
[2019-05-09] MEDS: HEPARIN 5,000 UNIT/ML VIAL 5000 UNIT SUBCUT ×3 (06:06→20:02)
[2019-05-09] MEDS: diphenhydrAMINE 25 MG TABLET PO ×2 (06:12→13:54)
[2019-05-09 06:23] LABS: Vancomycin Trough 24.2 ug/mL (10-20)
--- NOTE | 2019-05-09 07:58 | P.PN_ITS ---
Subjective Subjective Date Patient Seen: 05/09/19 Time Patient Seen: 07:59 Interval history: Mr. Dumont is a 63 y/o homeless male with PMH of HTN, ischemic CVA, dm 2 T, PVD, CKD II, COPD, former smoker, h/o spontaneous pneumothorax, osteoarthritis, gout, chronic pain syndrome (2/2 spinal stenosis), h/o opioid dependence, chronic marijuana use, daily EtOH use, and recurrent cellulitis who was admitted for cellulitis and EtOH withdrawal. Overnight he had no acute events. This morning he complains of LE pain and swelling which is slightly improved from the day before. He otherwise feels well and was very appreciative of treatment and help. Exam Vital Signs (past 8 hours): - 05/09/19 00:49 05/09/19 05:42 Temperature 98.0 F 99.1 F Pulse Rate 92 H 89 Respiratory Rate 16 18 Blood Pressure 114/60 110/58 L Pulse Oximetry 96 93 Oxygen Delivery Method Room Air Oxygen Flow Rate 0 Narrative Exam Narrative: GENERAL APPEARANCE: Disheveled appearing male, itching constantly. SKIN: Inspection of the skin bilateral venous stasis changes, LLE erythema and warmth with tenderness, extending to L thigh posteriorly. Some weeping lesions on the LLE anteriorly. HEENT: The sclerae were anicteric and conjunctivae were pink and moist. Extraocular movements were intact and pupils were equal, round with normal accommodation. External inspection of the ears and nose showed no scars, lesions, or masses. Lips, teeth, and gums showed normal mucosa. The oral mucosa, hard and soft palate, tongue and posterior pharynx were unremarkable. NECK: Supple and symmetric. There was no thyroid enlargement, and no tenderness, or masses were felt. CHEST: Normal AP diameter and normal contour without any kyphoscoliosis. LUNGS: Auscultation of the lungs revealed no wheezes, rhonchi, or rales. CARDIOVASCULAR: There was a regular rate and rhythm without any murmurs, gallops, rubs. Peripheral pulses were 2+ and symmetric. ABDOMEN: Soft and nontender with normal bowel sounds. No ascites was noted. MUSCULOSKELETAL: There was no tenderness or effusions noted. Muscle strength and tone were normal. EXTREMITIES: No cyanosis, clubbing . There is bilateral LE edema. NEUROLOGIC: Alert and oriented x 3. Normal affect. Strength is +5/5 in the Upper Extremities and Lower Extremities Bilaterally. No tongue fasciculations or tremulousness. Objective Labs Result Diagrams: 05/09/19 05:25 05/09/19 05:25 Labs: Laboratory Results - last 24 hr 05/09/19 05/09/19 05/09/19 05:25 05:25 05:25 WBC 5.4 RBC 3.89 L Hgb 12.2 L Hct 37.1 L MCV 95.3 MCH 31.3 MCHC 32.8 RDW 14.5 Plt Count 161 Neut % (Auto) 53.6 Lymph % (Auto) 23.7 L [place] % (Auto) 10.0 Eos % (Auto) 11.9 H Baso % (Auto) 0.8 Neut # (Auto) 2900 Lymph # (Auto) 1300 [place] # (Auto) 500 Eos # (Auto) 700 H Baso # (Auto) 0 Sodium 139 Potassium 3.6 Chloride 104 Carbon Dioxide 28 BUN 14 Creatinine 0.60 L Estimated GFR > 60.0 BUN/Creatinine Ratio 23.3 H Glucose 96 Calcium 9.0 Magnesium 1.8 Vancomycin Trough 24.2 H* Assessment & Plan Assessment & Plan narrative: Mr. Dumont is a 63 y/o homeless male with PMH of HTN, ischemic CVA, dm 2 T, PVD, CKD II, COPD, former smoker, h/o spontaneous pneumothorax, osteoarthritis, gout, chronic pain syndrome (2/2 spinal stenosis), h/o opioid dependence, chronic marijuana use, daily EtOH use, and recurrent cellulitis who was admitted for cellulitis and EtOH withdrawal. 1. Cellulitis, recurrent, present on admission, active - patient has been non compliant with outpatient therapy, there are some weeping lesions which may represent a purulent cellulitis. Will cover with vanco pending further cultures however his response today is suboptimal and his redness has not significantly improved so will add ceftraixone today. Consider outpatient doxycycline. MRI last admission negative for osteomyelitis. XR Foot (left). Marked soft tissue swelling over dorsum of forefoot. No radiogra phic evidence of osteomyelitis. Subacute to chronic appearing transverse fracture through fifth metatarsal shaft. XR Foot (right). Mild forefoot soft tissue swelling. Right great toe osteoarthritis. No fracture or dislocation. No radiographic evidence of osteomyelitis. CRP 3.4 ESR 32. No evidence of sepsis. WBC 10.4 Lactate 2.7 -> 2.0 (repeat). CXR negative. No prior known h/o MRSA - continue vancomycin, pharmacy to dose - patient not responding well to vancomycin alone, will add ceftriaxone today. - blood cx pending, re-evaluate and de-escalate ABX therapy accordingly - wound care bid (as instructed) - consider wound care consult, if worsening - up-to-date on tetanus vaccination, received in March of 2019 2. EtOH withdrawal, present on admission - Last drink 05/06/2019, beer / pack - Banana bag given on admission. - Taper to 25 mg librium today. - MVI, thiamine, FA - CIWA per protocol, monitor for s/s of EtOH withdrawl 3. COPD with bronchospasm, chronic condition, present on admission, active - supplemental O2 prn, titrate SpO2 88-92% - Duo-Neb Tx Q6H 4. Hypoanatremia (mild, Na 132 Cl 90), acute, present on admission, Resolved. Multi-factorial, diminished suboptimal nutritional status and daily EtOH consumption. - continue to monitor 5. H/O CVA residual left-sided deficits, chronic condition, present on admission, active - Has not been taking ASA and statin, will resume ASA 81 mg QD and atorvastatin 40 mg QD 6. Homeless single person, present on admission, active Patient lives in an alley or in a bar in [place]. He is asking for help with his living situation. Patient is cognizant that he has not been optimally cooperative in past, states I'm ready to be a good boy. - D/C planning and SW consulted 7. DM 2T, chronic condition, present on admission, stable / resolved History of diabetes. Diet controlled. A1C trend per history is in the 5% range. - ACHS fingersticks within normal limits on day 1, no further need for continued fingersticks. Code: Full Designates his sister Sallie, as proxy decision maker. VTE w/ SQ Heparin
[2019-05-09] MEDS: FOLIC ACID 1 MG TABLET PO (09:51)
[2019-05-09] MEDS: MULTIVITAMIN 1 TABLET 1 TAB PO (09:51)
[2019-05-09] MEDS: THIAMINE 100 MG TABLET PO (09:51)
[2019-05-09] MEDS: ASPIRIN EC 81 MG TABLET PO (09:51)
[2019-05-09] MEDS: VANCOMYCIN 1,500 MG/300 ML FROZ.PIGGY 200 MG IV ×2 (09:52→22:13)
[2019-05-09] MEDS: KETOROLAC 10 MG TABLET PO ×2 (09:52→15:34)
[2019-05-09] MEDS: CEFTRIAXONE 1 GM/50 ML FROZ.PIGGY IV (11:53)
--- NOTE | 2019-05-09 14:32 | PC.NURSE ---
Patient c/o itching. Given PRN Benadryl. Patient's leg wounds cleaned, and redressed. Wounds are scattered bilateral, below the knee ulcers, scant drainage, yellow wound beds, no odor. The surrounding skin is pink, red, taunt and edematous. Area washed with prescribed chlorohexadine scrub, rinsed, dried. Patient tolerated well. Iodine applied to bilateral toes per order. Idosorb applied to left dorsal wound per physician order. Wound had small drainage noted on previous bandage, size of quarter. Wound bed is yellow, sloughing with black undetermined borders. Redressed with Optifoam, and reinforced with non-adhesive gauze wrap. Patient tolerated well. Denies pain at this time. Reports feeling sleepy.
--- NOTE | 2019-05-09 14:42 | PT.IIE ---
Current Diagnoses Cellulitis of left lower limb (05/07/19) Surgical History (Last Reviewed 05/08/19 @ 01:51 by ANGELES Smith) History of appendectomy (Acute) Medical History (Last Reviewed 05/08/19 @ 01:51 by ANGELES Smith) Chronic pain (Acute) COPD with emphysema (Acute) CVA (cerebral vascular accident) (Acute) Diabetes type 2, controlled (Acute) Dyslipidemia (Acute) Gout (Acute) Hypertension, malignant (Acute) Peripheral vascular disease (Acute) Physical Therapy Inpatient Evaluation/Re-Eval M1 PT/OT-IP Prior Functional Status Start: 05/09/19 16:43 Freq: NEEDED Status: Active Protocol: Document 05/09/19 14:42 AB (Rec: 05/09/19 16:58 AB [id number]) Medical Review Prior Functional Status Medical History Reviewed Yes Communication able to make needs known Mobility and Gait pt stated that he lives in the [facility] and stays on his electric scooter. pt stated that he is able to transfer squat pivot without AD but is very difficult; has not been ambulatory ever since he had the stroke. stated that he goes to the [employer] to charge his electric scooter. Social History Household Members none Living Arrangements Homeless Home Equipment Power Wheelchair/Scooter M2 PT-IP Current Condition Start: 05/09/19 16:43 Freq: NEEDED Status: Active Protocol: Document 05/09/19 14:42 AB (Rec: 05/09/19 16:58 AB [id number]) Physical Therapy Current Condition Current Condition Evaluation Date 05/09/19 Treatment Diagnosis BLE cellulitis; generalized weakness Onset Date 05/07/19 M3 PT-IP Subjective Start: 05/09/19 16:43 Freq: NEEDED Status: Active Protocol: Document 05/09/19 14:42 AB (Rec: 05/09/19 16:58 AB [id number]) Subjective Physical Therapy Visit Type Type Initial Evaluation Visit Start Time 14:42 Visit Stop Time 15:12 Total Visit Minutes 30 Number of BLUEPRINT CLERK Visits 0 Therapy Pain Assessment Pain When Pain Assessed During Mobility Pain Present Pain Present Pain Reported Location legs Intensity 5 Scale Used Numeric (1 - 10) Pain Management Techniques Re-positioning,Timing of Activity with Medications M4 PT-IP Mobility and Gait Start: 05/09/19 16:43 Freq: NEEDED Status: Active Protocol: Document 05/09/19 14:42 AB (Rec: 05/09/19 16:58 AB [id number]) PT-Bed Mobility Assessment Supine to Sit Supine to Sit Maximum Assistance,1 Person Assistance,Head of Bed Elevated,Bedrails Scooting Scooting to Edge of Bed Dependent PT-Transfer Assessment Sit to and From Stand Sit to and from Stand Maximum Assistance,2 Person Assistance,Use of Upper Extremities Equipment Transfer Assistive Device Gait Belt,Front Wheeled Walker Orthotic/Prosthetic Devices or Brace: No Transfers Transfer Destination Chair Transfer Technique Stand Step Pivot Transfer Ability Level of Assist Maximum Assistance,1 Person Assistance,2 Person Assistance ,Use of Upper Extremities Comments Mobility Comments pt initially refusing to get out of bed. pt educated and agreed to get up. pt requires motivation to participate. completed supine to sit max A and max cues with HOB elevated . pt was able to sit on EOB SBA. required total A for scooting to EOB. completed sit to stand max A x 2 and max cues. pt was able to stand using FWW for support max A x 2 and cues. presents with increase L foot inversion. completed step pivot transfer using FWW max A x 2 and max cues. Pt hesitant but agreed to sit up on chair. positioned pt in chair. call light and table placed within reach. PT-Balance Assessment Sitting Balance and Reactions Static Sitting Balance Ability Good Dynamic Sitting Balance Ability Fair Standing Balance and Reactions Static Standing Balance Ability Poor Dynamic Standing Balance Ability Poor Device Used FWW M5 PT-IP Objective Assessments Start: 05/09/19 16:43 Freq: NEEDED Status: Active Protocol: Document 05/09/19 14:42 AB (Rec: 05/09/19 16:58 AB [id number]) Orientation Orientation/Cognition Level of Alertness Alert Orientation Name,Place,Situation Safety Awareness Decreased Safety Awareness Gross Range of Motion Lower Extremity ROM Assessment Bilaterally Impaired Impairments L hip ER; L ankle PF tightness (can only go to neutral position and no DF) Strength Lower Extremity Strength Assessment Bilaterally Impaired Comments Strength Comments RLE: 3-/5 LLE: 2-/5 Sensation Assessment Sensation Gross Sensation Right LE Impaired,Left LE Impaired Light Touch Impaired Proprioception (Position) Impaired Sensation Description Numbness Comments Sensation Comments c/o numbness on BLE L>R M6 PT-IP Treatment Start: 05/09/19 16:43 Freq: NEEDED Status: Active Protocol: Document 05/09/19 14:42 AB (Rec: 05/09/19 16:58 AB [id number]) Physical Therapy Treatment Education Education Provided Safety M7 PT-IP Assessment and Plan Start: 05/09/19 16:43 Freq: NEEDED Status: Active Protocol: Document 05/09/19 14:42 AB (Rec: 05/09/19 16:58 AB [id number]) PT Summary Assessment and Plan Potential Rehabilitation Potential Fair Status of Condition at Evaluation Evolving Summary Impairments Pain,ROM,Strength,Balance, Coordination,Sensation,Tone, Cognition,Bed Mobility, Transfers,Gait,Activity Tolerance Assessment Summary pt requiring 2 person max A for transfers using FWW. requires increase motivation to participate. Pt is homeless and unable to care for self and will need SNF rehab and probably LTC placement if agreeable. Goals Bed Mobility Goal Moderate Assistance Transfer Goal Minimal Assistance,Front Wheeled Walker Days to Meet Goals 10 Frequency of Treatment Frequency Of Treatment Once a Day Treatment Plan Physical Therapy Treatment Plan Bed Mobility Training,Transfer Training,Gait Training, Therapeutic Exercise,Balance Retraining,Discharge Planning, Hot or Cold Pack,Neuromuscular Re-ed,Coordination Retraining Recommendations To Nursing Amount of Assist Needed 2 Person Assist Discharge Recommendations PT Discharge Recommendations SNF Rehab,[facility]
[2019-05-09] MEDS: NYSTATIN POWDER 15GM 1 APPLIC TOP (20:01)
[2019-05-09] MEDS: ATORVASTATIN 20 MG TABLET 40 MG PO (20:02)
--- NOTE | 2019-05-09 21:16 | PC.NURSE ---
2010 wound care provided and toes to bilateral feet cleaned with saline and iodine applied.
[2019-05-09] MEDS: SODIUM CHLORIDE 0.9% FLUSH 10 ML IV (22:13)
[2019-05-10] MEDS: chlordiazePOXIDE 25 MG CAPSULE PO ×4 (02:39→20:35)
[2019-05-10 04:00] VITALS: BP 114/70; PULSE 92; RESP 16; TEMP 37.1; O2SAT 96
[2019-05-10] MEDS: diphenhydrAMINE 25 MG TABLET PO ×3 (04:00→20:29)
[2019-05-10] MEDS: ACETAMINOPHEN 325 MG TABLET 650 MG PO ×3 (04:00→20:30)
[2019-05-10] MEDS: HEPARIN 5,000 UNIT/ML VIAL 5000 UNIT SUBCUT ×2 (04:00→13:09)
[2019-05-10 05:55] LABS: Add Manual Diff / Slide Review NO; Basophils Absolute Auto 0 /uL (0-100); Basophils Percent Auto 0.6 % (0-2); Eosinophils Absolute Auto 700 /uL (0-450); Eosinophils Percent Auto 11.4 % (2-4); Hematocrit 38.9 % (41-53); Hemoglobin 12.7 g/dL (13.5-17.5); Lymphocytes Absolute Auto 1600 /uL (1100-4500); Lymphocytes Percent Auto 26.6 % (25-40); Mean Corpuscular HGB Conc 32.5 % (30-36); Mean Corpuscular Hemoglobin 31.2 PG (26-34); Mean Corpuscular Volume 95.8 fL (80-100); Monocytes Absolute Auto 700 /uL (0-900); Monocytes Percent Auto 11.1 % (3-14); Neutrophils Absolute Auto 3000 /uL (1500-7000); Neutrophils Percent Auto 50.3 % (50-75); Platelet Count 171 X10^3/uL (150-400); Red Blood Cell Count 4.07 X10^6/uL (4.5-5.9); Red Cell Distribution Width 14.5 % (11.6-14.8); White Blood Cell Count 5.9 X10^3/uL (4.5-11.0)
[2019-05-10 06:08] LABS: BUN Creatinine Ratio 28.3 (6-22); Blood Urea Nitrogen 17 mg/dL (9-20); Calcium 9.7 mg/dL (8.4-10.2); Carbon Dioxide 30 mmol/L (22-32); Chloride 104 mmol/L (98-107); Estimated Glomerular Filt Rate > 60.0 mL/min (>60); Glucose 108 mg/dL (80-110); HEMOLYSIS < 15 (0-50); Magnesium 1.6 mg/dL (1.6-2.3); Potassium 4.1 mmol/L (3.4-5.1); Sodium 141 mmol/L (137-145)
[2019-05-10] MEDS: LORazepam 2 MG/ML INJ IV (06:12)
[2019-05-10 08:00] VITALS: BP 133/77; PULSE 88; RESP 20; TEMP 36.8; O2SAT 97
[2019-05-10 08:15] VITALS: PULSE 88; RESP 18; O2SAT 97
[2019-05-10] MEDS: FOLIC ACID 1 MG TABLET PO (08:47)
[2019-05-10] MEDS: MULTIVITAMIN 1 TABLET 1 TAB PO (08:47)
[2019-05-10] MEDS: ASPIRIN EC 81 MG TABLET PO (08:47)
[2019-05-10] MEDS: KETOROLAC 10 MG TABLET PO ×2 (08:47→20:29)
[2019-05-10] MEDS: NYSTATIN POWDER 15GM 1 APPLIC TOP ×2 (08:50→20:35)
[2019-05-10] MEDS: SODIUM CHLORIDE 0.9% FLUSH 10 ML IV (08:52)
[2019-05-10] MEDS: DOXYCYCLINE HYCLATE 100 MG TABLET PO ×2 (10:07→20:29)
[2019-05-10] MEDS: THIAMINE 100 MG TABLET PO (10:08)
--- NOTE | 2019-05-10 10:27 | PC.NURSE ---
Day shift: Iodine applied to Bilateral toes w/ some c/o mild to moderate pain. Non-stick dressing appled to left de la cruz area and wrapped loose. Per MD the cream/ointment applied to the top of Pt's left foot then non-stick dressing then wrapped. Pt tolerated well. Redness of left LE is better today per Dr Flynn. Pt's IV site failed and Pt switched to oral antibiotics. OK to have no IV per Dr Flynn. Pt has been eating and drinking. RN and [employer] PACKING MIXER to encourage more fluid intake. Call light in reach and bed alarm is on.
--- NOTE | 2019-05-10 11:11 | PC.NURSE ---
Day shift: Student RN Gila has done her nursing came under this writers supervision. Pulses checked BLE's with Doppler. Pulses present bilat PP as well as toes.
[2019-05-10 11:20] VITALS: BP 120/69; PULSE 87; RESP 18; TEMP 37.1; O2SAT 96
--- NOTE | 2019-05-10 11:48 | PT.IPTN ---
Current Diagnoses Cellulitis of left lower limb (05/07/19) Physical Therapy Treatment Note M2 PT-IP Current Condition Start: 05/09/19 16:43 Freq: NEEDED Status: Active Protocol: Document 05/10/19 11:52 SP (Rec: 05/10/19 12:04 SP [id number]) Physical Therapy Current Condition Current Condition Evaluation Date 05/09/19 Treatment Diagnosis BLE cellulitis; generalized weakness Onset Date 05/07/19 M3 PT-IP Subjective Start: 05/09/19 16:43 Freq: NEEDED Status: Active Protocol: Document 05/10/19 11:52 SP (Rec: 05/10/19 12:04 SP [id number]) Subjective Physical Therapy Visit Type Type Treatment Note Visit Start Time 11:30 Visit Stop Time 11:48 Number of SEWAGE PLANT ATTENDANT Visits 1 Physical Therapy Visit Comments Patient Comments Pt willing to work with therapy. Therapy Pain Assessment Pain When Pain Assessed During Mobility Pain Present Pain Present Pain Reported Location legs Intensity 7 Scale Used Numeric (1 - 10) Pain Management Techniques Re-positioning,Timing of Activity with Medications M4 PT-IP Mobility and Gait Start: 05/09/19 16:43 Freq: NEEDED Status: Active Protocol: Document 05/10/19 11:48 SP (Rec: 05/10/19 12:21 SP [id number]) PT-Bed Mobility Assessment Rolling Type of Rolling Roll to Right Level of Assist Standby Assistance Supine to Sit Supine to Sit Maximum Assistance,1 Person Assistance,Head of Bed Elevated,Bedrails Scooting Scooting to Edge of Bed Moderate Assistance PT-Transfer Assessment Sit to and From Stand Sit to and from Stand Maximum Assistance,2 Person Assistance,Use of Upper Extremities Equipment Transfer Assistive Device Gait Belt,Front Wheeled Walker Orthotic/Prosthetic Devices or Brace: No Transfers Transfer Destination Chair Transfer Technique Stand Pivot Transfer Ability Level of Assist Maximum Assistance,1 Person Assistance,2 Person Assistance ,Use of Upper Extremities Comments Mobility Comments Pt educated and willing to participate with therapy with encouragement. Pt required mod cues for transfer planning required Max A x1 support to pull from therapist hand to complete trunk flexion supine> sit, Mod x1 support of LLE repositioning to EOB, Max A x2 for SPT using FWW (pivoted R LLE, RLE WBAT with BUE WB on FWW). Mod cues for FWW repositioning, body spacial awareness, and reaching back for chair for safety sitting. PT-Balance Assessment Sitting Balance and Reactions Static Sitting Balance Ability Good Dynamic Sitting Balance Ability Fair Standing Balance and Reactions Static Standing Balance Ability Poor Dynamic Standing Balance Ability Poor Device Used FWW M5 PT-IP Objective Assessments Start: 05/09/19 16:43 Freq: NEEDED Status: Active Protocol: Document 05/09/19 14:42 AB (Rec: 05/09/19 16:58 AB [id number]) Orientation Orientation/Cognition Level of Alertness Alert Orientation Name,Place,Situation Safety Awareness Decreased Safety Awareness Gross Range of Motion Lower Extremity ROM Assessment Bilaterally Impaired Impairments L hip ER; L ankle PF tightness (can only go to neutral position and no DF) Strength Lower Extremity Strength Assessment Bilaterally Impaired Comments Strength Comments RLE: 3-/5 LLE: 2-/5 Sensation Assessment Sensation Gross Sensation Right LE Impaired,Left LE Impaired Light Touch Impaired Proprioception (Position) Impaired Sensation Description Numbness Comments Sensation Comments c/o numbness on BLE L>R M6 PT-IP Treatment Start: 05/09/19 16:43 Freq: NEEDED Status: Active Protocol: Document 05/10/19 11:52 SP (Rec: 05/10/19 12:04 SP [id number]) Physical Therapy Treatment Education Education Provided Safety M7 PT-IP Assessment and Plan Start: 05/09/19 16:43 Freq: NEEDED Status: Active Protocol: Document 05/10/19 11:52 SP (Rec: 05/10/19 12:04 SP [id number]) PT Summary Assessment and Plan Potential Rehabilitation Potential Fair Status of Condition at Evaluation Evolving Summary Impairments Pain,ROM,Strength,Balance, Coordination,Sensation,Tone, Cognition,Bed Mobility, Transfers,Gait,Activity Tolerance Assessment Summary pt requiring 2 person mod A for transfers using FWW. requires increase motivation to participate. Pt is homeless and unable to care for self and will need SNF rehab and probably LTC placement if agreeable. Goals Bed Mobility Goal Moderate Assistance Transfer Goal Minimal Assistance,Front Wheeled Walker Days to Meet Goals 10 Frequency of Treatment Frequency Of Treatment Once a Day Treatment Plan Physical Therapy Treatment Plan Bed Mobility Training,Transfer Training,Gait Training, Therapeutic Exercise,Balance Retraining,Discharge Planning, Hot or Cold Pack,Neuromuscular Re-ed,Coordination Retraining Recommendations To Nursing Amount of Assist Needed 2 Person Assist Discharge Recommendations PT Discharge Recommendations SNF Rehab,[facility]
--- NOTE | 2019-05-10 12:37 | CM.DPC ---
DCP SNF Planning Cont: Per MD, pt still remains below baseline but was able to transition pt to PO abx for cellulitis and per PT pt still not able to transfer independently as he does at baseline to his power wheelchair and recommending SNF at d/c. SNF's that have declined accepting pt: Ofe Jameson [facility] Jeni states she will review and likely need to make bedside assessment tomorrow for final decision [facility]: looking for the faxed referral, have not reviewed yet SW met bedside with pt and explained role and pt confirms that he is still agreeable to SNF at d/c and is aware he is below his baseline currently. SW updated on above information and waiting to hear from reviewing SNFs. Pt appreciative of the faxed [facility] Medicaid application for help with coordinating his needs in the community for intermediate card tender plan rather than homeless on the street with power wheelchair. Pt confirms he does not have any family. BIANCA called [facility] and was transferred to Aging and Disability Services who determined that Expedited referral received and assigned to [facility] BIANCA Ge [phone] for review/intake. BIANCA called Kimmy Lyn and left ms requesting call back to determine if she plans to complete bedside assessment here in the hospital. Plan: SW to follow closely for [facility] and [facility] review of pt to determine if they can accept as his alcohol use and homelessness a big barrier for placement and d/c planning. Follow for return call from [facility] Kimmy regarding when she will assess pt. Elizabeth Pearce, TECHNOLOGY ADMINISTRATOR
[2019-05-10 15:37] VITALS: BP 133/76; PULSE 86; RESP 18; TEMP 36.6; O2SAT 97
--- NOTE | 2019-05-10 15:43 | OT.IP.TRT ---
Current Diagnoses Cellulitis of left lower limb (05/07/19) Occupational Therapy Treatment Note M3 OT- IP Subjective and Pain Start: 05/10/19 15:41 Freq: Status: Active Protocol: Document 05/10/19 15:41 [facility] (Rec: 05/10/19 15:43 [facility] [id number]) OT- Subjective Occupational Therapy Visit Type Type Patient Refusal Notes Attempted OT eval with pt. Pt back in bed and states, I am beat, no, I do not want to do anything now, maybe tomorrow. To see pt tomorrow for OT eval.
--- NOTE | 2019-05-10 17:30 | P.PN_ITS ---
Subjective Subjective Date Patient Seen: 05/10/19 Time Patient Seen: 09:00 Interval history: Mr. Dumont is a 63 y/o homeless male with PMH of HTN, ischemic CVA, dm 2 T, PVD, CKD II, COPD, former smoker, h/o spontaneous pneumothorax, osteoarthritis, gout, chronic pain syndrome (2/2 spinal stenosis), h/o opioid dependence, chronic marijuana use, daily EtOH use, and recurrent cellulitis who was admitted for cellulitis and EtOH withdrawal. Overnight he had no acute events. This morning he complains of LE pain and swelling which is improved from the day before. He worked with PT yesterday and agrees to continue working with them. He has been rejected from multiple rehab centers as of today and we are trying to work on placement at this time. He lost his IV access, however his redness had improved and his tenderness had also improved so he was transition to oral doxycycline with into the patient he could potentially go to rehab today. Exam Vital Signs (past 8 hours): - 05/10/19 11:20 05/10/19 15:37 Temperature 98.8 F 97.8 F Pulse Rate 87 86 Respiratory Rate 18 18 Blood Pressure 120/69 133/76 Pulse Oximetry 96 97 Fraction of Inspired Oxygen 21 Oxygen Delivery Method Room Air Oxygen Flow Rate 0 Narrative Exam Narrative: GENERAL APPEARANCE: Disheveled appearing male, itching constantly. SKIN: Inspection of the skin bilateral venous stasis changes, LLE erythema with improved tenderness, no warmth today, extending to L thigh posteriorly. The redness has improved on the anterior de la cruz but demarcated area has not improved which may be secondary to venous stasis. Some weeping lesions on the LLE anteriorly which have now scabbed over. HEENT: The sclerae were anicteric and conjunctivae were pink and moist. Extraocular movements were intact and pupils were equal, round with normal accommodation. External inspection of the ears and nose showed no scars, lesions, or masses. Lips, teeth, and gums showed normal mucosa. The oral mucosa, hard and soft palate, tongue and posterior pharynx were unremarkable. NECK: Supple and symmetric. There was no thyroid enlargement, and no tenderness, or masses were felt. CHEST: Normal AP diameter and normal contour without any kyphoscoliosis. LUNGS: Auscultation of the lungs revealed no wheezes, rhonchi, or rales. CARDIOVASCULAR: There was a regular rate and rhythm without any murmurs, gallops, rubs. Peripheral pulses were 2+ and symmetric. ABDOMEN: Soft and nontender with normal bowel sounds. No ascites was noted. MUSCULOSKELETAL: There was no effusions noted. Muscle strength and tone were normal. EXTREMITIES: No cyanosis, clubbing . There is bilateral LE edema. NEUROLOGIC: Alert and oriented x 3. Normal affect. Strength is +5/5 in the Upper Extremities and Lower Extremities Bilaterally. No tongue fasciculations or tremulousness. Objective Labs Result Diagrams: 05/10/19 05:33 05/10/19 05:33 Labs: Laboratory Results - last 24 hr 05/10/19 05/10/19 05:33 05:33 WBC 5.9 RBC 4.07 L Hgb 12.7 L Hct 38.9 L MCV 95.8 MCH 31.2 MCHC 32.5 RDW 14.5 Plt Count 171 Neut % (Auto) 50.3 Lymph % (Auto) 26.6 [place] % (Auto) 11.1 Eos % (Auto) 11.4 H Baso % (Auto) 0.6 Neut # (Auto) 3000 Lymph # (Auto) 1600 [place] # (Auto) 700 Eos # (Auto) 700 H Baso # (Auto) 0 Sodium 141 Potassium 4.1 Chloride 104 Carbon Dioxide 30 BUN 17 Creatinine 0.60 L Estimated GFR > 60.0 BUN/Creatinine Ratio 28.3 H Glucose 108 Calcium 9.7 Magnesium 1.6 Assessment & Plan Assessment & Plan narrative: Mr. Dumont is a 63 y/o homeless male with PMH of HTN, ischemic CVA, dm 2 T, PVD, CKD II, COPD, former smoker, h/o spontaneous pneumothorax, osteoarthritis, gout, chronic pain syndrome (2/2 spinal stenosis), h/o opioid dependence, chronic marijuana use, daily EtOH use, and recurrent cellulitis who was admitted for cellulitis and EtOH withdrawal. 1. Cellulitis, recurrent, present on admission, active - patient has been non compliant with outpatient therapy, there are some weeping lesions which may represent a purulent cellulitis. Will cover with vanco pending further cultures however his response today is suboptimal and his redness has not significantly improved so will added ceftraixone yesterday. Changed to doxycycline today given anticipation for rehab placement. MRI last admission negative for osteomyelitis. XR Foot (left). Marked soft tissue swelling over dorsum of forefoot. No radiographic evidence of osteomyelitis. Subacute to chronic appearing transverse fracture through fifth metatarsal shaft. XR Foot (right). Mild forefoot soft tissue swelling. Right great toe oste oarthritis. No fracture or dislocation. No radiographic evidence of osteomyelitis. CRP 3.4 ESR 32. No evidence of sepsis. WBC 10.4 Lactate 2.7 -> 2.0 (repeat). CXR negative. No prior known h/o MRSA - continue doxycycline 100 mg BID or at least 7 days of total therapy - wound care bid (as instructed) - consider wound care consult if worsening. - up-to-date on tetanus vaccination, received in March of 2019 2. EtOH withdrawal, present on admission, now improved. - Last drink 05/06/2019, beer / 6 pack - Banana bag given on admission. - Librium Taper to end tonight. - MVI, thiamine, FA - CIWA per protocol, monitor for s/s of EtOH withdrawl 3. COPD with bronchospasm, chronic condition, present on admission, active - supplemental O2 prn, titrate SpO2 88-92% - Duo-Neb Tx Q6H 4. Hypoanatremia (mild, Na 132 Cl 90), acute, present on admission, Resolved. Multi-factorial, diminished suboptimal nutritional status and daily EtOH consumption. - continue to monitor 5. H/O CVA residual left-sided deficits, chronic condition, present on admission, active - Has not been taking ASA and statin, will resume ASA 81 mg QD and atorvastatin 40 mg QD 6. Homeless single person, present on admission, active Patient lives in an alley or in a bar in [place]. He is asking for help with his living situation. Patient is cognizant that he has not been optimally cooperative in past, states I'm ready to be a good boy. - D/C planning and SW consulted 7. DM 2T, chronic condition, present on admission, stable / resolved History of diabetes. Diet controlled. A1C trend per history is in the 5% range. - ACHS fingersticks within normal limits on day 1, no further need for continued fingersticks. Code: Full Designates his sister Sallie, as proxy decision maker. VTE w/ SQ Heparin Dispo: pending SNF rehab placement, which may be difficult. A rehab in [facility] is planning on in person visit tomorrow.
[2019-05-10] MEDS: ATORVASTATIN 20 MG TABLET 40 MG PO (20:28)
[2019-05-10 21:07] VITALS: BP 135/73; PULSE 81; RESP 20; TEMP 36.8; O2SAT 96
[2019-05-10 22:36] LABS: Vancomycin Trough 9.1 ug/mL (10-20)
[2019-05-11] VITALS (7 sets, daily range): BP systolic 117–138; BP diastolic 58–89; PULSE 87–95; RESP 14–20; TEMP 36.2–37.1; O2SAT 95–98
[2019-05-11 05:57] LABS: Add Manual Diff / Slide Review NO; Basophils Absolute Auto 100 /uL (0-100); Basophils Percent Auto 0.8 % (0-2); Eosinophils Absolute Auto 700 /uL (0-450); Hematocrit 37.3 % (41-53); Hemoglobin 12.3 g/dL (13.5-17.5); Lymphocytes Absolute Auto 1500 /uL (1100-4500); Lymphocytes Percent Auto 21.2 % (25-40); Mean Corpuscular HGB Conc 33.1 % (30-36); Mean Corpuscular Hemoglobin 31.5 PG (26-34); Mean Corpuscular Volume 95.2 fL (80-100); Monocytes Absolute Auto 700 /uL (0-900); Monocytes Percent Auto 10.4 % (3-14); Neutrophils Absolute Auto 4000 /uL (1500-7000); Neutrophils Percent Auto 57.6 % (50-75); Platelet Count 172 X10^3/uL (150-400); Red Blood Cell Count 3.92 X10^6/uL (4.5-5.9); Red Cell Distribution Width 14.3 % (11.6-14.8); White Blood Cell Count 6.9 X10^3/uL (4.5-11.0)
[2019-05-11] MEDS: ACETAMINOPHEN 325 MG TABLET 650 MG PO ×3 (05:58→19:22)
[2019-05-11] MEDS: HEPARIN 5,000 UNIT/ML VIAL 5000 UNIT SUBCUT ×3 (05:59→21:09)
[2019-05-11 06:02] LABS: Blood Urea Nitrogen 21 mg/dL (9-20); Calcium 9.8 mg/dL (8.4-10.2); Carbon Dioxide 31 mmol/L (22-32); Chloride 105 mmol/L (98-107); Estimated Glomerular Filt Rate > 60.0 mL/min (>60); Glucose 93 mg/dL (80-110); HEMOLYSIS < 15 (0-50); Magnesium 1.5 mg/dL (1.6-2.3); Sodium 140 mmol/L (137-145)
--- NOTE | 2019-05-11 06:37 | PC.NURSE ---
Pt has CIWA score of 1. Pt has 5/10 leg pain, medicated with scheduled tylenol. Pt has leg ulcers and wound bandages, bilateral LL edema 3+, CMS is intact. VSS, lung sounds clear. Call light is in within reach.
[2019-05-11] MEDS: MAGNESIUM CHLORIDE 64 MG TABLET 128 MG PO (08:08)
[2019-05-11] MEDS: diphenhydrAMINE 25 MG TABLET PO ×2 (08:11→19:20)
[2019-05-11] MEDS: ASPIRIN EC 81 MG TABLET PO (08:11)
[2019-05-11] MEDS: FOLIC ACID 1 MG TABLET PO (08:11)
[2019-05-11] MEDS: THIAMINE 100 MG TABLET PO (08:11)
[2019-05-11] MEDS: DOXYCYCLINE HYCLATE 100 MG TABLET PO ×2 (08:11→20:53)
[2019-05-11] MEDS: KETOROLAC 10 MG TABLET PO ×2 (08:11→19:19)
[2019-05-11] MEDS: NYSTATIN POWDER 15GM 1 APPLIC TOP ×2 (08:11→21:09)
--- NOTE | 2019-05-11 10:02 | CM.DPNOTE ---
Addendum entered by LEXX Herzog 05/11/19 14:45: SNF update: [facility] has not said no or yes; Jeni unable to review this referral in detail today w/her administrators since [facility]. This WOOD SCRAP HANDLER wonders if pt already has a completed functional assessment, maybe a terminal gauger Care option [facility] placement can be attempted today? Placed call to Ariana at [facility] P# [phone], Kimmy Munozlani is out of the office today. She attempted to look up pt's reimbursement rate, for LTC options, from last assessment and could not find it. She suggested this WOOD SCRAP HANDLER call [facility] Mckinney. Reviewed above w/Dr Lama and [facility] English. DC efforts are now focused on securing what is available to pt today and tomorrow before return to the streets since pt deemed medically stable and no SNF secured. Dr Lama attempting to secure wound care through Wound clinic for close outpt f/u, per pt's request to remain in town. Placed call to Iliana Mckinney, [facility] Sign Maker, P# [phone]. Iliana explained the following: Pt was a resident at [facility] until he was given 30 day notice d/t illegal activity and not paying his participation fee. Pt's case is still open and he has opportunity to live in an [facility] or [facility] if he is agreeable to having a payee assigned to assist him and a facility w/his monthly participation fee. This WOOD SCRAP HANDLER updated Iliana on efforts made to secure SNF. Iliana suggests that when pt leaves the hospital, he leave with the main number for the [facility] office P# [phone] and request either her or other Sup Marybeth Sutton to assist in next steps i.e. having a SW assist pt in securing a payee and then bed search for LTC. If pt moves into low income housing at any time he is also eligible for [facility] in-home caregiving. Relayed above to [facility] English. Attempted to reach local acid wash operator and advocate Father Renaldo Pisano P# [phone], no answer and his phone is not set up for voicemail. Alerted SANDRA Harrison and pt that the plan is for DC back to the streets Tuesday, w/intention that pt can f/u at the wound care clinic for ongoing wound care. This WOOD SCRAP HANDLER also attempting to get a hold of Father Renaldo Pisano and/or Cristiano Tay to discuss driving pt to available shinto shelters in [place] ?? Kimmy Harding, WOOD SCRAP HANDLER Original Note: SNF Search Cont Reviewed chart; Jeni from [facility] completed bedside assessment this morning w/pt, now awaiting determination about acceptance. Received VM from [facility] Kimmy Ge [phone] , she explained she once was pt's assigned SWer at a prior facility admission and there is an updated assessment that can be faxed to any facility that requires it. Spoke w/ Sunitha at [facility], they have declined patient. [id number]
--- NOTE | 2019-05-11 10:40 | PM.PN.1 ---
Subjective Subjective Date Patient Seen: 05/11/19 Interval history: James Dumont is a 63-year-old homeless male with a past medical history significant for hypertension, CVA, diabetes mellitus type II, PVD, CKD stage II, former smoker, spontaneous pneumothorax, osteoarthritis, gout, chronic pain syndrome secondary to spinal stenosis with prior opiate dependence, chronic marijuana use, daily alcohol use, and recurrent cellulitis who was admitted for cellulitis and alcohol withdrawal. The patient is resting in bed and appears comfortable. He reports that he feels poorly. He has no specific complaints but does endorse leg pain and pruritis and mild headache when questioned. He otherwise denies shortness of breath, chest pain, abdominal pain, nausea, vomiting, fever, chills, dysuria, diarrhea or constipation. He is voiding and eliminating without difficulty. He is bedbound and has not walked in 1 year but is able to stand up. He continues to work with PT and is slowly making progress. PT recommending SNF or LTAC for continued rehabilitation, however, he has been rejected from multiple SNFs due to substance abuse (he reports he plans to quit drinking alcohol permanently) and unsafe disposition after rehab (he is homeless). Exam Vital Signs (past 8 hours): - 05/11/19 08:00 05/11/19 14:12 Temperature 98.7 F 97.6 F Pulse Rate 92 H 87 Respiratory Rate 16 16 Blood Pressure 127/86 132/76 Pulse Oximetry 97 98 Fraction of Inspired Oxygen 21 Oxygen Delivery Method Room Air Oxygen Flow Rate 0 Narrative Exam Narrative: General: Older male lying in bed and in no acute distress, mildly disheveled appearing, well-developed, well-nourished, depressed mood but appropriately interactive. HEENT: Normocephalic, atraumatic. External ears without defect. Pupils equal, round, and reactive to light. Anicteric sclerae, moist conjunctivae, and no lid lag. Oropharynx free of erythema and cobble stoning with moist mucosa. Poor dentition. Neck: Supple with full range of motion. No lymphadenopathy or thyromegaly. Cardiovascular: Regular rate and rhythm without murmurs, rubs, or gallops appreciated Pulmonary: Clear to auscultation bilaterally without crackles, wheezes, or rhonchi. Normal respiratory effort with no use of accessory muscles. Abdomen: Soft, bowel sounds present, nontender, nondistended. No hepatosplenomegaly or masses appreciated. Extremities: No clubbing or cyanosis. Lower extremities with moderate edema to knees bilaterally, fragile skin, bilateral venous stasis with erythema and mild warmth with cellulitis resolving. Wound on dorsum of left foot with black eschar on left hallux. Neurological: Cranial nerves grossly intact. Psychiatric: Depressed mood and flat affect. Alert and oriented to person, place, and time. Objective Labs Result Diagrams: 05/11/19 05:41 05/12/19 05:55 Labs: Laboratory Results - last 24 hr 05/10/19 05/11/19 05/11/19 21:30 05:41 05:41 WBC 6.9 RBC 3.92 L Hgb 12.3 L Hct 37.3 L MCV 95.2 MCH 31.5 MCHC 33.1 RDW 14.3 Plt Count 172 Neut % (Auto) 57.6 Lymph % (Auto) 21.2 L [place] % (Auto) 10.4 Eos % (Auto) 10.0 H Baso % (Auto) 0.8 Neut # (Auto) 4000 Lymph # (Auto) 1500 [place] # (Auto) 700 Eos # (Auto) 700 H Baso # (Auto) 100 Sodium 140 Potassium 4.0 Chloride 105 Carbon Dioxide 31 BUN 21 H Creatinine 0.60 L Estimated GFR > 60.0 BUN/Creatinine Ratio 35.0 H Glucose 93 Calcium 9.8 Magnesium 1.5 L Vancomycin Trough 9.1 L Assessment & Plan Assessment & Plan narrative: James Dumont is a 63-year-old homeless male with a past medical history significant for hypertension, CVA, diabetes mellitus type II, PVD, CKD stage II, former smoker, spontaneous pneumothorax, osteoarthritis, gout, chronic pain syndrome secondary to spinal stenosis with prior opiate dependence, chronic marijuana use, daily alcohol use, and recurrent cellulitis who was admitted for cellulitis and alcohol withdrawal. 1. Cellulitis, recurrent, present on admission, active - patient has been non compliant with outpatient therapy, there are some weeping lesions which may represent a purulent cellulitis. MRI last admission negative for osteomyelitis. -XR left foot demonstrated marked soft tissue swelling over dorsum of forefoot. No radiographic evidence of osteomyelitis. Subacute to chronic appearing transverse fracture through fifth metatarsal shaft. -XR right foot demonstarted mild forefoot soft tissue swelling. Right great toe osteoarthritis. No fracture or dislocation. No radiographic evidence of osteomyelitis. -CRP 3.4 ESR 32. No evidence of sepsis. WBC 10.4 Lactate 2.7 -> 2.0. Chest x-ray negative. -No prior known history of MRSA. -Up-to-date on tetanus vaccination, received in March of 2019 -Continued vancomycin and ceftriaxone switched to doxycycline 100 mg twice daily for at least 7 days of total therapy given anticipation for rehab placement. -Continue wound care twice daily and plan for outpatient follow-up with wound care. 2. Acute hypomagnesemia, not present on admission. Active. -Magnesium level 1.5. Ordered magnesium chloride 128 mg x1. -Continue to monitor magnesium level daily and replete as necessary. 3. Acute alcohol withdrawal, present on admission. Resolved. -Last drink 05/06/2019, reports he drinks a six-pack of beer a night. -Received banana bag on admission and continued IV fluids until adequately hydrated then discontinued. -Completed Librium taper. Continued CIWA protocol until through alcohol withdrawal. -Continue vitamin and thiamine. 4. Acute hypoanatremia, present on admission. Resolved. -Initial sodium 132. -Multi-factorial, diminished suboptimal nutritional status and daily EtOH consumption. -Continued IV fluids until adequately hydrated then discontinued. -Continue to monitor sodium level periodically. 5. COPD with bronchospasm, chronic, present on admission. Stable. -Does not represent an acute exacerbation. -Continue supplemental O2 as needed with goal oxygen saturation 88-92%. -Continue Duo-Neb every 6 hours as needed for shortness of breath or wheezing. 6. History of CVA with residual left-sided deficits, chronic, present on admission. Stable. -Patient was not taking aspirin or statin. Continue aspirin 81 mg daily and atorvastatin 40 mg daily at bedtime. 7. Homeless single person, present on admission. Activ -Patient lives in an alley or in a bar in [place]. He is asking for help with his living situation. -Patient is cognizant that he has not been optimally cooperative in past, states I'm ready to be a good boy. -Consulted ACUTE CARE CLINICAL NURSE SPECIALIST for help with placement. 8. Previous history of diabetes mellitus type 2. Now in remission. -Hemoglobin A1c 5.3%. Previously diet controlled and now in remission. -Discontinued blood glucose checks. Code: Full Designates his sister Sallie, as proxy decision maker. VTE w/ SQ Heparin Disposition: Patient would benefit from SNF for continued wound care and rehabilitation with PT/OT but unfortunately we have been unable to find an accepting facility. Continue to work with ACUTE CARE CLINICAL NURSE SPECIALIST for safe discharge plan.
[2019-05-11] MEDS: MULTIVITAMIN 1 TABLET 1 TAB PO (11:33)
--- NOTE | 2019-05-11 11:43 | PC.NURSE ---
Day shift: Dressings changed per MD orders and skin care done per MD orders. Supplies by sink in room. Pt tolerated well. BLE's appear to be improving.
--- NOTE | 2019-05-11 12:08 | PT.IPTN ---
Current Diagnoses Cellulitis of left lower limb (05/07/19) Physical Therapy Treatment Note M2 PT-IP Current Condition Start: 05/09/19 16:43 Freq: NEEDED Status: Active Protocol: Document 05/10/19 11:52 SP (Rec: 05/10/19 12:04 SP [id number]) Physical Therapy Current Condition Current Condition Evaluation Date 05/09/19 Treatment Diagnosis BLE cellulitis; generalized weakness Onset Date 05/07/19 M3 PT-IP Subjective Start: 05/09/19 16:43 Freq: NEEDED Status: Active Protocol: Document 05/11/19 12:08 SP (Rec: 05/11/19 12:28 SP [id number]) Subjective Physical Therapy Visit Type Type Treatment Note Visit Start Time 11:45 Visit Stop Time 12:08 Total Visit Minutes 23 Number of ENGINEERING AND OPERATIONS DIRECTOR Visits 2 Physical Therapy Visit Comments Patient Comments Pt willing to work with therapy. M4 PT-IP Mobility and Gait Start: 05/09/19 16:43 Freq: NEEDED Status: Active Protocol: Document 05/11/19 12:08 SP (Rec: 05/11/19 12:28 SP [id number]) PT-Bed Mobility Assessment Rolling Type of Rolling Roll to Right Level of Assist Standby Assistance Supine to Sit Supine to Sit Moderate Assistance,2 Person Assistance,Head of Bed Elevated,Bedrails Scooting Scooting to Edge of Bed Moderate Assistance PT-Transfer Assessment Sit to and From Stand Sit to and from Stand Moderate Assistance,2 Person Assistance Equipment Transfer Assistive Device None,Gait Belt Orthotic/Prosthetic Devices or Brace: No Transfers Transfer Destination Chair Transfer Technique Squat Pivot Transfer Ability Level of Assist Moderate Assistance,2 Person Assistance Comments Mobility Comments Pt tolerated squat pivot to R bed>chair. Max cues for hand placement and body positioning to complete bed mobility and transfers. Pt agreeable to trapeze placement at end of tx to increase independence during bed mobility. Pt improved in transfers today during squat pivot reaching across to opposite side of chair and pivoting on RLE with Mod A of 2. PT-Balance Assessment Sitting Balance and Reactions Static Sitting Balance Ability Good Dynamic Sitting Balance Ability Fair Standing Balance and Reactions Static Standing Balance Ability Poor Dynamic Standing Balance Ability Poor Device Used none squat pivot transfer M5 PT-IP Objective Assessments Start: 05/09/19 16:43 Freq: NEEDED Status: Active Protocol: Document 05/09/19 14:42 AB (Rec: 05/09/19 16:58 AB [id number]) Orientation Orientation/Cognition Level of Alertness Alert Orientation Name,Place,Situation Safety Awareness Decreased Safety Awareness Gross Range of Motion Lower Extremity ROM Assessment Bilaterally Impaired Impairments L hip ER; L ankle PF tightness (can only go to neutral position and no DF) Strength Lower Extremity Strength Assessment Bilaterally Impaired Comments Strength Comments RLE: 3-/5 LLE: 2-/5 Sensation Assessment Sensation Gross Sensation Right LE Impaired,Left LE Impaired Light Touch Impaired Proprioception (Position) Impaired Sensation Description Numbness Comments Sensation Comments c/o numbness on BLE L>R M6 PT-IP Treatment Start: 05/09/19 16:43 Freq: NEEDED Status: Active Protocol: Document 05/10/19 11:52 SP (Rec: 05/10/19 12:04 SP [id number]) Physical Therapy Treatment Education Education Provided Safety M7 PT-IP Assessment and Plan Start: 05/09/19 16:43 Freq: NEEDED Status: Active Protocol: Document 05/11/19 12:08 SP (Rec: 05/11/19 12:28 SP [id number]) PT Summary Assessment and Plan Potential Rehabilitation Potential Fair Status of Condition at Evaluation Evolving Summary Impairments Pain,ROM,Strength,Balance, Coordination,Sensation,Tone, Cognition,Bed Mobility, Transfers,Gait,Activity Tolerance Assessment Summary pt requiring 2 person mod A for squat pivot tranfer to R. requires increase motivation to participate. Pt is homeless and unable to care for self and will need SNF rehab and probably LTC placement if agreeable. Goals Bed Mobility Goal Moderate Assistance Transfer Goal Minimal Assistance,Front Wheeled Walker Days to Meet Goals 10 Frequency of Treatment Frequency Of Treatment Once a Day Treatment Plan Physical Therapy Treatment Plan Bed Mobility Training,Transfer Training,Gait Training, Therapeutic Exercise,Balance Retraining,Discharge Planning, Hot or Cold Pack,Neuromuscular Re-ed,Coordination Retraining Recommendations To Nursing Amount of Assist Needed 2 Person Assist Discharge Recommendations PT Discharge Recommendations SNF Rehab,LTAC
--- NOTE | 2019-05-11 14:42 | PC.NURSE ---
Day shift: Pt had good day. Tolerated dressing change and skin care of BLE's. Pt OOB to chair with PT/OT and tolerated that well. Grab bar set up by PT/OT and this helps him get comfortable. Per CM plan is for Pt to d/c tomorrow. Pt does not have a home at this time. Skin does look better BLE's but pain of 4/10 still present when he stand or moves those BLE's. Call light in reach and bed alarm on. VS WNL. RA ok.
--- NOTE | 2019-05-11 15:54 | OT.IP.TRT ---
Current Diagnoses Cellulitis of left lower limb (05/07/19) Occupational Therapy Treatment Note M2 OT-IP Current Condition Start: 05/10/19 15:41 Freq: Status: Active Protocol: Document 05/11/19 15:33 [facility] (Rec: 05/11/19 15:53 [facility] [id number]) Occupational Therapy Current Condition Current Condition Evaluation Date 05/11/19 Treatment Diagnosis BLE cellulitis, generalized weakness Diagnosis Onset Date 05/07/19 M3 OT- IP Subjective and Pain Start: 05/10/19 15:41 Freq: Status: Active Protocol: Document 05/11/19 15:33 [facility] (Rec: 05/11/19 15:53 [facility] [id number]) OT- Subjective Occupational Therapy Visit Type Type Initial Evaluation Visit Start Time 11:50 Visit Stop Time 12:20 Total Visit Minutes 30 Occupational Therapy Visit Comments Patient Comments Pt after encouragement willing to get up. OT Pain Assessment Pain When Pain Assessed At Rest Pain Present Pain Present Denied Pain M4 OT- IP ADL's Start: 05/10/19 15:41 Freq: Status: Active Protocol: Document 05/11/19 15:33 [facility] (Rec: 05/11/19 15:53 [facility] [id number]) OT [id number] General Evaluation Self-Feeding Ability Independent OT ADL-Dressing General Eval Lower Body Dressing Ability Maximum Assistance Areas Needing Assistance Socks Comments OT Dressing Comments Assist to beni right sock. M5 OT- IP IADL's Start: 05/10/19 15:41 Freq: Status: Active Protocol: Document 05/11/19 15:33 [facility] (Rec: 05/11/19 15:53 [facility] [id number]) OT-Instrumental Activities of Daily Living Medication Management Medication Management Comments Pt states does not take any medications. Meal Preparation Meal Preparation Comments Pt goes to restaurants for meals. Driving Driving Comments Pt uses scooter to get around. M6 OT- IP Functional Cognition Start: 05/10/19 15:41 Freq: Status: Active Protocol: Document 05/11/19 15:33 [facility] (Rec: 05/11/19 15:53 [facility] [id number]) Cognitive Factors Limiting Selfcare Function Cognitive Ability Level of Alertness Alert Patient Orientation Name,Place,Situation Attention Span Ability Capable of Focused Attention, Capable of Sustained Attention Ability to Follow Commands Able to Follow Multi-Step Commands Cognitive Comments Cognitive Assessment Comments Pt able to follow 2-3 step commands during OT eval . OT- Vision and Hearing OT- Hearing Assessment OT- Hearing Assessment WFL M7 OT- IP Mobility and Balance Start: 05/10/19 15:41 Freq: Status: Active Protocol: Document 05/11/19 15:33 [facility] (Rec: 05/11/19 15:53 [facility] [id number]) OT- Bed Mobility Assessment Supine to Sit Supine to Sit Assist Moderate Assistance,2 Person Assistance,Bedrails OT-Transfer Assessment Transfers Transfer Ability Moderate Assistance,2 Person Assistance Technique Transfer Destination Bed,Chair Transfer Technique Squat Pivot Devices Transfer Assistive Devices Gait Belt,Front Wheeled Walker Comments Mobility Comments Pt MODA to help move right leg to the edge of the bed and also needing assist to get his trunk upright in bed. Pt able to squat pivot to the right to recliner with MODA X 2, vc for hand placement for armrest . Pt states heavily use of grab bars prior. OT- Balance Assessment Sitting Balance and Reactions Static Sitting Balance Ability Normal Dynamic Sitting Balance Ability Fair M8 OT- IP Objective Assessments Start: 05/10/19 15:41 Freq: Status: Active Protocol: Document 05/11/19 15:33 [facility] (Rec: 05/11/19 15:53 [facility] [id number]) OT Gross Range of Motion Upper Extremity Range of Motion Assessment Within Functional Limits OT Strength Upper Extremity Strength Assessment Within Functional Limits Comments Strength Comments WFL to be able to assist for transfer needs. OT- Coordination Assessment Comments Coordination Comments Pt needing assist to open small packet of sauces during meal time. M9 OT- IP Assessment and Plan Start: 05/10/19 15:41 Freq: Status: Active Protocol: Document 05/11/19 15:33 [facility] (Rec: 05/11/19 15:53 [facility] [email or web address]) OT Summary Assessment and Plan Potential Rehabilitation Potential Fair Analytic Complexity at Evaluation Low Summary OT Impairments Strength,Balance,Functional Mobility,Dressing,Toileting, Bathing,Toilet Transfers, Shower Transfers Progress Towards Goals Slow Progress due to Medical Issues,Slow Progress due to Activity Tolerance Assessment Summary Pt main barriers are weakness, decreased endurance, activity tolerance, and not having a place to live as prior level lives in his tnooter in an alley. Pt would benefit from LTC and for short term would benefit from skilled rehab to get stronger and back to baseline of being independent from his scooter for needs. Goals Dressing Goal Independent Toileting Goal Independent Toilet Transfer Goal Independent Days to Meet Goals 15 Frequency of Treatment Frequency Of Treatment Once a Day Treatment Plan OT Treatment Plan ADL Training,Functional Mobility,Patient/Family Education,Discharge Planning Other Treatment Recommendations and Next LB dressing practice while Treatment Focus sitting in recliner. Discharge Recommendations OT Discharge Recommendations SNF Rehab,LTAC
[2019-05-11] MEDS: ATORVASTATIN 20 MG TABLET 40 MG PO (20:53)
[2019-05-12] MEDS: ACETAMINOPHEN 325 MG TABLET 650 MG PO ×4 (00:40→20:39)
--- NOTE | 2019-05-12 03:58 | PC.NURSE ---
Addendum entered by Selvin Srivastava R.N. 05/12/19 05:57: Pt has had some pruritis at end of shift and continues to have bilateral lower leg pain. Pt was given PRN bendadryl and Toradol at 0600. Original Note: Pt CIWA 1. Pt is not experiencing any signs and symptoms of alcohol withdrawal, thought he doesn't quite know what day it is and has some itching. Pt VSS. Dressing re-applied to left calf wound. Patient is pleasant, co-operative and uses the call light appropriately. Call light is within reach.
[2019-05-12 04:25] VITALS: BP 139/71; PULSE 80; RESP 20; TEMP 36.6; O2SAT 93
[2019-05-12] MEDS: KETOROLAC 10 MG TABLET PO ×3 (05:45→22:05)
[2019-05-12] MEDS: diphenhydrAMINE 25 MG TABLET PO ×3 (05:45→20:40)
[2019-05-12] MEDS: HEPARIN 5,000 UNIT/ML VIAL 5000 UNIT SUBCUT ×3 (05:46→22:04)
[2019-05-12 06:44] LABS: Alanine Aminotransferase 23 IU/L (21-72); Albumin 3.1 g/dL (3.5-5.0); Alkaline Phosphatase 52 U/L (38-126); Aspartate Aminotransferase 29 IU/L (17-59); BUN Creatinine Ratio 28.6 (6-22); Bilirubin Total 0.2 mg/dL (0.2-1.3); Blood Urea Nitrogen 20 mg/dL (9-20); Calcium 9.4 mg/dL (8.4-10.2); Carbon Dioxide 33 mmol/L (22-32); Chloride 102 mmol/L (98-107); Estimated Glomerular Filt Rate > 60.0 mL/min (>60); Glucose 98 mg/dL (80-110); HEMOLYSIS < 15 (0-50); Magnesium 1.5 mg/dL (1.6-2.3); Potassium 4.2 mmol/L (3.4-5.1); Sodium 139 mmol/L (137-145); Total Protein 6.1 g/dL (6.3-8.2)
[2019-05-12 07:00] LABS: Procalcitonin 0.05 ng/mL (<0.5)
[2019-05-12 10:27] VITALS: BP 138/70; PULSE 80; RESP 17; TEMP 36.6; O2SAT 95
[2019-05-12] MEDS: NYSTATIN POWDER 15GM 1 APPLIC TOP ×2 (10:47→20:44)
[2019-05-12] MEDS: MAGNESIUM CHLORIDE 64 MG TABLET 128 MG PO (10:47)
[2019-05-12] MEDS: FOLIC ACID 1 MG TABLET PO (10:50)
[2019-05-12] MEDS: ASPIRIN EC 81 MG TABLET PO (10:50)
[2019-05-12] MEDS: DOXYCYCLINE HYCLATE 100 MG TABLET PO ×2 (10:50→20:39)
[2019-05-12] MEDS: THIAMINE 100 MG TABLET PO (10:52)
--- NOTE | 2019-05-12 12:08 | PM.DS.1 ---
History of Present Illness History of Present Illness Date Patient Seen: 05/07/19 Chief complaint: Leg swelling Narrative: Written by Deidre REYNOSO: The patient is a 63-year-old male with PMH of HTN, ischemic CVA, dm 2 T, PVD, CKD II, COPD, former smoker, h/o spontaneous pneumothorax, osteoarthritis, gout, chronic pain syndrome (2/2 spinal stenosis), h/o opioid dependence, chronic marijuana use, daily EtOH use, and recurrent cellulitis. Patient presented to the ED on 05/07/2019, via EMS transfer, out of concern for bilateral lower extremity swelling. Associated symptoms include pain, erythema, and weeping. Denies trauma to the lower extremities. Denies fever and chills. Denies chest pain, palpitations, dizziness, lightheadedness, syncopal events, abdominal pain, nausea, vomiting, or diarrhea. Patient is wheelchair dependent. Reports being able to stand up and pivot. Known to have baseline right hemiplegia as a late effect of ischemic CVA. Patient was hospitalized in March of 2019 for head injury after falling out of the wheelchair. During that admission he was also treated for left lower extremity cellulitis (non-purulent). He was treated with IV vancomycin therapy with marked improvement. Wound cultures grew strep species and Pseudomonas putide, which was presumed to be a skin contaminant. MRI of the foot was negative for osteomyelitis. He was discharged home on a course of Augmentin and referred to the [facility]. Post discharge patient was not able to steel pickler the medications prescribed or to follow up at the [facility] Care Center. Patient has a history of prior ischemic CVA with left lower extremity residual weakness/hemiplegia. Patient is not on aspirin or a statin. Patient has minimal ambulatory ability. Known to be wheelchair dependent most of the time. Patient admits to daily alcohol consumption, 1-2 six packs of beer. Last drink on 05/06, 6 pack of beer. ETOH level on admission is 71. Denies history of EtOH withdrawal symptoms, delirium tremens, or seizures. Patient is homeless. He lives [place] an [place] in [place]. At present time also requests help with his living situation. ED Presentation & Work-Up T 97.5?BP 156/84 HR 97 RR 16 SpO2 99% on room air GCS 15. Pain on presentation 12/08. Labs, 05/07 @ 1900 Lactate 2.7 WBC 10.4 Hgb 4.51 Plt 235 Na 132 K 4.3 Cl 90 Ca 9.0 Alb 4.0 Glu 79 CO2 28 BUN 6 Cr 0.6 GFR > 60 BUN:Cr 10 T.Bili 0.7 AST 74 ALT 31 Alk Phos 65 Lipase 124 BNP < 100 Trop < 0.05 ESR 32 CRP 3.4 Blood Cx collected in ED, pending CXR: no acute cardiopulmonary findings XR Foot (left). Marked soft tissue swelling over dorsum of forefoot. No radiographic evidence of osteomyelitis. Subacute to chronic appearing transverse fracture through fifth metatarsal shaft. XR Foot (right). Mild forefoot soft tissue swelling. Right great toe osteoarthritis. No fracture or dislocation. No radiographic evidence of osteomyelitis. ED Treatment Received 1L NS bolus, 1 gm ceftriaxone IV, 1 gm vancomycin Discharge Providers Provider Date of admission: 05/07/19 22:09 Discharge Date: 05/12/19 Primary care physician: Chad Mendoza MD Consults: 05/07/19 19:39 Consult to Cemetery Counselor Stat Comment: homeless 05/07/19 22:37 Consult to Dietitian, Adult Routine Comment: Reason For Exam: homeless 05/07/19 22:41 Consult to Discharge Planning Routine Comment: needs plan to get to meds & wound clinic post d/c Consult to Cemetery Counselor Routine Comment: living situation, homeless, access to care/resourc 05/09/19 10:25 Consult to Occupational Therapy Evaluate & Treat Comment: Physician Instructions: Evaluate and treat Consult to Physical Therapy Evaluate & Treat Comment: Physician Instructions: Evaluate and Treat 05/11/19 09:30 Consult to Respiratory Therapy Evaluate & Treat Comment: Physician Instructions: Evaluate and treat Discharge provider: Letha Lama DO Summary Hospital Course Discharge Diagnosis: 1. Acute on chronic cellulitis of bilateral lower extremities, secondary to chronic venous insufficiency, present on admission. Resolving. 2. Acute on chronic hypomagnesemia, not present on admission. Stable. 3. Acute alcohol withdrawal, present on admission. Resolved. 4. Acute hypoanatremia, present on admission. Resolved. 5. COPD with bronchospasm, chronic, present on admission. Stable. 6. History of CVA with residual left-sided deficits and hyperlipidemia, chronic, present on admission. Stable. 7. Hypertension, chronic, present on admission. Stable. 8. Previous history of diabetes mellitus type 2. Now in remission. 9. Homeless single person, present on admission. Active. Hospital Course: James Dumont is a 63-year-old homeless male with a past medical history significant for CVA with residual left-sided hemiparesis, hypertension, hyperlipidemia, diabetes mellitus type II in remission, PVD, CKD stage II, former smoker, osteoarthritis, chronic pain syndrome secondary to spinal stenosis with prior opiate dependence, chronic marijuana use, daily alcohol use, and recurrent cellulitis who was admitted for cellulitis and alcohol withdrawal. 1. Acute on chronic cellulitis of bilateral lower extremities, secondary to chronic venous insufficiency, present on admission. Resolving. -Patient has been non-compliant with outpatient therapy. MRI last admission negative for osteomyelitis. -XR left foot demonstrated marked soft tissue swelling over dorsum of forefoot. No radiographic evidence of osteomyelitis. Subacute to chronic appearing transverse fracture through fifth metatarsal shaft. -XR right foot demonstrated mild forefoot soft tissue swelling. Right great toe osteoarthritis. No fracture or dislocation. No radiographic evidence of osteomyelitis. -CRP 3.4 ESR 32. No evidence of sepsis. WBC 10.4 Lactate 2.7 -> 2.0. Chest x-ray negative. -No prior known history of MRSA. -Up-to-date on tetanus vaccination, received in March of 2019 -Continued vancomycin and ceftriaxone then switched to oral doxycycline 100 mg twice daily to complete a 10 day total course of antibiotics (to stop after 05/16/2019) in anticipation of discharge. -Continued wound care per nursing staff twice daily and arranged for outpatient follow-up with wound care next week. 2. Acute on chronic hypomagnesemia, not present on admission. Stable. -Magnesium level 1.5. Received magnesium chloride 128 mg x 2. -Continued to monitor magnesium level daily and replete as necessary. 3. Acute alcohol withdrawal, present on admission. Resolved. -Patient's last reported drink was on 05/06/2019. Patient endorses a six-pack of beer a night. -Received banana bag on admission and continued IV fluids until adequately hydrated then discontinued. -Completed Librium taper. Continued CIWA protocol until through alcohol withdrawal. -Continued vitamin daily and thiamine 100 mg daily. 4. Acute hypoanatremia, present on admission. Resolved. -Initial sodium 132. -Multi-factorial a due to alcohol consumption and poor PO and nutritional intake. -Continued IV fluids until adequately hydrated then discontinued. -Continued to monitor sodium level periodically. Current sodium level 139. 5. COPD with bronchospasm, chronic, present on admission. Stable. -Does not represent an acute exacerbation. -May use supplemental oxygen if needed with goal oxygen saturation 88-92%. Has not required supplemental oxygen during hospitalization. -Continued Duo-Neb every 6 hours as needed for shortness of breath or wheezing. 6. History of CVA with residual left-sided hemiparesis and hyperlipidemia, chronic, present on admission. Stable. -Patient was not taking aspirin or statin. Continued aspirin 81 mg daily and atorvastatin 40 mg daily at bedtime. -Patient unable to walk or transfer from wheelchair due to previous CVA and spinal stenosis 7. Hypertension, chronic, present on admission. Stable. -Continued lisinopril 20 mg daily. 8. Previous history of diabetes mellitus type 2. Now in remission. -Hemoglobin A1c 5.3%. Previously diet controlled and now in remission. -Discontinued blood glucose checks. 9. Homeless single person, present on admission. Active. -Patient lives in an alley in [place]. He is asking for help with his living situation. -Patient is aware that he has not been optimally cooperative in past. He is currently cooperative and compliant with care. -Consulted TRANSFORMER MECHANIC to help with short and long-term placement. Physical therapy and occupational therapy recommending SNF or LTAC for continued rehabilitation, however, the patient has been rejected from multiple SNFs due to history of substance abuse (he reports he plans to abstain from alcohol use permanently) and he does not have a safe disposition after rehab due to being homeless. TRANSFORMER MECHANIC making arrangements for the patient to be taken to a cold weather [facility]p in [place]. Exam Vital Signs (past 8 hours): - 05/12/19 10:27 Temperature 98 F Pulse Rate 80 Respiratory Rate 17 Blood Pressure 138/70 Pulse Oximetry 95 Fraction of Inspired Oxygen 21 Oxygen Delivery Method Room Air Oxygen Flow Rate 0 Narrative Exam Narrative: General: Older male lying in bed and in no acute distress, mildly disheveled appearing, well-developed, well-nourished, depressed mood but appropriately interactive. HEENT: Normocephalic, atraumatic. External ears without defect. Pupils equal, round, and reactive to light. Anicteric sclerae, moist conjunctivae, and no lid lag. Oropharynx free of erythema and cobble stoning with moist mucosa. Poor dentition. Neck: Supple with full range of motion. No lymphadenopathy or thyromegaly. Cardiovascular: Regular rate and rhythm without murmurs, rubs, or gallops appreciated. Pulmonary: Clear to auscultation bilaterally without crackles, wheezes, or rhonchi. Normal respiratory effort with no use of accessory muscles. Abdomen: Soft, bowel sounds present, non-tender, non-distended. No hepatosplenomegaly or masses appreciated. Extremities: No clubbing or cyanosis. Moderate lower extremity bilateral pitting and dependent edema to knees. Fragile skin. Bilateral lower extremity venous stasis with erythema and mild warmth. Cellulitis nearly resolved. Wound on dorsum of left foot with black eschar on left hallux chronic and does not appear infected. Neurological: Cranial nerves grossly intact. Patient significant lower extremity weakness in which he is unable to lift his legs off the bed. Psychiatric: Depressed mood and flat affect. Alert and oriented to person, place, and time. Objective Labs Result Diagrams: 05/11/19 05:41 05/12/19 05:55 Labs: Laboratory Results - last 24 hr 05/12/19 05/12/19 05:55 05:55 Sodium 139 Potassium 4.2 Chloride 102 Carbon Dioxide 33 H BUN 20 Creatinine 0.70 Estimated GFR > 60.0 BUN/Creatinine Ratio 28.6 H Glucose 98 Calcium 9.4 Magnesium 1.5 L Total Bilirubin 0.2 AST 29 ALT 23 Alkaline Phosphatase 52 Total Protein 6.1 L Albumin 3.1 L Globulin 3.0 Albumin/Globulin Ratio 1.0 Procalcitonin 0.05 Discharge Plan Discharge Plan Patient Disposition: Home Discharge comment: You are being discharged. Please follow-up with the [facility] Care [facility] next week. You have been prescribed doxycycline 100 mg twice daily for the next 5 days to complete a 10 day course of antibiotics. Discharge Med Rec/Prescriptions Prescriptions: New doxycycline hyclate 100 mg Tablet 100 mg PO BID Qty: 10 RF: 0 Continued multivitamin [Tab-A-Sherri] Tablet 1 tab PO DAILY 30 Days Qty: 30 RF: 0 acetaminophen 325 mg Tablet 650 mg PO Q6HR PRN (Reason: As Needed For Fever/Mild Pain) 30 Days Qty: 30 RF: 0 atorvastatin [Lipitor] 20 mg Tablet 40 mg PO BEDTIME 30 Days Qty: 60 RF: 0 lisinopril 20 mg Tablet 20 mg PO DAILY 30 Days Qty: 30 RF: 0 thiamine HCl (vitamin B1) [Vitamin B-1] 100 mg Tablet 100 mg PO DAILY 30 Days Qty: 30 RF: 0 aspirin 81 mg Tablet,Delayed Release (Dr/Ec) 81 mg PO DAILY 30 Days Qty: 30 RF: 0 folic acid 1 mg Tablet 1 mg PO DAILY 30 Days Qty: 30 RF: 0 albuterol sulfate [Ventolin HFA] 90 mcg/actuation HFA aerosol inhaler 2 puff INHALATION Q6H PRN (Reason: shortness of breath or wheezing) 30 Days Qty: 8 RF: 0 Follow up/Referrals: Nura Benoit MD [Physician] - 3-5 Days (call to confirm appt. to be seen in 3-5 days. [phone]) Chad Mendoza MD [Primary Care Provider] - 3-5 Days (call to confirm appt to be seen in 3-5 days. [phone]) Provider Discharge Instructions Diet: Diet as Tolerated, Low-fat, Low-sodium and Low-cholesterol Activity: Activity as tolerated Visit Report/Discharge Packet Instructions: DI for Cellulitis -- Adult, Chronic Venous Insufficiency, How To Perform RICE (Rest, Ice, Compress, Elevate) Discharge Data Primary Care Provider: Chad Mendoza
--- NOTE | 2019-05-12 13:51 | PT.IPTN ---
Current Diagnoses Cellulitis of left lower limb (05/07/19) Physical Therapy Treatment Note M2 PT-IP Current Condition Start: 05/09/19 16:43 Freq: NEEDED Status: Active Protocol: Document 05/10/19 11:52 SP (Rec: 05/10/19 12:04 SP [id number]) Physical Therapy Current Condition Current Condition Evaluation Date 05/09/19 Treatment Diagnosis BLE cellulitis; generalized weakness Onset Date 05/07/19 M3 PT-IP Subjective Start: 05/09/19 16:43 Freq: NEEDED Status: Active Protocol: Document 05/12/19 13:27 AW (Rec: 05/12/19 13:51 AW [id number]) Subjective Physical Therapy Visit Type Type Treatment Note Visit Start Time 12:40 Visit Stop Time 13:20 Total Visit Minutes 40 Notes co-treat with OT Number of BOX WORKER Visits 0 Physical Therapy Visit Comments Patient Comments Pt happy to work with therapy M4 PT-IP Mobility and Gait Start: 05/09/19 16:43 Freq: NEEDED Status: Active Protocol: Document 05/12/19 13:27 AW (Rec: 05/12/19 13:51 AW [id number]) PT-Bed Mobility Assessment Rolling Type of Rolling Roll to Left Level of Assist Standby Assistance Supine to Sit Supine to Sit Moderate Assistance,2 Person Assistance,Head of Bed Elevated,Bedrails Scooting Scooting to Edge of Bed Maximum Assistance PT-Transfer Assessment Sit to and From Stand Sit to and from Stand Moderate Assistance,2 Person Assistance Equipment Transfer Assistive Device Gait Belt,Front Wheeled Walker Orthotic/Prosthetic Devices or Brace: No Transfers Transfer Destination Bed,Toilet Transfer Technique Stand Pivot Transfer Ability Level of Assist Minimal Assistance,Moderate Assistance,1 Person Assistance ,2 Person Assistance Comments Mobility Comments All bed mobility required max A. Pt required mod A x 2 for sit to stand using FWW. Transfer to w/c required mod A x 2. Pt's own w/c has arms that drop, so his performance may improve with his own chair . Pt performed STS from w/c and transfer to toilet using grab bars and min A x 1. Transfer back to the w/c similarly required min A and heavy use of grab bars with pt landing half on and half of the chair. He was able to scoot himself back in the chair indpendently. M5 PT-IP Objective Assessments Start: 05/09/19 16:43 Freq: NEEDED Status: Active Protocol: Document 05/09/19 14:42 AB (Rec: 05/09/19 16:58 AB [id number]) Orientation Orientation/Cognition Level of Alertness Alert Orientation Name,Place,Situation Safety Awareness Decreased Safety Awareness Gross Range of Motion Lower Extremity ROM Assessment Bilaterally Impaired Impairments L hip ER; L ankle PF tightness (can only go to neutral position and no DF) Strength Lower Extremity Strength Assessment Bilaterally Impaired Comments Strength Comments RLE: 3-/5 LLE: 2-/5 Sensation Assessment Sensation Gross Sensation Right LE Impaired,Left LE Impaired Light Touch Impaired Proprioception (Position) Impaired Sensation Description Numbness Comments Sensation Comments c/o numbness on BLE L>R M6 PT-IP Treatment Start: 05/09/19 16:43 Freq: NEEDED Status: Active Protocol: Document 05/12/19 13:27 AW (Rec: 05/12/19 13:51 AW [id number]) Physical Therapy Treatment Education Education Provided Safety M7 PT-IP Assessment and Plan Start: 05/09/19 16:43 Freq: NEEDED Status: Active Protocol: Document 05/12/19 13:27 AW (Rec: 05/12/19 13:51 AW [id number]) PT Summary Assessment and Plan Potential Rehabilitation Potential Fair Status of Condition at Evaluation Evolving Summary Impairments Pain,ROM,Strength,Balance, Coordination,Sensation,Tone, Cognition,Bed Mobility, Transfers,Gait,Activity Tolerance Assessment Summary Pt requiring max A x 2 for bed mobility. It is likely he will need to sleep in a recliner if he discharges to a non-rehab setting. Transfers required min A x 1 but were unsafe with pt demonstrating heavy reliance on grab bars to stand and for support during pivot. He would benefit from SNF rehab and possible consideration of LTC. Goals Bed Mobility Goal Moderate Assistance Transfer Goal Minimal Assistance,Front Wheeled Walker Days to Meet Goals 10 Frequency of Treatment Frequency Of Treatment Once a Day Treatment Plan Physical Therapy Treatment Plan Bed Mobility Training,Transfer Training,Gait Training, Therapeutic Exercise,Balance Retraining,Discharge Planning, Hot or Cold Pack,Neuromuscular Re-ed,Coordination Retraining Recommendations To Nursing Amount of Assist Needed 2 Person Assist Discharge Recommendations PT Discharge Recommendations SNF Rehab,LTAC
--- NOTE | 2019-05-12 14:01 | PC.NURSE ---
Addendum entered by Britt Real R.N. 05/12/19 14:56: Leg washing and wound care, per orders, done by kirk RN approx 1430. Original Note: Shift summary: Alert and oriented X3 except to exact date. CIWA score 0. Lungs CTA, room air. BLE's appear less erythemic and less edematous than when this promotion writer last took care of patient (Tuesday). He still reports itching and pain, both of which are fairly well controlled with PRN Benadryl and Toradol. Able to shift himself in bed, assisting w/ larger position changes. No IV access, was given PO Mag replacement per order. Able to make needs known and calls appropriately, bed alarm on.
[2019-05-12] MEDS: MULTIVITAMIN 1 TABLET 1 TAB PO (14:16)
--- NOTE | 2019-05-12 14:31 | OT.IP.TRT ---
Current Diagnoses Cellulitis of left lower limb (05/07/19) Occupational Therapy Treatment Note M2 OT-IP Current Condition Start: 05/10/19 15:41 Freq: Status: Active Protocol: Document 05/11/19 15:33 [facility] (Rec: 05/11/19 15:53 [facility] [id number]) Occupational Therapy Current Condition Current Condition Evaluation Date 05/11/19 Treatment Diagnosis BLE cellulitis, generalized weakness Diagnosis Onset Date 05/07/19 M3 OT- IP Subjective and Pain Start: 05/10/19 15:41 Freq: Status: Active Protocol: Document 05/12/19 14:16 [facility] (Rec: 05/12/19 14:30 [facility] [id number]) OT- Subjective Occupational Therapy Visit Type Type Treatment Note Visit Start Time 12:40 Visit Stop Time 13:20 Total Visit Minutes 40 Notes co-treat with P.T. OT Pain Assessment Pain When Pain Assessed At Rest Pain Present Pain Present Denied Pain M4 OT- IP ADL's Start: 05/10/19 15:41 Freq: Status: Active Protocol: Document 05/12/19 14:16 [facility] (Rec: 05/12/19 14:30 [facility] [id number]) OT ADL-Grooming General Evaluation Grooming Ability Independent Comments OT Grooming Comments washed hands seated at sink OT ADL-Dressing General Eval Lower Body Dressing Ability Total Assistance Areas Needing Assistance Retrieving/Set-up of Clothing, Socks Comments OT Dressing Comments Pt states he will need help with donning socks. Performed for pt. OT ADL-Toileting General Evaluation Toileting Ability Standby Assistance Devices Toileting Assistive Devices Grab Bars,Raised Toilet Seat Comments OT Toileting Comments Pt able to perform back pericare seated on toilet. Pt in hospital gown and did not have to manage LB dressing but is unlikley able to manage LB dressing and transfer without assist. M5 OT- IP IADL's Start: 05/10/19 15:41 Freq: Status: Active Protocol: Document 05/11/19 15:33 [facility] (Rec: 05/11/19 15:53 [facility] [id number]) OT-Instrumental Activities of Daily Living Medication Management Medication Management Comments Pt states does not take any medications. Meal Preparation Meal Preparation Comments Pt goes to restaurants for meals. Driving Driving Comments Pt uses scooter to get around. M6 OT- IP Functional Cognition Start: 05/10/19 15:41 Freq: Status: Active Protocol: Document 05/11/19 15:33 [facility] (Rec: 05/11/19 15:53 [facility] [id number]) Cognitive Factors Limiting Selfcare Function Cognitive Ability Level of Alertness Alert Patient Orientation Name,Place,Situation Attention Span Ability Capable of Focused Attention, Capable of Sustained Attention Ability to Follow Commands Able to Follow Multi-Step Commands Cognitive Comments Cognitive Assessment Comments Pt able to follow 2-3 step commands during OT eval . OT- Vision and Hearing OT- Hearing Assessment OT- Hearing Assessment WFL M7 OT- IP Mobility and Balance Start: 05/10/19 15:41 Freq: Status: Active Protocol: Document 05/12/19 14:16 [facility] (Rec: 05/12/19 14:30 [facility] [id number]) OT- Bed Mobility Assessment Supine to Sit Supine to Sit Assist Maximum Assistance,2 Person Assistance Sit to Supine Sit to Supine Assist Maximum Assistance,2 Person Assistance Scooting Scooting to Edge of Bed Maximum Assistance,2 Person Assistance Scooting Up and Down in Bed Maximum Assistance,2 Person Assistance OT-Transfer Assessment Sit to and From Stand Sit to and from Stand Moderate Assistance,2 Person Assistance Transfers Transfer Ability Moderate Assistance,2 Person Assistance Technique Transfer Destination Toilet,Wheelchair Transfer Technique Stand Pivot Devices Transfer Assistive Devices Gait Belt,Front Wheeled Walker Comments Mobility Comments Pt was able to transfer to toilet with min a and from toilet back to chair with CGA using GB and unsafe tactics. OT- Gait Assessment Comments Gait Ability Comments Pt does not ambulate. OT- Balance Assessment Sitting Balance and Reactions Static Sitting Balance Ability Normal Dynamic Sitting Balance Ability Fair M8 OT- IP Objective Assessments Start: 05/10/19 15:41 Freq: Status: Active Protocol: Document 05/11/19 15:33 [facility] (Rec: 05/11/19 15:53 [facility] [id number]) OT Gross Range of Motion Upper Extremity Range of Motion Assessment Within Functional Limits OT Strength Upper Extremity Strength Assessment Within Functional Limits Comments Strength Comments WFL to be able to assist for transfer needs. OT- Coordination Assessment Comments Coordination Comments Pt needing assist to open small packet of sauces during meal time. M9 OT- IP Assessment and Plan Start: 05/10/19 15:41 Freq: Status: Active Protocol: Document 05/12/19 14:16 [facility] (Rec: 05/12/19 14:30 [facility] [id number]) OT Summary Assessment and Plan Potential Rehabilitation Potential Fair Analytic Complexity at Evaluation Low Summary OT Impairments Strength,Balance,Functional Mobility,Dressing,Toileting, Bathing,Toilet Transfers, Shower Transfers Progress Towards Goals Slow Progress due to Medical Issues,Slow Progress due to Activity Tolerance Assessment Summary Pt main barriers are weakness, decreased endurance, activity tolerance, and living situation. Pt is not able to transfer in and out of his w/c independently at this time and will benefit from continued therapy services. Pt is likely able to perform sit to stand from w/c using grab bars (in a bathroom) but transfer is unsafe. Goals Dressing Goal Independent Toileting Goal Independent Toilet Transfer Goal Independent Days to Meet Goals 14 Frequency of Treatment Frequency Of Treatment Once a Day Treatment Plan OT Treatment Plan ADL Training,Functional Mobility,Patient/Family Education,Discharge Planning Other Treatment Recommendations and Next LB dressing practice while Treatment Focus sitting in recliner. Discharge Recommendations OT Discharge Recommendations SNF Rehab,LTAC
--- NOTE | 2019-05-12 15:56 | CM.DPNOTE ---
Addendum entered by LEXX Herzog 05/13/19 08:13: Received VM from rep at [facility] yesterday that appeal had been started, Questions: P#[phone]. Ref # [id number] Original Note: DCP Cont: Worked on DCP throughout the day. Pt has been DC d/t medical stability: cellulitis resolved and DC on oral abx, alcohol w/d resolved, chronic medical conditions all stable. Discussed w/pt, reviewed IMM and pt requested to appeal his DC. Reviewed appeal instructions and provided the completed Detailed Notice of Discharge, helped pt place call to [facility] P# [phone], appeal started, CM team received faxed request at approx 1400 from [facility] and UR SANDRA Fraga assisted this JAVA LEAD in getting a complete clinical packet to [facility] to include the IMM and Detailed Notice of Discharge, fax went through at approx 1500. Now awaiting determination. This JAVA LEAD worked on DCP throughout the day (before appeal began) to attempt safest DCP available to pt. therapy team and MD still recommending SNF but none have accepted this pt. Will be following closely over next 24-48 hrs for continued coordination efforts. LEXX Herzog
[2019-05-12 16:30] VITALS: BP 136/72; PULSE 85; RESP 19; TEMP 36.3; O2SAT 96
[2019-05-12 19:45] VITALS: BP 125/60; PULSE 84; RESP 18; TEMP 36.7; O2SAT 95
[2019-05-12] MEDS: ATORVASTATIN 20 MG TABLET 40 MG PO (20:39)
--- NOTE | 2019-05-12 23:22 | PC.NURSE ---
pt refused dressing change. Pt aware dressing change need to be done by 0200-05/13. CIWA: 0. pain controlled with tylenol and toradol. call light in reach. bed alarm active.
[2019-05-12 23:35] VITALS: BP 120/60; PULSE 84; RESP 20; TEMP 36.7; O2SAT 94
[2019-05-13] MEDS: ACETAMINOPHEN 325 MG TABLET 650 MG PO ×4 (03:32→18:01)
[2019-05-13 03:34] VITALS: BP 118/67; PULSE 84; RESP 20; TEMP 36.4; O2SAT 95
[2019-05-13] MEDS: diphenhydrAMINE 25 MG TABLET PO ×3 (04:35→22:01)
[2019-05-13] MEDS: KETOROLAC 10 MG TABLET PO (04:39)
--- NOTE | 2019-05-13 04:57 | PC.NURSE ---
Pt awake and alert. Pt dressing on left foot changed without issues, pt tolerated well. Pain controlled with scheduled tylenol and tordol. Pt BLE itching during the night, resolved with giving benedryl. Pt voiding to urinal.
[2019-05-13] MEDS: HEPARIN 5,000 UNIT/ML VIAL 5000 UNIT SUBCUT ×3 (06:19→22:01)
--- NOTE | 2019-05-13 07:47 | CM.DPNOTE ---
DCP Cont: In addition to pt's appeal yesterday: This SHOE REPAIR SUPERVISOR worked on safe DCP for pt throughout the day. Had multiple conversations w/ Dr Lama, therapy team to include PT/OT and pt. Pt continues to be a max of two for assistance, this SHOE REPAIR SUPERVISOR asks if pt were to remain at for therapies could he improve over 24-48 hrs to stand pivot independently? no according to PT Evelyne it would likely take a long time for pt to regain enough strength to stand and pivot for transfers, he has not walked in a year. Placed call to Cristiano Tay, [employer] Architect and [place] community member/advocate P#[phone]. Discussed pt's needs at length, with pt's permission. Cristiano explained to this SHOE REPAIR SUPERVISOR that he would contact [employer], the lead coordinator of [facility] which is a program that shuttles homeless folks from [place] by the [facility] in [place] at 5pm nightly to participating churches where people can sleep and are shuttled back in the morning. Later heard from Cristiano that a person needs to be able to independently self transfer from chair to bed and/or chair to toilet. Cristiano also suggested [facility]'s motel voucher program for pt but he was unsure if this was up and running yet and pt would also need to be independent there. Explained that pt is actually where he was functionally when he came in; he is w/c bound and cannot stand. He can pee sitting down and/or lift himself enough out of his chair to pee/poop off of his chair, this per pt's report. Other concerns identified yesterday for this pt: -How to get to the [facility] and get his electric w/c? Cristiano Tay willing to assist w/this, will meet pt at the [facility] upon DC to facilitate this -How will pt get his prescriptions? Pt tells this SHOE REPAIR SUPERVISOR he uses [facility] but hasn't taken prescriptions for awhile, pt could take his electric w/c there once he has it? -How will pt get to wound care? Dr Benoit will be back in office Tuesday05.16.19, pt could walk in and likely get a same day appt, Dr Benoit aware of pt's needs -If pt is driven to intermediate options [facility] or [facility], how does his electric w/c get there and back? Medicaid transport might be assist w/this, this SHOE REPAIR SUPERVISOR has not called this resource yet LEXX Herzog
[2019-05-13] MEDS: THIAMINE 100 MG TABLET PO (08:09)
[2019-05-13] MEDS: ASPIRIN EC 81 MG TABLET PO (08:09)
[2019-05-13] MEDS: FOLIC ACID 1 MG TABLET PO (08:09)
[2019-05-13] MEDS: DOXYCYCLINE HYCLATE 100 MG TABLET PO ×2 (08:09→20:13)
[2019-05-13] MEDS: NYSTATIN POWDER 15GM 1 APPLIC TOP ×2 (08:38→20:13)
[2019-05-13 09:00] VITALS: BP 133/74; PULSE 86; RESP 16; TEMP 36.4; O2SAT 94
[2019-05-13 10:00] VITALS: O2SAT 95
--- NOTE | 2019-05-13 11:32 | PT.IPTN ---
Current Diagnoses Cellulitis of left lower limb (05/07/19) Physical Therapy Treatment Note M2 PT-IP Current Condition Start: 05/09/19 16:43 Freq: NEEDED Status: Active Protocol: Document 05/10/19 11:52 SP (Rec: 05/10/19 12:04 SP [id number]) Physical Therapy Current Condition Current Condition Evaluation Date 05/09/19 Treatment Diagnosis BLE cellulitis; generalized weakness Onset Date 05/07/19 M3 PT-IP Subjective Start: 05/09/19 16:43 Freq: NEEDED Status: Active Protocol: Document 05/13/19 11:09 CLB (Rec: 05/13/19 13:08 CLB [id number]) Subjective Physical Therapy Visit Type Type Treatment Note Visit Start Time 11:09 Visit Stop Time 11:32 Notes ANDRAE Boyd present during tx. Number of BOTTLING SUPERVISOR Visits 23 Physical Therapy Visit Comments Patient Comments Pt wanting to use WC to go to the bathroom. M4 PT-IP Mobility and Gait Start: 05/09/19 16:43 Freq: NEEDED Status: Active Protocol: Document 05/13/19 11:09 CLB (Rec: 05/13/19 13:08 CLB [id number]) PT-Bed Mobility Assessment Sit to Supine Sit to Supine Maximum Assistance,2 Person Assistance Scooting Scooting to Edge of Bed Maximum Assistance PT-Transfer Assessment Sit to and From Stand Sit to and from Stand Moderate Assistance,1 Person Assistance,2 Person Assistance Equipment Transfer Assistive Device None,Gait Belt Transfers Transfer Destination Bed,Toilet Transfer Technique Stand Pivot Transfer Ability Level of Assist Minimal Assistance,Moderate Assistance,1 Person Assistance ,2 Person Assistance Comments Mobility Comments Pt was sitting up on EOB upon arrival. Pt required Mod A x1 bed>WC>toilet>WC but Mod A x2 WC to bed. M5 PT-IP Objective Assessments Start: 05/09/19 16:43 Freq: NEEDED Status: Active Protocol: Document 05/09/19 14:42 AB (Rec: 05/09/19 16:58 AB [id number]) Orientation Orientation/Cognition Level of Alertness Alert Orientation Name,Place,Situation Safety Awareness Decreased Safety Awareness Gross Range of Motion Lower Extremity ROM Assessment Bilaterally Impaired Impairments L hip ER; L ankle PF tightness (can only go to neutral position and no DF) Strength Lower Extremity Strength Assessment Bilaterally Impaired Comments Strength Comments RLE: 3-/5 LLE: 2-/5 Sensation Assessment Sensation Gross Sensation Right LE Impaired,Left LE Impaired Light Touch Impaired Proprioception (Position) Impaired Sensation Description Numbness Comments Sensation Comments c/o numbness on BLE L>R M6 PT-IP Treatment Start: 05/09/19 16:43 Freq: NEEDED Status: Active Protocol: Document 05/12/19 13:27 AW (Rec: 05/12/19 13:51 AW [id number]) Physical Therapy Treatment Education Education Provided Safety M7 PT-IP Assessment and Plan Start: 05/09/19 16:43 Freq: NEEDED Status: Active Protocol: Document 05/13/19 11:09 CLB (Rec: 05/13/19 13:08 CLB [id number]) PT Summary Assessment and Plan Potential Rehabilitation Potential Fair Status of Condition at Evaluation Evolving Summary Impairments Pain,ROM,Strength,Balance, Coordination,Sensation,Tone, Cognition,Bed Mobility, Transfers,Gait,Activity Tolerance Assessment Summary Pt contiues to required Mod x1 -2 persons for all mobility and is unsafe to transfer indepently. Pt required assist from PERSONAL ATTENDANT for pericare and Mod A for standing balance by therapist. Pt also required Max A x2 sit-supine and Mod A x2 to scoot to head of bed. Pt would benefit from SNF rehab to improve funtional mobility with transfers vs LTC. Left pt in bed, RN/PERSONAL ATTENDANT present in room. Goals Bed Mobility Goal Moderate Assistance Transfer Goal Minimal Assistance,Front Wheeled Walker Days to Meet Goals 10 Frequency of Treatment Frequency Of Treatment Once a Day Treatment Plan Physical Therapy Treatment Plan Bed Mobility Training,Transfer Training,Gait Training, Therapeutic Exercise,Balance Retraining,Discharge Planning, Hot or Cold Pack,Neuromuscular Re-ed,Coordination Retraining Recommendations To Nursing Amount of Assist Needed 2 Person Assist Discharge Recommendations PT Discharge Recommendations SNF Rehab,[facility]
[2019-05-13] MEDS: MULTIVITAMIN 1 TABLET 1 TAB PO (12:59)
--- NOTE | 2019-05-13 14:20 | CM.DPNOTE ---
Addendum entered by Olga Piper 05/14/19 09:56: James ID# is [id number] Original Note: DCP Cont: No determination yet from [facility]. Placed call to P# [phone] to chk status and their offices were closed for the day. No determination. According to input from CARIDAD Fraga, this may result in pt remaining here until Tuesday or possibly Tuesday. -Attempt [facility] once again Tuesday in case they would consider admitting patient. -Keep Cristiano Tay updated on DCP if pt continues to be agreeable to such. Cristiano may be helpful to assist pt in the outpt setting obtaining his w/c, picking up prescriptions, and transport to [place] or [facility] (?) Medicaid transport may also be helpful to this pt upon DC to get back to [facility] (where his w/c is) and scheduling transport to/from Wound Care appts. LEXX Herzog
--- NOTE | 2019-05-13 15:50 | PC.NURSE ---
Patient had what looked like a couple drops of blood in the toilet after having a BM this morning. He had another BM earlier in the morning that looked normal (soft, brown). No other s/sx bleeding noted. This life underwriter spoke with Dr Lama and let her know, and asked if she wants to continue with Heparin. Dr Lama said she did want him to continue on the Heparin which is for DVT prophylaxis. 1400 dose given late (by dann shift float RN) because this life underwriter wanted to check with MD prior to giving. BLE's did not get washed/dressed this shift r/t time constraints on nursing, passed on to dann shift.
[2019-05-13 16:00] VITALS: BP 137/73; PULSE 83; RESP 16; TEMP 36.5; O2SAT 92
[2019-05-13] MEDS: ATORVASTATIN 20 MG TABLET 40 MG PO (20:13)
[2019-05-13 20:43] VITALS: BP 138/73; PULSE 86; RESP 16; TEMP 36.7; O2SAT 95
--- NOTE | 2019-05-13 22:26 | PC.NURSE ---
TRAVIS SHIFT: pt had a very small amount of blood in his bowel movement tonight. pt still c/o itching, administered benadryl. q2turn. call light in reach. bed alarm active.
[2019-05-14] MEDS: ACETAMINOPHEN 325 MG TABLET 650 MG PO ×3 (00:25→11:30)
[2019-05-14 00:31] VITALS: BP 134/69; PULSE 93; RESP 17; TEMP 36.6; O2SAT 94
--- NOTE | 2019-05-14 00:55 | PC.NURSE ---
Addendum entered by Brisa Irby R.N. 05/14/19 06:09: Slept most of shift. No change in neurovascular status. Foul odor from bilateral LE noted. Denies any pain this morning. Original Note: Patient is oriented except to month/day of month. Breath sounds CTA with RA sat of 94%. HRR. Denies nausea. BT present and abdomen is soft. Denies dysuria, frequency or urgency; uses urinal to void. Complains of 8/10 sharp pain in feet and legs; medicated with scheduled Tylenol and states pain gets down to 5/10 and is tolerable at that level. Unable to move left leg; can move right leg but unable to lift off bed. 2+ bilateral LE edema. Bilateral lower legs with abrasions, peeling skin and erythema; noted blisters to right lateral heel and right medial foot below great toe. Dressing to left foot is CDI. Is able to turn himself in bed, but will monitor and assist/remind q2h as needed. Fall risk score is high and bed alarm is activated.
[2019-05-14 04:34] VITALS: BP 137/70; PULSE 91; RESP 18; TEMP 36.5; O2SAT 95
[2019-05-14] MEDS: HEPARIN 5,000 UNIT/ML VIAL 5000 UNIT SUBCUT ×3 (06:03→20:40)
[2019-05-14] MEDS: diphenhydrAMINE 25 MG TABLET PO ×3 (07:12→20:40)
--- NOTE | 2019-05-14 07:54 | PC.NURSE ---
Day shift: On assessment Pt has new blisters on both feet. Possible venous stassis related and also per DR Durant Pt was in WC yesterday. Dr Durant is aware of these new blisters. Will cosntinue to monitor and let Pt know not to pop them.
[2019-05-14] MEDS: FOLIC ACID 1 MG TABLET PO (09:37)
[2019-05-14] MEDS: ASPIRIN EC 81 MG TABLET PO (09:37)
[2019-05-14] MEDS: KETOROLAC 10 MG TABLET PO (09:37)
[2019-05-14] MEDS: DOXYCYCLINE HYCLATE 100 MG TABLET PO ×2 (09:38→19:47)
[2019-05-14] MEDS: NYSTATIN POWDER 15GM 1 APPLIC TOP (09:38)
[2019-05-14] MEDS: THIAMINE 100 MG TABLET PO (09:38)
[2019-05-14 09:53] VITALS: BP 150/75; PULSE 87; RESP 18; TEMP 36.7; O2SAT 94
--- NOTE | 2019-05-14 09:55 | DIET.PN ---
Dietary Progress Note RD f/u c Mr Dumont r/t POs 50-75% range and several new blisters on both feet. Pt reports reduced appetite but food he does eat is good. Pt is taking Oni ONS bid as directed to support increased PRO needs and arginine for wound healing. BG in good range for healing (93-99). HT: 175.2cm WT: 95.5kg (wt stable since 05/08/19) BMI: 31.1 Labs: BG 93-98, TP 6.1 L, Alb 3.1 L MNA: 10 at risk Jono: 17 Nutrition Diagnosis: 1. Ongoing Poor nutrition quality of life r/t food insecurity aeb pt etoh dependent, homeless living in [facility], purchases ready made meals from grocery store when has funds as no place to store or prepare food. 2. Ongoing Increased PRO needs aeb dx cellulitis aeb pt food insecure (homeless), CRP 3.4 H, etoh dependent c controlled DM2. Interventions: Consider additional supps of Vit C, Vit A, and Zinc r/t slow wound healing complicated by food insecurity, pt likely deficient in all three evidenced by low intake F/V and flaky, inflamed skin. Diet Order: CCD 3 Monitoring/Evaluations: provide food resources when receptive, I&O, associated labs
--- NOTE | 2019-05-14 09:57 | CM.DPC ---
DCP/continued: Waiting on appeal decision from [facility] _[id number]. In addition, placed call to Jeni at [facility] they continue to review for potential admit. P: Pending. LEXX Parker
[2019-05-14] MEDS: MULTIVITAMIN 1 TABLET 1 TAB PO (11:30)
[2019-05-14 13:20] VITALS: BP 133/86; PULSE 81; RESP 18; TEMP 36.6; O2SAT 98
--- NOTE | 2019-05-14 13:22 | PC.NURSE ---
Day shift: Pt OOB to chair with PT. AFter lunch at approx 1315 Pt helped back to bed with this comic book writer and OPTICAL EFFECTS LAYOUT PERSON Roslyn. Before this happened BLE's washed per MD orders and dressings applied per MD as well as iodine to bilat toes. Pt tolerated this well. Pt did ask how he was going to be able to do tjhis. Pt not able to reach that low and Pt is also not able to stand on his own. It took this comic book writer and OPTICAL EFFECTS LAYOUT PERSON to get Pt back to bed with gait belt and just a slow pivot. Pt tolerated it well but it did cause some fatigue. Pt did thank nursing at this time. Dressing to dorsal left foot fell off during transport and new one was applied. This wound is healing and shows approx ovidio sized area that is yellow and white. Isoprep applied per MD. Call light in reach. Plan is for Pt to go to detention tomorrow.
--- NOTE | 2019-05-14 13:30 | OT.IP.TRT ---
Current Diagnoses Cellulitis of left lower limb (05/07/19) Occupational Therapy Treatment Note M2 OT-IP Current Condition Start: 05/10/19 15:41 Freq: Status: Active Protocol: Document 05/11/19 15:33 [facility] (Rec: 05/11/19 15:53 [facility] [id number]) Occupational Therapy Current Condition Current Condition Evaluation Date 05/11/19 Treatment Diagnosis BLE cellulitis, generalized weakness Diagnosis Onset Date 05/07/19 M3 OT- IP Subjective and Pain Start: 05/10/19 15:41 Freq: Status: Active Protocol: Document 05/14/19 13:15 [facility] (Rec: 05/14/19 13:29 [facility] [id number]) OT- Subjective Occupational Therapy Visit Type Type Treatment Note Visit Start Time 11:25 Visit Stop Time 11:49 Total Visit Minutes 24 Occupational Therapy Visit Comments Patient Comments Pt wanting to get up to the manual wc. OT Pain Assessment Pain When Pain Assessed At Rest Pain Present Pain Present Denied Pain M4 OT- IP ADL's Start: 05/10/19 15:41 Freq: Status: Active Protocol: Document 05/14/19 13:15 [facility] (Rec: 05/14/19 13:29 [facility] [id number]) OT ADL-Dressing General Eval Lower Body Dressing Ability Maximum Assistance Areas Needing Assistance Retrieving/Set-up of Clothing, Socks Comments OT Dressing Comments Pt only able to assist by lifting his feet up otherwise dependent to help beni socks over his feet. Pt feet now having blisters on them. Pt not wanting to work on LB dressing needs. At this time pt will need MAX A for LB dressing needs. OT ADL-Toileting Comments OT Toileting Comments Pt not having to go and not wanting to practice toileting needs at this time. M5 OT- IP IADL's Start: 05/10/19 15:41 Freq: Status: Active Protocol: Document 05/11/19 15:33 [facility] (Rec: 05/11/19 15:53 [facility] [id number]) OT-Instrumental Activities of Daily Living Medication Management Medication Management Comments Pt states does not take any medications. Meal Preparation Meal Preparation Comments Pt goes to restaurants for meals. Driving Driving Comments Pt uses scooter to get around. M7 OT- IP Mobility and Balance Start: 05/10/19 15:41 Freq: Status: Active Protocol: Document 05/14/19 13:15 [facility] (Rec: 05/14/19 13:29 [facility] [id number]) OT-Transfer Assessment Transfers Transfer Ability Contact Guard Assistance,1 Person Assistance Technique Transfer Destination Wheelchair Transfer Technique Squat Pivot Devices Transfer Assistive Devices Gait Belt Comments Mobility Comments Pt already sitting at edge of bed when therapist came in. Pt CGA to transfer squat pivot - one hand reaching out to armrest of manual wc and other hand pushing up from the bed. Pt mainly assist to be sure manual wc held in place versus pt has electric scooter which would be heavier and not move. CGA for safety, pt able to perform the transfer safely from bed to manual wc with increased time. Pt not able to propel the manual wc very well and needing MODA to turn and MAX vc to for hand placement. Notified aide to try to find another wc, as at times wc wheels just spinning in place when pt trying to propel himself. OT- Gait Assessment Comments Gait Ability Comments Pt does not ambulate. OT- Balance Assessment Sitting Balance and Reactions Static Sitting Balance Ability Normal Dynamic Sitting Balance Ability Fair M8 OT- IP Objective Assessments Start: 05/10/19 15:41 Freq: Status: Active Protocol: Document 05/11/19 15:33 [facility] (Rec: 05/11/19 15:53 [facility] [id number]) OT Gross Range of Motion Upper Extremity Range of Motion Assessment Within Functional Limits OT Strength Upper Extremity Strength Assessment Within Functional Limits Comments Strength Comments WFL to be able to assist for transfer needs. OT- Coordination Assessment Comments Coordination Comments Pt needing assist to open small packet of sauces during meal time. M9 OT- IP Assessment and Plan Start: 05/10/19 15:41 Freq: Status: Active Protocol: Document 05/14/19 13:15 [facility] (Rec: 05/14/19 13:29 [facility] [id number]) OT Summary Assessment and Plan Potential Rehabilitation Potential Fair Analytic Complexity at Evaluation Low Summary OT Impairments Strength,Balance,Functional Mobility,Dressing,Toileting, Bathing,Toilet Transfers, Shower Transfers Progress Towards Goals Slow Progress due to Medical Issues,Slow Progress due to Activity Tolerance Assessment Summary Pt has been improving with transfers however still needing someone to assist for transfer needs and not back to baseline of MOD I with all transfers and LB dressing needs. Pt would benefit from skilled rehab stay especially for transfers and ADl needs. Pt will to go to skilled rehab pending acceptance. Goals Dressing Goal Independent Toileting Goal Independent Toilet Transfer Goal Independent Days to Meet Goals 24 Treatment Plan OT Treatment Plan ADL Training,Functional Mobility,Patient/Family Education,Discharge Planning Other Treatment Recommendations and Next LB dressing practice while Treatment Focus sitting in recliner. Discharge Recommendations OT Discharge Recommendations SNF Rehab,[facility]AC
--- NOTE | 2019-05-14 14:08 | PC.NURSE ---
Day shift: Talked with Pt about having to follow all the rules at a SNF. Also that he should not drink any ETOH or smoke again. He was agreeable to all of this. Pt was told if he does not abide by the rules the SNF may kick him out and then things could go from bad to worse.
[2019-05-14 15:49] VITALS: BP 141/54; PULSE 79; RESP 20; TEMP 36.4; O2SAT 97
--- NOTE | 2019-05-14 16:08 | CM.DPC ---
DCP/continued: Reviewed chart. Continue to attempt placement for patient that is on LOS day#7. CITY WELLNESS COORDINATOR spoke with Jeni at [facility] throughout the day. They are considering and will have decision tomorrow 05-15-19. Received call from [employer] and patient has lost Medicare appeal. Patient aware that he will be discharged tomorrow. Patient having difficulty with wound care and currently cannot do his own dressing changes. Wound care came by today and patient has outpatient tentative appointment scheduled for Tuesday05-18-19 if michell remains in [place]. If not wound care suggested to be done close by where he will be or best option is SNF. Spoke with Karlee at [facility] ph# [phone], she reports that they will do assessment for ferry terminal supervisor needs at wherever patient lands at discharge. Notified Karlee that CITY WELLNESS COORDINATOR would touch base with her tomorrow when disposition known. P: Pending. [facility] evaluating and hopefully will accept on 05-15-19. Patient aware and agreeable. LEXX Parker
--- NOTE | 2019-05-14 17:14 | PC.NURSE ---
Addendum entered by Zohra Macario R.N. 05/14/19 21:24: Pt c/o itching legs this evening. Med w/ Benadryl w/ good relief. Condition remains essentially unchanged. Call light w/in reach, bed alarm on for pt safety. Continue w/plan of care. Original Note: Pt resting at this time. Denies discomfort. Respirations equal/unlabored. Lower extremities remain unchanged w/blisters on feet. Call light w/in reach, bed alarm on for pt safety.
[2019-05-14] MEDS: ALBUTEROL/IPRATROPIUM 3 ML AMPUL INH (19:42)
[2019-05-14] MEDS: ATORVASTATIN 20 MG TABLET 40 MG PO (19:47)
[2019-05-14 20:05] VITALS: BP 146/51; PULSE 94; RESP 22; TEMP 36.6; O2SAT 93
[2019-05-15] VITALS (7 sets, daily range): BP systolic 106–136; BP diastolic 49–78; PULSE 79–92; RESP 15–19; TEMP 35.9–36.8; O2SAT 92–96
[2019-05-15] MEDS: ACETAMINOPHEN 325 MG TABLET 650 MG PO ×4 (00:21→18:02)
[2019-05-15] MEDS: HEPARIN 5,000 UNIT/ML VIAL 5000 UNIT SUBCUT ×2 (05:58→18:04)
[2019-05-15] MEDS: THIAMINE 100 MG TABLET PO (09:18)
[2019-05-15] MEDS: ASPIRIN EC 81 MG TABLET PO (09:19)
[2019-05-15] MEDS: FOLIC ACID 1 MG TABLET PO (09:19)
[2019-05-15] MEDS: DOXYCYCLINE HYCLATE 100 MG TABLET PO ×2 (09:19→22:17)
[2019-05-15] MEDS: NYSTATIN POWDER 15GM 1 APPLIC TOP ×2 (09:19→22:17)
[2019-05-15] MEDS: KETOROLAC 10 MG TABLET PO ×2 (09:20→18:02)
[2019-05-15] MEDS: MULTIVITAMIN 1 TABLET 1 TAB PO (11:00)
[2019-05-15] MEDS: diphenhydrAMINE 25 MG TABLET PO ×2 (11:03→18:02)
--- NOTE | 2019-05-15 13:33 | OT.IP.TRT ---
Current Diagnoses Cellulitis of left lower limb (05/07/19) Occupational Therapy Treatment Note M2 OT-IP Current Condition Start: 05/10/19 15:41 Freq: Status: Active Protocol: Document 05/11/19 15:33 [facility] (Rec: 05/11/19 15:53 [facility] [id number]) Occupational Therapy Current Condition Current Condition Evaluation Date 05/11/19 Treatment Diagnosis BLE cellulitis, generalized weakness Diagnosis Onset Date 05/07/19 M3 OT- IP Subjective and Pain Start: 05/10/19 15:41 Freq: Status: Active Protocol: Document 05/15/19 13:17 [facility] (Rec: 05/15/19 13:32 [facility] [id number]) OT- Subjective Occupational Therapy Visit Type Type Treatment Note Visit Start Time 12:40 Visit Stop Time 13:06 Total Visit Minutes 26 Occupational Therapy Visit Comments Patient Comments Pt needing encouragement but agreed to try to beni pants today. Patient/Caregiver Goals Pt states not wanting to go back to the streets, but unable to state any other options whether to stay with any friends or family. Case management working on his situation and trying to get him into skilled rehab. OT Pain Assessment Pain When Pain Assessed At Rest Pain Present Pain Present Denied Pain M4 OT- IP ADL's Start: 05/10/19 15:41 Freq: Status: Active Protocol: Document 05/15/19 13:17 [facility] (Rec: 05/15/19 13:32 [facility] [email or web address]) OT [id number] General Evaluation Self-Feeding Ability Independent OT ADL-Dressing General Eval Lower Body Dressing Ability Standby Assistance,Moderate Assistance Areas Needing Assistance Pants/Shorts,Socks Comments OT Dressing Comments Due to blisters on his feet pt needing assist to beni right sock on. Left foot due to large blister not able to put sock on him. After encouragement, pt agreed to try to use the supervisor finishing room to beni sweatpants. Educated pt to beni weaker side first and with increased time and MAX vc able to get pants pull up over his feet and just below his hips. While sitting, educated pt to lean side to side to try to pull up pants up over his hips and not able to do it. Therefore pushed the recliner -which we as simulating to be his electric wheelchair in front of the sink so pt able to stand and in order to try to stand and put pants up over his hips. Pt able to stand by pulling up from the sink to stand and alternating hands on sink in order to get pants up over his hips. Pt could use his electric scooter while in a handicapped restroom and grab bars in the bathroom to assist for needs and now use of supervisor finishing room. M5 OT- IP IADL's Start: 05/10/19 15:41 Freq: Status: Active Protocol: Document 05/11/19 15:33 [facility] (Rec: 05/11/19 15:53 [facility] [id number]) OT-Instrumental Activities of Daily Living Medication Management Medication Management Comments Pt states does not take any medications. Meal Preparation Meal Preparation Comments Pt goes to restaurants for meals. Driving Driving Comments Pt uses scooter to get around. M6 OT- IP Functional Cognition Start: 05/10/19 15:41 Freq: Status: Active Protocol: Document 05/15/19 13:17 [facility] (Rec: 05/15/19 13:32 [facility] [email or web address]) Cognitive Factors Limiting Selfcare Function Cognitive Ability Level of Alertness Alert Patient Orientation Name,Place,Situation Attention Span Ability Capable of Focused Attention, Capable of Sustained Attention Ability to Follow Commands Able to Follow Multi-Step Commands Safety Awareness Underestimates Need for Assistance Problem Solving Ability Needs Assist to Identify Solutions Cognitive Comments Cognitive Assessment Comments Pt needing assist for new learning and teach safe ways for Adl needs. M8 OT- IP Objective Assessments Start: 05/10/19 15:41 Freq: Status: Active Protocol: Document 05/11/19 15:33 [facility] (Rec: 05/11/19 15:53 [facility] [email or web address]) OT Gross Range of Motion Upper Extremity Range of Motion Assessment Within Functional Limits OT Strength Upper Extremity Strength Assessment Within Functional Limits Comments Strength Comments WFL to be able to assist for transfer needs. OT- Coordination Assessment Comments Coordination Comments Pt needing assist to open small packet of sauces during meal time. M9 OT- IP Assessment and Plan Start: 05/10/19 15:41 Freq: Status: Active Protocol: Document 05/15/19 13:17 [facility] (Rec: 05/15/19 13:32 [facility] [email or web address]) OT Summary Assessment and Plan Potential Rehabilitation Potential Good Analytic Complexity at Evaluation Low Summary OT Impairments Strength,Balance,Functional Mobility,Dressing,Toileting, Bathing,Toilet Transfers, Shower Transfers Progress Towards Goals Slow Progress due to Medical Issues,Slow Progress due to Activity Tolerance Assessment Summary Pt able to tolerate donning sweatpants today for the first time with SBA. Pt would benefit from skilled rehab to continue to work on activity tolerance as got SOB after trying to get the sweat pants on and improve with safety for transfer needs and address medical needs. Goals Dressing Goal Independent Toileting Goal Independent Toilet Transfer Goal Independent Days to Meet Goals 10 Frequency of Treatment Frequency Of Treatment Once a Day Treatment Plan OT Treatment Plan ADL Training,Functional Mobility,Patient/Family Education,Discharge Planning Other Treatment Recommendations and Next LB dressing with supervisor finishing room, Treatment Focus toilet transfer and hygiene Discharge Recommendations OT Discharge Recommendations SNF Rehab,[facility]
--- NOTE | 2019-05-15 16:41 | PT.IPTN ---
Current Diagnoses Cellulitis of left lower limb (05/07/19) Physical Therapy Treatment Note M2 PT-IP Current Condition Start: 05/09/19 16:43 Freq: NEEDED Status: Active Protocol: Document 05/10/19 11:52 SP (Rec: 05/10/19 12:04 SP [id number]) Physical Therapy Current Condition Current Condition Evaluation Date 05/09/19 Treatment Diagnosis BLE cellulitis; generalized weakness Onset Date 05/07/19 M3 PT-IP Subjective Start: 05/09/19 16:43 Freq: NEEDED Status: Active Protocol: Document 05/15/19 16:39 [facility] (Rec: 05/15/19 16:41 [facility] [id number]) Subjective Physical Therapy Visit Type Type Patient Refusal Notes Pt sleeping in bed and stated he was up twice today and would like to stay in bed. Therapy team will check back with pt tomorrow. M4 PT-IP Mobility and Gait Start: 05/09/19 16:43 Freq: NEEDED Status: Active Protocol: Document 05/13/19 11:09 [facility] (Rec: 05/13/19 13:08 [facility] [id number]) PT-Bed Mobility Assessment Sit to Supine Sit to Supine Maximum Assistance,2 Person Assistance Scooting Scooting to Edge of Bed Maximum Assistance PT-Transfer Assessment Sit to and From Stand Sit to and from Stand Moderate Assistance,1 Person Assistance,2 Person Assistance Equipment Transfer Assistive Device None,Gait Belt Transfers Transfer Destination Bed,Toilet Transfer Technique Stand Pivot Transfer Ability Level of Assist Minimal Assistance,Moderate Assistance,1 Person Assistance ,2 Person Assistance Comments Mobility Comments Pt was sitting up on EOB upon arrival. Pt required Mod A x1 bed>WC>toilet>WC but Mod A x2 WC to bed. M5 PT-IP Objective Assessments Start: 05/09/19 16:43 Freq: NEEDED Status: Active Protocol: Document 05/09/19 14:42 [facility] (Rec: 05/09/19 16:58 AB [id number]) Orientation Orientation/Cognition Level of Alertness Alert Orientation Name,Place,Situation Safety Awareness Decreased Safety Awareness Gross Range of Motion Lower Extremity ROM Assessment Bilaterally Impaired Impairments L hip ER; L ankle PF tightness (can only go to neutral position and no DF) Strength Lower Extremity Strength Assessment Bilaterally Impaired Comments Strength Comments RLE: 3-/5 LLE: 2-/5 Sensation Assessment Sensation Gross Sensation Right LE Impaired,Left LE Impaired Light Touch Impaired Proprioception (Position) Impaired Sensation Description Numbness Comments Sensation Comments c/o numbness on BLE L>R M6 PT-IP Treatment Start: 05/09/19 16:43 Freq: NEEDED Status: Active Protocol: Document 05/12/19 13:27 AW (Rec: 05/12/19 13:51 AW [id number]) Physical Therapy Treatment Education Education Provided Safety M7 PT-IP Assessment and Plan Start: 05/09/19 16:43 Freq: NEEDED Status: Active Protocol: Document 05/13/19 11:09 [facility] (Rec: 05/13/19 13:08 [facility] [id number]) PT Summary Assessment and Plan Potential Rehabilitation Potential Fair Status of Condition at Evaluation Evolving Summary Impairments Pain,ROM,Strength,Balance, Coordination,Sensation,Tone, Cognition,Bed Mobility, Transfers,Gait,Activity Tolerance Assessment Summary Pt contiues to required Mod x1 -2 persons for all mobility and is unsafe to transfer indepently. Pt required assist from HEEL SLUGGER for pericare and Mod A for standing balance by therapist. Pt also required Max A x2 sit-supine and Mod A x2 to scoot to head of bed. Pt would benefit from SNF rehab to improve funtional mobility with transfers vs LTC. Left pt in bed, RN/HEEL SLUGGER present in room. Goals Bed Mobility Goal Moderate Assistance Transfer Goal Minimal Assistance,Front Wheeled Walker Days to Meet Goals 10 Frequency of Treatment Frequency Of Treatment Once a Day Treatment Plan Physical Therapy Treatment Plan Bed Mobility Training,Transfer Training,Gait Training, Therapeutic Exercise,Balance Retraining,Discharge Planning, Hot or Cold Pack,Neuromuscular Re-ed,Coordination Retraining Recommendations To Nursing Amount of Assist Needed 2 Person Assist Discharge Recommendations PT Discharge Recommendations SNF Rehab,[facility]
--- NOTE | 2019-05-15 17:12 | CM.DPC ---
DCP/continued: AUTOMOBILE DETAILER worked on safe d/c plan for this patient the majority of the day 05-15-19. Initially, it was thought that [facility] would accept today. However, Jeni called this AM and reports that administration has said no. Therefore, referral placed to [facility]. Jeni sent referral and spoke with admit in hopes that they would accept because they are sister facility. Unfortunately, received call again from Jeni reporting that [facility] will not accept either. Apparently, facilities are concerned about patient's previous behaviors/experiences at [facility]. AUTOMOBILE DETAILER met again with patient to discuss plan. Patient currently with open sores requiring daily wound care. Additionally has new blisters. AUTOMOBILE DETAILER requested that nursing/therapy get patient out of bed so we can evaluate his mobility specifically transferring to/from wheelchair. Per therapy, continued recommendation is SNF for upper body strengthening and daily wound care. AUTOMOBILE DETAILER placed call to both and [facility] to check on swing bed. Did receive call back from [facility] and faxed clinical to attn: admit for swing bed. As of 5:15pm today have not received return phone call. Fax sent at 1:26pm. Received call from [facility] ph# [phone], she clarifies with AUTOMOBILE DETAILER that patient has [facility] and that she is his assigned CM. Kimmy reports that she has been trying to find patient. AUTOMOBILE DETAILER sent referral to [facility] which alerted her to his whereabouts. Discussed in length with Kimmy the concerns about placement and difficulty with overall planning. Kimmy reports that she will help however she can. AUTOMOBILE DETAILER notified Kimmy that CM team would reach out to [facility] for placement. Patient cooperative and has had no behavioral issues during hospitalization. Patient is good SNF candidate for therapy and wound care. Placed call to [facility] in [place] ph# [phone] spoke with Sonal. Provided her with some of patient's history and difficulty with placement. Sonal reports that they would be more than happy to review. Furthermore, they report if patient's behavior appropriate they most likely can accept? Clinical including nursing notes sent. Sonal reports that she will provide CM team with decision later today or first thing in AM. Sonal made aware that patient has [facility] and Kimmy is CM. AUTOMOBILE DETAILER requested that Kimmy call facility to encourage acceptance and that [facility] will be following closely. P: Call [facility] in AM re: acceptance. If they decline, start search in [facility] [place], [facility], and [place]. All 3 facilities recommended by [facility] CHACK[facility]. Patient still has wound care appoint at [facility] on Tuesday. Once disposition confirmed and appointment not needed please notify Esme at wound care. LEXX Parker
[2019-05-15] MEDS: ALBUTEROL/IPRATROPIUM 3 ML AMPUL INH (18:13)
[2019-05-15] MEDS: ATORVASTATIN 20 MG TABLET 40 MG PO (22:17)
[2019-05-16] VITALS (7 sets, daily range): BP systolic 125–141; BP diastolic 59–93; PULSE 82–90; RESP 14–20; TEMP 36.3–37.3; O2SAT 94–98
[2019-05-16] MEDS: ACETAMINOPHEN 325 MG TABLET 650 MG PO ×4 (00:01→17:51)
[2019-05-16] MEDS: KETOROLAC 10 MG TABLET PO ×4 (00:03→17:56)
[2019-05-16] MEDS: HEPARIN 5,000 UNIT/ML VIAL 5000 UNIT SUBCUT ×3 (01:58→17:51)
[2019-05-16] MEDS: diphenhydrAMINE 25 MG TABLET PO ×2 (03:30→17:56)
[2019-05-16] MEDS: THIAMINE 100 MG TABLET PO (09:42)
[2019-05-16] MEDS: ASPIRIN EC 81 MG TABLET PO (09:42)
[2019-05-16] MEDS: DOXYCYCLINE HYCLATE 100 MG TABLET PO ×2 (09:42→20:26)
[2019-05-16] MEDS: FOLIC ACID 1 MG TABLET PO (09:42)
[2019-05-16] MEDS: NYSTATIN POWDER 15GM 1 APPLIC TOP ×2 (09:44→20:26)
[2019-05-16] MEDS: MULTIVITAMIN 1 TABLET 1 TAB PO (12:23)
--- NOTE | 2019-05-16 13:50 | PC.NURSE ---
AM NOTE - pt is alert, zaira to bsc w/med formed stool then to chair, chay le edema, large dry flakes, dusky skin color, areas scabbing both legs, after breakfast, removed dsg l foot, cleaned applied iodosorb ointment to dorsum l foot, area w/dark pink wound bed, some serosang drainage, pt has several fluid filled blisters on his r foot, a open blister area l foot, replaced telfa dsg w/op kerlex wrap, lotion to chay calf areas, at lunch given toradol and tylenol for leg discomfort 8 on scale 0/10,
--- NOTE | 2019-05-16 13:52 | PT.IPTN ---
Current Diagnoses Cellulitis of left lower limb (05/07/19) Physical Therapy Treatment Note M2 PT-IP Current Condition Start: 05/09/19 16:43 Freq: NEEDED Status: Active Protocol: Document 05/10/19 11:52 SP (Rec: 05/10/19 12:04 SP [id number]) Physical Therapy Current Condition Current Condition Evaluation Date 05/09/19 Treatment Diagnosis BLE cellulitis; generalized weakness Onset Date 05/07/19 M3 PT-IP Subjective Start: 05/09/19 16:43 Freq: NEEDED Status: Active Protocol: Document 05/16/19 13:52 SP (Rec: 05/16/19 14:11 SP [id number]) Subjective Physical Therapy Visit Type Type Treatment Note Visit Start Time 13:25 Visit Stop Time 13:52 Total Visit Minutes 40 Number of LEGAL INSTRUCTOR Visits 2 Physical Therapy Visit Comments Patient Comments Pt was up in the chair and willing to work with PT. Patient Goals To get back in his bed. M4 PT-IP Mobility and Gait Start: 05/09/19 16:43 Freq: NEEDED Status: Active Protocol: Document 05/16/19 13:52 SP (Rec: 05/16/19 14:11 SP [id number]) PT-Bed Mobility Assessment Sit to Supine Sit to Supine Moderate Assistance,2 Person Assistance Scooting Scooting Up and Down in Bed Maximum Assistance PT-Transfer Assessment Sit to and From Stand Sit to and from Stand Contact Guard Assistance, Maximum Assistance,1 Person Assistance Equipment Transfer Assistive Device None,Gait Belt Orthotic/Prosthetic Devices or Brace: No Transfers Transfer Destination Bed,Chair Transfer Ability Level of Assist Contact Guard Assistance, Moderate Assistance,1 Person Assistance Comments Mobility Comments Instructed LE exercises in chair: ankle pumps, heel slides, LAQ to prep for LE WB pre transfer. Pt was up in his chair and wanting to get back into bed. Pt required Max A x1, CGA of 1 with use of BUE push off chair (gait belt donned), squat pivot on RLE and use of side rail once standing. Min cues for hand placement in transfer planning . M5 PT-IP Objective Assessments Start: 05/09/19 16:43 Freq: NEEDED Status: Active Protocol: Document 05/09/19 14:42 AB (Rec: 05/09/19 16:58 AB [id number]) Orientation Orientation/Cognition Level of Alertness Alert Orientation Name,Place,Situation Safety Awareness Decreased Safety Awareness Gross Range of Motion Lower Extremity ROM Assessment Bilaterally Impaired Impairments L hip ER; L ankle PF tightness (can only go to neutral position and no DF) Strength Lower Extremity Strength Assessment Bilaterally Impaired Comments Strength Comments RLE: 3-/5 LLE: 2-/5 Sensation Assessment Sensation Gross Sensation Right LE Impaired,Left LE Impaired Light Touch Impaired Proprioception (Position) Impaired Sensation Description Numbness Comments Sensation Comments c/o numbness on BLE L>R M6 PT-IP Treatment Start: 05/09/19 16:43 Freq: NEEDED Status: Active Protocol: Document 05/16/19 14:11 SP (Rec: 05/16/19 14:12 SP [id number]) Physical Therapy Treatment Exercises Exercises Ankle Pumps,Heel Slides,Seated Knee Flexion/Extension Education Education Provided Safety M7 PT-IP Assessment and Plan Start: 05/09/19 16:43 Freq: NEEDED Status: Active Protocol: Document 05/16/19 13:52 SP (Rec: 05/16/19 14:11 SP [id number]) PT Summary Assessment and Plan Potential Rehabilitation Potential Fair Status of Condition at Evaluation Evolving Summary Impairments Pain,ROM,Strength,Balance, Coordination,Sensation,Tone, Cognition,Bed Mobility, Transfers,Gait,Activity Tolerance Assessment Summary Pt contiues to required Mod x1 -2 persons for all mobility and is unsafe to transfer indepently. Pt required Max A of 2 to scoot up in bed, cued for BUE use of trapeez for increased independence. LEGAL INSTRUCTOR provided call light at side and rails up with bed sensory on for safety. Goals Bed Mobility Goal Moderate Assistance Transfer Goal Minimal Assistance,Front Wheeled Walker Days to Meet Goals 10 Frequency of Treatment Frequency Of Treatment Once a Day Treatment Plan Physical Therapy Treatment Plan Bed Mobility Training,Transfer Training,Gait Training, Therapeutic Exercise,Balance Retraining,Discharge Planning, Hot or Cold Pack,Neuromuscular Re-ed,Coordination Retraining Recommendations To Nursing Amount of Assist Needed 2 Person Assist Discharge Recommendations PT Discharge Recommendations SNF Rehab,[facility]
--- NOTE | 2019-05-16 14:13 | CM.DPC ---
DCP continued: Spoke with Zonia from [facility] in [place] and she let me know that the [facility] decided not to take the patient after all. CM called Patients [facility] at [phone] and LM to get help from them to find placement. CM will start reaching out to [facility] and [facility] and send Clinicals for them to review. Dilma Piper RN
--- NOTE | 2019-05-16 14:48 | PC.NURSE ---
Pt. has blister on right inner side of foot near ankle that was reported as burst. At nurses direction, cleaned with sterile saline, dried and placed gentle foam border dressing.
--- NOTE | 2019-05-16 17:57 | PM.PN.1 ---
Subjective Subjective Date Patient Seen: 05/16/19 Interval history: Patient reports some shortness of breath. He continues to have ulcerations and pain of his lower extremity. He has been getting dressing changes twice daily. Plans are underway for placement at a long-term facility in [place]. Plans are for him to discharge tomorrow. Exam Vital Signs (past 8 hours): - 05/16/19 10:03 05/16/19 14:00 05/16/19 15:36 Temperature 97.9 F 97.4 F L Pulse Rate 87 84 Respiratory Rate 14 18 Blood Pressure 127/84 139/79 Pulse Oximetry 98 97 96 Fraction of Inspired Oxygen 21 Oxygen Delivery Method Room Air Oxygen Flow Rate 0 Narrative Exam Narrative: Disheveled ill-appearing male Lungs: Decreased breath sounds with scattered rhonchi Cardiac exam: Regular rate and rhythm normal S1-S2 Abdomen: Soft and nontender Extremities: Multiple blisters on the feet bilaterally, erythema and swelling bilaterally, no heat warmth or discharge. Objective Labs Result Diagrams: 05/11/19 05:41 05/12/19 05:55 Assessment & Plan Assessment & Plan narrative: 1. A 63-year-old male admitted to the hospital with cellulitis and chronic skin and soft tissue changes of bilateral feet. Patient has completed IV antibiotics and is now on oral doxycycline. He will continue with b.i.d. wound care dressing. Arrangements have been made for him to go to a long-term unit in [place]. He will continue to receive treatment there. 2. Acute alcohol withdrawal now resolved 3. COPD, chronic Continue inhaler 4. Hyperlipidemia, continue statin 5. History of CVA, chronic 6. Hypomagnesemia, Replaced Plan await for placement at the long-term unit tomorrow.
--- NOTE | 2019-05-16 18:00 | PM.EVENT ---
Event Note Date Patient Seen: 05/16/19 Event Note: Patient was discharged several days ago and appealed his discharge. Medicare agreed that the patient could be discharged it was felt that he had an unsafe discharge S the patient is homeless. He has bilateral foot ulcers and blisters. He remains on oral doxycycline. He is continuing wound dressings twice daily. Arrangements have been made for him to go to a longterm facility and [place]. The patient will be discharged there tomorrow.
--- NOTE | 2019-05-16 18:04 | OT.IP.TRT ---
Current Diagnoses Cellulitis of left lower limb (05/07/19) Occupational Therapy Treatment Note M2 OT-IP Current Condition Start: 05/10/19 15:41 Freq: Status: Active Protocol: Document 05/11/19 15:33 [facility] (Rec: 05/11/19 15:53 [facility] [id number]) Occupational Therapy Current Condition Current Condition Evaluation Date 05/11/19 Treatment Diagnosis BLE cellulitis, generalized weakness Diagnosis Onset Date 05/07/19 M3 OT- IP Subjective and Pain Start: 05/10/19 15:41 Freq: Status: Active Protocol: Document 05/16/19 18:01 [facility] (Rec: 05/16/19 18:04 [facility] [id number]) OT- Subjective Occupational Therapy Visit Type Type Patient Unavailable Notes Nursing working with pt and pt states already got up twice and not wanting to do more today. Pt states open to doing LB dressing tomorrow to beni and doffing pants for OT session.
--- NOTE | 2019-05-16 18:41 | PM.PN.1 ---
Subjective Subjective Date Patient Seen: 05/15/19 Interval history: 63-year-old male admitted to the hospital for lower extremity cellulitis, COPD, hypomagnesemia, and hyponatremia. Patient has been getting inpatient wound care. He has completed IV antibiotics and is now on oral antibiotics. Social work and care management is working closely to find a place for him. They have attempted multiple facilities each of which have refused him. They have contacted a longterm facility [place] who is evaluating whether they will accept him in transfer. Patient continues to be short of breath. He complains of pain in the lower extremities as well. He has ulcerations and blisters of both feet with excoriations of both lower extremities. Exam Vital Signs (past 8 hours): - 05/16/19 14:00 05/16/19 15:36 Temperature 97.9 F 97.4 F L Pulse Rate 87 84 Respiratory Rate 14 18 Blood Pressure 127/84 139/79 Pulse Oximetry 97 96 Fraction of Inspired Oxygen 21 Oxygen Delivery Method Room Air Oxygen Flow Rate 0 Narrative Exam Narrative: Ill appearing disheveled male Lungs: Diffuse rhonchi bilaterally Cardiac exam: Regular rate and rhythm normal S1-S2 Abdomen: Soft nontender nondistended without hepatosplenomegaly Extremities: Significant excoriations and abrasions of both lower extremities. Patient has clinton from scratching both lower extremities. He has blisters on the medial and lateral side of both feet. There are at least 3 or 4 blisters of varying sizes. There is no exudate drainage or collections of pus. There is erythema of both lower extremities. Objective Labs Result Diagrams: 05/11/19 05:41 05/12/19 05:55 Assessment & Plan Assessment & Plan narrative: Impression 1. 63-year-old male admitted to the hospital with cellulitis and chronic skin changes of both lower extremities with chronic ulcerations of both feet. Patient is now on oral antibiotics. Will continue wound care dressing as outlined. 2. Hypomagnesemia now resolved 3. Acute alcohol withdrawal now resolved 4. COPD, chronic, continue usual inhalers 5. History of CVA 6. Hyponatremia, resolved Plan awaiting placement anticipate discharge to the longterm facility tomorrow.
[2019-05-16] MEDS: ATORVASTATIN 20 MG TABLET 40 MG PO (20:25)
[2019-05-16] MEDS: ALBUTEROL/IPRATROPIUM 3 ML AMPUL INH (20:26)
--- NOTE | 2019-05-16 22:19 | PC.NURSE ---
Pt alert and awake. Dressing change done on left foot, Dr Meade at bedside assessing wounds. Pt tolerated dressing change well. Tordal given prior to dressing change for pain. Pt also reported itching on BLE, resolved with benedryl. Pt having SOB during shift, resolved with nebs. Pt turning self in bed. Pt has no complaints. Pain controlled. [facility]
[2019-05-17] VITALS (7 sets, daily range): BP systolic 121–148; BP diastolic 62–87; PULSE 75–85; RESP 14–20; TEMP 36.1–36.6; O2SAT 94–98
[2019-05-17] MEDS: HEPARIN 5,000 UNIT/ML VIAL 5000 UNIT SUBCUT ×3 (02:38→17:14)
[2019-05-17] MEDS: KETOROLAC 10 MG TABLET PO ×2 (02:41→09:54)
[2019-05-17] MEDS: diphenhydrAMINE 25 MG TABLET PO ×2 (02:43→23:48)
[2019-05-17] MEDS: ACETAMINOPHEN 325 MG TABLET 650 MG PO ×3 (05:50→23:43)
[2019-05-17] MEDS: THIAMINE 100 MG TABLET PO (09:54)
[2019-05-17] MEDS: NYSTATIN POWDER 15GM 1 APPLIC TOP ×2 (09:54→22:03)
[2019-05-17] MEDS: ASPIRIN EC 81 MG TABLET PO (09:54)
[2019-05-17] MEDS: DOXYCYCLINE HYCLATE 100 MG TABLET PO ×2 (09:54→22:02)
[2019-05-17] MEDS: FOLIC ACID 1 MG TABLET PO (09:54)
--- NOTE | 2019-05-17 10:03 | OT.IP.TRT ---
Current Diagnoses Cellulitis of left lower limb (05/07/19) Occupational Therapy Treatment Note M2 OT-IP Current Condition Start: 05/10/19 15:41 Freq: Status: Active Protocol: Document 05/11/19 15:33 [facility] (Rec: 05/11/19 15:53 [facility] [id number]) Occupational Therapy Current Condition Current Condition Evaluation Date 05/11/19 Treatment Diagnosis BLE cellulitis, generalized weakness Diagnosis Onset Date 05/07/19 M3 OT- IP Subjective and Pain Start: 05/10/19 15:41 Freq: Status: Active Protocol: Document 05/17/19 09:48 [facility] (Rec: 05/17/19 10:02 [facility] [id number]) OT- Subjective Occupational Therapy Visit Type Type Treatment Note Visit Start Time 09:07 Visit Stop Time 09:48 Total Visit Minutes 39 Occupational Therapy Visit Comments Patient Comments Pt has pain in bilateral feet but did not give a number, They hurt like hell. Pt motivated to go to skilled rehab. OT Pain Assessment Pain When Pain Assessed At Rest Pain Present Pain Present Pain Reported M4 OT- IP ADL's Start: 05/10/19 15:41 Freq: Status: Active Protocol: Document 05/17/19 09:48 [facility] (Rec: 05/17/19 10:02 [facility] [id number]) OT ADL-Grooming General Evaluation Grooming Ability Independent Areas Needing Assistance Retrieving/Set-up of Grooming Items Comments OT Grooming Comments Independent while sitting in the recliner in front of the sink. Pt's nails very soiled and able to soak his hands and pt able to brush his nails with a toothbrush to help clean them . Therapist had to assist VENTURA for completeness. OT ADL-Oral Care General Eval Oral Care Ability Independent OT ADL-Dressing General Eval Lower Body Dressing Ability Standby Assistance,Moderate Assistance Comments OT Dressing Comments Today pt able to beni/doff his pants while sitting in the recliner to start and use of sink to help stand and then able to beni/doff over his hips. Pt needing cues to use at least one hand on the sink for balance while using the other to assist to pull up the sweat pants. M5 OT- IP IADL's Start: 05/10/19 15:41 Freq: Status: Active Protocol: Document 05/11/19 15:33 [facility] (Rec: 05/11/19 15:53 [facility] [id number]) OT-Instrumental Activities of Daily Living Medication Management Medication Management Comments Pt states does not take any medications. Meal Preparation Meal Preparation Comments Pt goes to restaurants for meals. Driving Driving Comments Pt uses scooter to get around. M6 OT- IP Functional Cognition Start: 05/10/19 15:41 Freq: Status: Active Protocol: Document 05/17/19 09:48 [facility] (Rec: 05/17/19 10:02 [facility] [id number]) Cognitive Factors Limiting Selfcare Function Cognitive Comments Cognitive Assessment Comments Pt appears to be at baseline for cognition. Pt likes to joke around and give the therapist a hard time, but agreeable to participate in therapy. M7 OT- IP Mobility and Balance Start: 05/10/19 15:41 Freq: Status: Active Protocol: Document 05/17/19 09:48 [facility] (Rec: 05/17/19 10:02 [facility] [id number]) OT- Bed Mobility Assessment Scooting Scooting to Edge of Bed Moderate Assistance OT-Transfer Assessment Sit to and From Stand Sit to and from Stand Standby Assistance Transfers Transfer Ability Standby Assistance Technique Transfer Destination Bed,Chair Transfer Technique Squat Pivot Devices Transfer Assistive Devices None,Gait Belt Comments Mobility Comments Pt able to get himself upright from supine to sitting and needing MODA to help scoot to the edge of the bed. After placement of recliner to the right, pt able to grab the far armrest of the recliner and squat pivot to the recliner. Pt has a hard time to control his descent. SBA . assist to hold recliner in place. Pt able to get himself to stand from the recliner if able to hold onto the sink in front of him with SBA. OT- Gait Assessment Comments Gait Ability Comments Pt does not ambulate and has an electric scooter. OT- Balance Assessment Sitting Balance and Reactions Static Sitting Balance Ability Normal Dynamic Sitting Balance Ability Good Standing Balance and Reactions Static Standing Balance Ability Poor M8 OT- IP Objective Assessments Start: 05/10/19 15:41 Freq: Status: Active Protocol: Document 05/11/19 15:33 [facility] (Rec: 05/11/19 15:53 [facility] [id number]) OT Gross Range of Motion Upper Extremity Range of Motion Assessment Within Functional Limits OT Strength Upper Extremity Strength Assessment Within Functional Limits Comments Strength Comments WFL to be able to assist for transfer needs. OT- Coordination Assessment Comments Coordination Comments Pt needing assist to open small packet of sauces during meal time. M9 OT- IP Assessment and Plan Start: 05/10/19 15:41 Freq: Status: Active Protocol: Document 05/17/19 09:48 [facility] (Rec: 05/17/19 10:02 [facility] [id number]) OT Summary Assessment and Plan Potential Rehabilitation Potential Good Analytic Complexity at Evaluation Low Summary OT Impairments Strength,Balance,Functional Mobility,Dressing,Toileting, Bathing,Toilet Transfers, Shower Transfers Progress Towards Goals Progressing Toward Goals Assessment Summary Today pt able to beni/doff sweat pants without use of adaptive equipment with close SBA and use of sink to help to stand. Pt's transfer to recliner also SBA. Pt making improvements, however would benefit from skilled rehab to get stronger, improve with safety of transfers and ADl's by increasing overall strength to help increase control to sit down, core strength, increase flexibility to improve ability to do Adl needs. Goals Dressing Goal Independent Toileting Goal Independent Bathing Goal Moderate Assistance Toilet Transfer Goal Independent Shower Transfer Goal Moderate Assistance Days to Meet Goals 8 Frequency of Treatment Frequency Of Treatment Once a Day Treatment Plan OT Treatment Plan ADL Training,Functional Mobility,Patient/Family Education,Discharge Planning Other Treatment Recommendations and Next toileting, shower if Treatment Focus appropriate Discharge Recommendations OT Discharge Recommendations SNF Rehab,[facility]
--- NOTE | 2019-05-17 11:31 | PC.NURSE ---
Addendum entered by Marjorie Shields R.N. 05/17/19 15:39: PAIN - given 50mg po tramadol after lunch, pt reports this has provided improved relief le discomfort. Original Note: AM NOTE - pt is alert, states pain le 8 on scale 0/10, x2 person up and pivot to bsc after breakfast w/large bm, OT in to assist w/adl's, pt dsg to l foot was loose and had come off, the toes treated with iodine, a new telfa dsg applied w/iodosorb to dorsum l foot wound, has x2 large opened blisters r+l feet w/smaller open blister r heel, redressed l foot and placed an allevyn to the r foot blister w/pink wound bed. lotion to chay scaling calves, given tramadol for discomfort, later Dr. Meade in and discussed change in pain medications, will dc toradol and add ultram.
[2019-05-17] MEDS: TRAMADOL 50 MG TABLET PO ×3 (12:48→23:48)
--- NOTE | 2019-05-17 14:08 | CM.DPC ---
Ongoing placement planning: Per MD, pt continues to remain stable and will consult [facility] MD to determine if they need to consult with the pt here at the hospital or keep scheduled appointment for tomorrow for outpt follow up in anticipation that pt may d/c today. Pt has been declined by many SNF's due to the barrier of homelessness and d/c plan back to community after SNF rehab. SW called pt's [facility] Kimmy Luma [phone] and left msg requesting call back to further discuss pt as he continues to be declined by SNF's. SW called recommended [place] SNF's that Kimmy mentioned and [place] [facility] not SNF and left msg for [facility] ([phone]) and spoke to admissions at [facility] ([phone]) and discussed pt's current situation and she was still willing to review and ANJU Hood kindly faxed clinical packet. SW called [facility] and was transferred to coordinator Latrice ([phone]) who states that currently they are not accepting new referrals and cannot accept the pt at this time. SW called [facility] Kimmy Kenyatta ([phone]) and discussed pt situation and she is also willing to review and ANJU Hood faxed clinical packet to review. ANJU Hood also faxed [facility] and [facility] both in [facility] to review. Plan: SW to follow closely for [facility] review and two SNF's in [facility] and one in [place]. LEXX Gibbons
[2019-05-17] MEDS: MULTIVITAMIN 1 TABLET 1 TAB PO (14:50)
--- NOTE | 2019-05-17 15:00 | PT.IPTN ---
Current Diagnoses Cellulitis of left lower limb (05/07/19) Physical Therapy Treatment Note M2 PT-IP Current Condition Start: 05/09/19 16:43 Freq: NEEDED Status: Active Protocol: Document 05/10/19 11:52 SP (Rec: 05/10/19 12:04 SP [id number]) Physical Therapy Current Condition Current Condition Evaluation Date 05/09/19 Treatment Diagnosis BLE cellulitis; generalized weakness Onset Date 05/07/19 M3 PT-IP Subjective Start: 05/09/19 16:43 Freq: NEEDED Status: Active Protocol: Document 05/17/19 15:00 SP (Rec: 05/17/19 15:25 SP [id number]) Subjective Physical Therapy Visit Type Type Treatment Note Visit Start Time 14:35 Visit Stop Time 15:00 Total Visit Minutes 25 Notes Pt awake up in chair and pain is better. 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 Patient Goals Get better with transfers but to stay up in chair when done. Therapy Pain Assessment Pain Present Pain Present Denied Pain M4 PT-IP Mobility and Gait Start: 05/09/19 16:43 Freq: NEEDED Status: Active Protocol: Document 05/17/19 15:00 SP (Rec: 05/17/19 15:25 SP [id number]) PT-Transfer Assessment Sit to and From Stand Sit to and from Stand Minimal Assistance,Moderate Assistance,1 Person Assistance ,Use of Upper Extremities Equipment Transfer Assistive Device Bed Rail,Gait Belt Orthotic/Prosthetic Devices or Brace: No Transfers Transfer Destination Bed,Chair Transfer Technique Squat Pivot Transfer Ability Level of Assist Minimal Assistance,Moderate Assistance,1 Person Assistance ,Use of Upper Extremities Comments Mobility Comments Pt required Mod assist x1 during initial squat pivot transfer to L chair>bed Mod cued for using BUE push from chair then reach across with L closest UE for rail on bed or chair arm then return, 2nd needed decreased support Min A x1 with follow through on hand placement and body positioning. PT-Balance Assessment Sitting Balance and Reactions Static Sitting Balance Ability Good Dynamic Sitting Balance Ability Good Comments Other Balance Tests/Deviations/Treatment Dynamic reaching alternating : BUE (LUE limted in ROM), for objects and placing on side table to progress in dynamic trunk mobility for ADLs with no LOB or deviations. BLE supported on floor , up in chair. M5 PT-IP Objective Assessments Start: 05/09/19 16:43 Freq: NEEDED Status: Active Protocol: Document 05/09/19 14:42 AB (Rec: 05/09/19 16:58 AB [id number]) Orientation Orientation/Cognition Level of Alertness Alert Orientation Name,Place,Situation Safety Awareness Decreased Safety Awareness Gross Range of Motion Lower Extremity ROM Assessment Bilaterally Impaired Impairments L hip ER; L ankle PF tightness (can only go to neutral position and no DF) Strength Lower Extremity Strength Assessment Bilaterally Impaired Comments Strength Comments RLE: 3-/5 LLE: 2-/5 Sensation Assessment Sensation Gross Sensation Right LE Impaired,Left LE Impaired Light Touch Impaired Proprioception (Position) Impaired Sensation Description Numbness Comments Sensation Comments c/o numbness on BLE L>R M6 PT-IP Treatment Start: 05/09/19 16:43 Freq: NEEDED Status: Active Protocol: Document 05/17/19 15:00 SP (Rec: 05/17/19 15:25 SP [id number]) Physical Therapy Treatment Education Education Provided Safety M7 PT-IP Assessment and Plan Start: 05/09/19 16:43 Freq: NEEDED Status: Active Protocol: Document 05/17/19 15:00 SP (Rec: 05/17/19 15:25 SP [id number]) PT Summary Assessment and Plan Potential Rehabilitation Potential Fair Status of Condition at Evaluation Evolving Summary Impairments ROM,Strength,Balance,Transfers ,Gait,Activity Tolerance Assessment Summary Pt continues to require Mod A of 1-2 persons for all mobility and is unsafe to transfer independently. Pt placed call light next to patient. Goals Bed Mobility Goal Moderate Assistance Transfer Goal Minimal Assistance,Front Wheeled Walker Days to Meet Goals 10 Frequency of Treatment Frequency Of Treatment Once a Day Treatment Plan Physical Therapy Treatment Plan Bed Mobility Training,Transfer Training,Gait Training, Therapeutic Exercise,Balance Retraining,Discharge Planning, Hot or Cold Pack,Neuromuscular Re-ed,Coordination Retraining Recommendations To Nursing Amount of Assist Needed 2 Person Assist Discharge Recommendations PT Discharge Recommendations SNF Rehab,[facility]
--- NOTE | 2019-05-17 17:41 | PM.PN.1 ---
Subjective Subjective Date Patient Seen: 05/17/19 Interval history: The patient is a 63-year-old male admitted to the hospital with bilateral lower extremity ulcerations, cellulitis, COPD, hyperlipidemia, alcohol withdrawal, hypertension who is homeless and was living in his wheelchair on the streets. Patient reports he has not worn issues in quite some time. He developed cellulitis with ulcerations of his lower extremities with blistering. He has been in the hospital getting wound care for his lower extremity wounds. The patient has been a difficult placement. It we have tried multiple facilities none of which are agreeable to taking the patient. He continues to report pain of both feet. Exam Vital Signs (past 8 hours): - 05/17/19 10:31 05/17/19 12:16 05/17/19 15:20 Temperature 97.0 F L 97.9 F Pulse Rate 77 80 85 Respiratory Rate 14 16 19 Blood Pressure 148/87 H 145/87 H Pulse Oximetry 98 96 95 Fraction of Inspired Oxygen 21 Oxygen Delivery Method Room Air Oxygen Flow Rate 0 Narrative Exam Narrative: Ill appearing disheveled male somewhat uncomfortable Lungs: Decreased breath sounds with scattered rhonchi bilaterally Cardiac exam: Regular rate and rhythm normal S1-S2 Abdomen: Soft nontender nondistended Extremities: Bilateral excoriations, scaling of both lower extremities, there is erythema of both legs bilaterally. There are multiple blisters on the lateral and medial aspects of both feet. Some of the blisters have broken down with open areas. He has discoloration of several digits on the left foot. Both feet are swollen and edematous. Objective Labs Result Diagrams: 05/11/19 05:41 05/12/19 05:55 Assessment & Plan Assessment & Plan narrative: 63-year-old male admitted to the hospital with cellulitis and chronic skin changes of both lower extremities with chronic ulcerations of both feet. Patient is now on oral antibiotics. Will continue wound care dressing as outlined. I have discussed with Dr. Berman from the wound Care Clinic who will evaluate the patient for possible debridement of his lower extremities. Patient likely will need multiple debridements to improve the chronic skin changes and ulcerations. Will continue current dressing changes until updated from the wound care clinic. 2. Hypomagnesemia now resolved 3. Acute alcohol withdrawal now resolved 4. COPD, chronic, continue usual inhalers 5. History of CVA 6. Hyponatremia, resolved 7. Homeless The patient's major issue is disposition. As he is homeless we have been unable to find facility willing to accept him. He appealed his discharge from Medicare who up held the discharge that was completed several days ago. Despite that it is felt that the patient is an unsafe discharge. We are actively looking for either a facility that will take him or an alternative for discharge. The patient will be seen by the wound care clinic this evening. Hopefully they can attempt debridement this evening and he will set up an outpatient evaluation such that he can give further debridement as needed. Will continue with wound care recommendations as outlined by the wound care clinic.
--- NOTE | 2019-05-17 18:30 | P.CONS_ITS ---
History of Present Illness Consult details Date Patient Seen: 05/17/19 Time Patient Seen: 18:30 Chief complaint: Leg swelling Reason for consult: Evaluate LE ulcers for debridement Requesting provider: Letha Lama Narrative: The patient is a 63-year-old non-adherent, alcoholic, homeless, diet-controlled diabetic male admitted for lower extremity cellulitis. This responded to vancomycin and ceftriaxone and he was transitioned to oral doxycycline in anticipation of discharge to SNF. Discharge placement has proven to be quite difficult. He currently complains of bilateral foot swelling, pain, pruritus, and blistering foot associated drainage. He is a poor historian and cannot provide information as to when the symptoms started. FORMERLY [facility], [facility] Medical History Chronic pain (Acute) COPD with emphysema (Acute) CVA (cerebral vascular accident) (Acute) Diabetes type 2, controlled (Acute) Dyslipidemia (Acute) Gout (Acute) Hypertension, malignant (Acute) Peripheral vascular disease (Acute) Surgical History History of appendectomy (Acute) Social History household members: none Smoking Status: Former smoker alcohol intake: current Social History household members: none Smoking Status: Former smoker alcohol intake: current Meds Home Medications and Allergies Home Medications Medication Instructions Recorded Confirmed Type acetaminophen 650 mg PO Q6HR PRN 30 Days #30 tab 05/12/19 Rx albuterol sulfate [Ventolin HFA] 2 puff INHALATION Q6H PRN 30 Days 05/12/19 Rx #8 gram aspirin 81 mg PO DAILY 30 Days #30 tab 05/12/19 Rx atorvastatin [Lipitor] 40 mg PO BEDTIME 30 Days #60 tab 05/12/19 Rx folic acid 1 mg PO DAILY 30 Days #30 tab 05/12/19 Rx lisinopril 20 mg PO DAILY 30 Days #30 tab 05/12/19 Rx multivitamin [Tab-A-Sherri] 1 tab PO DAILY 30 Days #30 tab 05/12/19 Rx thiamine HCl (vitamin B1) [Vitamin 100 mg PO DAILY 30 Days #30 tab 05/12/19 Rx B-1] diphenhydramine HCl [Benadryl 25 mg PO TID PRN #10 tab 05/13/19 Rx Allergy] Allergies Allergy/AdvReac Type Severity Reaction Status Date / Time No Known Allergies Allergy Verified 05/07/19 19:18 Review of Systems Review of Systems Narrative: Constitutional: Reports fatigue; Denies fevers, chills, night sweats, anorexia, weight loss, malaise. Integumentary: Reports drainage, pain; Denies wound redness, odor. Exam Vital Signs (past 8 hours): - 05/18/19 16:00 05/18/19 19:35 05/18/19 19:42 Temperature 98.3 F 97.9 F Pulse Rate 81 83 83 Respiratory Rate 18 Blood Pressure 134/72 136/71 Pulse Oximetry 97 95 98 Fraction of Inspired Oxygen 21 Oxygen Delivery Method Room Air Oxygen Flow Rate 0 Narrative Exam Narrative: Constitutional: VS reviewed (see above). NAD. Conversant. Disheveled. Eyes: Sclerae anicteric. Ears, Nose, Mouth, and Throat: Normal hearing Respiratory: Normal respiratory effort. Cardiovascular: Bilateral feet and legs appear edematous proximally to the knees. Musculoskeletal: Nonambulatory. Wheelchair dependent. No digital cyanosis or clubbing. No prior amputations. Neurological: LOPS noted bilaterally. Left > right lower extremity weakness. Psychiatric: Judgment intact. A&OX3. Affect appropriate. Integumentary (Hair, Skin) Inspection and palpation of skin and subcutaneous tissues: Two intact blisters on R foot, one laterally near 5th MTPJ and the other on the dorsal 4th toe. Th eva appear to be filled with serous fluid and are tense to touch. Multiple other areas of unroofed blistering, resulting in partial-thickness ulcerations of the bilateral feet associated with a small amount of serous drainage. There is no odor. There is erythema and increased warmth to palpation present up the bilateral legs, likely on the basis of venous stasis. I do not appreciate any obvious s/s of infection. Objective Labs Result Diagrams: 05/17/19 20:45 05/17/19 20:45 Labs: 05/12/19: Albumin 3.1 05/07/19: BNP < 100; WBC 10.4, and has remained normal throughout admission; ESR 32; CRP 3.4; procalcitonin < 0.05; lactate 2.7-->2.0-->1.0; X-ray left foot without any evidence of osteomyelitis. Marked soft tissue swelling over the dorsum of the forefoot; x-ray right foot without any evidence of osteomyelitis. Mild forefoot soft tissue swelling. 03/26/19: MRI left foot without convincing evidence of osteomyelitis. Changes consistent with cellulitis of the dorsum of the left foot. Assessment & Plan Assessment & Plan narrative: 63-year-old male with lower extremity cellulitis that appears to be controlled. He has multiple blisters, most of which are unroofed, on the feet and he complains of associated pain and pruritus. Differential is vast and includes bullosis diabeticorum, bullous pemphigoid, bullous impetigo, venous stasis dermatitis. Multiple social barriers with respect to homelessness, including food insecurity, poor nutrition, poor personal hygiene, lack of transportation, difficulty in compliance, inability to obtain medications, etc. Patient declines bedside debridement. Compression therapy could be utilized if adequate arterial perfusion could be demonstrated. Elevate legs. Could consider dermatology consultation as an outpatient to further clarify etiology and guide treatment. Possible testing would include biospy and/or lab testing such as anti-skin antibodies. Dressing recommendations made. See orders. We would be happy to have him follow-up in wound clinic for outpatient wound care.
[2019-05-17 20:51] LABS: Add Manual Diff / Slide Review NO; Basophils Absolute Auto 100 /uL (0-100); Basophils Percent Auto 1.3 % (0-2); Eosinophils Absolute Auto 700 /uL (0-450); Hematocrit 40.1 % (41-53); Hemoglobin 13.3 g/dL (13.5-17.5); Lymphocytes Absolute Auto 2400 /uL (1100-4500); Lymphocytes Percent Auto 29.5 % (25-40); Mean Corpuscular HGB Conc 33.1 % (30-36); Mean Corpuscular Volume 93.8 fL (80-100); Monocytes Absolute Auto 800 /uL (0-900); Monocytes Percent Auto 9.4 % (3-14); Neutrophils Absolute Auto 4100 /uL (1500-7000); Neutrophils Percent Auto 50.8 % (50-75); Platelet Count 211 X10^3/uL (150-400); Red Blood Cell Count 4.27 X10^6/uL (4.5-5.9); Red Cell Distribution Width 14.3 % (11.6-14.8); White Blood Cell Count 8.2 X10^3/uL (4.5-11.0)
[2019-05-17 21:13] LABS: Blood Urea Nitrogen 27 mg/dL (9-20); Calcium 9.9 mg/dL (8.4-10.2); Carbon Dioxide 32 mmol/L (22-32); Chloride 100 mmol/L (98-107); Estimated Glomerular Filt Rate > 60.0 mL/min (>60); Glucose 94 mg/dL (80-110); HEMOLYSIS < 15 (0-50); Potassium 4.4 mmol/L (3.4-5.1); Sodium 139 mmol/L (137-145)
[2019-05-17 22:00] LABS: Procalcitonin < 0.05 ng/mL (<0.5)
[2019-05-17] MEDS: ATORVASTATIN 20 MG TABLET 40 MG PO (22:02)
[2019-05-18] VITALS: BP 127/64; PULSE 87; RESP 16; TEMP 36.9; O2SAT 93
[2019-05-18] MEDS: HEPARIN 5,000 UNIT/ML VIAL 5000 UNIT SUBCUT ×3 (02:52→18:19)
[2019-05-18 06:00] VITALS: BP 133/79; PULSE 79; RESP 16; TEMP 36.8; O2SAT 94
[2019-05-18] MEDS: ACETAMINOPHEN 325 MG TABLET 650 MG PO ×2 (06:26→18:18)
[2019-05-18] MEDS: TRAMADOL 50 MG TABLET PO ×3 (06:26→21:59)
[2019-05-18 08:00] VITALS: BP 111/56; PULSE 81; RESP 16; TEMP 36.4; O2SAT 94
[2019-05-18] MEDS: THIAMINE 100 MG TABLET PO (09:33)
[2019-05-18] MEDS: ASPIRIN EC 81 MG TABLET PO (09:33)
[2019-05-18] MEDS: DOXYCYCLINE HYCLATE 100 MG TABLET PO ×2 (09:33→21:59)
[2019-05-18] MEDS: FOLIC ACID 1 MG TABLET PO (09:33)
[2019-05-18] MEDS: NYSTATIN POWDER 15GM 1 APPLIC TOP ×2 (09:34→22:01)
--- NOTE | 2019-05-18 11:35 | OT.IP.TRT ---
Current Diagnoses Cellulitis of left lower limb (05/07/19) Occupational Therapy Treatment Note M2 OT-IP Current Condition Start: 05/10/19 15:41 Freq: Status: Active Protocol: Document 05/11/19 15:33 [facility] (Rec: 05/11/19 15:53 [facility] [id number]) Occupational Therapy Current Condition Current Condition Evaluation Date 05/11/19 Treatment Diagnosis BLE cellulitis, generalized weakness Diagnosis Onset Date 05/07/19 M3 OT- IP Subjective and Pain Start: 05/10/19 15:41 Freq: Status: Active Protocol: Document 05/18/19 11:12 [facility] (Rec: 05/18/19 11:34 [facility] [id number]) OT- Subjective Occupational Therapy Visit Type Type Treatment Note Visit Start Time 09:33 Visit Stop Time 10:20 Total Visit Minutes 47 Occupational Therapy Visit Comments Patient Comments Pt agreeable to shower. Patient/Caregiver Goals Pt motivated to go to skilled rehab. OT Pain Assessment Pain When Pain Assessed At Rest Pain Present Pain Present Denied Pain M4 OT- IP ADL's Start: 05/10/19 15:41 Freq: Status: Active Protocol: Document 05/18/19 11:12 [facility] (Rec: 05/18/19 11:34 [facility] [id number]) OT ADL-Grooming General Evaluation Grooming Ability Independent Areas Needing Assistance Retrieving/Set-up of Grooming Items Comments OT Grooming Comments Independent with grooming needs while sitting from the recliner. OT ADL-Dressing General Eval Upper Body Dressing Ability Standby Assistance Lower Body Dressing Ability Moderate Assistance Comments OT Dressing Comments Pt not able to reach down from the high BSC to initiate getting brief over his feet and after VENTURA to stand with grab bars able to get brief up over his hips. OT ADL-Bathing Bathing Type Bathing Type Shower General Evaluation Bathing Ability Moderate Assistance Areas Needing Assistance Wash/Dry Back,Wash/Dry Perineal Area,Wash/Dry Lower Extremities Devices Bathing Equipment Shower Chair with Arms Comments OT Bathing Comments Pt able to shower for the first time in a long time. Pt able to wash his face, hair, body, under arms , and upper legs. M5 OT- IP IADL's Start: 05/10/19 15:41 Freq: Status: Active Protocol: Document 05/11/19 15:33 [facility] (Rec: 05/11/19 15:53 [facility] [id number]) OT-Instrumental Activities of Daily Living Medication Management Medication Management Comments Pt states does not take any medications. Meal Preparation Meal Preparation Comments Pt goes to restaurants for meals. Driving Driving Comments Pt uses scooter to get around. M7 OT- IP Mobility and Balance Start: 05/10/19 15:41 Freq: Status: Active Protocol: Document 05/18/19 11:12 [facility] (Rec: 05/18/19 11:34 [facility] [id number]) OT-Transfer Assessment Sit to and From Stand Sit to and from Stand Standby Assistance,Moderate Assistance Transfers Transfer Ability Standby Assistance,Minimal Assistance,Moderate Assistance Technique Transfer Destination Bed,Bedside Commode,Chair, Wheelchair Transfer Technique Stand Step Pivot Devices Transfer Assistive Devices None,Gait Belt Comments Mobility Comments Pt tired from showering and needing VENTURA to help pivot from wc to recliner. Pt able to stand from SBA to MODA to grab bars as standing from wc so able to swap out to shower chair. OT- Balance Assessment Sitting Balance and Reactions Static Sitting Balance Ability Normal Dynamic Sitting Balance Ability Good M8 OT- IP Objective Assessments Start: 05/10/19 15:41 Freq: Status: Active Protocol: Document 05/11/19 15:33 [facility] (Rec: 05/11/19 15:53 [facility] [id number]) OT Gross Range of Motion Upper Extremity Range of Motion Assessment Within Functional Limits OT Strength Upper Extremity Strength Assessment Within Functional Limits Comments Strength Comments WFL to be able to assist for transfer needs. OT- Coordination Assessment Comments Coordination Comments Pt needing assist to open small packet of sauces during meal time. M9 OT- IP Assessment and Plan Start: 05/10/19 15:41 Freq: Status: Active Protocol: Document 05/18/19 11:12 [facility] (Rec: 05/18/19 11:34 [facility] [id number]) OT Summary Assessment and Plan Potential Rehabilitation Potential Good Analytic Complexity at Evaluation Low Summary OT Impairments Strength,Balance,Functional Mobility,Dressing,Toileting, Bathing,Toilet Transfers, Shower Transfers Progress Towards Goals Progressing Toward Goals Assessment Summary Today pt able to tolerate multiple transfers and even showering. Pt highly motivated to go to skilled rehab. Goals Dressing Goal Independent Toileting Goal Independent Bathing Goal Moderate Assistance Toilet Transfer Goal Independent Shower Transfer Goal Moderate Assistance Days to Meet Goals 7 Frequency of Treatment Frequency Of Treatment Once a Day Treatment Plan OT Treatment Plan ADL Training,Functional Mobility,Patient/Family Education,Discharge Planning Other Treatment Recommendations and Next toilet transfer safety and Treatment Focus toileting needs. Discharge Recommendations OT Discharge Recommendations SNF Rehab,[facility]
--- NOTE | 2019-05-18 11:42 | P.PN_ITS ---
Subjective Subjective Date Patient Seen: 05/18/19 Time Patient Seen: 11:42 Interval history: He is seen today to follow-up his leg ulcers, pedal edema, homelessness. He would like to go to a retirement facility but no location has been able to accept him due to his financial situation/attitudes at previous placements. The current effort is pointing towards a possible swing bed admission. Exam Vital Signs (past 8 hours): - 05/18/19 06:00 05/18/19 08:00 Temperature 98.2 F 97.5 F L Pulse Rate 79 81 Respiratory Rate 16 16 Blood Pressure 133/79 111/56 L Pulse Oximetry 94 94 Fraction of Inspired Oxygen 21 Oxygen Delivery Method Room Air Oxygen Flow Rate 0 Narrative Exam Narrative: He is alert and oriented x3. Heart is regular rate and rhythm without murmur. He has significant pedal edema on the top of both feet with various scratches/scabs. There is no ankle edema. Objective Labs Result Diagrams: 05/17/19 20:45 05/17/19 20:45 Labs: Laboratory Results - last 24 hr 05/17/19 05/17/19 05/17/19 20:45 20:45 20:45 WBC 8.2 RBC 4.27 L Hgb 13.3 L Hct 40.1 L MCV 93.8 MCH 31.0 MCHC 33.1 RDW 14.3 Plt Count 211 Neut % (Auto) 50.8 Lymph % (Auto) 29.5 [place] % (Auto) 9.4 Eos % (Auto) 9.0 H Baso % (Auto) 1.3 Neut # (Auto) 4100 Lymph # (Auto) 2400 [place] # (Auto) 800 Eos # (Auto) 700 H Baso # (Auto) 100 Sodium 139 Potassium 4.4 Chloride 100 Carbon Dioxide 32 BUN 27 H Creatinine 0.60 L Estimated GFR > 60.0 BUN/Creatinine Ratio 45.0 H Glucose 94 Calcium 9.9 Procalcitonin < 0.05 Assessment & Plan Assessment & Plan narrative: 63-year-old male admitted to the hospital with cellulitis and chronic skin changes of both lower extremities with chronic ulcerations of both feet. Ashley xiong is now on oral antibiotics. Will continue wound care dressing and Dr. Berman from the wound Care Clinic will evaluate the patient for possible debridement of his lower extremities. Patient likely will need multiple debridements to improve the chronic skin changes and ulcerations. Will continue current dressing changes until updated from the wound care clinic. 2. Hypomagnesemia now resolved 3. Acute alcohol withdrawal now resolved 4. COPD, chronic, continue usual inhalers 5. History of CVA 6. Hyponatremia, resolved 7. Homeless The patient's major issue is disposition. As he is homeless we have been unable to find a facility willing to accept him. He would like to go to a retirement facility. He appealed his discharge from Medicare who up held the discharge that was completed several days ago. Despite that it is felt that the patient is an unsafe discharge. We are actively looking for either a facility that will take him or an alternative for discharge. The current effort is pointing towards a possible swing bed admission elsewhere. Will continue with wound care recommendations as outlined by the wound care clinic.
--- NOTE | 2019-05-18 14:27 | CM.DPC ---
Addendum entered by LEXX Gibbons 05/18/19 16:45: ADD: No cabulance available to provide transport for pt tonight and SW able to confirm that Medicaid Transport set up cabulance for pt tomorrow 05/19/19 at 1100 through [facility] ([phone]). BIANCA updated RN, MD, and pt bedside and called [facility] with update. Plan: Patient to d/c to [facility] tomorrow at 1100 via cabulance. LEXX Gibbons Addendum entered by LEXX Gibbons 05/18/19 15:58: ADD: Call from [facility] Kimmy stating they can accept pt and would prefer to have him arrive by 1700 for accepting physician to be available. BIANCA updated MD who is agreeable to write discharge order now. BIANCA met bedside with pt and explained role again and updated on acceptance at [facility] and pt states he is hesitant to go today and that its a big decision. BIANCA discussed that this is the only option for placement and updated that at least 10 SNF's declined. Discussed that [facility] can then continue working on terminal carman care placement from [facility] rehab bed. BIANCA spoke to CM Boring Machine Operator [employer] Tameka who is agreeable that hospital could use [employer] to cover cost of cabulance if Medicaid unable to provide transport before 1700. BIANCA called medicaid transport and confirmed pt has transportation benefits and requested urgent transport set up for d/c mando and faxed in Medicaid form and waiting for call back with confirmation on time. BIANCA called [facility] and [facility] and left ms for both as back up option for transportation. BIANCA also called [facility] and [facility] and both are booked. BIANCA called [facility] (since Kimmy is off for the night) at [phone] and updated on waiting for transport confirmation. She confirms that if transport not available this evening they can accept him between [phone] tomorrow 05/18/19. BIANCA faxed completed PASRR and d/c summary to [place] to review. BF Original Note: DCP Cont: Per MD, pt continues to be medically stable but below baseline and not safe for d/c back to community without SNF or ongoing daily rehab. Per PT/OT, pt still below baseline and not able to independently transfer to his w/c. BIANCA spoke to pt's assigned [facility] CM Kimmy Humphries ([phone]) who confirms that pt has already had his [facility] assessment and received his daily rate for terminal carman care and Kimmy faxed assessment to [facility] to review. Kimmy states that prior to pt being hospitalized for medical needs she was working with pt to set up a Payee for paying bills and pt is agreeable with living anywhere that terminal carman housing can be found. Kimmy aware of the SNF's that have declined pt due to his barriers to discharge and aware that [facility] is reviewing to determine if they can accept. Plan: SW to follow for [facility] review of pt to determine if they can accept and ongoing coordination with Kimmy at [facility] for ongoing prison care needs. LEXX Gibbons
--- NOTE | 2019-05-18 15:09 | PT.IPTN ---
Current Diagnoses Cellulitis of left lower limb (05/07/19) Physical Therapy Treatment Note M2 PT-IP Current Condition Start: 05/09/19 16:43 Freq: NEEDED Status: Active Protocol: Document 05/10/19 11:52 SP (Rec: 05/10/19 12:04 SP [id number]) Physical Therapy Current Condition Current Condition Evaluation Date 05/09/19 Treatment Diagnosis BLE cellulitis; generalized weakness Onset Date 05/07/19 M3 PT-IP Subjective Start: 05/09/19 16:43 Freq: NEEDED Status: Active Protocol: Document 05/18/19 14:12 HH (Rec: 05/18/19 15:08 HH [id number]) Subjective Physical Therapy Visit Type Type Treatment Note Visit Start Time 14:12 Visit Stop Time 14:22 Total Visit Minutes 10 Physical Therapy Visit Comments Patient Comments Pt was up in chair, agreeable to work with therapy, but got quite fatigue after showering with OT assistance early this AM. M4 PT-IP Mobility and Gait Start: 05/09/19 16:43 Freq: NEEDED Status: Active Protocol: Document 05/18/19 14:12 HH (Rec: 05/18/19 15:08 HH [id number]) PT-Transfer Assessment Sit to and From Stand Sit to and from Stand Minimal Assistance,Moderate Assistance,1 Person Assistance ,Use of Upper Extremities Equipment Transfer Assistive Device Bed Rail,Gait Belt Orthotic/Prosthetic Devices or Brace: No Transfers Transfer Destination Bed,Chair Transfer Technique Squat Pivot Transfer Ability Level of Assist Minimal Assistance,Moderate Assistance,1 Person Assistance ,Use of Upper Extremities Comments Mobility Comments Pt required mod A x 1 for 1st squat pivot transfer from low chair to BSC on R side. Then min A from BSC to low chair. Pt primarily WB through RLE and L lateral foot, along pivoting through R foot. PT-Balance Assessment Sitting Balance and Reactions Static Sitting Balance Ability Good Dynamic Sitting Balance Ability Good M5 PT-IP Objective Assessments Start: 05/09/19 16:43 Freq: NEEDED Status: Active Protocol: Document 05/09/19 14:42 AB (Rec: 05/09/19 16:58 AB [id number]) Orientation Orientation/Cognition Level of Alertness Alert Orientation Name,Place,Situation Safety Awareness Decreased Safety Awareness Gross Range of Motion Lower Extremity ROM Assessment Bilaterally Impaired Impairments L hip ER; L ankle PF tightness (can only go to neutral position and no DF) Strength Lower Extremity Strength Assessment Bilaterally Impaired Comments Strength Comments RLE: 3-/5 LLE: 2-/5 Sensation Assessment Sensation Gross Sensation Right LE Impaired,Left LE Impaired Light Touch Impaired Proprioception (Position) Impaired Sensation Description Numbness Comments Sensation Comments c/o numbness on BLE L>R M6 PT-IP Treatment Start: 05/09/19 16:43 Freq: NEEDED Status: Active Protocol: Document 05/17/19 15:00 SP (Rec: 05/17/19 15:25 SP [id number]) Physical Therapy Treatment Education Education Provided Safety M7 PT-IP Assessment and Plan Start: 05/09/19 16:43 Freq: NEEDED Status: Active Protocol: Document 05/18/19 14:12 HH (Rec: 05/18/19 15:08 HH [id number]) PT Summary Assessment and Plan Potential Rehabilitation Potential Fair Status of Condition at Evaluation Evolving Summary Impairments ROM,Strength,Balance,Transfers ,Gait,Activity Tolerance Assessment Summary Pt cont to require min A for squat pivot transfer from BSC to chair and mod from low chair to BSC. Pt will be d/c to SNF today and BIANCA Johnson was wondering if pt could benefit from using W/C transport vehicle vs ambulance. Based on pt's mobility, pt is currently capable to squat pivot transfer with FWW. Goals Bed Mobility Goal Moderate Assistance Transfer Goal Minimal Assistance,Front Wheeled Walker Days to Meet Goals 10 Frequency of Treatment Frequency Of Treatment Once a Day Treatment Plan Physical Therapy Treatment Plan Bed Mobility Training,Transfer Training,Gait Training, Therapeutic Exercise,Balance Retraining,Discharge Planning, Hot or Cold Pack,Neuromuscular Re-ed,Coordination Retraining Recommendations To Nursing Amount of Assist Needed 2 Person Assist Discharge Recommendations PT Discharge Recommendations SNF Rehab,[facility]
[2019-05-18] MEDS: MULTIVITAMIN 1 TABLET 1 TAB PO (15:18)
--- NOTE | 2019-05-18 15:56 | PC.NURSE ---
SHIFT NOTE: LATE ENTRY: PATIENT SHOWERED THIS AM WITH OT AND LEAD INGOT MOLDER. FEET WRAPPED FOR SHOWER. PER REPORT DR. HEATH HAD SEEN PATIENT YESTERDAY [facility] AND CHANGED WOUND CARE ORDERS, BUT NEW ORDERS NOT AVAIL IN CHART. NO NOTE WRITTEN. CALLED CLINIC, DR. HEATH IS OUT SICK TODAY. DRSGS INTACT. LEFT IN PLACE THIS SHIFT. REPORT GIVEN TO CECELIA. SHE WAS HERE FOR THE WOUND CARE YESTERDAY AND WAS GIVEN INSTRUCTIONS. CECELIA IS SPEAKING WITH DR. HEATH WHO CALLED BACK AT 1600 AT THIS TIME.
[2019-05-18 16:00] VITALS: BP 134/72; PULSE 81; RESP 19; TEMP 36.8; O2SAT 97
[2019-05-18 19:35] VITALS: PULSE 83; RESP 16; O2SAT 95
[2019-05-18 19:42] VITALS: BP 136/71; PULSE 83; RESP 18; TEMP 36.6; O2SAT 98
[2019-05-18] MEDS: ATORVASTATIN 20 MG TABLET 40 MG PO (21:59)
[2019-05-19] MEDS: ACETAMINOPHEN 325 MG TABLET 650 MG PO ×2 (00:15→06:52)
[2019-05-19 01:00] VITALS: BP 121/63; PULSE 83; RESP 16; TEMP 36.6
[2019-05-19] MEDS: HEPARIN 5,000 UNIT/ML VIAL 5000 UNIT SUBCUT ×2 (02:36→09:30)
[2019-05-19] MEDS: diphenhydrAMINE 25 MG TABLET PO (05:15)
[2019-05-19] MEDS: TRAMADOL 50 MG TABLET PO (05:15)
--- NOTE | 2019-05-19 05:38 | PC.NURSE ---
Pt has pain 8/10 bilateral lower legs and itching. Pt was given Tramadol at 0515 and Benadryl.
[2019-05-19 05:58] VITALS: BP 139/82; PULSE 82; RESP 16; TEMP 37; O2SAT 94
[2019-05-19 08:59] VITALS: BP 121/80; PULSE 83; RESP 18; TEMP 36.7; O2SAT 94
[2019-05-19] MEDS: DOXYCYCLINE HYCLATE 100 MG TABLET PO (09:30)
[2019-05-19] MEDS: FOLIC ACID 1 MG TABLET PO (09:30)
[2019-05-19] MEDS: ASPIRIN EC 81 MG TABLET PO (09:30)
[2019-05-19] MEDS: THIAMINE 100 MG TABLET PO (09:30)
[2019-05-19] MEDS: NYSTATIN POWDER 15GM 1 APPLIC TOP (09:32)
--- NOTE | 2019-05-19 10:31 | CM.DPC ---
DCP Discharge to Swing Per MD, pt remains stable to d/c to Swing Bed today. BIANCA provided MD and RN the report # to call at [facility] and confirmed that MD, RN, [employer] SLITTING MACHINE OPERATOR, NTL and pt aware of 1100 [facility] transport time. BIANCA called [facility] and confirmed they are scheduled to product picker pt today at 1100 and aware of the room that he is in. BIANCA faxed PASRR and d/c summ again but included scripts, med rec, pt visit report to [facility] to review. BIANCA called pt's [facility] [phone] and left ms for her on pt d/c today and facility for her to follow up with on usp care placement/housing after swing bed. Plan: Patient to d/c [facility]. LEXX Gibbons
--- NOTE | 2019-05-19 10:58 | PM.DS.1 ---
History of Present Illness History of Present Illness Date Patient Seen: 05/18/19 Chief complaint: Leg swelling Narrative: The patient is a 63-year-old male with PMH of HTN, ischemic CVA, dm 2 T, PVD, CKD II, COPD, former smoker, h/o spontaneous pneumothorax, osteoarthritis, gout, chronic pain syndrome (2/2 spinal stenosis), h/o opioid dependence, chronic marijuana use, daily EtOH use, and recurrent cellulitis. Patient presented to the ED on 05/07/2019, via EMS transfer, out of concern for bilateral lower extremity swelling. Associated symptoms include pain, erythema, and weeping. Denies trauma to the lower extremities. Denies fever and chills. Denies chest pain, palpitations, dizziness, lightheadedness, syncopal events, abdominal pain, nausea, vomiting, or diarrhea. Patient is wheelchair dependent. Reports being able to stand up and pivot. Known to have baseline right hemiplegia as a late effect of ischemic CVA. Patient was hospitalized in March of 2019 for head injury after falling out of the wheelchair. During that admission he was also treated for left lower extremity cellulitis (non-purulent). He was treated with IV vancomycin therapy with marked improvement. Wound cultures grew strep species and Pseudomonas putide, which was presumed to be a skin contaminant. MRI of the foot was negative for osteomyelitis. He was discharged home on a course of Augmentin and referred to the [facility] Care [facility]. 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 Patient has a history of prior ischemic CVA with left lower extremity residual weakness/hemiplegia. Patient is not on aspirin or a statin. Patient has minimal ambulatory ability. Known to be wheelchair dependent most of the time. Patient admits to daily alcohol consumption, 1-2 six packs of beer. Last drink on 05/06, 6 pack of beer. ETOH level on admission is 71. Denies history of EtOH withdrawal symptoms, delirium tremens, or seizures. Patient is homeless. He lives in [address] in [place]. At present time also requests help with his living situation. Discharge Providers Provider Date of admission: 05/07/19 22:09 Discharge Date: 05/18/19 Primary care physician: Chad Mendoza MD Consults: 05/07/19 19:39 Consult to Electric Distribution Checker Stat Comment: homeless 05/07/19 22:37 Consult to Dietitian, Adult Routine Comment: Reason For Exam: homeless 05/07/19 22:41 Consult to Discharge Planning Routine Comment: needs plan to get to meds & wound clinic post d/c Consult to Electric Distribution Checker Routine Comment: living situation, homeless, access to care/resourc 05/09/19 10:25 Consult to Occupational Therapy Evaluate & Treat Comment: Physician Instructions: Evaluate and treat Consult to Physical Therapy Evaluate & Treat Comment: Physician Instructions: Evaluate and Treat 05/11/19 09:30 Consult to Respiratory Therapy Evaluate & Treat Comment: Physician Instructions: Evaluate and treat Discharge provider: Raina Sands MD Summary Hospital Course Discharge Diagnosis: 63-year-old male admitted to the hospital with cellulitis and chronic skin changes of both lower extremities with chronic ulcerations of both feet. 2. Hypomagnesemia now resolved 3. Acute alcohol withdrawal now resolved 4. COPD 5. History of CVA 6. Hyponatremia, resolved 7. Homeless Hospital Course: 63-year-old male admitted to the hospital with cellulitis and chronic skin changes of both lower extremities with chronic ulcerations of both feet. Patient has been on doxycycline for over 1 week. Will need to continue current dressing changes until updated from the wound care clinic. 2. Hypomagnesemia now resolved 3. Acute alcohol withdrawal now resolved 4. COPD, chronic, continue usual inhalers 5. History of CVA 6. Hyponatremia, resolved 7. Homeless The patient's major issue has been disposition. As he is homeless it was very challenging to find a facility willing to accept him. He [place] [facility] [place]. He appealed his discharge from [employer] who up held the discharge that was completed several days ago. He has now been accepted for a swing bed admission at [facility]. Status at Discharge Cognitive/behavioral status at discharge: at baseline, oriented Functional status at discharge: wheelchair bound Overall status at discharge: patient is progressing back to baseline Time Spent with Patient Time spent: Greater than 30 minutes Exam Vital Signs (past 8 hours): - 05/18/19 08:00 Temperature 97.5 F L Pulse Rate 81 Respiratory Rate 16 Blood Pressure 111/56 L Pulse Oximetry 94 Fraction of Inspired Oxygen 21 Oxygen Delivery Method Room Air Oxygen Flow Rate 0 Narrative Exam Narrative: He is alert and oriented x3. Heart is regular rate and rhythm without murmur. He has significant pedal edema on the top of both feet with various scratches/scabs. There is no ankle edema. Objective Labs Result Diagrams: 05/17/19 20:45 05/17/19 20:45 Labs: Laboratory Results - last 24 hr 05/17/19 05/17/19 05/17/19 20:45 20:45 20:45 WBC 8.2 RBC 4.27 L Hgb 13.3 L Hct 40.1 L MCV 93.8 MCH 31.0 MCHC 33.1 RDW 14.3 Plt Count 211 Neut % (Auto) 50.8 Lymph % (Auto) 29.5 [place] % (Auto) 9.4 Eos % (Auto) 9.0 H Baso % (Auto) 1.3 Neut # (Auto) 4100 Lymph # (Auto) 2400 [place] # (Auto) 800 Eos # (Auto) 700 H Baso # (Auto) 100 Sodium 139 Potassium 4.4 Chloride 100 Carbon Dioxide 32 BUN 27 H Creatinine 0.60 L Estimated GFR > 60.0 BUN/Creatinine Ratio 45.0 H Glucose 94 Calcium 9.9 Procalcitonin < 0.05 Discharge Plan Discharge Plan Patient Disposition: SNF Other facility: [facility] swing bed Under care of provider: Hospitalist Discharge comment: You are being discharged to SNF bed at [facility]. Please follow-up with the Wound Care Clinic next week. Discharge Med Rec/Prescriptions Prescriptions: New diphenhydramine HCl [Benadryl Allergy] 25 mg tablet 25 mg PO TID PRN (Reason: itching) Qty: 10 RF: 0 Continued multivitamin [Tab-A-Sherri] Tablet 1 tab PO DAILY 30 Days Qty: 30 RF: 0 acetaminophen 325 mg Tablet 650 mg PO Q6HR PRN (Reason: As Needed For Fever/Mild Pain) 30 Days Qty: 30 RF: 0 atorvastatin [Lipitor] 20 mg Tablet 40 mg PO BEDTIME 30 Days Qty: 60 RF: 0 lisinopril 20 mg Tablet 20 mg PO DAILY 30 Days Qty: 30 RF: 0 thiamine HCl (vitamin B1) [Vitamin B-1] 100 mg Tablet 100 mg PO DAILY 30 Days Qty: 30 RF: 0 aspirin 81 mg Tablet,Delayed Release (Dr/Ec) 81 mg PO DAILY 30 Days Qty: 30 RF: 0 folic acid 1 mg Tablet 1 mg PO DAILY 30 Days Qty: 30 RF: 0 albuterol sulfate [Ventolin HFA] 90 mcg/actuation HFA aerosol inhaler 2 puff INHALATION Q6H PRN (Reason: shortness of breath or wheezing) 30 Days Qty: 8 RF: 0 Follow up/Referrals: Nura Benoit MD [Physician] - 3-5 Days (call to confirm appt. to be seen in 3-5 days. [phone] tuesdayMay 18 @1430 15min check-in, tell further notice) Chad Mendoza MD [Primary Care Provider] - 3-5 Days (call to confirm appt to be seen in 3-5 days. [phone]) Discharge Health Status Brief summary of current health status: Assessment & Plan narrative: 63-year-old male admitted to the hospital with cellulitis and chronic skin changes of both lower extremities with chronic ulcerations of both feet. Patient is now on oral antibiotics. Will continue wound care dressing and Dr. Berman from the wound Care Clinic will evaluate the patient for possible debridement of his lower extremities. Patient likely will need multiple debridements to improve the chronic skin changes and ulcerations. Will continue current dressing changes until updated from the wound care clinic. 2. Hypomagnesemia now resolved 3. Acute alcohol withdrawal now resolved 4. COPD, chronic, continue usual inhalers 5. History of CVA 6. Hyponatremia, resolved 7. Homeless Provider Discharge Instructions Diet: Diet as Tolerated, Low-fat, Low-sodium and Low-cholesterol Activity: Activity as tolerated Skin/Wound/Dressing Care Dressing: Lightly wrapped gauze dressing on foot lesions. Change daily. Visit Report/Discharge Packet Instructions: DI for Cellulitis -- Adult, Chronic Venous Insufficiency, How To Perform RICE (Rest, Ice, Compress, Elevate) Discharge Data Primary Care Provider: Chad Mendoza
--- NOTE | 2019-05-19 10:59 | PM.DS.1 ---
History of Present Illness History of Present Illness Chief complaint: Leg swelling Narrative: The patient is a 63-year-old male with PMH of HTN, ischemic CVA, dm 2 T, PVD, CKD II, COPD, former smoker, h/o spontaneous pneumothorax, osteoarthritis, gout, chronic pain syndrome (2/2 spinal stenosis), h/o opioid dependence, chronic marijuana use, daily EtOH use, and recurrent cellulitis. Patient presented to the ED on 05/07/2019, via EMS transfer, out of concern for bilateral lower extremity swelling. Associated symptoms include pain, erythema, and weeping. Denies trauma to the lower extremities. Denies fever and chills. Denies chest pain, palpitations, dizziness, lightheadedness, syncopal events, abdominal pain, nausea, vomiting, or diarrhea. Patient is wheelchair dependent. Reports being able to stand up and pivot. Known to have baseline right hemiplegia as a late effect of ischemic CVA. Patient was hospitalized in March of 2019 for head injury after falling out of the wheelchair. During that admission he was also treated for left lower extremity cellulitis (non-purulent). He was treated with IV vancomycin therapy with marked improvement. Wound cultures grew strep species and Pseudomonas putide, which was presumed to be a skin contaminant. MRI of the foot was negative for osteomyelitis. He was discharged home on a course of Augmentin and referred to the Wound Care Clinic. 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 Patient has a history of prior ischemic CVA with left lower extremity residual weakness/hemiplegia. Patient is not on aspirin or a statin. Patient has minimal ambulatory ability. Known to be wheelchair dependent most of the time. Patient admits to daily alcohol consumption, 1-2 six packs of beer. Last drink on 05/06, 6 pack of beer. ETOH level on admission is 71. Denies history of EtOH withdrawal symptoms, delirium tremens, or seizures. Patient is homeless. He lives in an alley in [place]. At present time also requests help with his living situation. Discharge Providers Provider Date of admission: 05/07/19 22:09 Discharge Date: 05/19/19 Primary care physician: Chad Mendoza MD Consults: 05/07/19 19:39 Consult to Payroll Machine Operator Stat Comment: homeless 05/07/19 22:37 Consult to Dietitian, Adult Routine Comment: Reason For Exam: homeless 05/07/19 22:41 Consult to Discharge Planning Routine Comment: needs plan to get to meds & wound clinic post d/c Consult to Payroll Machine Operator Routine Comment: living situation, homeless, access to care/resourc 05/09/19 10:25 Consult to Occupational Therapy Evaluate & Treat Comment: Physician Instructions: Evaluate and treat Consult to Physical Therapy Evaluate & Treat Comment: Physician Instructions: Evaluate and Treat 05/11/19 09:30 Consult to Respiratory Therapy Evaluate & Treat Comment: Physician Instructions: Evaluate and treat Discharge provider: Raina Sands MD Summary Hospital Course Hospital Course: See note from 05/18 and the 05/19 addendum to that note Tyrone Sands MD Exam Vital Signs (past 8 hours): - 05/19/19 05:58 05/19/19 08:59 Temperature 98.6 F 98.0 F Pulse Rate 82 83 Respiratory Rate 16 18 Blood Pressure 139/82 121/80 Pulse Oximetry 94 94 Fraction of Inspired Oxygen 21 Oxygen Delivery Method Room Air Oxygen Flow Rate 0 Objective Labs Result Diagrams: 05/17/19 20:45 05/17/19 20:45 Discharge Plan Discharge Plan Patient Disposition: SNF Other facility: [facility] swing bed Under care of provider: Hospitalist Discharge comment: You are being discharged to SNF bed at [facility]. Please follow-up with the Wound Care Clinic next week. Discharge Med Rec/Prescriptions Prescriptions: New diphenhydramine HCl [Benadryl Allergy] 25 mg tablet 25 mg PO TID PRN (Reason: itching) Qty: 10 RF: 0 Continued multivitamin [Tab-A-Sherri] Tablet 1 tab PO DAILY 30 Days Qty: 30 RF: 0 acetaminophen 325 mg Tablet 650 mg PO Q6HR PRN (Reason: As Needed For Fever/Mild Pain) 30 Days Qty: 30 RF: 0 atorvastatin [Lipitor] 20 mg Tablet 40 mg PO BEDTIME 30 Days Qty: 60 RF: 0 lisinopril 20 mg Tablet 20 mg PO DAILY 30 Days Qty: 30 RF: 0 thiamine HCl (vitamin B1) [Vitamin B-1] 100 mg Tablet 100 mg PO DAILY 30 Days Qty: 30 RF: 0 aspirin 81 mg Tablet,Delayed Release (Dr/Ec) 81 mg PO DAILY 30 Days Qty: 30 RF: 0 folic acid 1 mg Tablet 1 mg PO DAILY 30 Days Qty: 30 RF: 0 albuterol sulfate [Ventolin HFA] 90 mcg/actuation HFA aerosol inhaler 2 puff INHALATION Q6H PRN (Reason: shortness of breath or wheezing) 30 Days Qty: 8 RF: 0 Follow up/Referrals: Nura Benoit MD [Physician] - 3-5 Days (call to confirm appt. to be seen in 3-5 days. [phone] tuesdayMay 18 @1430 15min check-in, tell further notice) Chad Mendoza MD [Primary Care Provider] - 3-5 Days (call to confirm appt to be seen in 3-5 days. [phone]) Discharge Health Status Brief summary of current health status: Assessment & Plan narrative: 63-year-old male admitted to the hospital with cellulitis and chronic skin changes of both lower extremities with chronic ulcerations of both feet. Patient is now on oral antibiotics. Will continue wound care dressing and Dr. Berman from the wound Care Clinic will evaluate the patient for possible debridement of his lower extremities. Patient likely will need multiple debridements to improve the chronic skin changes and ulcerations. Will continue current dressing changes until updated from the wound care clinic. 2. Hypomagnesemia now resolved 3. Acute alcohol withdrawal now resolved 4. COPD, chronic, continue usual inhalers 5. History of CVA 6. Hyponatremia, resolved 7. Homeless Provider Discharge Instructions Diet: Diet as Tolerated, Low-fat, Low-sodium and Low-cholesterol Activity: Activity as tolerated Skin/Wound/Dressing Care Dressing: Lightly wrapped gauze dressing on foot lesions. Change daily. Visit Report/Discharge Packet Instructions: DI for Cellulitis -- Adult, Chronic Venous Insufficiency, How To Perform RICE (Rest, Ice, Compress, Elevate), How to Prevent Falls, DI for Wound Infection Discharge Data Primary Care Provider: Chad Mendoza
--- NOTE | 2019-05-19 11:11 | PC.NURSE ---
Day Shift- BLE washed with chlorahexadine per order. Bilateral foot dressings removed by physician. BLE dressings changed around 0945. Changed per wound orders. Left foot had 1 intact blister and 2 open blisters. Right foot had 2 intact blisters and 3 open blisters. Pt tolerated well. Pt's personal belongings, pt states he has all including his wallet. No IV present. Discharge summary packet given to pt and paperwork also given in discharge folder for facility. Pt left unit in no distress via wheelchair with [facility] transport at 1110. Pt pivot transferred to wheelchair. Report called to [facility] Acute care unit, spoke with SANDRA Rios at [phone].
--- NOTE | 2019-05-23 13:33 | CM.DPNOTE ---
VM from Sallie Pisano, Maury's sister, asking where had Maury gone? This [employer]NA[employer] placed call to Kimmy at [facility] P# [phone], let her know sister was trying to get a hold of Maury, Sallie's P# [phone]. Kimmy planned to relay message to Maury. JW
== END 2019-05-19 11:10 | disposition swing bed (61) | DRG 603 ==
LOC: ED 21:09 → AC 22:10
PROVIDERS: Internal Medicine; Admitting Provider Nurse Practitioner Gerontology; Emergency Provider Emergency Medicine; PCP Internal Medicine; Visit Provider Nurse Practitioner Gerontology
DX: L03.116 Cellulitis of left lower limb (principal); E87.1 Hypo-osmolality and hyponatremia; I69.354 Hemiplegia and hemiparesis following cerebral infarction affecting left non-dominant side; F10.230 Alcohol dependence with withdrawal, uncomplicated; L03.115 Cellulitis of right lower limb; Y90.3 Blood alcohol level of 60-79 mg/100 ml; Z59.0 Homelessness; E11.9 Type 2 diabetes mellitus without complications; I10 Essential (primary) hypertension; J44.9 Chronic obstructive pulmonary disease, unspecified; J98.01 Acute bronchospasm; Z87.891 Personal history of nicotine dependence; Z91.19 Patient's noncompliance with other medical treatment and regimen; F10.220 Alcohol dependence with intoxication, uncomplicated; E83.42 Hypomagnesemia; E78.5 Hyperlipidemia, unspecified; R00.0 Tachycardia, unspecified
CPT/HCPCS: 36415; 71045; 73620; 80048; 80053; 80202; 80320; 81001; 82962; 83605; 83690; 83735; 83880; 84145; 85025; 85651; 86140; 87040; 90471; 90656; 93005; 94640; 94760; 96365; 96367; 97110; 97162; 97165; 97530; 97535; 99283; 99285; J1644; J2060; J3475; Q2038